=== PATIENT | male | born 1965 | race American Indian/Alaskan Native ===

== ENCOUNTER 2019-06-26 20:24 | Inpatient (IN) | payer MEDICARE, OTHER ==
--- NOTE | 2019-06-26 23:10 | XRay Report ---
CHEST 1 VIEW INDICATION: intubated. COMPARISON: None FINDINGS: SUPPORT DEVICES: Endotracheal tubes in good position.. HEART / MEDIASTINUM: No significant abnormality. LUNGS / PLEURA: Perihilar patchy airspace changes are present with prominent bronchovascular markings . No pneumothorax. ADDITIONAL FINDINGS: IMPRESSION: 1. Bilateral pulmonary process worrisome for pneumonia Signer Name: Gunner Bajwa MD Signed: 06/26/2019 11:06 PM Workstation Name: [id number]
[2019-06-26] MEDS ORDERED: SODIUM CHLORIDE 0.9% 1000 ML IV SOLN IV ONE (23:15)
[2019-06-26 23:47] LABS: ABG Base Excess 2.7 mmol/L (-2.0-3.0); ABG HCO3 26.5 mmol/L (20.0-26.0); ABG Methemoglobin 0.5 % (0.0-1.5); ABG PCO2 37.5 mm Hg; ABG PH 7.467 pH Units (7.350-7.450); ABG PO2 106.2 mm Hg (80.0-90.0)
[2019-06-27] MEDS ORDERED: VANCOMYCIN/NS 1 GM/250 ML 1 GM/250 ML BAG IV ONE (00:01)
[2019-06-27 00:02] LABS: Hematocrit 26.5 % (35.5-45.6); Hemoglobin 8.8 gm/dl (11.8-15.2); Mean Corpuscular HGB Conc 33 % (32-34); Mean Corpuscular Volume 91 fl (84-94); Platelet Count 217 K/mm3 (140-440); Red Cell Distribution Width 13.6 % (13.2-15.2)
[2019-06-27] MEDS ORDERED: NORepinephrine/NS 4 MG-250 ML 4 MG/250 ML BAG IV ONE (00:10)
[2019-06-27 00:16] LABS: Alanine Aminotransferase 56 units/L (7-56); Albumin 2.4 g/dL (3.9-5); BUN/Creatinine Ratio 11; Blood Urea Nitrogen 12 mg/dL (9-20); Calcium 9.1 mg/dL (8.4-10.2); Hemolysis Index 5
--- NOTE | 2019-06-27 00:19 | Emergency Department Report ---
ED General Adult HPI - General Chief complaint: Dyspnea/Respdistress Stated complaint: DIFFICULTY IN BREATHING Time Seen by Provider: 06/26/19 23:09 Source: EMS Mode of arrival: Stretcher Limitations: Altered Mental Status - History of Present Illness Initial comments: 54-year-old male with a history of Lewy body dementia diagnosed in 2016 presents for shortness of breath. Patient was discharged early on the afternoon of June 26, 2019 from the [facility] after being admitted for pneumonia. Patient was intubated secondary to respiratory failure. Patient's work-up also did consist of a Kovic 19 test which was ultimately negative. Patient was noted to be dehydrated and had a sodium of 161 while at the facility as well. states that patient still was having some shortness of breath upon discharge early today when he arrived home he was not on supplemental oxygen and continued to have worsening shortness of breath and that she called EMS and patient was brought here to this facility. Patient is in [facility] hospice but states that patient is still full code and is not a DNR. According to patient has had no recent fever. - Related Data Home Medications Medication Instructions Recorded Confirmed Last Taken Donepezil 5 mg PO DAILY 12/29/17 12/29/17 12/27/17 5 mg Previous Rx's Medication Instructions Recorded Last Taken Type Cyclobenzaprine HCl [Flexeril 5 MG 5 mg PO TID PRN #21 tab 01/02/18 Unknown Rx TAB] Sulfamethoxazole/Trimethoprim 1 each PO BID #20 tablet 01/02/18 Unknown Rx [Bactrim DS TAB] Allergies Allergy/AdvReac Type Severity Reaction Status Date / Time No Known Allergies Allergy Unverified 12/28/17 16:10 ED Review of Systems ROS: Stated complaint: DIFFICULTY IN BREATHING Other details as noted in HPI Comment: Unobtainable due to pts medical conditions ED Past Medical Hx - Past Medical History Hx Hypertension: Yes Hx Congestive Heart Failure: No Hx Diabetes: No Hx Asthma: No Hx COPD: No Hx Dementia: Yes Hx HIV: No - Social History Smoking Status: Never Smoker - Medications Home Medications: Home Medications Medication Instructions Recorded Confirmed Last Taken Type Donepezil 5 mg PO DAILY 12/29/17 12/29/17 12/27/17 History 5 mg Cyclobenzaprine HCl [Flexeril 5 MG 5 mg PO TID PRN #21 tab 01/02/18 Unknown Rx TAB] Sulfamethoxazole/Trimethoprim 1 each PO BID #20 tablet 01/02/18 Unknown Rx [Bactrim DS TAB] ED Physical Exam - General Limitations: Altered Mental Status General appearance: lethargic, other (Dehydrated; frail) - Head Head exam: Present: atraumatic, normocephalic - Eye Eye exam: Present: PERRL - ENT ENT exam: Present: mucous membranes dry, other (dry secretions noted in oropharynx) - Neck Neck exam: Present: normal inspection - Respiratory Respiratory exam: Present: other (Coarse breath sounds throughout the lung) - Cardiovascular Cardiovascular Exam: Present: normal rhythm, tachycardia - GI/Abdominal GI/Abdominal exam: Present: other (PEG tube noted with no surrounding erythema) - Extremities Exam Extremities exam: Present: normal inspection - Neurological Exam Neurological exam: Present: other (Not oriented to person place or time) - Skin Skin exam: Present: dry, intact ED Course Vital Signs 06/26/19 06/26/19 06/26/19 20:30 21:48 22:01 Pulse Rate 123 H 129 H Respiratory 26 H 20 Rate Blood Pressure 138/83 116/90 O2 Sat by Pulse 96 100 99 Oximetry 06/26/19 06/26/19 06/26/19 22:15 22:19 22:31 Pulse Rate 77 95 H 114 H Respiratory 64 H 35 H 39 H Rate Blood Pressure 110/80 110/80 110/80 O2 Sat by Pulse 100 100 100 Oximetry 06/26/19 06/26/19 06/26/19 22:45 22:55 23:01 Pulse Rate 116 H 112 H 111 H Respiratory 19 6 L 23 Rate Blood Pressure 110/80 110/72 110/72 O2 Sat by Pulse 100 100 100 Oximetry 06/26/19 06/26/19 06/26/19 23:15 23:31 23:45 Pulse Rate 117 H 115 H 120 H Respiratory 20 18 18 Rate Blood Pressure 110/72 110/72 110/72 O2 Sat by Pulse 100 100 100 Oximetry 06/27/19 06/27/19 00:00 00:15 Pulse Rate 112 H 108 H Respiratory 18 30 H Rate Blood Pressure 74/50 84/56 O2 Sat by Pulse 100 100 Oximetry - Central Line Placement Right Femoral Consent Obtained: emergent situation Time Out Performed: Yes Patient Placed on Monitor/Pulse Ox: Yes Prep: mask, gown, gloves Central Line Prep: Chlorhexidine scrub Local Anesthesia Used: Lidocaine 1% Ultrasound Used for Placement: Yes Central Line Lumen Inserted: triple Bloods Obtained for Lab: Yes Central Line Position: good blood return, all ports aspirated, flus, sutured in place with 3-0 Dressing Applied: Tegaderm Post Procedure X-Ray: tip of catheter in good p - Intubation Time Out Performed: Yes Sedative: Etomidate Mg Given: 20 Paralytic: Succinylcholine Mg Given: 100 Laryngoscope: other (Glideoscope) ET Tube Size: 8 Tube Placement Confirmation: visualized tube passing t Patient Tolerated Procedure: well ED Medical Decision Making - Lab Data Result diagrams: 06/26/19 23:31 06/26/19 23:31 - EKG Data EKG shows normal: sinus rhythm Rate: tachycardia - EKG Data Interpretation: no acute changes - Medical Decision Making Patient to be admitted to the hospitalist service for continued management and treatment. Patient noted to have pneumonia bilaterally. Patient had recent coronavirus test which was negative. Patient discussed with and patient to be intubated as she states she still wants him to be a full code. Patient intubated while in emergency department. Patient also given Zosyn and Vancomycin therapy for treatment of his pneumonia noted on chest x-ray. - Differential Diagnosis stemi; nstemi; dEHYDRATION; anemia; Hypernatremia; Pneumonia Critical Care Time: Yes Critical care time in (mins) excluding proc time.: 47 Critical care attestation.: If time is entered above; I have spent that time in minutes in the direct care of this critically ill patient, excluding procedure time. ED Disposition Clinical Impression: Pneumonia, Hypernatremia, Hypotension, Altered mental state Clinical Impression: (Ruled Out): Pneumonia allergic Disposition: OP ADMIT IP TO THIS HOSP Is pt being admited?: Yes Condition: Stable Instructions: Bacterial Pneumonia (ED) Referrals: PRIMARY CARE, [Primary Care Provider] - 3-5 Days Time of Disposition: 00:50 Print Language: SAMI
[2019-06-27] MEDS ORDERED: NORepinephrine/NS 4 MG-250 ML 4 MG/250 ML BAG IV SCH (01:00)
[2019-06-27] MEDS ORDERED: MAGNESIUM HYDROXIDE (MOM) ORAL LIQD UDC PO PRN (02:51)
--- NOTE | 2019-06-27 04:25 | History and Physical Report ---
History of Present Illness Date of examination: 06/27/19 Date of admission: 06/27/19 00:51 Chief complaint: Difficulty Breathing History of present illness: 54-year-old -[place] male with known history of Lewy body dementia brought into the emergency room today with complaints of difficulty breathing. Was recently admitted to [place] in the [facility] and discharged earlier today however upon getting home patient was having difficulty breathing. He was on admission for pneumonia and hyponatremia. He had a sodium of 161 while at the [facility]. called EMS and patient later brought to the emergency room. Oxygen saturation on arrival was in the 80s Work-up in the ER reveals bilateral pneumonia. He was started on empiric IV antibiotics.He was also started on Levophed for for his hypotension. Patient was said to be on hospice however requests patient to be full code Past History Past Medical History: other (Dementia) Past Surgical History: Other (Peg tube placement) Social history: no significant social history Medications and Allergies Allergies Allergy/AdvReac Type Severity Reaction Status Date / Time No Known Allergies Allergy Unverified 12/28/17 16:10 Home Medications Medication Instructions Recorded Confirmed Last Taken Type Donepezil 5 mg PO DAILY 12/29/17 12/29/17 12/27/17 History 5 mg Cyclobenzaprine HCl [Flexeril 5 MG 5 mg PO TID PRN #21 tab 01/02/18 Unknown Rx TAB] Sulfamethoxazole/Trimethoprim 1 each PO BID #20 tablet 01/02/18 Unknown Rx [Bactrim DS TAB] Active Meds: Active Medications Norepinephrine (Levophed Drip 4 Mg/Ns 250 Ml) 4 mg in 250 mls @ 7.5 mls/hr IV TITR LADY; Protocol Last Admin: 06/27/19 00:15 Dose: 2 mcg/min, 7.5 mls/hr Documented by: Dextrose/Sodium Chloride (D5/0.45ns) 1,000 mls @ 125 mls/hr IV DIRECT LADY Magnesium Hydroxide (Milk Of Magnesia) 30 ml PO Q4H PRN PRN Reason: Constipation Morphine Sulfate (Morphine) 2 mg IV Q4H PRN PRN Reason: Pain, Moderate (4-6) Sodium Chloride (Sodium Chloride Flush Syringe 10 Ml) 10 ml IV BID LADY Sodium Chloride (Sodium Chloride Flush Syringe 10 Ml) 10 ml IV PRN PRN PRN Reason: LINE FLUSH Review of Systems ROS unobtainable: due to endotracheal tube Exam - Constitutional Vitals: Temp Pulse Resp BP Pulse Ox 105 H 16 89/56 100 06/27/19 03:45 06/27/19 03:45 06/27/19 03:45 06/27/19 03:45 General appearance: Present: no acute distress, disheveled - EENT Eyes: Present: PERRL, EOM intact ENT: clear oral mucosa, dentition normal - Neck Neck: Present: supple, normal ROM - Respiratory Respiratory effort: normal Respiratory: bilateral: diminished - Cardiovascular Rhythm: regular Heart Sounds: Present: S1 & S2 - Extremities Extremities: no ischemia, No edema - Abdominal General gastrointestinal: Present: soft, non-tender, non-distended, other (PEG tube in place) - Integumentary Integumentary: Present: clear, warm, dry - Musculoskeletal Musculoskeletal: strength equal bilaterally - Psychiatric Psychiatric: appropriate mood/affect, intact judgment & insight, cooperative - Neurologic Neurologic: CNII-XII intact Results - Labs CBC & Chem 7: 06/26/19 23:31 06/26/19 23:31 Labs: Abnormal lab results 06/26/19 06/26/19 06/26/19 Range/Units 22:56 23:31 23:31 RBC 2.90 L (3.65-5.03) M/mm3 Hgb 8.8 L (11.8-15.2) gm/dl Hct 26.5 L (35.5-45.6) % ABG pH 7.467 H (7.350-7.450) pH Units ABG pO2 106.2 H (80.0-90.0) mm Hg ABG HCO3 26.5 H (20.0-26.0) mmol/L ABG Hemoglobin 9.6 L (14.0-18.0) gm/dl Sodium 150 H (137-145) mmol/L Chloride 111.7 H (98-107) mmol/L Lactic Acid (0.7-2.0) mmol/L AST 53 H (5-40) units/L Total Creatine Kinase (55-170) units/L Total Protein 6.2 L (6.3-8.2) g/dL Albumin 2.4 L (3.9-5) g/dL 06/26/19 06/26/19 Range/Units 23:31 23:31 RBC (3.65-5.03) M/mm3 Hgb (11.8-15.2) gm/dl Hct (35.5-45.6) % ABG pH (7.350-7.450) pH Units ABG pO2 (80.0-90.0) mm Hg ABG HCO3 (20.0-26.0) mmol/L ABG Hemoglobin (14.0-18.0) gm/dl Sodium (137-145) mmol/L Chloride (98-107) mmol/L Lactic Acid 2.20 H* (0.7-2.0) mmol/L AST (5-40) units/L Total Creatine Kinase 300 H (55-170) units/L Total Protein (6.3-8.2) g/dL Albumin (3.9-5) g/dL Assessment and Plan - Patient Problems (1) Pneumonia Current Visit: Yes Status: Acute Plan to address problem: Patient placed on empiric IV antibiotics. He has also been intubated secondary to his respiratory failure We will request records from [facility]. (2) Altered mental state Current Visit: Yes Status: Acute Plan to address problem: Possibly secondary to the pneumonia. (3) Hypernatremia Current Visit: Yes Status: Acute Plan to address problem: Patient placed on IV fluid D5 half-normal saline. Will monitor chemistry. (4) Dementia Current Visit: No Status: Chronic Qualifiers: Dementia type: Lewy body dementia Plan to address problem: We will resume routine home medications once patient able to tolerate p.o. intake (5) DVT prophylaxis Current Visit: No Status: Acute Plan to address problem: Patient on subcutaneous heparin (6) Full code status Current Visit: Yes Status: Acute
[2019-06-27 04:50] LABS: ABG Base Excess 0.4 mmol/L (-2.0-3.0); ABG HCO3 24.5 mmol/L (20.0-26.0); ABG Methemoglobin 0.4 % (0.0-1.5); ABG Oxygen Saturation 98.4 % (95.0-99.0); ABG PCO2 36.7 mm Hg; ABG PH 7.442 pH Units (7.350-7.450); ABG PO2 120.3 mm Hg (80.0-90.0)
[2019-06-27] MEDS ORDERED: ETOMIDATE 20 MG/10 ML INJ IV ONE (04:55)
[2019-06-27] MEDS ORDERED: SUCCINYLCHOLINE CHLORIDE 200 MG/10 ML INJ MDV ONE (04:55)
--- NOTE | 2019-06-27 06:20 | XRay Report ---
CHEST 1 VIEW INDICATION: ETT placement. COMPARISON: FINDINGS: SUPPORT DEVICES: Endotracheal tubes in good position.. Nasogastric tube has tip in the stomach. HEART / MEDIASTINUM: No significant abnormality. LUNGS / PLEURA: Perihilar patchy airspace changes are present with prominent bronchovascular markings . No pneumothorax. IMPRESSION 1. No significant change as compared to previous exam Signer Name: Gunner Bajwa MD Signed: 06/27/2019 6:16 AM Workstation Name: [id number]
[2019-06-27] MEDS ORDERED: D5W/0.45% NACL 1,000 ML IV ONE (07:45)
[2019-06-27] MEDS ORDERED: HEPARIN 5,000 UNIT/1 ML VIAL ONE (08:02)
[2019-06-27] MEDS: D5W/0.45% NACL 1,000 ML IV SCH ×2 (08:13→18:07)
[2019-06-27] MEDS: HEPARIN 5,000 UNIT/1 ML VIAL SUB-Q SCH ×3 (08:19→21:56)
--- NOTE | 2019-06-27 09:10 | Consultation ---
History of Present Illness Consult date: 06/27/19 Requesting physician: CHANTAL HERNANDEZ History of present illness: HISTORY PER MEDICAL RECORDS- PATIENT IS UNABLE TO GIVE A HISTORY- HE IS ORALLY INTUBATED AND SEDATED 54-year-old -[place] male with known history of Lewy body dementia brought into the emergency room today with complaints of difficulty breathing. Was recently admitted to [place] in the [facility] and discharged earlier today however upon getting home patient was having difficulty breathing. He was on admission for pneumonia and hyponatremia. He had a sodium of 161 while at the [facility]. called EMS and patient later brought to the emergency room. Oxygen saturation on arrival was in the 80s Work-up in the ER reveals bilateral pneumonia. He was started on empiric IV antibiotics.He was also started on Levophed for for his hypotension. Patient was said to be on hospice however requests patient to be full code. I have been consulted for critical care management. Patient seen and examined. Vitals, labs, medications, chart and imaging reviewed. Orally intubated, ETT at 23 cm at the lip, he has a right femoral CVC, with norepinephrine and propofol infusing. He is minimal responsive - Past Medical History Hx Hypertension: Yes Hx Congestive Heart Failure: No Hx Diabetes: No Hx Asthma: No Hx COPD: No Hx Dementia: Yes Hx HIV: No - Social History Smoking Status: Never Smoker Past History Past Medical History: other (Dementia) Past Surgical History: Other (Peg tube placement) Social history: no significant social history Medications and Allergies Allergies Allergy/AdvReac Type Severity Reaction Status Date / Time No Known Allergies Allergy Unverified 12/28/17 16:10 Home Medications Medication Instructions Recorded Confirmed Last Taken Type Donepezil 5 mg PO DAILY 12/29/17 06/27/19 12/27/17 History 5 mg Cyclobenzaprine HCl [Flexeril 5 MG 5 mg PO TID PRN #21 tab 01/02/18 06/27/19 Unknown Rx TAB] Sulfamethoxazole/Trimethoprim 1 each PO BID #20 tablet 01/02/18 06/27/19 Unknown Rx [Bactrim DS TAB] Active Meds: Active Medications Heparin Sodium (Porcine) (Heparin) 5,000 unit SUB-Q Q8HR LADY Last Admin: 06/27/19 08:19 Dose: 5,000 unit Documented by: Norepinephrine (Levophed Drip 4 Mg/Ns 250 Ml) 4 mg in 250 mls @ 7.5 mls/hr IV TITR LADY; Protocol Last Titration: 06/27/19 05:00 Dose: 3 mcg/min, 11.25 mls/hr Documented by: Dextrose/Sodium Chloride (D5/0.45ns) 1,000 mls @ 125 mls/hr IV DIRECT LADY Last Admin: 06/27/19 08:13 Dose: 125 mls/hr Documented by: Propofol (Diprivan 10 Mg/Ml) 1,000 mg in 100 mls @ 1.497 mls/hr IV TITR LADY; Protocol Last Titration: 06/27/19 07:00 Dose: 20 mcg/kg/min, 5.987 mls/hr Documented by: Magnesium Hydroxide (Milk Of Magnesia) 30 ml PO Q4H PRN PRN Reason: Constipation Morphine Sulfate (Morphine) 2 mg IV Q4H PRN PRN Reason: Pain, Moderate (4-6) Sodium Chloride (Sodium Chloride Flush Syringe 10 Ml) 10 ml IV BID LADY Sodium Chloride (Sodium Chloride Flush Syringe 10 Ml) 10 ml IV PRN PRN PRN Reason: LINE FLUSH Review of Systems ROS unobtainable: due to endotracheal tube, due to mental status Physical Examination Vital signs: Vital Signs Pulse Resp BP Pulse Ox 123 H 26 H 138/83 96 06/26/19 20:30 06/26/19 20:30 06/26/19 20:30 06/26/19 20:30 General appearance: no acute distress, other (sedated, orally intubated) ENT: oropharynx dry, other (ETT at 23cm at the lip) Neck: supple, no lymphadenopathy, no JVD Effort: mildly labored Ascultation: Bilateral: diminished breath sounds, rhonchi Cardiovascular: regular rate and rhythm (tachycardia), other (S1,S2, no murmurs, gallops) Gastrointestinal: normoactive bowel sounds, soft, non-tender, non-distended, other (PEG in place) Integumentary: decubitus ulcer (Stage 2) Extremities: no cyanosis, no edema, pulses normal, no ischemia or petechiae unable to assess other (secondary to mental status) Results - Laboratory Findings CBC and BMP: 06/28/19 04:05 06/28/19 04:05 ABG ABG pH 7.442 pH Units (7.350-7.450) 06/27/19 04:35 ABG pCO2 36.7 mm Hg 06/27/19 04:35 ABG pO2 120.3 mm Hg (80.0-90.0) H 06/27/19 04:35 ABG O2 Saturation 98.4 % (95.0-99.0) 06/27/19 04:35 Abnormal lab findings: Abnormal Labs 06/26/19 06/26/19 06/26/19 22:56 23:31 23:31 RBC 2.90 L Hgb 8.8 L Hct 26.5 L ABG pH 7.467 H ABG pO2 106.2 H ABG HCO3 26.5 H ABG Hemoglobin 9.6 L Sodium 150 H Chloride 111.7 H Lactic Acid AST 53 H Total Creatine Kinase Total Protein 6.2 L Albumin 2.4 L 06/26/19 06/26/19 06/27/19 23:31 23:31 04:35 RBC Hgb Hct ABG pH ABG pO2 120.3 H ABG HCO3 ABG Hemoglobin 7.4 L Sodium Chloride Lactic Acid 2.20 H* AST Total Creatine Kinase 300 H Total Protein Albumin - Diagnostic Findings Chest x-ray: image reviewed (Bilateral alveolar infiltrates, more prominent on the right) Assessment and Plan Severe sepsis with septic shock presumed pulmonary source HAP Acute hypoxemic respiratory failure, orally intubated on MVS PUI-COVID 19 Oropharyngeal dysphagia s/p PEG Possible aspiration PNA Lactic acidosis Hypernatremia Severe protein calorie malnutrition Acute metabolic encephalopathy h/o Lewy body dementia -Wean vasopressor support for MAP>65 -Continue with MVS, Lung protective strategies, monitor airway pressures -VAP bundle addressed -Aspiration precautions, HOB>40 -Daily assessment for readiness for SBT, Daily SAT -Titrate sedation for RAAS -1 to -2 -VTE prophylaxis -Stress ulcer prophylaxis - Initiate enteric nutrition in the morning Monitor glycemic control, with target blood glucose 140-180 mg/dL while critically ill. Avoid hypoglycemia -RD consult placed - Wean supplemental oxygen for target O2 sat's > 90% -ABG and CXR in am -Follow cultures and adjust antibiotic therapy for KORIN and culture results -Currently on therapy for HAP -Avoid nephrotoxins, adjust all medications for GFR and CrCL - continue bronchodilators with pulmonary hygiene per RT - continue to avoid benzodiazepines to reduce the possibility of delirium - prn analgesia per CPOT score - Maintenance of sleep-wake cycle, avoid delirium - PT/OT/ROM exercises - continue mobility protocol and skin assessment per protocol for pressure ulcer prevention - Monitor hemodynamics closely -Martinez cather in this critically ill patient on vasopressor support, requiring strict intake and output monitoring. Will re-address need for ongoing Martinez catheter use in the morning. -Place PICC line inthe morning and discontinue femoral line -Free water flushes and hypotonic solutions to treat hypernatremia -Contact and airborne isolation for PUI COVID-19 -Mobility, off loading and skin assessment per protocol to prevent pressure ulcer- Wound consult placed( he has a stage 2 sacral decubitus on exam) -Chronic home medications as clinically indicated - continue other care per attending / other consultants CONDITION: CRITICAL PROGNOSIS: GUARDED CODE STATUS: FULL CODE The high probability of a clinically significant, sudden or life-threatening deterioration of the [respiratory, cardiovascular, renal] system(s) required my full and direct attention, intervention and personal management. The aggregate critical care time was [35] minutes without overlap. Time includes spent on; [x] Data Review and interpretation [x] Patient assessment and monitoring of vital signs [x] Documentation [x] Medication orders and management
[2019-06-27] MEDS ORDERED: VANCOMYCIN PHARMACY TO DOSE IV SCH (11:00)
[2019-06-27] MEDS: FAMOTIDINE 20 MG/2 ML INJ IV SCH ×2 (11:30→21:40)
[2019-06-27] MEDS: CEFEPIME/NS 1 GM/100 ML 1 GM/100 ML BAG IV SCH ×2 (11:30→18:07)
--- NOTE | 2019-06-27 16:41 | Event Note ---
Date: 06/27/19 This is a follow-up from an admission earlier this morning.Patient seen and examined.We will continue to plan as outlined in the H&P. total visit time = 28 minutes with greater than 50% spent all coordination of care and counseling
[2019-06-27] MEDS: VANCOMYCIN/NS 1 GM/250 ML 1 GM/250 ML BAG IV SCH (21:20)
[2019-06-27] MEDS: fentaNYL DRIP Premix 2,000 MCG/100 ML BAG IV SCH (21:20)
[2019-06-28] MEDS: CEFEPIME/NS 1 GM/100 ML 1 GM/100 ML BAG IV SCH ×3 (03:20→18:26)
[2019-06-28 04:02] LABS: ABG Base Excess 1.4 mmol/L (-2.0-3.0); ABG HCO3 25.3 mmol/L (20.0-26.0); ABG Methemoglobin 0.5 % (0.0-1.5); ABG Oxygen Saturation 98.9 % (95.0-99.0); ABG PCO2 36.6 mm Hg; ABG PH 7.457 pH Units (7.350-7.450); ABG PO2 152.6 mm Hg (80.0-90.0)
[2019-06-28] MEDS: D5W/0.45% NACL 1,000 ML IV SCH ×3 (04:04→23:00)
[2019-06-28 04:42] LABS: Basophils % (Auto) 0.6 % (0.0-1.8); Eosinophils # (Auto) 0.3 K/mm3 (0.0-0.4); Eosinophils % (Auto) 3.4 % (0.0-4.3); Hematocrit 23.9 % (35.5-45.6); Hemoglobin 7.8 gm/dl (11.8-15.2); Lymphocytes # (Auto) 1.4 K/mm3 (1.2-5.4); Lymphocytes % (Auto) 17.5 % (13.4-35.0); Mean Corpuscular HGB Conc 33 % (32-34); Mean Corpuscular Volume 91 fl (84-94); Monocytes # (Auto) 0.7 K/mm3 (0.0-0.8); Monocytes % (Auto) 8.6 % (0.0-7.3); Platelet Count 239 K/mm3 (140-440); Red Blood Count 2.65 M/mm3 (3.65-5.03); Red Cell Distribution Width 13.6 % (13.2-15.2)
[2019-06-28 04:50] LABS: INR 1.21 (0.87-1.13)
[2019-06-28 04:51] LABS: Partial Thromboplastin Time 36.7 Sec. (24.2-36.6)
[2019-06-28 05:00] LABS: BUN/Creatinine Ratio 9; Blood Urea Nitrogen 10 mg/dL (9-20); Calcium 8.3 mg/dL (8.4-10.2); Hemolysis Index 0
--- NOTE | 2019-06-28 05:52 | XRay Report ---
CHEST 1 VIEW INDICATION: follow up respiratory failure. COMPARISON: 06/27/2019 FINDINGS: SUPPORT DEVICES: Endotracheal tubes in good position and nasogastric been removed. HEART / MEDIASTINUM: No significant abnormality. LUNGS / PLEURA: Perihilar-infrahilar patchy airspace changes are present with prominent bronchovascul ar markings. No pneumothorax. IMPRESSION 1. No significant change as compared to previous exam Signer Name: Gunner Bajwa MD Signed: 06/28/2019 5:47 AM Workstation Name: [id number]
[2019-06-28] MEDS: HEPARIN 5,000 UNIT/1 ML VIAL SUB-Q SCH ×3 (06:02→22:54)
[2019-06-28] MEDS ORDERED: POTASSIUM CHLORIDE 20 MEQ PACKET FEEDTUBE ONE (06:15)
--- NOTE | 2019-06-28 09:57 | Progress Note ---
Assessment and Plan Severe sepsis with septic shock presumed pulmonary source HAP Acute hypoxemic respiratory failure, orally intubated on MVS PUI-COVID 19 Oropharyngeal dysphagia s/p PEG Possible aspiration PNA Lactic acidosis Hypernatremia Severe protein calorie malnutrition Acute metabolic encephalopathy h/o Lewy body dementia Decrease tidal volume to 400 Initiate enteric nutrition in the morning Monitor glycemic control, with target blood glucose 140-180 mg/dL while critically ill. Avoid hypoglycemia Bowel regimen Remove ramirez catheter Continue Vancomycin and Cefepime for HAP Monitor for toxicities Start free water at 200ml Q6h, hypotonic solutions for treatment of hypernatremia. Monitor levels Discontinue Ramirez catheter Place PICC line and discontinue femoral CVC -Continue with MVS, Lung protective strategies, monitor airway pressures -Aspiration precautions, HOB>40 -Daily assessment for readiness for SBT, Daily SAT -Titrate sedation for RAAS -1 to -2 -VTE prophylaxis -Stress ulcer prophylaxis - Wean supplemental oxygen for target O2 sat's > 90% -ABG and CXR in am -Follow cultures and adjust antibiotic therapy for KORIN and culture results -Currently on therapy for HAP -Avoid nephrotoxins, adjust all medications for GFR and CrCL - continue bronchodilators with pulmonary hygiene per RT - continue to avoid benzodiazepines to reduce the possibility of delirium - prn analgesia per CPOT score - Maintenance of sleep-wake cycle, avoid delirium - PT/OT/ROM exercises - continue mobility protocol and skin assessment per protocol for pressure ulcer prevention - Monitor hemodynamics closely -Contact and airborne isolation for PUI COVID-19 -Mobility, off loading and skin assessment per protocol to prevent pressure ulcer- Wound consult placed( he has a stage 2 sacral decubitus on exam) -Chronic home medications as clinically indicated - continue other care per attending / other consultants Called his [place] [phone], her voice mail is full. I was unable to contact her to give her an update CONDITION: CRITICAL PROGNOSIS: GUARDED CODE STATUS: FULL CODE The high probability of a clinically significant, sudden or life-threatening deterioration of the [respiratory, cardiovascular, renal] system(s) required my full and direct attention, intervention and personal management. The aggregate critical care time was [35] minutes without overlap. Time includes spent on; [x] Data Review and interpretation [x] Patient assessment and monitoring of vital signs [x] Documentation [x] Medication orders and management Subjective Date of service: 06/28/19 Interval history: Follow up for: Severe sepsis with septic shock presumed pulmonary source;HAP;Acute hypoxemic respiratory failure, orally intubated on MVS PUI-COVID 19;Oropharyngeal dysphagia s/p PEG;Possible aspiration PNA;Lactic acidosis;Hypernatremia;Severe protein calorie malnutrition;Acute metabolic encephalopathy Patient seen and examined. Vitals, labs, medications, chart and imaging reviewed. 24 hour events reviewed. No adverse overnight events reported Remains orally intubated Size 8.0 ETT at 22cm Vent settings AC-VC 16/500/6/50% ABG 7.45/36/152/25.3 On IVF at 125cc/hour Objective Vital Signs - 12hr 06/27/19 06/27/19 06/27/19 22:00 22:11 22:21 Temperature Pulse Rate 129 H 127 H 126 H Pulse Rate [ Apical] Pulse Rate [ From Monitor] Respiratory 16 16 19 Rate Blood Pressure 96/57 96/57 101/68 O2 Sat by Pulse 100 100 100 Oximetry 06/27/19 06/27/19 06/27/19 22:30 22:41 22:51 Temperature Pulse Rate 126 H 130 H 125 H Pulse Rate [ Apical] Pulse Rate [ From Monitor] Respiratory 17 16 16 Rate Blood Pressure 100/68 89/59 106/71 O2 Sat by Pulse 100 100 100 Oximetry 06/27/19 06/27/19 06/27/19 23:00 23:11 23:21 Temperature Pulse Rate 128 H 124 H 125 H Pulse Rate [ Apical] Pulse Rate [ From Monitor] Respiratory 16 16 16 Rate Blood Pressure 105/72 105/72 110/68 O2 Sat by Pulse 100 100 100 Oximetry 06/27/19 06/27/19 06/27/19 23:30 23:39 23:40 Temperature 98.1 F Pulse Rate 124 H 94 H Pulse Rate [ Apical] Pulse Rate [ From Monitor] Respiratory 16 Rate Blood Pressure 106/78 137/97 O2 Sat by Pulse 100 100 Oximetry 06/27/19 06/27/19 06/27/19 23:41 23:50 23:51 Temperature Pulse Rate 122 H 120 H 120 H Pulse Rate [ 122 H Apical] Pulse Rate [ 122 H From Monitor] Respiratory 18 17 17 Rate Blood Pressure 106/78 106/74 O2 Sat by Pulse 100 100 100 Oximetry 06/28/19 06/28/19 06/28/19 00:00 00:05 00:11 Temperature Pulse Rate 125 H 124 H 121 H Pulse Rate [ Apical] Pulse Rate [ From Monitor] Respiratory 16 16 16 Rate Blood Pressure 93/60 93/60 93/60 O2 Sat by Pulse 99 99 99 Oximetry 20/20 2020 06/28/19 00:21 00:30 00:41 Temperature Pulse Rate 121 H 118 H 114 H Pulse Rate [ Apical] Pulse Rate [ From Monitor] Respiratory 16 16 16 Rate Blood Pressure 85/57 85/52 85/52 O2 Sat by Pulse 99 99 99 Oximetry 06/28/19 06/28/19 06/28/19 00:51 01:00 01:11 Temperature Pulse Rate 111 H 107 H 109 H Pulse Rate [ Apical] Pulse Rate [ From Monitor] Respiratory 16 16 16 Rate Blood Pressure 89/56 91/58 91/58 O2 Sat by Pulse 100 100 100 Oximetry 06/28/19 06/28/19 06/28/19 01:20 01:21 01:30 Temperature Pulse Rate 109 H 109 H 107 H Pulse Rate [ 109 H Apical] Pulse Rate [ 109 H From Monitor] Respiratory 17 16 16 Rate Blood Pressure 102/62 107/68 O2 Sat by Pulse 100 100 100 Oximetry 06/28/19 06/28/19 06/28/19 01:41 01:51 02:00 Temperature Pulse Rate 104 H 109 H 107 H Pulse Rate [ Apical] Pulse Rate [ From Monitor] Respiratory 16 16 16 Rate Blood Pressure 107/68 105/67 109/64 O2 Sat by Pulse 100 100 100 Oximetry 06/28/19 06/28/19 06/28/19 02:11 02:21 02:30 Temperature Pulse Rate 107 H 107 H 105 H Pulse Rate [ Apical] Pulse Rate [ From Monitor] Respiratory 16 16 16 Rate Blood Pressure 109/64 109/66 99/62 O2 Sat by Pulse 100 100 100 Oximetry 2020/20 2020 02:41 02:51 03:00 Temperature Pulse Rate 108 H 107 H 105 H Pulse Rate [ Apical] Pulse Rate [ From Monitor] Respiratory 16 16 16 Rate Blood Pressure 99/62 106/60 95/58 O2 Sat by Pulse 100 100 100 Oximetry 06/28/192020 2020 03:11 03:21 03:24 Temperature 98.2 F Pulse Rate 102 H 111 H Pulse Rate [ Apical] Pulse Rate [ From Monitor] Respiratory 16 12 Rate Blood Pressure 95/58 104/65 O2 Sat by Pulse 100 100 Oximetry 06/28/1920 06/28/19 03:30 03:41 03:50 Temperature Pulse Rate 103 H 110 H Pulse Rate [ 109 H Apical] Pulse Rate [ 109 H From Monitor] Respiratory 16 14 17 Rate Blood Pressure 97/62 104/65 O2 Sat by Pulse 100 100 100 Oximetry 06/28/19 06/28/19 06/28/19 03:51 03:54 04:00 Temperature Pulse Rate 101 H 96 H 95 H Pulse Rate [ Apical] Pulse Rate [ From Monitor] Respiratory 16 4 L 16 Rate Blood Pressure 103/55 137/94 92/58 O2 Sat by Pulse 100 100 100 Oximetry 06/28/1920 06/28/19 04:11 04:21 04:31 Temperature Pulse Rate 90 83 88 Pulse Rate [ Apical] Pulse Rate [ From Monitor] Respiratory 16 16 12 Rate Blood Pressure 97/62 83/58 90/66 O2 Sat by Pulse 100 100 100 Oximetry 06/28/19 06/28/19 06/28/19 04:41 04:51 05:00 Temperature Pulse Rate 87 84 83 Pulse Rate [ Apical] Pulse Rate [ From Monitor] Respiratory 16 16 16 Rate Blood Pressure 90/66 91/59 86/56 O2 Sat by Pulse 100 100 100 Oximetry 06/28/19 06/28/1920 05:11 05:21 05:30 Temperature Pulse Rate 81 72 88 Pulse Rate [ Apical] Pulse Rate [ From Monitor] Respiratory 16 16 17 Rate Blood Pressure 86/56 94/61 110/65 O2 Sat by Pulse 100 100 100 Oximetry 20 06/27/20 20 05:41 05:51 06:00 Temperature Pulse Rate 71 79 74 Pulse Rate [ Apical] Pulse Rate [ From Monitor] Respiratory 16 16 16 Rate Blood Pressure 110/65 98/66 95/63 O2 Sat by Pulse 100 100 100 Oximetry 20/20 20/20 20 06:11 06:21 06:30 Temperature Pulse Rate 82 77 84 Pulse Rate [ Apical] Pulse Rate [ From Monitor] Respiratory 16 16 17 Rate Blood Pressure 95/63 88/60 94/64 O2 Sat by Pulse 100 100 100 Oximetry 06/28/19 06/28/19 06/28/19 06:41 06:51 07:00 Temperature Pulse Rate 83 79 80 Pulse Rate [ Apical] Pulse Rate [ From Monitor] Respiratory 16 16 16 Rate Blood Pressure 94/64 101/63 103/66 O2 Sat by Pulse 100 100 100 Oximetry 06/28/19 06/28/19 06/28/19 07:11 07:21 07:30 Temperature Pulse Rate 77 79 80 Pulse Rate [ Apical] Pulse Rate [ From Monitor] Respiratory 16 16 16 Rate Blood Pressure 103/66 100/68 100/72 O2 Sat by Pulse 100 100 100 Oximetry 06/28/19 06/28/19 06/28/19 07:41 07:51 08:00 Temperature 96.8 F L Pulse Rate 77 75 75 Pulse Rate [ Apical] Pulse Rate [ 75 From Monitor] Respiratory 16 16 16 Rate Blood Pressure 100/72 105/71 103/71 O2 Sat by Pulse 100 100 100 Oximetry 06/28/19 06/28/19 08:11 08:21 Temperature Pulse Rate 78 86 Pulse Rate [ Apical] Pulse Rate [ From Monitor] Respiratory 16 15 Rate Blood Pressure 103/71 105/72 O2 Sat by Pulse 100 100 Oximetry Constitutional: no acute distress, other (sedated, orally intubated) ENT: oropharynx dry, other (ETT at 23cm at the lip) Neck: supple, no lymphadenopathy, no JVD Effort: mildly labored Ascultation: Bilateral: diminished breath sounds, rhonchi Cardiovascular: regular rate and rhythm (tachycardia), other (S1,S2, no murmurs, gallops) Gastrointestinal: normoactive bowel sounds, soft, non-tender, non-distended, other (PEG in place) Integumentary: decubitus ulcer (Stage 2) Extremities: no cyanosis, no edema, pulses normal, no ischemia or petechiae Neurologic: unable to assess Psychiatric: other (secondary to mental status) CBC and BMP: 06/28/19 04:05 06/28/19 04:05 ABG, PT/INR, D-dimer: ABG ABG pH 7.457 pH Units (7.350-7.450) H 06/28/19 03:45 ABG pCO2 36.6 mm Hg 06/28/19 03:45 ABG pO2 152.6 mm Hg (80.0-90.0) H 06/28/19 03:45 ABG O2 Saturation 98.9 % (95.0-99.0) 06/28/19 03:45 PT/INR, D-dimer PT 15.5 Sec. (12.2-14.9) H 06/28/19 04:05 INR 1.21 (0.87-1.13) H 06/28/19 04:05 Abnormal lab findings: Abnormal Labs 06/26/19 06/26/19 06/26/19 22:56 23:31 23:31 RBC 2.90 L Hgb 8.8 L Hct 26.5 L [place] % (Auto) PT INR APTT ABG pH 7.467 H ABG pO2 106.2 H ABG HCO3 26.5 H ABG Hemoglobin 9.6 L Sodium 150 H Potassium Chloride 111.7 H Glucose POC Glucose Lactic Acid Calcium AST 53 H Total Creatine Kinase Total Protein 6.2 L Albumin 2.4 L 06/26/19 06/26/19 06/27/19 23:31 23:31 04:35 RBC Hgb Hct [place] % (Auto) PT INR APTT ABG pH ABG pO2 120.3 H ABG HCO3 ABG Hemoglobin 7.4 L Sodium Potassium Chloride Glucose POC Glucose Lactic Acid 2.20 H* Calcium AST Total Creatine Kinase 300 H Total Protein Albumin 06/27/19 06/27/19 06/28/19 08:53 12:37 03:45 RBC Hgb Hct [place] % (Auto) PT INR APTT ABG pH 7.457 H ABG pO2 152.6 H ABG HCO3 ABG Hemoglobin 8.4 L Sodium Potassium Chloride Glucose POC Glucose 108 H 125 H Lactic Acid Calcium AST Total Creatine Kinase Total Protein Albumin 06/28/19 06/28/19 06/28/19 04:05 04:05 04:05 RBC 2.65 L Hgb 7.8 L Hct 23.9 L [place] % (Auto) 8.6 H PT 15.5 H INR 1.21 H APTT 36.7 H ABG pH ABG pO2 ABG HCO3 ABG Hemoglobin Sodium 151 H Potassium 3.1 L Chloride 116.1 H Glucose 125 H POC Glucose Lactic Acid Calcium 8.3 L AST Total Creatine Kinase Total Protein Albumin
[2019-06-28] MEDS: FAMOTIDINE 20 MG/2 ML INJ IV SCH ×2 (10:16→22:54)
--- NOTE | 2019-06-28 11:42 | Progress Note ---
Assessment and Plan Assessment and plan: Severe sepsis with septic shock. Continue pressors as needed to maintain MAP greater than 65. Continue IV antibiotics and follow-up cultures. Hospital-acquired pneumonia. Continue IV antibiotics. Suspected COVID19/PUI. Contact and airborne isolation for PUI COVID-19 Oropharyngeal dysphagia. Patient is status post PEG. Severe protein calorie malnutrition. Continue tube feedings with aspiration precautions. Toxic metabolic encephalopathy with underlying Lewy body dementia. Continue to treat underlying causes and supportive care. Hypernatremia. Continue free water and follow-up BMP. The high probability of a clinically significant, sudden or life threatening deterioration of the [hemodynamic, immunologic and respiratory] system(s) required my full and direct attention, intervention and personal management. The aggregate critical care time was [32] minutes. This time is in addition to time spent performing reported procedures but includes the following: [x] Data Review and interpretation [x] Patient assessment and monitoring of vital signs [x] Documentation [x] Medication orders and management History Interval history: Patient remains on mechanical ventilation. Hospitalist Physical - Constitutional Vitals: Temp Pulse Resp BP Pulse Ox 96.8 F L 80 16 109/70 100 06/28/19 08:00 06/28/19 10:21 06/28/19 10:21 06/28/19 10:21 06/28/19 10:21 General appearance: Present: no acute distress, disheveled - EENT Eyes: Present: PERRL, EOM intact ENT: hearing intact, clear oral mucosa, dentition normal - Neck Neck: Present: supple, normal ROM - Respiratory Respiratory effort: normal Respiratory: bilateral: diminished, rhonchi - Cardiovascular Rhythm: regular Heart Sounds: Present: S1 & S2. Absent: gallop, rub - Extremities Extremities: no ischemia, No edema, Full ROM - Abdominal General gastrointestinal: soft, non-tender, non-distended, normal bowel sounds - Integumentary Integumentary: Present: clear, warm, dry - Neurologic Neurologic: CNII-XII intact, moves all extremities Results - Labs CBC & Chem 7: 06/28/19 04:05 06/28/19 04:05 Labs: Laboratory Last Values WBC 8.0 K/mm3 (4.5-11.0) 06/28/19 04:05 RBC 2.65 M/mm3 (3.65-5.03) L 06/28/19 04:05 Hgb 7.8 gm/dl (11.8-15.2) L 06/28/19 04:05 Hct 23.9 % (35.5-45.6) L 06/28/19 04:05 MCV 91 fl (84-94) 06/28/19 04:05 MCH 30 pg (28-32) 06/28/19 04:05 MCHC 33 % (32-34) 06/28/19 04:05 RDW 13.6 % (13.2-15.2) 06/28/19 04:05 Plt Count 239 K/mm3 (140-440) 06/28/19 04:05 Lymph % (Auto) 17.5 % (13.4-35.0) 06/28/19 04:05 [place] % (Auto) 8.6 % (0.0-7.3) H 06/28/19 04:05 Eos % (Auto) 3.4 % (0.0-4.3) 06/28/19 04:05 Baso % (Auto) 0.6 % (0.0-1.8) 06/28/19 04:05 Lymph # 1.4 K/mm3 (1.2-5.4) 06/28/19 04:05 [place] # 0.7 K/mm3 (0.0-0.8) 06/28/19 04:05 Eos # 0.3 K/mm3 (0.0-0.4) 06/28/19 04:05 Baso # 0.0 K/mm3 (0.0-0.1) 06/28/19 04:05 Seg Neutrophils % 69.9 % (40.0-70.0) 06/28/19 04:05 Seg Neutrophils # 5.6 K/mm3 (1.8-7.7) 06/28/19 04:05 PT 15.5 Sec. (12.2-14.9) H 06/28/19 04:05 INR 1.21 (0.87-1.13) H 06/28/19 04:05 APTT 36.7 Sec. (24.2-36.6) H 06/28/19 04:05 ABG pH 7.457 pH Units (7.350-7.450) H 06/28/19 03:45 ABG pCO2 36.6 mm Hg 06/28/19 03:45 ABG pO2 152.6 mm Hg (80.0-90.0) H 06/28/19 03:45 ABG HCO3 25.3 mmol/L (20.0-26.0) 06/28/19 03:45 ABG O2 Saturation 98.9 % (95.0-99.0) 06/28/19 03:45 ABG O2 Content 11.8 (0.0-44) 06/28/19 03:45 ABG Base Excess 1.4 mmol/L (-2.0-3.0) 06/28/19 03:45 ABG Hemoglobin 8.4 gm/dl (14.0-18.0) L 06/28/19 03:45 ABG Carboxyhemoglobin 1.1 % (0.0-5.0) 06/28/19 03:45 ABG Methemoglobin 0.5 % (0.0-1.5) 06/28/19 03:45 Oxyhemoglobin 97.4 % (95.0-99.0) 06/28/19 03:45 FiO2 50 % 06/28/19 03:45 Sodium 151 mmol/L (137-145) H 06/28/19 04:05 Potassium 3.1 mmol/L (3.6-5.0) L 06/28/19 04:05 Chloride 116.1 mmol/L (98-107) H 06/28/19 04:05 Carbon Dioxide 25 mmol/L (22-30) 06/28/19 04:05 Anion Gap 13 mmol/L 06/28/19 04:05 BUN 10 mg/dL (9-20) 06/28/19 04:05 Creatinine 1.1 mg/dL (0.8-1.5) 06/28/19 04:05 Estimated GFR > 60 ml/min 06/28/19 04:05 BUN/Creatinine Ratio 9 % 06/28/19 04:05 Glucose 125 mg/dL (75-100) H 06/28/19 04:05 POC Glucose 125 (70-105) H 06/27/19 12:37 Lactic Acid 1.30 mmol/L (0.7-2.0) 06/27/19 05:02 Calcium 8.3 mg/dL (8.4-10.2) L 06/28/19 04:05 Total Bilirubin 0.50 mg/dL (0.1-1.2) 06/26/19 23:31 AST 53 units/L (5-40) H 06/26/19 23:31 ALT 56 units/L (7-56) 06/26/19 23:31 Alkaline Phosphatase 109 units/L (35-129) 06/26/19 23:31 Total Creatine Kinase 300 units/L (55-170) H 06/26/19 23:31 Troponin T < 0.010 ng/mL (0.00-0.029) 06/26/19 23:31 Total Protein 6.2 g/dL (6.3-8.2) L 06/26/19 23:31 Albumin 2.4 g/dL (3.9-5) L 06/26/19 23:31 Albumin/Globulin Ratio 0.6 % 06/26/19 23:31 Microbiology: Microbiology 06/26/19 Unknown Tracheal Aspirate Sputum Culture - Preliminary 06/27/19 00:19 Peripheral/Venous Blood Culture - Preliminary NO GROWTH AFTER 24 HOURS 06/26/19 23:31 Peripheral/Venous Blood Culture - Preliminary NO GROWTH AFTER 24 HOURS Martinez/IV: Voiding Method Indwelling Catheter IV Catheter Type [Left Wrist] INT / Saline Lock IV Catheter Type [Right Leg] Triple Lumen Cath Active Medications - Current Medications Current Medications: Generic Name Dose Route Start Last Admin Trade Name Freq PRN Reason Stop Dose Admin Famotidine 20 mg 06/27/19 11:00 06/28/19 10:16 Pepcid IV 20 mg BID LADY Administration Heparin Sodium (Porcine) 5,000 unit 06/27/19 06:00 06/28/19 06:02 Heparin SUB-Q 5,000 unit Q8HR LADY Administration Norepinephrine 4 mg in 250 mls @ 7.5 mls/hr 06/27/19 01:00 06/28/19 09:20 Levophed Drip 4 Mg/Ns 250 Ml IV 0 mcg/min TITR LADY 0 mls/hr Titration Protocol 2 MCG/MIN Dextrose/Sodium Chloride 1,000 mls @ 125 mls/hr 06/27/19 03:00 06/28/19 04:04 D5/0.45ns IV 125 mls/hr DIRECT LADY Administration Propofol 1,000 mg in 100 mls @ 1.497 mls/hr 06/27/19 06:00 06/28/19 10:29 Diprivan 10 Mg/Ml IV 5 mcg/kg/min TITR LADY 1.497 mls/hr Titration Protocol 5 MCG/KG/MIN Cefepime HCl 1 gm in 100 mls @ 200 mls/hr 06/27/19 11:00 06/28/19 10:16 Cefepime/Ns 1 Gm/100 Ml IV 200 mls/hr Q8H LADY Administration Protocol Vancomycin HCl 1 gm in 250 mls @ 167.007 mls/hr 06/27/19 22:00 06/27/19 21:20 Vancomycin/Ns 1 Gm/250 Ml IV 167.007 mls/hr Q24H LADY Administration Fentanyl Citrate 2,000 mcg in 100 mls @ 2.495 mls/hr 06/27/19 19:00 06/27/19 21:35 Fentanyl Drip Premix IV 1 mcg/kg/hr TITR LADY 2.495 mls/hr Titration Protocol 1 MCG/KG/HR Magnesium Hydroxide 30 ml 06/27/19 02:51 Milk Of Magnesia PO Q4H PRN Constipation Morphine Sulfate 2 mg 06/27/19 02:51 Morphine IV Q4H PRN Pain, Moderate (4-6) Sodium Chloride 10 ml 06/27/19 10:00 06/28/19 10:16 Sodium Chloride Flush Syringe 10 Ml IV 10 ml BID LADY Administration Sodium Chloride 10 ml 06/27/19 02:51 06/27/19 09:10 Sodium Chloride Flush Syringe 10 Ml IV 10 ml PRN PRN Administration LINE FLUSH Nutrition/Malnutrition Assess - Dietary Evaluation Nutrition/Malnutrition Findings: Nutrition Notes Start: 06/27/19 09:53 Freq: Status: Active Protocol: Document 06/27/19 09:53 LP (Rec: 06/27/19 10:06 LP [id number]) Nutrition Notes Need for Assessment generated from: MD Order Initial or Follow up Brief Note Current Diagnosis Hypertension Other Pertinent Diagnosis Lewy body dementia, pneu Current Diet NPO Labs/Tests Na 150 06/26/19 Pertinent Medications D5 1/2 NS at 125ml/hr Levo Propofol Height 5 ft 10 in Weight 49.895 kg [place] Body Weight (kg) 75.45 BMI 15.7 Weight Status Underweight Subjective/Other Information Consult for diet education and evaluation of nutrition intake. Pt one vent. Burn Absent Trauma Absent #1 Nutrition Diagnosis Inadequate oral intake Etiology vent As Evidenced by Signs and Symptoms Pt unable to consume PO due to vent Is patient on ventilator? Yes Is Patient Ambulatory and/or Out of Bed No REE-([facility]-confined to bed) 1612.920 Kcal/Kg value to use for calculation 40 Approximate Energy Requirements Using 1995 kcal/Kg Calculation Used for Recommendations Kcal/kg Additional Notes Protein needs are 60-100g (1.2 -2g/kg) Fluid needs are 1ml/kcal Nutrition Intervention Change Diet Order: TF or diet advancement Nutrition Support: When consulted Osmolite 1.5 at 55ml/hr Flush with 250ml q4h for hypernatremia and 150ml q4h once resolved Kcal 1,980 Protein (gm) 83 Fluid (mL) 1,006 Goal #1 TF consult or extubation Anticipated Discharge Needs: Unable to determine at this time Follow-Up By: 07/01/19 Additional Comments Follow for TF consult or extubation
--- NOTE | 2019-06-28 14:10 | Progress Note ---
Assessment and Plan Cultures: Blood culture 06/26/2019 no growth to date Sputum culture 06/26/2019 no growth to date A/P: 54-year-old man past medical history of Lewy body dementia admitted with bilateral pneumonia. #COVID-19 rule out: Patient is currently in airborne and contact since he is intubated. Patient recently had a negative COVID-19 test, however it does not rule out possibility he was either newly infected or that it was a false negative test. He has a normal white count with increased liver enzymes, which is consistent with COVID-19 disease. Patient is listed as a PUI, however I am unsure if the [facility] survey was filled out. If not, please complete to have testing available. #Bilateral pneumonia: Order procalcitonin to confirm if viral pneumonia. Can continue vancomycin and cefepime anytime given the patient is alf exposures. Would also order flu PCR and serologies. #Lewy body dementia #Acute hypoxic respiratory failure Recs: -Continue contact and airborne, and droplet precautions -Complete PUI survery from [facility] if not already completed. -Continue vancomycin and cefepime. -Ordered procalcitonin for morning labs -Rapid influenza PCR. For the consult, will continue to follow Jf Batista MD [facility] ([facility] M: [phone] O: [phone] F: [phone] Subjective Date of service: 06/28/19 Interval history: 54-year-old man with a past medical history of Lewy body dementia admitted today with shortness of breath. Patient is a home hospice patient, however he is not DNR. He was recently admitted to a different hospital, and discharged earlier on the day of admission. He had a negative COVID-19 test at that time. He was found to be hyponatremic at his alf. He was desaturating to the 80s on admission, was intubated for hypoxic respiratory failure Afebrile since admission with a normal white count. He is currently receiving vancomycin and cefepime. He has transaminitis. Blood and sputum cultures are currently pending. Imaging personally reviewed Chest x-ray: Bilateral patchy opacities Review of Systems: Bold if positive, otherwise negative General: fevers, chills, rigors HEENT: visual disturbance, diplopia, eye pain Respiratory: cough, sputum, hemoptysis, shortness of breath Cardiovascular: chest pain, syncope Gastrointestinal: nausea, vomiting, diarrhea, abdominal pain Genitourinary: dysuria, hematuria, flank pain Musculoskeletal: neck pain, back pain, joint pain, edema Neurologic: headaches, seizures Hematologic: easy bruising or bleeding Endocrine: night sweats, acute weight loss Skin: rash, jaundice, redness Psychiatric: suicidal, homicidal ideation Objective - Exam Narrative Exam: Physical Exam: Constitutional: Intubated, sedated Head, Ears, Nose: Normocephalic, atraumatic. External ears, nose normal Eyes: Conjunctivae/corneas clear. No icterus. No ptosis. Neck: Supple, no meningeal signs Oral: Endotracheal tube Cardiovascular: S1, S2 normal. Respiratory: Good air entry, clear to auscultation bilaterally GI: Soft, non-tender; bowel sounds normal. No peritoneal signs. Musculoskeletal: No pedal edema, no cyanosis. Skin: No rash or abscess Hem/Lymphatic: No palpable cervical or supraclavicular nodes. No lymphangitis Psych: Sedated Neurological: Sedated - Constitutional Vitals: Vital Signs Temp Pulse Resp BP Pulse Ox 98.3 F 79 16 101/65 100 06/28/19 12:00 06/28/19 11:00 06/28/19 10:21 06/28/19 11:00 06/28/19 11:00 Temperature -Last 24 Hours Temperature 98.3 F Temperature 96.8 F Temperature 98.2 F Temperature 98.1 F Temperature 99.8 F Temperature 97.8 F - Labs CBC & Chem 7: 06/28/19 04:05 06/28/19 04:05 Labs: Abnormal lab results 06/28/19 06/28/19 06/28/19 Range/Units 03:45 04:05 04:05 RBC 2.65 L (3.65-5.03) M/mm3 Hgb 7.8 L (11.8-15.2) gm/dl Hct 23.9 L (35.5-45.6) % [place] % (Auto) 8.6 H (0.0-7.3) % PT 15.5 H (12.2-14.9) Sec. INR 1.21 H (0.87-1.13) APTT 36.7 H (24.2-36.6) Sec. ABG pH 7.457 H (7.350-7.450) pH Units ABG pO2 152.6 H (80.0-90.0) mm Hg ABG Hemoglobin 8.4 L (14.0-18.0) gm/dl Sodium (137-145) mmol/L Potassium (3.6-5.0) mmol/L Chloride (98-107) mmol/L Glucose (75-100) mg/dL Calcium (8.4-10.2) mg/dL 06/28/19 Range/Units 04:05 RBC (3.65-5.03) M/mm3 Hgb (11.8-15.2) gm/dl Hct (35.5-45.6) % [place] % (Auto) (0.0-7.3) % PT (12.2-14.9) Sec. INR (0.87-1.13) APTT (24.2-36.6) Sec. ABG pH (7.350-7.450) pH Units ABG pO2 (80.0-90.0) mm Hg ABG Hemoglobin (14.0-18.0) gm/dl Sodium 151 H (137-145) mmol/L Potassium 3.1 L (3.6-5.0) mmol/L Chloride 116.1 H (98-107) mmol/L Glucose 125 H (75-100) mg/dL Calcium 8.3 L (8.4-10.2) mg/dL
[2019-06-28] MEDS: VANCOMYCIN/NS 1 GM/250 ML 1 GM/250 ML BAG IV SCH (22:54)
[2019-06-28] MEDS: fentaNYL DRIP Premix 2,000 MCG/100 ML BAG IV SCH (22:58)
--- NOTE | 2019-06-29 04:22 | XRay Report ---
CHEST 1 VIEW INDICATION / CLINICAL INFORMATION: follow up respiratory failure. COMPARISON: 06/28/2019 FINDINGS: SUPPORT DEVICES: Endotracheal tube HEART / MEDIASTINUM: No significant abnormality. LUNGS / PLEURA: Right lower lung airspace disease unchanged No pneumothorax. ADDITIONAL FINDINGS: No significant additional findings. IMPRESSION: Airspace disease in the right lower lung is unchanged from yesterday. Overall no interval change. Signer Name: Phuc Nair MD FACR Signed: 06/29/2019 4:18 AM Workstation Name: [id number]
[2019-06-29 05:23] LABS: ABG Base Excess -0.1 mmol/L (-2.0-3.0); ABG HCO3 24.5 mmol/L (20.0-26.0); ABG Methemoglobin 0.5 % (0.0-1.5); ABG Oxygen Saturation 98.4 % (95.0-99.0); ABG PCO2 39.4 mm Hg; ABG PH 7.411 pH Units (7.350-7.450); ABG PO2 121.9 mm Hg (80.0-90.0)
[2019-06-29] MEDS: HEPARIN 5,000 UNIT/1 ML VIAL SUB-Q SCH ×3 (06:46→21:36)
[2019-06-29] MEDS: CEFEPIME/NS 1 GM/100 ML 1 GM/100 ML BAG IV SCH ×3 (06:47→18:21)
[2019-06-29] MEDS: D5W/0.45% NACL 1,000 ML IV SCH ×2 (08:17→17:24)
[2019-06-29] MEDS: FAMOTIDINE 20 MG/2 ML INJ IV SCH ×2 (10:36→21:36)
--- NOTE | 2019-06-29 12:19 | Progress Note ---
Assessment and Plan Assessment and plan: Severe sepsis with septic shock. Continue pressors as needed to maintain MAP greater than 65. Continue IV antibiotics and follow-up cultures. Bilateral pneumonia. Continue IV antibiotics. Suspected COVID19/PUI. Contact and airborne isolation for PUI COVID-19 Oropharyngeal dysphagia. Patient is status post PEG. Severe protein calorie malnutrition. Continue tube feedings with aspiration precautions. Toxic metabolic encephalopathy with underlying Lewy body dementia. Continue to treat underlying causes and supportive care. Hypernatremia. Continue free water and follow-up BMP. 06/29/2019patient remains on mechanical ventilation with AC mode rate of 16, tidal volume 500, FiO2 40% and PEEP of 5. Patient with ARDS from suspected COVID19. Patient recently had a negative COVID-19 test, however it does not rule out possibility he was either newly infected or that it was a false negat franchesca test. He has a normal white count with increased liver enzymes, which is consistent with COVID-19 disease. Continue contact and airborne/droplet precautions. Follow-up pro calcitonin level and rapid influenza PCR. The high probability of a clinically significant, sudden or life threatening deterioration of the [hemodynamic, immunologic and respiratory] system(s) required my full and direct attention, intervention and personal management. The aggregate critical care time was [31] minutes. This time is in addition to time spent performing reported procedures but includes the following: [x] Data Review and interpretation [x] Patient assessment and monitoring of vital signs [x] Documentation [x] Medication orders and management History Interval history: Patient remains on mechanical ventilation. Hospitalist Physical - Constitutional Vitals: Temp Pulse Resp BP Pulse Ox 97.7 F 78 16 94/52 100 06/29/19 08:00 06/29/19 12:00 06/29/19 12:00 06/29/19 12:00 06/29/19 12:00 General appearance: Present: no acute distress, disheveled - EENT Eyes: Present: PERRL, EOM intact ENT: hearing intact, clear oral mucosa, dentition normal - Neck Neck: Present: supple, normal ROM - Respiratory Respiratory effort: normal Respiratory: bilateral: CTA - Cardiovascular Rhythm: regular Heart Sounds: Present: S1 & S2. Absent: gallop, rub - Extremities Extremities: no ischemia, No edema, Full ROM - Abdominal General gastrointestinal: soft, non-tender, non-distended, normal bowel sounds - Integumentary Integumentary: Present: clear, warm, dry - Neurologic Neurologic: CNII-XII intact, moves all extremities Results - Labs CBC & Chem 7: 06/28/19 04:05 06/28/19 04:05 Labs: Laboratory Last Values WBC 8.0 K/mm3 (4.5-11.0) 06/28/19 04:05 RBC 2.65 M/mm3 (3.65-5.03) L 06/28/19 04:05 Hgb 7.8 gm/dl (11.8-15.2) L 06/28/19 04:05 Hct 23.9 % (35.5-45.6) L 06/28/19 04:05 MCV 91 fl (84-94) 06/28/19 04:05 MCH 30 pg (28-32) 06/28/19 04:05 MCHC 33 % (32-34) 06/28/19 04:05 RDW 13.6 % (13.2-15.2) 06/28/19 04:05 Plt Count 239 K/mm3 (140-440) 06/28/19 04:05 Lymph % (Auto) 17.5 % (13.4-35.0) 06/28/19 04:05 [place] % (Auto) 8.6 % (0.0-7.3) H 06/28/19 04:05 Eos % (Auto) 3.4 % (0.0-4.3) 06/28/19 04:05 Baso % (Auto) 0.6 % (0.0-1.8) 06/28/19 04:05 Lymph # 1.4 K/mm3 (1.2-5.4) 06/28/19 04:05 [place] # 0.7 K/mm3 (0.0-0.8) 06/28/19 04:05 Eos # 0.3 K/mm3 (0.0-0.4) 06/28/19 04:05 Baso # 0.0 K/mm3 (0.0-0.1) 06/28/19 04:05 Seg Neutrophils % 69.9 % (40.0-70.0) 06/28/19 04:05 Seg Neutrophils # 5.6 K/mm3 (1.8-7.7) 06/28/19 04:05 PT 15.5 Sec. (12.2-14.9) H 06/28/19 04:05 INR 1.21 (0.87-1.13) H 06/28/19 04:05 APTT 36.7 Sec. (24.2-36.6) H 06/28/19 04:05 ABG pH 7.411 pH Units (7.350-7.450) 06/29/19 04:55 ABG pCO2 39.4 mm Hg 06/29/19 04:55 ABG pO2 121.9 mm Hg (80.0-90.0) H 06/29/19 04:55 ABG HCO3 24.5 mmol/L (20.0-26.0) 06/29/19 04:55 ABG O2 Saturation 98.4 % (95.0-99.0) 06/29/19 04:55 ABG O2 Content 11.3 (0.0-44) 06/29/19 04:55 ABG Base Excess -0.1 mmol/L (-2.0-3.0) 06/29/19 04:55 ABG Hemoglobin 8.1 gm/dl (14.0-18.0) L 06/29/19 04:55 ABG Carboxyhemoglobin 1.2 % (0.0-5.0) 06/29/19 04:55 ABG Methemoglobin 0.5 % (0.0-1.5) 06/29/19 04:55 Oxyhemoglobin 96.8 % (95.0-99.0) 06/29/19 04:55 FiO2 50 % 06/29/19 04:55 Sodium 151 mmol/L (137-145) H 06/28/19 04:05 Potassium 3.1 mmol/L (3.6-5.0) L 06/28/19 04:05 Chloride 116.1 mmol/L (98-107) H 06/28/19 04:05 Carbon Dioxide 25 mmol/L (22-30) 06/28/19 04:05 Anion Gap 13 mmol/L 06/28/19 04:05 BUN 10 mg/dL (9-20) 06/28/19 04:05 Creatinine 1.1 mg/dL (0.8-1.5) 06/28/19 04:05 Estimated GFR > 60 ml/min 06/28/19 04:05 BUN/Creatinine Ratio 9 % 06/28/19 04:05 Glucose 125 mg/dL (75-100) H 06/28/19 04:05 POC Glucose 125 (70-105) H 06/27/19 12:37 Lactic Acid 1.30 mmol/L (0.7-2.0) 06/27/19 05:02 Calcium 8.3 mg/dL (8.4-10.2) L 06/28/19 04:05 Total Bilirubin 0.50 mg/dL (0.1-1.2) 06/26/19 23:31 AST 53 units/L (5-40) H 06/26/19 23:31 ALT 56 units/L (7-56) 06/26/19 23:31 Alkaline Phosphatase 109 units/L (35-129) 06/26/19 23:31 Total Creatine Kinase 300 units/L (55-170) H 06/26/19 23:31 Troponin T < 0.010 ng/mL (0.00-0.029) 06/26/19 23:31 Total Protein 6.2 g/dL (6.3-8.2) L 06/26/19 23:31 Albumin 2.4 g/dL (3.9-5) L 06/26/19 23:31 Albumin/Globulin Ratio 0.6 % 06/26/19 23:31 Procalcitonin 0.44 ng/mL (<0.15) 06/29/19 Unknown Microbiology: Microbiology 06/26/19 Unknown Tracheal Aspirate Sputum Culture - Preliminary 06/27/19 00:19 Peripheral/Venous Blood Culture - Preliminary NO GROWTH AFTER 48 HOURS 06/26/19 23:31 Peripheral/Venous Blood Culture - Preliminary NO GROWTH AFTER 48 HOURS Martinez/IV: Voiding Method Condom Catheter IV Catheter Type [Left Wrist] INT / Saline Lock IV Catheter Type [Right Leg] Triple Lumen Cath Active Medications - Current Medications Current Medications: Generic Name Dose Route Start Last Admin Trade Name Freq PRN Reason Stop Dose Admin Famotidine 20 mg 06/27/19 11:00 06/29/19 10:36 Pepcid IV 20 mg BID LADY Administration Heparin Sodium (Porcine) 5,000 unit 06/27/19 06:00 06/29/19 06:46 Heparin SUB-Q 5,000 unit Q8HR LADY Administration Norepinephrine 4 mg in 250 mls @ 7.5 mls/hr 06/27/19 01:00 06/28/19 09:20 Levophed Drip 4 Mg/Ns 250 Ml IV 0 mcg/min TITR LADY 0 mls/hr Titration Protocol 2 MCG/MIN Dextrose/Sodium Chloride 1,000 mls @ 125 mls/hr 06/27/19 03:00 06/29/19 08:17 D5/0.45ns IV 125 mls/hr DIRECT LADY Administration Propofol 1,000 mg in 100 mls @ 1.497 mls/hr 06/27/19 06:00 06/28/19 10:29 Diprivan 10 Mg/Ml IV 5 mcg/kg/min TITR LADY 1.497 mls/hr Titration Protocol 5 MCG/KG/MIN Cefepime HCl 1 gm in 100 mls @ 200 mls/hr 06/27/19 11:00 06/29/19 10:36 Cefepime/Ns 1 Gm/100 Ml IV 200 mls/hr Q8H LADY Administration Protocol Vancomycin HCl 1 gm in 250 mls @ 167.007 mls/hr 06/27/19 22:00 06/28/19 22:54 Vancomycin/Ns 1 Gm/250 Ml IV 167.007 mls/hr Q24H LADY Administration Fentanyl Citrate 2,000 mcg in 100 mls @ 2.495 mls/hr 06/27/19 19:00 06/28/19 22:58 Fentanyl Drip Premix IV 1 mcg/kg/hr TITR LADY 2.495 mls/hr Administration Protocol 1 MCG/KG/HR Magnesium Hydroxide 30 ml 06/27/19 02:51 Milk Of Magnesia PO Q4H PRN Constipation Morphine Sulfate 2 mg 06/27/19 02:51 Morphine IV Q4H PRN Pain, Moderate (4-6) Sodium Chloride 10 ml 06/27/19 10:00 06/29/19 10:37 Sodium Chloride Flush Syringe 10 Ml IV 10 ml BID LADY Administration Sodium Chloride 10 ml 06/27/19 02:51 06/27/19 09:10 Sodium Chloride Flush Syringe 10 Ml IV 10 ml PRN PRN Administration LINE FLUSH Nutrition/Malnutrition Assess - Dietary Evaluation Nutrition/Malnutrition Findings: Nutrition Notes Start: 06/27/19 09:53 Freq: Status: Active Protocol: Document 06/27/19 09:53 LP (Rec: 06/27/19 10:06 LP [id number]) Nutrition Notes Need for Assessment generated from: MD Order Initial or Follow up Brief Note Current Diagnosis Hypertension Other Pertinent Diagnosis Lewy body dementia, pneu Current Diet NPO Labs/Tests Na 150 06/26/19 Pertinent Medications D5 1/2 NS at 125ml/hr Levo Propofol Height 5 ft 10 in Weight 49.895 kg [place] Body Weight (kg) 75.45 BMI 15.7 Weight Status Underweight Subjective/Other Information Consult for diet education and evaluation of nutrition intake. Pt one vent. Burn Absent Trauma Absent #1 Nutrition Diagnosis Inadequate oral intake Etiology vent As Evidenced by Signs and Symptoms Pt unable to consume PO due to vent Is patient on ventilator? Yes Is Patient Ambulatory and/or Out of Bed No REE-([place]-confined to bed) 1612.920 Kcal/Kg value to use for calculation 40 Approximate Energy Requirements Using 1996 kcal/Kg Calculation Used for Recommendations Kcal/kg Additional Notes Protein needs are 60-100g (1.2 -2g/kg) Fluid needs are 1ml/kcal Nutrition Intervention Change Diet Order: TF or diet advancement Nutrition Support: When consulted Osmolite 1.5 at 55ml/hr Flush with 250ml q4h for hypernatremia and 150ml q4h once resolved Kcal 1,980 Protein (gm) 83 Fluid (mL) 1,006 Goal #1 TF consult or extubation Anticipated Discharge Needs: Unable to determine at this time Follow-Up By: 07/01/19 Additional Comments Follow for TF consult or extubation
--- NOTE | 2019-06-29 13:21 | Progress Note ---
Assessment and Plan Cultures: Blood culture 06/26/2019 no growth to date Sputum culture 06/26/2019 no growth to date A/P: 54-year-old man past medical history of Lewy body dementia admitted with bilateral pneumonia. #COVID-19 rule out: Patient is currently in airborne and contact since he is intubated. Patient recently had a negative COVID-19 test, however it does not rule out possibility he was either newly infected or that it was a false negative test. He has a normal white count with increased liver enzymes, which is consistent with COVID-19 disease. Patient is listed as a PUI, however I am unsure if the [facility] survey was filled out. If not, please complete to have testing available. #Bilateral pneumonia: Can continue vancomycin and cefepime in the meantime given the patient is senior care exposures. Would also order flu PCR and serologies. #Lewy body dementia #Acute hypoxic respiratory failure Recs: -Continue contact and airborne, and droplet precautions -Complete PUI survery from [facility] if not already completed. -Continue vancomycin and cefepime. -Procal elevated: continue empiric antibiotics. -Rapid influenza PCR. For the consult, will continue to follow Jf Batista MD [facility] ([facility] M: [phone] O: [phone] F: [phone] Subjective Date of service: 06/29/19 Interval history: Minimal change today. Afebrile, normal white count. Remains intubated. Imaging personally reviewd: CXR: approximately the same as previous Objective - Exam Narrative Exam: Physical Exam: Constitutional: Intubated, sedated Head, Ears, Nose: Normocephalic, atraumatic. Eyes: Conjunctivae/corneas clear. No icterus. No ptosis. Neck: Supple, no meningeal signs Oral: Endotracheal tube Cardiovascular: S1, S2 normal. Respiratory: Good air entry, clear to auscultation bilaterally GI: Soft, non-tender; bowel sounds normal. No peritoneal signs. Musculoskeletal: No pedal edema, no cyanosis. Skin: No rash or abscess Hem/Lymphatic: No palpable cervical or supraclavicular nodes. No lymphangitis Psych: Sedated Neurological: Sedated - Constitutional Vitals: Vital Signs Temp Pulse Resp BP Pulse Ox 97.7 F 78 16 94/52 100 03/21/20 08:00 06/29/19 12:00 06/29/19 12:00 06/29/19 12:00 06/29/19 12:00 Temperature -Last 24 Hours Temperature 97.7 F Temperature 98.5 F Temperature 98.3 F Temperature 99.0 F Temperature 99.4 F - Labs CBC & Chem 7: 06/28/19 04:05 06/28/19 04:05 Labs: Abnormal lab results 06/29/19 Range/Units 04:55 ABG pO2 121.9 H (80.0-90.0) mm Hg ABG Hemoglobin 8.1 L (14.0-18.0) gm/dl
--- NOTE | 2019-06-29 14:57 | Progress Note ---
Assessment and Plan Severe sepsis with septic shock HAP Acute hypoxemic respiratory failure PUI-COVID 19 Oropharyngeal dysphagia s/p PEG Possible aspiration PNA Lactic acidosis Hypernatremia Severe protein calorie malnutrition Acute metabolic encephalopathy h/o Lewy body dementia - reduced set rate to 12/min - daily SAT's and SBT assessment - continue enteric nutrition in the morning - Monitor glycemic control, with target blood glucose 140-180 mg/dL while critically ill. Avoid hypoglycemia - continue bowel regimen - Continue Vancomycin and Cefepime for HAP; adjust per ID recommendations - continue free water at 200ml Q6h, hypotonic solutions for treatment of hypernatremia. Monitor levels - Place PICC line and discontinue femoral CVC - Continue with MVS, Lung protective strategies, monitor airway pressures - VAP bundle addressed; (Aspiration precautions, HOB > 40 degrees) - Titrate sedation for RAAS 0 to -1 - VTE prophylaxis - Stress ulcer prophylaxis - Wean supplemental oxygen for target O2 sat's > 90% - ABG and CXR prn - Follow cultures and adjust antibiotic therapy for KORIN and culture results - Avoid nephrotoxins, adjust all medications for GFR and CrCL - continue bronchodilators with pulmonary hygiene per RT - continue to avoid benzodiazepines to reduce the possibility of delirium - prn analgesia per CPOT score - Maintenance of sleep-wake cycle, avoid delirium - PT/OT/ROM exercises - continue mobility protocol and skin assessment per protocol for pressure ulcer prevention - Monitor hemodynamics closely - Contact and airborne isolation for PUI COVID-19 - Mobility, off loading and skin assessment per protocol to prevent pressure ulcer - continue wound care per RN & WCT (he has a stage 2 sacral decubitus on exam) - Chronic home medications as clinically indicated - continue other care per attending / other consultants CONDITION: CRITICAL PROGNOSIS: GUARDED CODE STATUS: FULL CODE The high probability of a clinically significant, sudden or life-threatening deterioration of the [respiratory, cardiovascular, renal] system(s) required my full and direct attention, intervention and personal management. The aggregate critical care time was [34] minutes without overlap. Time includes spent on; [x] Data Review and interpretation [x] Patient assessment and monitoring of vital signs [x] Documentation [x] Medication orders and management Subjective Date of service: 06/29/19 Principal diagnosis: Septic shock; HAP; Acute hypoxemic resp failure PUI-COVID 19; Hypernatremia Interval history: Patient is seen today for: Septic shock; HAP; Acute hypoxemic respiratory failure; PUI-COVID 19; Lactic acidosis; Hypernatremia; Acute metabolic encephalopathy; h/o Lewy body dementia Seen and examined at bedside; 24hour events reviewed; nursing and respiratory care staff consulted; no adverse overnight events reported to me; resting peacefully in bed; AMS is persistent; no emesis or overt aspiration; no gross bleeding; awaiting PICC line. Objective Vital Signs - 12hr 06/29/19 06/29/19 06/29/19 03:00 03:11 03:21 Temperature Pulse Rate 79 79 76 Pulse Rate [ From Monitor] Respiratory 16 16 16 Rate Blood Pressure 99/65 88/64 100/65 O2 Sat by Pulse 100 100 100 Oximetry 06/29/19 06/29/19 06/29/19 03:30 03:41 03:51 Temperature Pulse Rate 76 77 79 Pulse Rate [ From Monitor] Respiratory 16 16 16 Rate Blood Pressure 99/63 99/63 105/60 O2 Sat by Pulse 100 100 100 Oximetry 06/29/19 06/29/19 06/29/19 04:00 04:11 04:21 Temperature 98.5 F Pulse Rate 81 85 79 Pulse Rate [ 81 From Monitor] Respiratory 16 16 16 Rate Blood Pressure 114/68 114/68 105/60 O2 Sat by Pulse 100 100 100 Oximetry 06/29/19 06/29/19 06/29/19 04:30 04:40 04:50 Temperature Pulse Rate 80 89 83 Pulse Rate [ From Monitor] Respiratory 16 16 17 Rate Blood Pressure 108/68 108/68 O2 Sat by Pulse 100 100 100 Oximetry 06/29/19 06/29/19 06/29/19 05:00 05:10 05:20 Temperature Pulse Rate 79 114 H 79 Pulse Rate [ From Monitor] Respiratory 16 15 16 Rate Blood Pressure 105/69 105/69 105/71 O2 Sat by Pulse 100 100 100 Oximetry 06/29/19 06/29/19 06/29/19 05:30 05:40 05:50 Temperature Pulse Rate 79 82 78 Pulse Rate [ From Monitor] Respiratory 16 16 16 Rate Blood Pressure 103/70 103/70 104/68 O2 Sat by Pulse 100 100 100 Oximetry 06/29/19 06/29/19 06/29/19 06:00 06:12 06:20 Temperature Pulse Rate 78 Pulse Rate [ From Monitor] Respiratory 16 Rate Blood Pressure 99/65 99/65 114/66 O2 Sat by Pulse 100 82 L 100 Oximetry 06/29/19 06/29/19 06/29/19 06:30 06:40 06:50 Temperature Pulse Rate 115 H 116 H Pulse Rate [ From Monitor] Respiratory 20 19 Rate Blood Pressure 114/66 99/65 91/62 O2 Sat by Pulse 97 97 99 Oximetry 06/29/19 06/29/19 06/29/19 07:00 07:10 07:20 Temperature Pulse Rate 110 H 110 H 104 H Pulse Rate [ From Monitor] Respiratory 18 20 17 Rate Blood Pressure 86/65 86/65 97/67 O2 Sat by Pulse 99 99 99 Oximetry 06/29/19 06/29/19 06/29/19 07:30 07:40 07:50 Temperature Pulse Rate 100 H 102 H 106 H Pulse Rate [ From Monitor] Respiratory 16 18 21 Rate Blood Pressure 101/69 101/69 107/70 O2 Sat by Pulse 100 99 99 Oximetry 06/29/19 06/29/19 06/29/19 08:00 08:10 08:20 Temperature 97.7 F Pulse Rate 102 H 100 H 99 H Pulse Rate [ 93 H From Monitor] Respiratory 16 16 16 Rate Blood Pressure 103/67 103/67 100/66 O2 Sat by Pulse 99 98 98 Oximetry 06/29/19 06/29/19 06/29/19 08:30 08:40 08:50 Temperature Pulse Rate 103 H 94 H 86 Pulse Rate [ From Monitor] Respiratory 13 18 16 Rate Blood Pressure 105/69 105/69 100/61 O2 Sat by Pulse 99 99 100 Oximetry 06/29/19 06/29/19 06/29/19 09:00 09:10 09:20 Temperature Pulse Rate 94 H 85 96 H Pulse Rate [ From Monitor] Respiratory 17 17 18 Rate Blood Pressure 106/62 106/62 102/66 O2 Sat by Pulse 100 100 100 Oximetry 06/29/19 06/29/19 06/29/19 09:30 09:35 09:40 Temperature Pulse Rate 93 H 88 90 Pulse Rate [ From Monitor] Respiratory 16 16 Rate Blood Pressure 108/65 108/65 108/65 O2 Sat by Pulse 100 100 100 Oximetry 06/29/19 06/29/19 06/29/19 09:50 10:00 10:10 Temperature Pulse Rate 84 82 84 Pulse Rate [ From Monitor] Respiratory 15 16 19 Rate Blood Pressure 101/62 102/61 102/61 O2 Sat by Pulse 100 100 100 Oximetry 06/29/19 06/29/19 06/29/19 10:20 10:30 10:40 Temperature Pulse Rate 98 H 83 84 Pulse Rate [ From Monitor] Respiratory 15 16 16 Rate Blood Pressure 98/61 104/64 104/64 O2 Sat by Pulse 100 100 100 Oximetry 06/29/19 06/29/19 06/29/19 10:50 11:00 11:10 Temperature Pulse Rate 81 83 86 Pulse Rate [ From Monitor] Respiratory 16 16 16 Rate Blood Pressure 114/61 108/64 108/64 O2 Sat by Pulse 100 100 100 Oximetry 06/29/19 06/29/19 06/29/19 11:20 11:30 11:40 Temperature Pulse Rate 89 87 82 Pulse Rate [ From Monitor] Respiratory 16 16 16 Rate Blood Pressure 106/65 118/70 118/70 O2 Sat by Pulse 100 100 100 Oximetry 06/29/19 06/29/19 06/29/19 11:50 12:00 13:10 Temperature Pulse Rate 84 79 72 Pulse Rate [ 78 From Monitor] Respiratory 16 16 Rate Blood Pressure 94/52 94/52 108/64 O2 Sat by Pulse 100 100 100 Oximetry Constitutional: no acute distress, other (sedated, orally intubated) Eyes: non-icteric ENT: oropharynx moist, other (ETT at 23cm at the lip) Neck: supple, no lymphadenopathy, no JVD Effort: mildly labored Ascultation: Bilateral: diminished breath sounds, rhonchi Percussion: Bilateral: not dull Cardiovascular: regular rate and rhythm (tachycardia), other (S1,S2, no murmurs, gallops) Gastrointestinal: normoactive bowel sounds, soft, non-tender, non-distended, other (PEG in place) Integumentary: decubitus ulcer (Stage 2) Extremities: no cyanosis, no edema, pulses normal, no ischemia or petechiae Neurologic: unable to assess Psychiatric: other (unable to assess secondary to mental status) CBC and BMP: 06/28/19 04:05 06/28/19 04:05 ABG, PT/INR, D-dimer: ABG ABG pH 7.411 pH Units (7.350-7.450) 06/29/19 04:55 ABG pCO2 39.4 mm Hg 06/29/19 04:55 ABG pO2 121.9 mm Hg (80.0-90.0) H 06/29/19 04:55 ABG O2 Saturation 98.4 % (95.0-99.0) 06/29/19 04:55 PT/INR, D-dimer PT 15.5 Sec. (12.2-14.9) H 06/28/19 04:05 INR 1.21 (0.87-1.13) H 06/28/19 04:05 Abnormal lab findings: Abnormal Labs 06/26/19 06/26/19 06/26/19 22:56 23:31 23:31 RBC 2.90 L Hgb 8.8 L Hct 26.5 L [place] % (Auto) PT INR APTT ABG pH 7.467 H ABG pO2 106.2 H ABG HCO3 26.5 H ABG Hemoglobin 9.6 L Sodium 150 H Potassium Chloride 111.7 H Glucose POC Glucose Lactic Acid Calcium AST 53 H Total Creatine Kinase Total Protein 6.2 L Albumin 2.4 L 06/26/19 06/26/19 06/27/19 23:31 23:31 04:35 RBC Hgb Hct [place] % (Auto) PT INR APTT ABG pH ABG pO2 120.3 H ABG HCO3 ABG Hemoglobin 7.4 L Sodium Potassium Chloride Glucose POC Glucose Lactic Acid 2.20 H* Calcium AST Total Creatine Kinase 300 H Total Protein Albumin 06/27/19 06/27/19 06/28/19 08:53 12:37 03:45 RBC Hgb Hct [place] % (Auto) PT INR APTT ABG pH 7.457 H ABG pO2 152.6 H ABG HCO3 ABG Hemoglobin 8.4 L Sodium Potassium Chloride Glucose POC Glucose 108 H 125 H Lactic Acid Calcium AST Total Creatine Kinase Total Protein Albumin 06/28/19 06/28/19 06/28/19 04:05 04:05 04:05 RBC 2.65 L Hgb 7.8 L Hct 23.9 L [place] % (Auto) 8.6 H PT 15.5 H INR 1.21 H APTT 36.7 H ABG pH ABG pO2 ABG HCO3 ABG Hemoglobin Sodium 151 H Potassium 3.1 L Chloride 116.1 H Glucose 125 H POC Glucose Lactic Acid Calcium 8.3 L AST Total Creatine Kinase Total Protein Albumin 06/29/19 04:55 RBC Hgb Hct [place] % (Auto) PT INR APTT ABG pH ABG pO2 121.9 H ABG HCO3 ABG Hemoglobin 8.1 L Sodium Potassium Chloride Glucose POC Glucose Lactic Acid Calcium AST Total Creatine Kinase Total Protein Albumin Chest x-ray: report reviewed (RLL infiltrate; unable to view image) Allied health notes reviewed: nursing
[2019-06-29] MEDS: VANCOMYCIN/NS 1 GM/250 ML 1 GM/250 ML BAG IV SCH (21:37)
[2019-06-30] MEDS: CEFEPIME/NS 1 GM/100 ML 1 GM/100 ML BAG IV SCH ×4 (02:22→18:05)
[2019-06-30] MEDS: D5W/0.45% NACL 1,000 ML IV SCH ×3 (02:23→20:40)
[2019-06-30] MEDS: HEPARIN 5,000 UNIT/1 ML VIAL SUB-Q SCH ×3 (05:53→21:05)
[2019-06-30 06:21] LABS: ABG Base Excess 0.5 mmol/L (-2.0-3.0); ABG HCO3 25.5 mmol/L (20.0-26.0); ABG Methemoglobin 0.4 % (0.0-1.5); ABG Oxygen Saturation 97.7 % (95.0-99.0); ABG PCO2 42.4 mm Hg; ABG PH 7.396 pH Units (7.350-7.450); ABG PO2 102.6 mm Hg (80.0-90.0)
[2019-06-30] MEDS: FAMOTIDINE 20 MG/2 ML INJ IV SCH ×3 (08:31→21:06)
--- NOTE | 2019-06-30 10:16 | XRay Report ---
CHEST 1 VIEW INDICATION / CLINICAL INFORMATION: follow up respiratory failure. COMPARISON: Chest radiograph from yesterday at 3:31 AM FINDINGS: SUPPORT DEVICES: Stable endotracheal tube position. The tip is about 7.4 cm above the kadeem. HEART / MEDIASTINUM: Stable. LUNGS / PLEURA: Stable right lung airspace disease. Left basilar parenchymal opacity may have increas ed over the interval. No pneumothorax. IMPRESSION: Stable to slightly worsening bilateral patchy consolidation. Signer Name: Johan Vásquez MD Signed: 06/30/2019 10:12 AM Workstation Name: [id number]
--- NOTE | 2019-06-30 10:44 | Progress Note ---
Assessment and Plan Assessment and plan: Severe sepsis with septic shock. Continue pressors as needed to maintain MAP greater than 65. Continue IV antibiotics and follow-up cultures. Bilateral pneumonia. Continue IV antibiotics. Suspected COVID19/PUI. Contact and airborne isolation for PUI COVID-19 Oropharyngeal dysphagia. Patient is status post PEG. Severe protein calorie malnutrition. Continue tube feedings with aspiration precautions. Toxic metabolic encephalopathy with underlying Lewy body dementia. Continue to treat underlying causes and supportive care. Hypernatremia. Continue free water and follow-up BMP. 06/29/2019patient remains on mechanical ventilation with AC mode rate of 16, tidal volume 500, FiO2 40% and PEEP of 5. Patient with ARDS from suspected COVID19. Patient recently had a negative COVID-19 test, however it does not rule out possibility he was either newly infected or that it was a false negat franchesca test. He has a normal white count with increased liver enzymes, which is consistent with COVID-19 disease. Continue contact and airborne/droplet precautions. Follow-up pro calcitonin level and rapid influenza PCR. [id number] remains on mechanical ventilation with AC mode rate of 16 ti [place] volume 500 FiO2 35% and a PEEP of 6. Patient with ARDS from suspected COVID19. Patient recently had a negative COVID-19 test, however it does not rule out possibility he was either newly infected or that it was a false negative test. He has a normal white count with increased liver enzymes, which is consistent with COVID-19 disease. Continue contact and airborne/droplet precautions. Pro calcitonin level slightly elevated at 0.44. Follow-up rapid influenza PCR. The high probability of a clinically significant, sudden or life threatening deterioration of the [hemodynamic, immunologic and respiratory] system(s) required my full and direct attention, intervention and personal management. The aggregate critical care time was [32] minutes. This time is in addition to time spent performing reported procedures but includes the following: [x] Data Review and interpretation [x] Patient assessment and monitoring of vital signs [x] Documentation [x] Medication orders and management History Interval history: Patient remains on mechanical ventilation. Hospitalist Physical - Constitutional Vitals: Temp Pulse Resp BP Pulse Ox 97.0 F L 81 13 98/68 100 06/30/19 08:00 06/30/19 10:00 06/30/19 10:00 06/30/19 10:00 06/30/19 10:00 General appearance: Present: no acute distress, disheveled - EENT Eyes: Present: PERRL, EOM intact ENT: hearing intact, clear oral mucosa, dentition normal - Neck Neck: Present: supple, normal ROM - Respiratory Respiratory effort: normal Respiratory: bilateral: CTA - Cardiovascular Rhythm: regular Heart Sounds: Present: S1 & S2. Absent: gallop, rub - Extremities Extremities: no ischemia, No edema, Full ROM - Abdominal General gastrointestinal: soft, non-tender, non-distended, normal bowel sounds - Integumentary Integumentary: Present: clear, warm, dry - Neurologic Neurologic: CNII-XII intact, moves all extremities Results - Labs CBC & Chem 7: 06/28/19 04:05 06/28/19 04:05 Labs: Laboratory Last Values WBC 8.0 K/mm3 (4.5-11.0) 06/28/19 04:05 RBC 2.65 M/mm3 (3.65-5.03) L 06/28/19 04:05 Hgb 7.8 gm/dl (11.8-15.2) L 06/28/19 04:05 Hct 23.9 % (35.5-45.6) L 06/28/19 04:05 MCV 91 fl (84-94) 06/28/19 04:05 MCH 30 pg (28-32) 06/28/19 04:05 MCHC 33 % (32-34) 06/28/19 04:05 RDW 13.6 % (13.2-15.2) 06/28/19 04:05 Plt Count 239 K/mm3 (140-440) 06/28/19 04:05 Lymph % (Auto) 17.5 % (13.4-35.0) 06/28/19 04:05 Carbon % (Auto) 8.6 % (0.0-7.3) H 06/28/19 04:05 Eos % (Auto) 3.4 % (0.0-4.3) 06/28/19 04:05 Baso % (Auto) 0.6 % (0.0-1.8) 06/28/19 04:05 Lymph # 1.4 K/mm3 (1.2-5.4) 06/28/19 04:05 Carbon # 0.7 K/mm3 (0.0-0.8) 06/28/19 04:05 Eos # 0.3 K/mm3 (0.0-0.4) 06/28/19 04:05 Baso # 0.0 K/mm3 (0.0-0.1) 06/28/19 04:05 Seg Neutrophils % 69.9 % (40.0-70.0) 06/28/19 04:05 Seg Neutrophils # 5.6 K/mm3 (1.8-7.7) 06/28/19 04:05 PT 15.5 Sec. (12.2-14.9) H 06/28/19 04:05 INR 1.21 (0.87-1.13) H 06/28/19 04:05 APTT 36.7 Sec. (24.2-36.6) H 06/28/19 04:05 ABG pH 7.396 pH Units (7.350-7.450) 06/30/19 05:55 ABG pCO2 42.4 mm Hg 06/30/19 05:55 ABG pO2 102.6 mm Hg (80.0-90.0) H 06/30/19 05:55 ABG HCO3 25.5 mmol/L (20.0-26.0) 06/30/19 05:55 ABG O2 Saturation 97.7 % (95.0-99.0) 06/30/19 05:55 ABG O2 Content 14.2 (0.0-44) 06/30/19 05:55 ABG Base Excess 0.5 mmol/L (-2.0-3.0) 06/30/19 05:55 ABG Hemoglobin 10.4 gm/dl (14.0-18.0) L 06/30/19 05:55 ABG Carboxyhemoglobin 1.3 % (0.0-5.0) 06/30/19 05:55 ABG Methemoglobin 0.4 % (0.0-1.5) 06/30/19 05:55 Oxyhemoglobin 96.0 % (95.0-99.0) 06/30/19 05:55 FiO2 35 % 06/30/19 05:55 Sodium 151 mmol/L (137-145) H 06/28/19 04:05 Potassium 3.1 mmol/L (3.6-5.0) L 06/28/19 04:05 Chloride 116.1 mmol/L (98-107) H 06/28/19 04:05 Carbon Dioxide 25 mmol/L (22-30) 06/28/19 04:05 Anion Gap 13 mmol/L 06/28/19 04:05 BUN 10 mg/dL (9-20) 06/28/19 04:05 Creatinine 1.1 mg/dL (0.8-1.5) 06/28/19 04:05 Estimated GFR > 60 ml/min 06/28/19 04:05 BUN/Creatinine Ratio 9 % 06/28/19 04:05 Glucose 125 mg/dL (75-100) H 06/28/19 04:05 POC Glucose 125 (70-105) H 06/27/19 12:37 Lactic Acid 1.30 mmol/L (0.7-2.0) 06/27/19 05:02 Calcium 8.3 mg/dL (8.4-10.2) L 06/28/19 04:05 Total Bilirubin 0.50 mg/dL (0.1-1.2) 06/26/19 23:31 AST 53 units/L (5-40) H 06/26/19 23:31 ALT 56 units/L (7-56) 06/26/19 23:31 Alkaline Phosphatase 109 units/L (35-129) 06/26/19 23:31 Total Creatine Kinase 300 units/L (55-170) H 06/26/19 23:31 Troponin T < 0.010 ng/mL (0.00-0.029) 06/26/19 23:31 Total Protein 6.2 g/dL (6.3-8.2) L 06/26/19 23:31 Albumin 2.4 g/dL (3.9-5) L 06/26/19 23:31 Albumin/Globulin Ratio 0.6 % 06/26/19 23:31 Procalcitonin 0.44 ng/mL (<0.15) 06/29/19 Unknown Vancomycin Trough 18.3 ug/mL (5.0-20.0) 06/30/19 05:30 Microbiology: Microbiology 06/27/19 00:19 Peripheral/Venous Blood Culture - Preliminary NO GROWTH AFTER 72 HOURS 06/26/19 23:31 Peripheral/Venous Blood Culture - Preliminary NO GROWTH AFTER 72 HOURS 06/26/19 Unknown Tracheal Aspirate Sputum Culture - Final Martinez/IV: Voiding Method Condom Catheter IV Catheter Type [Left Wrist] INT / Saline Lock IV Catheter Type [Right Leg] Triple Lumen Cath Active Medications - Current Medications Current Medications: Generic Name Dose Route Start Last Admin Trade Name Freq PRN Reason Stop Dose Admin Famotidine 20 mg 06/27/19 11:00 06/30/19 09:02 Pepcid IV Not Given BID LADY Heparin Sodium (Porcine) 5,000 unit 06/27/19 06:00 06/30/19 05:53 Heparin SUB-Q 5,000 unit Q8HR LADY Administration Norepinephrine 4 mg in 250 mls @ 7.5 mls/hr 06/27/19 01:00 06/28/19 09:20 Levophed Drip 4 Mg/Ns 250 Ml IV 0 mcg/min TITR LADY 0 mls/hr Titration Protocol 2 MCG/MIN Dextrose/Sodium Chloride 1,000 mls @ 125 mls/hr 06/27/19 03:00 06/30/19 02:23 D5/0.45ns IV 125 mls/hr DIRECT LADY Administration Propofol 1,000 mg in 100 mls @ 1.497 mls/hr 06/27/19 06:00 06/28/19 10:29 Diprivan 10 Mg/Ml IV 5 mcg/kg/min TITR LADY 1.497 mls/hr Titration Protocol 5 MCG/KG/MIN Cefepime HCl 1 gm in 100 mls @ 200 mls/hr 06/27/19 11:00 06/30/19 02:22 Cefepime/Ns 1 Gm/100 Ml IV 200 mls/hr Q8H LADY Administration Protocol Vancomycin HCl 1 gm in 250 mls @ 167.007 mls/hr 06/27/19 22:00 06/29/19 21:37 Vancomycin/Ns 1 Gm/250 Ml IV 167.007 mls/hr Q24H LADY Administration Fentanyl Citrate 2,000 mcg in 100 mls @ 2.495 mls/hr 06/27/19 19:00 06/28/19 22:58 Fentanyl Drip Premix IV 1 mcg/kg/hr TITR LADY 2.495 mls/hr Administration Protocol 1 MCG/KG/HR Magnesium Hydroxide 30 ml 06/27/19 02:51 Milk Of Magnesia PO Q4H PRN Constipation Morphine Sulfate 2 mg 06/27/19 02:51 Morphine IV Q4H PRN Pain, Moderate (4-6) Sodium Chloride 10 ml 06/27/19 10:00 06/30/19 09:02 Sodium Chloride Flush Syringe 10 Ml IV Not Given BID LADY Sodium Chloride 10 ml 06/27/19 02:51 06/27/19 09:10 Sodium Chloride Flush Syringe 10 Ml IV 10 ml PRN PRN Administration LINE FLUSH Nutrition/Malnutrition Assess - Dietary Evaluation Nutrition/Malnutrition Findings: Nutrition Notes Start: 06/27/19 09:53 Freq: Status: Active Protocol: Document 06/27/19 09:53 LP (Rec: 06/27/19 10:06 LP [email or web address]) Nutrition Notes Need for Assessment generated from: MD Order Initial or Follow up Brief Note Current Diagnosis Hypertension Other Pertinent Diagnosis Lewy body dementia, pneu Current Diet NPO Labs/Tests Na 150 06/26/19 Pertinent Medications D5 1/2 NS at 125ml/hr Levo Propofol Height 5 ft 10 in Weight 49.895 kg [place] Body Weight (kg) 75.45 BMI 15.7 Weight Status Underweight Subjective/Other Information Consult for diet education and evaluation of nutrition intake. Pt one vent. Burn Absent Trauma Absent #1 Nutrition Diagnosis Inadequate oral intake Etiology vent As Evidenced by Signs and Symptoms Pt unable to consume PO due to vent Is patient on ventilator? Yes Is Patient Ambulatory and/or Out of Bed No REE-([facility]-confined to bed) 1612.920 Kcal/Kg value to use for calculation 40 Approximate Energy Requirements Using 1996 kcal/Kg Calculation Used for Recommendations Kcal/kg Additional Notes Protein needs are 60-100g (1.2 -2g/kg) Fluid needs are 1ml/kcal Nutrition Intervention Change Diet Order: TF or diet advancement Nutrition Support: When consulted Osmolite 1.5 at 55ml/hr Flush with 250ml q4h for hypernatremia and 150ml q4h once resolved Kcal 1,980 Protein (gm) 83 Fluid (mL) 1,006 Goal #1 TF consult or extubation Anticipated Discharge Needs: Unable to determine at this time Follow-Up By: 07/01/19 Additional Comments Follow for TF consult or extubation
[2019-06-30] MEDS: fentaNYL DRIP Premix 2,000 MCG/100 ML BAG IV SCH (14:04)
--- NOTE | 2019-06-30 14:37 | Progress Note ---
Assessment and Plan Severe sepsis with septic shock HAP Acute hypoxemic respiratory failure PUI-COVID 19 Oropharyngeal dysphagia s/p PEG Possible aspiration PNA Lactic acidosis Hypernatremia Severe protein calorie malnutrition Acute metabolic encephalopathy h/o Lewy body dementia - reduced set rate to 12/min - continue daily SAT's and SBT assessment - continue enteric nutrition in the morning - Monitor glycemic control, with target blood glucose 140-180 mg/dL while critically ill. Avoid hypoglycemia - continue bowel regimen - Continue Vancomycin and Cefepime for HAP; adjust per ID recommendations - continue free water at 200ml Q6h, hypotonic solutions for treatment of hypernatremia. Monitor levels - Place PICC line and discontinue femoral CVC - Continue with MVS, Lung protective strategies, monitor airway pressures - VAP bundle addressed; (Aspiration precautions, HOB > 40 degrees) - Titrate sedation for RAAS 0 to -1 - VTE prophylaxis - Stress ulcer prophylaxis - Wean supplemental oxygen for target O2 sat's > 90% - ABG and CXR prn - Follow cultures and adjust antibiotic therapy for KORIN and culture results - Avoid nephrotoxins, adjust all medications for GFR and CrCL - continue bronchodilators with pulmonary hygiene per RT - continue to avoid benzodiazepines to reduce the possibility of delirium - prn analgesia per CPOT score - Maintenance of sleep-wake cycle, avoid delirium - PT/OT/ROM exercises - continue mobility protocol and skin assessment per protocol for pressure ulcer prevention - Monitor hemodynamics closely - Contact and airborne isolation for PUI COVID-19 - Mobility, off loading and skin assessment per protocol to prevent pressure ulcer - continue wound care per RN & WCT (he has a stage 2 sacral decubitus on exam) - Chronic home medications as clinically indicated - continue other care per attending / other consultants CONDITION: CRITICAL PROGNOSIS: GUARDED CODE STATUS: FULL CODE The high probability of a clinically significant, sudden or life-threatening deterioration of the [respiratory, cardiovascular, renal] system(s) required my full and direct attention, intervention and personal management. The aggregate critical care time was [32] minutes without overlap. Time includes spent on; [x] Data Review and interpretation [x] Patient assessment and monitoring of vital signs [x] Documentation [x] Medication orders and management Subjective Date of service: 06/30/19 Principal diagnosis: Septic shock; HAP; Acute hypoxemic resp failure PUI-COVID 19; Hypernatremia Interval history: Patient is seen today for: Septic shock; HAP; Acute hypoxemic respiratory failure; PUI-COVID 19; Lactic acidosis; Hypernatremia; Acute metabolic encephalopathy; h/o Lewy body dementia Seen and examined at bedside; 24hour events reviewed; nursing and respiratory care staff consulted; no adverse overnight events reported to me; resting peacefully in bed; did not tolerate bedside SBT well; no emesis or overt aspiration Objective Vital Signs - 12hr 06/30/19 06/30/19 06/30/19 02:45 03:00 03:15 Temperature Pulse Rate 77 85 74 Respiratory 12 14 12 Rate Blood Pressure 93/58 96/63 91/57 O2 Sat by Pulse 100 100 100 Oximetry 06/30/19 06/30/19 06/30/19 03:30 03:45 04:00 Temperature 97.0 F L Pulse Rate 78 79 75 Respiratory 12 12 12 Rate Blood Pressure 106/68 91/57 96/60 O2 Sat by Pulse 100 100 100 Oximetry 06/30/19 06/30/19 06/30/19 04:15 04:30 04:45 Temperature Pulse Rate 86 75 80 Respiratory 12 12 12 Rate Blood Pressure 91/59 90/59 100/67 O2 Sat by Pulse 100 100 100 Oximetry 06/30/19 06/30/19 06/30/19 05:00 05:15 05:30 Temperature Pulse Rate 72 76 105 H Respiratory 12 12 16 Rate Blood Pressure 92/59 101/67 101/66 O2 Sat by Pulse 100 100 100 Oximetry 06/30/19 06/30/19 06/30/19 05:45 05:46 06:00 Temperature Pulse Rate 94 H 108 H 89 Respiratory 12 13 Rate Blood Pressure 113/71 113/71 113/71 O2 Sat by Pulse 100 100 100 Oximetry 06/30/19 06/30/19 06/30/19 06:15 06:30 06:45 Temperature Pulse Rate 84 82 102 H Respiratory 12 12 12 Rate Blood Pressure 102/65 101/61 101/62 O2 Sat by Pulse 100 100 100 Oximetry 06/30/19 06/30/19 06/30/19 07:00 07:15 07:30 Temperature Pulse Rate 81 81 78 Respiratory 12 12 12 Rate Blood Pressure 103/64 95/61 103/64 O2 Sat by Pulse 100 100 100 Oximetry 06/30/19 06/30/19 06/30/19 07:45 08:00 08:15 Temperature 97.0 F L Pulse Rate 77 73 75 Respiratory 11 L 12 12 Rate Blood Pressure 99/69 94/60 103/70 O2 Sat by Pulse 100 100 100 Oximetry 06/30/19 06/30/19 06/30/19 08:30 08:53 09:00 Temperature Pulse Rate 76 79 75 Respiratory 15 12 12 Rate Blood Pressure 105/62 101/69 O2 Sat by Pulse 100 100 100 Oximetry 06/30/19 06/30/19 06/30/19 09:15 09:30 09:45 Temperature Pulse Rate 77 84 96 H Respiratory 11 L 14 13 Rate Blood Pressure 99/64 99/66 101/69 O2 Sat by Pulse 100 100 100 Oximetry 06/30/19 06/30/19 06/30/19 10:00 10:15 10:30 Temperature Pulse Rate 81 93 H 88 Respiratory 13 12 11 L Rate Blood Pressure 98/68 107/68 110/70 O2 Sat by Pulse 100 100 100 Oximetry 06/30/19 06/30/19 06/30/19 10:45 11:00 11:15 Temperature Pulse Rate 86 83 80 Respiratory 12 12 11 L Rate Blood Pressure 101/66 105/65 109/66 O2 Sat by Pulse 100 100 100 Oximetry 06/30/19 06/30/19 06/30/19 11:30 11:45 12:00 Temperature 37.2 F L Pulse Rate 85 86 75 Respiratory 12 12 12 Rate Blood Pressure 98/65 102/65 94/61 O2 Sat by Pulse 100 100 100 Oximetry 06/30/19 06/30/19 06/30/19 12:15 12:30 12:45 Temperature Pulse Rate 77 77 74 Respiratory 13 14 15 Rate Blood Pressure 98/67 99/64 100/61 O2 Sat by Pulse 100 100 100 Oximetry 06/30/19 06/30/19 06/30/19 13:00 13:15 13:30 Temperature Pulse Rate 81 77 74 Respiratory 12 12 12 Rate Blood Pressure 97/63 93/59 91/59 O2 Sat by Pulse 100 100 100 Oximetry 06/30/19 06/30/19 06/30/19 13:45 14:00 14:15 Temperature Pulse Rate 71 72 75 Respiratory 12 12 12 Rate Blood Pressure 88/58 92/57 97/63 O2 Sat by Pulse 100 100 100 Oximetry Constitutional: no acute distress, other (sedated, orally intubated) Eyes: non-icteric ENT: oropharynx moist, other (ETT at 23cm at the lip) Neck: supple, no lymphadenopathy, no JVD Effort: mildly labored Ascultation: Bilateral: diminished breath sounds, rhonchi Percussion: Bilateral: not dull Cardiovascular: regular rate and rhythm (tachycardia), other (S1,S2, no murmurs, gallops) Gastrointestinal: normoactive bowel sounds, soft, non-tender, non-distended, other (PEG in place) Integumentary: decubitus ulcer (Stage 2) Extremities: no cyanosis, no edema, pulses normal, no ischemia or petechiae Neurologic: unable to assess Psychiatric: other (unable to assess secondary to mental status) CBC and BMP: 07/04/19 07:02 07/04/19 04:00 ABG, PT/INR, D-dimer: ABG ABG pH 7.396 pH Units (7.350-7.450) 06/30/19 05:55 ABG pCO2 42.4 mm Hg 06/30/19 05:55 ABG pO2 102.6 mm Hg (80.0-90.0) H 06/30/19 05:55 ABG O2 Saturation 97.7 % (95.0-99.0) 06/30/19 05:55 PT/INR, D-dimer PT 15.5 Sec. (12.2-14.9) H 06/28/19 04:05 INR 1.21 (0.87-1.13) H 06/28/19 04:05 Abnormal lab findings: Abnormal Labs 06/26/19 06/26/19 06/26/19 22:56 23:31 23:31 RBC 2.90 L Hgb 8.8 L Hct 26.5 L [place] % (Auto) PT INR APTT ABG pH 7.467 H ABG pO2 106.2 H ABG HCO3 26.5 H ABG Hemoglobin 9.6 L Sodium 150 H Potassium Chloride 111.7 H Glucose POC Glucose Lactic Acid Calcium AST 53 H Total Creatine Kinase Total Protein 6.2 L Albumin 2.4 L 06/26/19 06/26/19 06/27/19 23:31 23:31 04:35 RBC Hgb Hct [place] % (Auto) PT INR APTT ABG pH ABG pO2 120.3 H ABG HCO3 ABG Hemoglobin 7.4 L Sodium Potassium Chloride Glucose POC Glucose Lactic Acid 2.20 H* Calcium AST Total Creatine Kinase 300 H Total Protein Albumin 06/27/19 06/27/19 06/28/19 08:53 12:37 03:45 RBC Hgb Hct [place] % (Auto) PT INR APTT ABG pH 7.457 H ABG pO2 152.6 H ABG HCO3 ABG Hemoglobin 8.4 L Sodium Potassium Chloride Glucose POC Glucose 108 H 125 H Lactic Acid Calcium AST Total Creatine Kinase Total Protein Albumin 06/28/19 06/28/19 06/28/19 04:05 04:05 04:05 RBC 2.65 L Hgb 7.8 L Hct 23.9 L [place] % (Auto) 8.6 H PT 15.5 H INR 1.21 H APTT 36.7 H ABG pH ABG pO2 ABG HCO3 ABG Hemoglobin Sodium 151 H Potassium 3.1 L Chloride 116.1 H Glucose 125 H POC Glucose Lactic Acid Calcium 8.3 L AST Total Creatine Kinase Total Protein Albumin 06/29/19 06/30/19 04:55 05:55 RBC Hgb Hct [place] % (Auto) PT INR APTT ABG pH ABG pO2 121.9 H 102.6 H ABG HCO3 ABG Hemoglobin 8.1 L 10.4 L Sodium Potassium Chloride Glucose POC Glucose Lactic Acid Calcium AST Total Creatine Kinase Total Protein Albumin Allied health notes reviewed: nursing
[2019-06-30] MEDS: VANCOMYCIN/NS 1 GM/250 ML 1 GM/250 ML BAG IV SCH (21:05)
[2019-07-01] MEDS: CEFEPIME/NS 1 GM/100 ML 1 GM/100 ML BAG IV SCH ×3 (02:17→18:05)
[2019-07-01] MEDS: HEPARIN 5,000 UNIT/1 ML VIAL SUB-Q SCH ×3 (06:08→21:43)
[2019-07-01 06:25] LABS: ABG Base Excess 2.2 mmol/L (-2.0-3.0); ABG HCO3 26.7 mmol/L (20.0-26.0); ABG Methemoglobin 0.5 % (0.0-1.5); ABG Oxygen Saturation 83.4 % (95.0-99.0); ABG PH 7.432 pH Units (7.350-7.450); ABG PO2 42.8 mm Hg (80.0-90.0)
[2019-07-01 06:30] LABS: Basophils # (Auto) 0.1 K/mm3 (0.0-0.1); Basophils % (Auto) 1.3 % (0.0-1.8); Eosinophils # (Auto) 0.2 K/mm3 (0.0-0.4); Eosinophils % (Auto) 3.1 % (0.0-4.3); Hematocrit 24.1 % (35.5-45.6); Hemoglobin 7.8 gm/dl (11.8-15.2); Lymphocytes # (Auto) 1.3 K/mm3 (1.2-5.4); Mean Corpuscular HGB Conc 33 % (32-34); Mean Corpuscular Volume 91 fl (84-94); Monocytes # (Auto) 0.8 K/mm3 (0.0-0.8); Monocytes % (Auto) 11.8 % (0.0-7.3); Platelet Count 293 K/mm3 (140-440); Red Blood Count 2.64 M/mm3 (3.65-5.03); Red Cell Distribution Width 13.6 % (13.2-15.2)
[2019-07-01 06:50] LABS: BUN/Creatinine Ratio 6; Blood Urea Nitrogen 6 mg/dL (9-20); Calcium 8.2 mg/dL (8.4-10.2); Hemolysis Index 1
[2019-07-01] MEDS: D5W/0.45% NACL 1,000 ML IV SCH ×2 (08:23→20:18)
[2019-07-01] MEDS: FAMOTIDINE 20 MG/2 ML INJ IV SCH ×3 (08:23→21:43)
[2019-07-01] MEDS: POTASSIUM CHLORIDE 20 MEQ 20 MEQ/100 ML BAG IV SCH ×2 (08:24→11:05)
--- NOTE | 2019-07-01 08:55 | Progress Note ---
Assessment and Plan Severe sepsis with septic shock presumed pulmonary source HAP Acute hypoxemic respiratory failure, orally intubated on MVS PUI-COVID 19 Oropharyngeal dysphagia s/p PEG Possible aspiration PNA Lactic acidosis Hypernatremia Severe protein calorie malnutrition Acute metabolic encephalopathy h/o Lewy body dementia Continue enteric nutrition Weaning pepr protocol and as tolerated Monitor glycemic control, with target blood glucose 140-180 mg/dL while critically ill. Avoid hypoglycemia Bowel regimen Complete Vancomycin and Cefepime for HAP Monitor for toxicities -Continue with MVS, Lung protective strategies, monitor airway pressures -Aspiration precautions, HOB>40 -Daily assessment for readiness for SBT, Daily SAT -Titrate sedation for RAAS -1 to -2 -VTE prophylaxis -Stress ulcer prophylaxis - Wean supplemental oxygen for target O2 sat's > 90% -ABG and CXR in am -Follow cultures and adjust antibiotic therapy for KORIN and culture results -Currently on therapy for HAP -Avoid nephrotoxins, adjust all medications for GFR and CrCL - continue bronchodilators with pulmonary hygiene per RT - continue to avoid benzodiazepines to reduce the possibility of delirium - prn analgesia per CPOT score - Maintenance of sleep-wake cycle, avoid delirium - PT/OT/ROM exercises - continue mobility protocol and skin assessment per protocol for pressure ulcer prevention - Monitor hemodynamics closely -Contact and airborne isolation for PUI COVID-19 -Mobility, off loading and skin assessment per protocol to prevent pressure ulcer- Wound consult placed( he has a stage 2 sacral decubitus on exam) -Chronic home medications as clinically indicated - continue other care per attending / other consultants CONDITION: CRITICAL PROGNOSIS: GUARDED CODE STATUS: FULL CODE The high probability of a clinically significant, sudden or life-threatening deterioration of the [respiratory, cardiovascular, renal] system(s) required my full and direct attention, intervention and personal management. The aggregate critical care time was [31] minutes without overlap. Time includes spent on; [x] Data Review and interpretation [x] Patient assessment and monitoring of vital signs [x] Documentation [x] Medication orders and management Subjective Date of service: 07/01/19 Principal diagnosis: Septic shock; HAP; Acute hypoxemic resp failure PUI-COVID 19; Hypernatremia Interval history: Follow up for: Severe sepsis with septic shock presumed pulmonary source;HAP;Acute hypoxemic respiratory failure, orally intubated on MVS PUI-COVID 19;Oropharyngeal dysphagia s/p PEG;Possible aspiration PNA;Lactic acidosis;Hypernatremia;Severe protein calorie malnutrition;Acute metabolic encephalopathy Patient seen and examined. Vitals, labs, medications, chart and imaging reviewed. 24 hour events reviewed. No adverse overnight events reported Remains orally intubated Size 8.0 ETT at 22cm Vent settings AC-VC 16/500/6/50% ABG 7.45/36/152/25.3 On IVF at 125cc/hour Objective Vital Signs - 12hr 06/30/19 06/30/19 06/30/19 21:00 21:15 21:30 Temperature Pulse Rate 103 H 90 84 Respiratory 14 13 12 Rate Blood Pressure 112/80 109/62 111/74 O2 Sat by Pulse 100 99 96 Oximetry 06/30/19 06/30/19 06/30/19 21:45 22:00 22:15 Temperature Pulse Rate 86 101 H 86 Respiratory 13 14 12 Rate Blood Pressure 109/62 107/78 105/65 O2 Sat by Pulse 99 100 99 Oximetry 06/30/19 06/30/19 06/30/19 22:30 22:45 22:52 Temperature Pulse Rate 91 H 96 H 91 H Respiratory 18 12 13 Rate Blood Pressure 115/65 117/71 117/71 O2 Sat by Pulse 97 100 100 Oximetry 06/30/19 06/30/19 06/30/19 23:00 23:01 23:15 Temperature Pulse Rate 93 H 94 H 94 H Respiratory 14 15 15 Rate Blood Pressure 102/56 102/56 115/76 O2 Sat by Pulse 98 96 100 Oximetry 06/30/19 06/30/19 06/30/19 23:16 23:25 23:30 Temperature Pulse Rate 86 92 H 89 Respiratory 14 13 Rate Blood Pressure 102/56 107/63 O2 Sat by Pulse 100 100 Oximetry 06/30/19 07/01/19 07/01/19 23:45 00:00 00:15 Temperature 97.6 F Pulse Rate 92 H 90 111 H Respiratory 12 14 13 Rate Blood Pressure 114/70 110/68 116/78 O2 Sat by Pulse 78 L 100 Oximetry 07/01/19 07/01/19 07/01/19 00:16 00:30 00:45 Temperature Pulse Rate 104 H 92 H 101 H Respiratory 13 11 L Rate Blood Pressure 116/78 122/72 119/68 O2 Sat by Pulse 98 97 97 Oximetry 07/01/19 07/01/1906/30/20 01:00 01:15 01:30 Temperature Pulse Rate 96 H 89 105 H Respiratory 13 13 13 Rate Blood Pressure 118/74 125/70 139/85 O2 Sat by Pulse 99 98 100 Oximetry 07/01/19 07/01/19 07/01/19 01:45 02:00 02:15 Temperature Pulse Rate 108 H 131 H 122 H Respiratory 13 14 15 Rate Blood Pressure 120/75 127/80 133/81 O2 Sat by Pulse 99 100 98 Oximetry 07/01/19 07/01/19 07/01/19 02:30 02:45 03:00 Temperature Pulse Rate 117 H 111 H 130 H Respiratory 13 13 14 Rate Blood Pressure 108/66 113/78 120/70 O2 Sat by Pulse 95 98 95 Oximetry 07/01/19 07/01/19 07/01/19 03:15 03:30 03:45 Temperature Pulse Rate 115 H 115 H 114 H Respiratory 18 15 19 Rate Blood Pressure 105/69 119/74 111/74 O2 Sat by Pulse 90 98 Oximetry 07/01/19 07/01/19 07/01/19 04:00 04:15 04:30 Temperature 97.5 F L Pulse Rate 114 H 117 H 120 H Respiratory 17 14 17 Rate Blood Pressure 117/72 123/81 126/78 O2 Sat by Pulse 86 97 Oximetry 07/01/19 07/01/19 07/01/19 04:45 05:00 05:15 Temperature Pulse Rate 120 H 114 H 120 H Respiratory 17 16 18 Rate Blood Pressure 132/72 117/68 110/66 O2 Sat by Pulse 91 89 89 Oximetry 07/01/19 07/01/19 07/01/19 05:28 05:30 05:45 Temperature Pulse Rate 113 H 113 H 139 H Respiratory 16 18 Rate Blood Pressure 110/66 119/74 127/84 O2 Sat by Pulse 91 87 96 Oximetry 07/01/19 07/01/19 07/01/19 06:00 06:15 06:30 Temperature Pulse Rate 124 H 119 H 120 H Respiratory 15 13 17 Rate Blood Pressure 123/77 115/73 123/69 O2 Sat by Pulse 96 98 Oximetry 07/01/19 07/01/19 07/01/19 06:45 07:00 07:15 Temperature Pulse Rate 115 H 117 H 118 H Respiratory 15 17 15 Rate Blood Pressure 120/79 111/73 112/80 O2 Sat by Pulse 91 Oximetry 07/01/19 07/01/19 07/01/19 07:30 07:45 08:00 Temperature Pulse Rate 120 H 119 H 118 H Respiratory 11 L 14 14 Rate Blood Pressure 117/80 115/75 120/78 O2 Sat by Pulse 98 100 Oximetry 07/01/19 08:03 Temperature Pulse Rate 116 H Respiratory Rate Blood Pressure 120/78 O2 Sat by Pulse 100 Oximetry Constitutional: no acute distress, other (sedated, orally intubated) Eyes: non-icteric ENT: oropharynx moist, other (ETT at 23cm at the lip) Neck: supple, no lymphadenopathy, no JVD Effort: mildly labored Ascultation: Bilateral: diminished breath sounds, rhonchi Percussion: Bilateral: not dull Cardiovascular: regular rate and rhythm (tachycardia), other (S1,S2, no murmurs, gallops) Gastrointestinal: normoactive bowel sounds, soft, non-tender, non-distended, other (PEG in place) Integumentary: decubitus ulcer (Stage 2) Extremities: no cyanosis, no edema, pulses normal, no ischemia or petechiae Neurologic: unable to assess Psychiatric: other (unable to assess secondary to mental status) CBC and BMP: 07/09/19 04:57 07/09/19 04:57 ABG, PT/INR, D-dimer: ABG ABG pH 7.432 pH Units (7.350-7.450) 07/01/19 05:32 ABG pCO2 41.0 mm Hg 07/01/19 05:32 ABG pO2 42.8 mm Hg (80.0-90.0) L 07/01/19 05:32 ABG O2 Saturation 83.4 % (95.0-99.0) L 07/01/19 05:32 PT/INR, D-dimer PT 15.5 Sec. (12.2-14.9) H 06/28/19 04:05 INR 1.21 (0.87-1.13) H 06/28/19 04:05 Abnormal lab findings: Abnormal Labs 06/26/19 06/26/19 06/26/19 22:56 23:31 23:31 RBC 2.90 L Hgb 8.8 L Hct 26.5 L [place] % (Auto) PT INR APTT ABG pH 7.467 H ABG pO2 106.2 H ABG HCO3 26.5 H ABG O2 Saturation ABG Hemoglobin 9.6 L Oxyhemoglobin Sodium 150 H Potassium Chloride 111.7 H BUN Glucose POC Glucose Lactic Acid Calcium Phosphorus Magnesium AST 53 H Total Creatine Kinase Total Protein 6.2 L Albumin 2.4 L 06/26/19 06/26/19 06/27/19 23:31 23:31 04:35 RBC Hgb Hct [place] % (Auto) PT INR APTT ABG pH ABG pO2 120.3 H ABG HCO3 ABG O2 Saturation ABG Hemoglobin 7.4 L Oxyhemoglobin Sodium Potassium Chloride BUN Glucose POC Glucose Lactic Acid 2.20 H* Calcium Phosphorus Magnesium AST Total Creatine Kinase 300 H Total Protein Albumin 06/27/19 06/27/19 06/28/19 08:53 12:37 03:45 RBC Hgb Hct [place] % (Auto) PT INR APTT ABG pH 7.457 H ABG pO2 152.6 H ABG HCO3 ABG O2 Saturation ABG Hemoglobin 8.4 L Oxyhemoglobin Sodium Potassium Chloride BUN Glucose POC Glucose 108 H 125 H Lactic Acid Calcium Phosphorus Magnesium AST Total Creatine Kinase Total Protein Albumin 06/28/19 06/28/19 06/28/19 04:05 04:05 04:05 RBC 2.65 L Hgb 7.8 L Hct 23.9 L [place] % (Auto) 8.6 H PT 15.5 H INR 1.21 H APTT 36.7 H ABG pH ABG pO2 ABG HCO3 ABG O2 Saturation ABG Hemoglobin Oxyhemoglobin Sodium 151 H Potassium 3.1 L Chloride 116.1 H BUN Glucose 125 H POC Glucose Lactic Acid Calcium 8.3 L Phosphorus Magnesium AST Total Creatine Kinase Total Protein Albumin 06/29/19 06/30/19 07/01/19 04:55 05:55 05:15 RBC 2.64 L Hgb 7.8 L Hct 24.1 L [place] % (Auto) 11.8 H PT INR APTT ABG pH ABG pO2 121.9 H 102.6 H ABG HCO3 ABG O2 Saturation ABG Hemoglobin 8.1 L 10.4 L Oxyhemoglobin Sodium Potassium Chloride BUN Glucose POC Glucose Lactic Acid Calcium Phosphorus Magnesium AST Total Creatine Kinase Total Protein Albumin 07/01/19 07/01/19 07/01/19 05:15 05:15 05:32 RBC Hgb Hct [place] % (Auto) PT INR APTT ABG pH ABG pO2 42.8 L ABG HCO3 26.7 H ABG O2 Saturation 83.4 L ABG Hemoglobin 7.6 L Oxyhemoglobin 81.9 L Sodium 147 H Potassium 2.7 L* Chloride 112.7 H BUN 6 L Glucose 453 H POC Glucose Lactic Acid Calcium 8.2 L Phosphorus 2.40 L Magnesium 1.60 L AST Total Creatine Kinase Total Protein Albumin Allied health notes reviewed: nursing
--- NOTE | 2019-07-01 09:20 | XRay Report ---
CHEST 1 VIEW INDICATION: follow up respiratory failure. COMPARISON: 06/30/2019 FINDINGS: SUPPORT DEVICES: Endotracheal tubes in good position. PICC line has tip in superior vena cava. Nasoga stric been removed. HEART / MEDIASTINUM: No significant abnormality. LUNGS / PLEURA: Perihilar-infrahilar patchy airspace changes are present with prominent bronchovascul ar markings. Slight improvement airspace changes right lower lobe Small left pleural effusion is pres ent. No pneumothorax. IMPRESSION 1. Improved aeration right lower lobe as compared to previous exam 2. Persistent airspace changes left infrahilar region with small left pleural effusion Signer Name: Gunner Bajwa MD Signed: 07/01/2019 9:16 AM Workstation Name: [id number]
--- NOTE | 2019-07-01 10:43 | Progress Note ---
Assessment and Plan Assessment and plan: Severe sepsis with septic shock. Continue pressors as needed to maintain MAP greater than 65. Continue IV antibiotics and follow-up cultures. Bilateral pneumonia. Continue IV antibiotics. Suspected COVID19/PUI. Contact and airborne isolation for PUI COVID-19 Oropharyngeal dysphagia. Patient is status post PEG. Severe protein calorie malnutrition. Continue tube feedings with aspiration precautions. Toxic metabolic encephalopathy with underlying Lewy body dementia. Continue to treat underlying causes and supportive care. Hypernatremia. Continue free water and follow-up BMP. 06/29/2019patient remains on mechanical ventilation with AC mode rate of 16, tidal volume 500, FiO2 40% and PEEP of 5. Patient with ARDS from suspected COVID19. Patient recently had a negative COVID-19 test, however it does not rule out possibility he was either newly infected or that it was a false negat franchesca test. He has a normal white count with increased liver enzymes, which is consistent with COVID-19 disease. Continue contact and airborne/droplet precautions. Follow-up pro calcitonin level and rapid influenza PCR. 06/30/2019-patient remains on mechanical ventilation with AC mode rate of 16 ti [place] volume 500 FiO2 35% and a PEEP of 6. Patient with ARDS from suspected COVID19. Patient recently had a negative COVID-19 test, however it does not rule out possibility he was either newly infected or that it was a false negative test. He has a normal white count with increased liver enzymes, which is consistent with COVID-19 disease. Continue contact and airborne/droplet precautions. Pro calcitonin level slightly elevated at 0.44. Follow-up rapid influenza PCR. 07/01/2019-patient remains on mechanical ventilation with AC mode rate of 16 tidal volume 500 FiO2 25% and a PEEP of 6. Continue to wean vent as tolerated. Patient with ARDS from suspected COVID19. Patient recently had a negative COVID-19 test, however it does not rule out possibility he was either newly infected or that it was a false negative test. He has a normal white count with increased liver enzymes, which is consistent with COVID-19 disease. Follow-up rapid influenza PCR. The high probability of a clinically significant, sudden or life threatening deterioration of the [hemodynamic, immunologic and respiratory] system(s) required my full and direct attention, intervention and personal management. The aggregate critical care time was [32] minutes. This time is in addition to time spent performing reported procedures but includes the following: [x] Data Review and interpretation [x] Patient assessment and monitoring of vital signs [x] Documentation [x] Medication orders and management History Interval history: Patient remains on mechanical ventilation. Hospitalist Physical - Constitutional Vitals: Temp Pulse Resp BP Pulse Ox 37.1 F L 105 H 13 116/73 98 07/01/19 08:00 07/01/19 10:00 07/01/19 10:00 07/01/19 10:00 07/01/19 10:00 General appearance: Present: no acute distress, disheveled - EENT Eyes: Present: PERRL, EOM intact ENT: hearing intact, clear oral mucosa, dentition normal - Neck Neck: Present: supple, normal ROM - Respiratory Respiratory effort: normal Respiratory: bilateral: CTA - Cardiovascular Rhythm: regular Heart Sounds: Present: S1 & S2. Absent: gallop, rub - Extremities Extremities: no ischemia, No edema, Full ROM - Abdominal General gastrointestinal: soft, non-tender, non-distended, normal bowel sounds - Integumentary Integumentary: Present: clear, warm, dry - Neurologic Neurologic: CNII-XII intact, moves all extremities Results - Labs CBC & Chem 7: 07/01/19 05:15 07/01/19 05:15 Labs: Laboratory Last Values WBC 6.6 K/mm3 (4.5-11.0) 07/01/19 05:15 RBC 2.64 M/mm3 (3.65-5.03) L 07/01/19 05:15 Hgb 7.8 gm/dl (11.8-15.2) L 07/01/19 05:15 Hct 24.1 % (35.5-45.6) L 07/01/19 05:15 MCV 91 fl (84-94) 07/01/19 05:15 MCH 30 pg (28-32) 07/01/19 05:15 MCHC 33 % (32-34) 07/01/19 05:15 RDW 13.6 % (13.2-15.2) 07/01/19 05:15 Plt Count 293 K/mm3 (140-440) 07/01/19 05:15 Lymph % (Auto) 20.0 % (13.4-35.0) 07/01/19 05:15 [place] % (Auto) 11.8 % (0.0-7.3) H 07/01/19 05:15 Eos % (Auto) 3.1 % (0.0-4.3) 07/01/19 05:15 Baso % (Auto) 1.3 % (0.0-1.8) 07/01/19 05:15 Lymph # 1.3 K/mm3 (1.2-5.4) 07/01/19 05:15 [place] # 0.8 K/mm3 (0.0-0.8) 07/01/19 05:15 Eos # 0.2 K/mm3 (0.0-0.4) 07/01/19 05:15 Baso # 0.1 K/mm3 (0.0-0.1) 07/01/19 05:15 Seg Neutrophils % 63.8 % (40.0-70.0) 07/01/19 05:15 Seg Neutrophils # 4.2 K/mm3 (1.8-7.7) 07/01/19 05:15 PT 15.5 Sec. (12.2-14.9) H 06/28/19 04:05 INR 1.21 (0.87-1.13) H 06/28/19 04:05 APTT 36.7 Sec. (24.2-36.6) H 06/28/19 04:05 ABG pH 7.432 pH Units (7.350-7.450) 07/01/19 05:32 ABG pCO2 41.0 mm Hg 07/01/19 05:32 ABG pO2 42.8 mm Hg (80.0-90.0) L 07/01/19 05:32 ABG HCO3 26.7 mmol/L (20.0-26.0) H 07/01/19 05:32 ABG O2 Saturation 83.4 % (95.0-99.0) L 07/01/19 05:32 ABG O2 Content 8.8 (0.0-44) 07/01/19 05:32 ABG Base Excess 2.2 mmol/L (-2.0-3.0) 07/01/19 05:32 ABG Hemoglobin 7.6 gm/dl (14.0-18.0) L 07/01/19 05:32 ABG Carboxyhemoglobin 1.4 % (0.0-5.0) 07/01/19 05:32 ABG Methemoglobin 0.5 % (0.0-1.5) 07/01/19 05:32 Oxyhemoglobin 81.9 % (95.0-99.0) L 07/01/19 05:32 FiO2 25 % 07/01/19 05:32 Sodium 147 mmol/L (137-145) H 07/01/19 05:15 Potassium 2.7 mmol/L (3.6-5.0) L* 07/01/19 05:15 Chloride 112.7 mmol/L (98-107) H 07/01/19 05:15 Carbon Dioxide 24 mmol/L (22-30) 07/01/19 05:15 Anion Gap 13 mmol/L 07/01/19 05:15 BUN 6 mg/dL (9-20) L 07/01/19 05:15 Creatinine 1.0 mg/dL (0.8-1.5) 07/01/19 05:15 Estimated GFR > 60 ml/min 07/01/19 05:15 BUN/Creatinine Ratio 6 % 07/01/19 05:15 Glucose 453 mg/dL (75-100) H 07/01/19 05:15 POC Glucose 125 (70-105) H 06/27/19 12:37 Lactic Acid 1.30 mmol/L (0.7-2.0) 06/27/19 05:02 Calcium 8.2 mg/dL (8.4-10.2) L 07/01/19 05:15 Phosphorus 2.40 mg/dL (2.5-4.5) L 07/01/19 05:15 Magnesium 1.60 mg/dL (1.7-2.3) L 07/01/19 05:15 Total Bilirubin 0.50 mg/dL (0.1-1.2) 06/26/19 23:31 AST 53 units/L (5-40) H 06/26/19 23:31 ALT 56 units/L (7-56) 06/26/19 23:31 Alkaline Phosphatase 109 units/L (35-129) 06/26/19 23:31 Total Creatine Kinase 300 units/L (55-170) H 06/26/19 23:31 Troponin T < 0.010 ng/mL (0.00-0.029) 06/26/19 23:31 Total Protein 6.2 g/dL (6.3-8.2) L 06/26/19 23:31 Albumin 2.4 g/dL (3.9-5) L 06/26/19 23:31 Albumin/Globulin Ratio 0.6 % 06/26/19 23:31 Triglycerides 143 mg/dL (2-149) 07/01/19 05:15 Procalcitonin 0.44 ng/mL (<0.15) 06/29/19 Unknown Vancomycin Trough 18.3 ug/mL (5.0-20.0) 06/30/19 05:30 Influenza A (Rapid) Negative (Negative) 06/28/19 14:31 Influenza A (RT-PCR) Negative (Negative) 06/28/19 14:31 Influenza B (Rapid) Negative (Negative) 06/28/19 14:31 Influenza B (RT-PCR) Negative (Negative) 06/28/19 14:31 Microbiology: Microbiology 06/27/19 00:19 Peripheral/Venous Blood Culture - Preliminary NO GROWTH AFTER 4 DAYS 06/26/19 23:31 Peripheral/Venous Blood Culture - Preliminary NO GROWTH AFTER 4 DAYS Martinez/IV: Voiding Method Condom Catheter IV Catheter Type [Left PICC Line Antecubital] IV Catheter Type [Left Upper PICC Line arm] IV Catheter Type [Left Wrist] INT / Saline Lock IV Catheter Type [Right Leg] Triple Lumen Cath Active Medications - Current Medications Current Medications: Generic Name Dose Route Start Last Admin Trade Name Freq PRN Reason Stop Dose Admin Famotidine 20 mg 06/27/19 11:00 07/01/19 09:03 Pepcid IV Not Given BID LADY Heparin Sodium (Porcine) 5,000 unit 06/27/19 06:00 07/01/19 06:08 Heparin SUB-Q 5,000 unit Q8HR LADY Administration Norepinephrine 4 mg in 250 mls @ 7.5 mls/hr 06/27/19 01:00 06/28/19 09:20 Levophed Drip 4 Mg/Ns 250 Ml IV 0 mcg/min TITR LADY 0 mls/hr Titration Protocol 2 MCG/MIN Dextrose/Sodium Chloride 1,000 mls @ 125 mls/hr 06/27/19 03:00 07/01/19 08:23 D5/0.45ns IV 125 mls/hr DIRECT LADY Administration Propofol 1,000 mg in 100 mls @ 1.497 mls/hr 06/27/19 06:00 07/01/19 05:54 Diprivan 10 Mg/Ml IV 5 mcg/kg/min TITR LADY 1.497 mls/hr Administration Protocol 5 MCG/KG/MIN Cefepime HCl 1 gm in 100 mls @ 200 mls/hr 06/27/19 11:00 07/01/19 02:17 Cefepime/Ns 1 Gm/100 Ml IV 200 mls/hr Q8H LADY Administration Protocol Vancomycin HCl 1 gm in 250 mls @ 167.007 mls/hr 06/27/19 22:00 06/30/19 21:05 Vancomycin/Ns 1 Gm/250 Ml IV 167.007 mls/hr Q24H LADY Administration Fentanyl Citrate 2,000 mcg in 100 mls @ 2.495 mls/hr 06/27/19 19:00 06/30/19 14:04 Fentanyl Drip Premix IV 1 mcg/kg/hr TITR LADY 2.495 mls/hr Administration Protocol 1 MCG/KG/HR Magnesium Hydroxide 30 ml 06/27/19 02:51 Milk Of Magnesia PO Q4H PRN Constipation Morphine Sulfate 2 mg 06/27/19 02:51 Morphine IV Q4H PRN Pain, Moderate (4-6) Sodium Chloride 10 ml 06/27/19 10:00 07/01/19 09:03 Sodium Chloride Flush Syringe 10 Ml IV Not Given BID LADY Sodium Chloride 10 ml 06/27/19 02:51 06/27/19 09:10 Sodium Chloride Flush Syringe 10 Ml IV 10 ml PRN PRN Administration LINE FLUSH Nutrition/Malnutrition Assess - Dietary Evaluation Nutrition/Malnutrition Findings: Nutrition Notes Start: 06/27/19 09:53 Freq: Status: Active Protocol: Document 06/27/19 09:53 LP (Rec: 06/27/19 10:06 LP [id number]) Nutrition Notes Need for Assessment generated from: MD Order Initial or Follow up Brief Note Current Diagnosis Hypertension Other Pertinent Diagnosis Lewy body dementia, pneu Current Diet NPO Labs/Tests Na 150 06/26/19 Pertinent Medications D5 1/2 NS at 125ml/hr Levo Propofol Height 5 ft 10 in Weight 49.895 kg [place] Body Weight (kg) 75.45 BMI 15.7 Weight Status Underweight Subjective/Other Information Consult for diet education and evaluation of nutrition intake. Pt one vent. Burn Absent Trauma Absent #1 Nutrition Diagnosis Inadequate oral intake Etiology vent As Evidenced by Signs and Symptoms Pt unable to consume PO due to vent Is patient on ventilator? Yes Is Patient Ambulatory and/or Out of Bed No REE-([place]-confined to bed) 1612.920 Kcal/Kg value to use for calculation 40 Approximate Energy Requirements Using 1996 kcal/Kg Calculation Used for Recommendations Kcal/kg Additional Notes Protein needs are 60-100g (1.2 -2g/kg) Fluid needs are 1ml/kcal Nutrition Intervention Change Diet Order: TF or diet advancement Nutrition Support: When consulted Osmolite 1.5 at 55ml/hr Flush with 250ml q4h for hypernatremia and 150ml q4h once resolved Kcal 1,980 Protein (gm) 83 Fluid (mL) 1,006 Goal #1 TF consult or extubation Anticipated Discharge Needs: Unable to determine at this time Follow-Up By: 07/01/19 Additional Comments Follow for TF consult or extubation
[2019-07-01] MEDS ORDERED: SIMPLE SYRUP 15 ML FEEDTUBE PRN ×2 (11:48)
[2019-07-01 15:21] LABS: BUN/Creatinine Ratio 6; Blood Urea Nitrogen 6 mg/dL (9-20); Calcium 8.8 mg/dL (8.4-10.2); Hemolysis Index 0
--- NOTE | 2019-07-01 16:28 | Progress Note ---
Assessment and Plan Cultures: Blood culture 06/26/2019 no growth to date Sputum culture 06/26/2019 no growth to date A/P: 54-year-old man past medical history of Lewy body dementia admitted with bilateral pneumonia. #COVID-19 rule out: Patient is currently in airborne and contact since he is intubated. Patient recently had a negative COVID-19 test, however it does not rule out possibility he was either newly infected or that it was a false negative test. He has a normal white count with increased liver enzymes, which is consistent with COVID-19 disease. Patient is listed as a PUI, however I am unsure if the [facility] survey was filled out. If not, please complete to have testing available. #Bilateral pneumonia: Can continue vancomycin and cefepime in the meantime given the patient is detention exposures. Would also order flu PCR and serologies. #Lewy body dementia #Acute hypoxic respiratory failure Recs: -Continue contact and airborne, and droplet precautions -Follow-up Department of Health testing for COVID-19 -Continue vancomycin and cefepime. -Procal elevated: continue empiric antibiotics. For the consult, will continue to follow Jf Batista MD [facility] ([facility] M: [phone] O: [phone] F: [phone] Subjective Date of service: 07/01/19 Principal diagnosis: Septic shock; HAP; Acute hypoxemic resp failure PUI-COVID 19; Hypernatremia Interval history: Minimal change today. Afebrile, normal white count. Remains intubated. Imaging personally reviewd: CXR: Improved aeration Objective - Exam Narrative Exam: Physical Exam: Constitutional: Intubated, sedated Head, Ears, Nose: Normocephalic, atraumatic. Eyes: Conjunctivae/corneas clear. No icterus. No ptosis. Neck: Supple, no meningeal signs Oral: Endotracheal tube Cardiovascular: S1, S2 normal. Respiratory: Good air entry, clear to auscultation bilaterally GI: Soft, non-tender; bowel sounds normal. No peritoneal signs. Musculoskeletal: No pedal edema, no cyanosis. Skin: No rash or abscess Hem/Lymphatic: No palpable cervical or supraclavicular nodes. No lymphangitis Psych: Sedated Neurological: Sedated - Constitutional Vitals: Vital Signs Temp Pulse Resp BP Pulse Ox 97.2 F L 92 H 12 118/73 100 07/01/19 11:40 07/01/19 16:00 07/01/19 16:00 07/01/19 16:00 07/01/19 16:00 Temperature -Last 24 Hours Temperature 97.2 F Temperature 37.1 F Temperature 97.5 F Temperature 97.6 F Temperature 97.6 F - Labs CBC & Chem 7: 07/01/19 05:15 07/01/19 14:55 Labs: Abnormal lab results 07/01/19 07/01/19 07/01/19 Range/Units 05:15 05:15 05:15 RBC 2.64 L (3.65-5.03) M/mm3 Hgb 7.8 L (11.8-15.2) gm/dl Hct 24.1 L (35.5-45.6) % [place] % (Auto) 11.8 H (0.0-7.3) % ABG pO2 (80.0-90.0) mm Hg ABG HCO3 (20.0-26.0) mmol/L ABG O2 Saturation (95.0-99.0) % ABG Hemoglobin (14.0-18.0) gm/dl Oxyhemoglobin (95.0-99.0) % Sodium 147 H (137-145) mmol/L Potassium 2.7 L* (3.6-5.0) mmol/L Chloride 112.7 H (98-107) mmol/L BUN 6 L (9-20) mg/dL Glucose 453 H (75-100) mg/dL Calcium 8.2 L (8.4-10.2) mg/dL Phosphorus 2.40 L (2.5-4.5) mg/dL Magnesium 1.60 L (1.7-2.3) mg/dL 07/01/19 07/01/19 Range/Units 05:32 14:55 RBC (3.65-5.03) M/mm3 Hgb (11.8-15.2) gm/dl Hct (35.5-45.6) % [place] % (Auto) (0.0-7.3) % ABG pO2 42.8 L (80.0-90.0) mm Hg ABG HCO3 26.7 H (20.0-26.0) mmol/L ABG O2 Saturation 83.4 L (95.0-99.0) % ABG Hemoglobin 7.6 L (14.0-18.0) gm/dl Oxyhemoglobin 81.9 L (95.0-99.0) % Sodium 153 H (137-145) mmol/L Potassium 3.3 L D (3.6-5.0) mmol/L Chloride 117.1 H (98-107) mmol/L BUN 6 L (9-20) mg/dL Glucose (75-100) mg/dL Calcium (8.4-10.2) mg/dL Phosphorus (2.5-4.5) mg/dL Magnesium (1.7-2.3) mg/dL
[2019-07-02] MEDS: VANCOMYCIN/NS 1 GM/250 ML 1 GM/250 ML BAG IV SCH (00:14)
[2019-07-02] MEDS: CEFEPIME/NS 1 GM/100 ML 1 GM/100 ML BAG IV SCH ×3 (03:25→18:34)
--- NOTE | 2019-07-02 03:56 | XRay Report ---
CHEST 1 VIEW INDICATION / CLINICAL INFORMATION: follow up respiratory failure. COMPARISON: 07/01/2019 FINDINGS: SUPPORT DEVICES: Endotracheal tube, left-sided PICC line HEART / MEDIASTINUM: No significant abnormality. LUNGS / PLEURA: Bilateral airspace disease No pneumothorax. ADDITIONAL FINDINGS: No significant additional findings. IMPRESSION: Bilateral airspace disease unchanged from yesterday Signer Name: Phuc Nair MD FACR Signed: 07/02/2019 3:52 AM Workstation Name: [email or web address]
[2019-07-02 05:12] LABS: ABG HCO3 26.8 mmol/L (20.0-26.0); ABG Methemoglobin 0.4 % (0.0-1.5); ABG PCO2 43.4 mm Hg; ABG PH 7.409 pH Units (7.350-7.450); ABG PO2 83.8 mm Hg (80.0-90.0)
[2019-07-02] MEDS: D5W/0.45% NACL 1,000 ML IV SCH ×3 (05:13→21:51)
[2019-07-02] MEDS: HEPARIN 5,000 UNIT/1 ML VIAL SUB-Q SCH ×3 (05:13→21:51)
[2019-07-02 09:04] LABS: Mean Corpuscular HGB Conc 33 % (32-34); Mean Corpuscular Volume 91 fl (84-94); Platelet Count 316 K/mm3 (140-440); Red Blood Count 2.64 M/mm3 (3.65-5.03); Red Cell Distribution Width 14.2 % (13.2-15.2)
[2019-07-02 09:06] LABS: BUN/Creatinine Ratio 6; Blood Urea Nitrogen 6 mg/dL (9-20); Calcium 8.9 mg/dL (8.4-10.2); Hemolysis Index 4
[2019-07-02] MEDS: FAMOTIDINE 20 MG TAB PO SCH ×2 (10:27→21:50)
--- NOTE | 2019-07-02 12:38 | Progress Note ---
Assessment and Plan Severe sepsis with septic shock presumed pulmonary source HAP- leukocytosis, elevated procal Acute hypoxemic respiratory failure, orally intubated on MVS PUI-COVID 19 Oropharyngeal dysphagia s/p PEG Possible aspiration PNA Lactic acidosis Hypernatremia Severe protein calorie malnutrition Acute metabolic encephalopathy h/o Lewy body dementia Wean vasopressor support for MAP >65 Continue enteric nutrition at goal,continue free water flushes to treat hypernatremia- get BMP in am Sedation holiday, resume at half the does if he requires on going sedation SBT today Monitor glycemic control, with target blood glucose 140-180 mg/dL while critically ill. Avoid hypoglycemia Bowel regimen Continue Vancomycin and Cefepime for HAP to complete course Has LUExt PICC line, to be discontinued once he is off Norepinephrine -Continue with MVS, Lung protective strategies, monitor airway pressures -Aspiration precautions, HOB>40 -Daily assessment for readiness for SBT, Daily SAT -Titrate sedation for RAAS -1 to -2 -VTE prophylaxis -Stress ulcer prophylaxis - Wean supplemental oxygen for target O2 sat's > 90% -ABG and CXR in am -Follow cultures and adjust antibiotic therapy for KORIN and culture results -Currently on therapy for HAP -Avoid nephrotoxins, adjust all medications for GFR and CrCL - continue bronchodilators with pulmonary hygiene per RT - continue to avoid benzodiazepines to reduce the possibility of delirium - prn analgesia per CPOT score - Maintenance of sleep-wake cycle, avoid delirium - PT/OT/ROM exercises - continue mobility protocol and skin assessment per protocol for pressure ulcer prevention - Monitor hemodynamics closely -Contact and airborne isolation for PUI COVID-19 -Mobility, off loading and skin assessment per protocol to prevent pressure ulcer- Wound consult placed( he has a stage 2 sacral decubitus on exam) -Chronic home medications as clinically indicated - continue other care per attending / other consultants CONDITION: CRITICAL PROGNOSIS: GUARDED CODE STATUS: FULL CODE The high probability of a clinically significant, sudden or life-threatening det erioration of the [respiratory, cardiovascular, renal] system(s) required my full and direct attention, intervention and personal management. The aggregate critical care time was [35] minutes without overlap. Time includes spent on; [x] Data Review and interpretation [x] Patient assessment and monitoring of vital signs [x] Documentation [x] Medication orders and management Subjective Date of service: 07/02/19 Principal diagnosis: Septic shock; HAP; Acute hypoxemic resp failure PUI-COVID 19; Hypernatremia Interval history: Follow up for: Severe sepsis with septic shock presumed pulmonary source;HAP;Acute hypoxemic respiratory failure, orally intubated on MVS PUI-COVID 19;Oropharyngeal dysphagia s/p PEG;Possible aspiration PNA;Lactic acidosis;Hypernatremia;Severe protein calorie malnutrition;Acute metabolic encephalopathy Patient seen and examined. Vitals, labs, medications, chart and imaging reviewed. 24 hour events reviewed. No adverse overnight events reported Remains orally intubated Size 8.0 ETT at 22cm; tolerating tube feedings at goal. No acute overnight event, remains on Propfol and fentanyl infusions. No fevers, no vomiting, no diarrhea. Hypernatremia of 153 Objective Vital Signs - 12hr 07/02/19 07/02/19 07/02/19 01:00 02:00 02:04 Temperature Pulse Rate 94 H 99 H 96 H Pulse Rate [ From Monitor] Respiratory 15 12 Rate Blood Pressure 105/64 101/66 101/66 O2 Sat by Pulse 100 100 99 Oximetry 07/02/19 07/02/19 07/02/19 03:00 04:00 04:30 Temperature 97.6 F Pulse Rate 94 H 92 H 88 Pulse Rate [ 90 From Monitor] Respiratory 11 L 12 Rate Blood Pressure 94/57 96/66 96/60 O2 Sat by Pulse 98 95 99 Oximetry 07/02/19 07/02/19 07/02/19 05:00 06:00 07:00 Temperature Pulse Rate 92 H 89 88 Pulse Rate [ From Monitor] Respiratory 12 14 16 Rate Blood Pressure 115/71 106/72 112/68 O2 Sat by Pulse 98 100 100 Oximetry 07/02/19 07/02/19 07/02/19 08:00 08:23 08:26 Temperature 97.1 F L Pulse Rate 100 H 94 H 98 H Pulse Rate [ From Monitor] Respiratory 13 11 L Rate Blood Pressure 98/65 98/65 98/65 O2 Sat by Pulse 99 100 100 Oximetry 07/02/19 07/02/19 07/02/19 09:00 10:00 11:00 Temperature Pulse Rate 90 94 H 105 H Pulse Rate [ From Monitor] Respiratory 12 13 14 Rate Blood Pressure 104/68 104/67 105/68 O2 Sat by Pulse 97 97 99 Oximetry 07/02/19 12:00 Temperature 97.5 F L Pulse Rate 86 Pulse Rate [ From Monitor] Respiratory 12 Rate Blood Pressure 109/69 O2 Sat by Pulse 98 Oximetry Constitutional: no acute distress, other (sedated, orally intubated) Eyes: non-icteric ENT: oropharynx moist, other (ETT at 23cm at the lip) Neck: supple, no lymphadenopathy, no JVD Effort: mildly labored Ascultation: Bilateral: diminished breath sounds, rhonchi Percussion: Bilateral: not dull Cardiovascular: regular rate and rhythm (tachycardia), other (S1,S2, no murmurs, gallops) Gastrointestinal: normoactive bowel sounds, soft, non-tender, non-distended, other (PEG in place) Integumentary: decubitus ulcer (Stage 2) Extremities: no cyanosis, no edema, pulses normal, no ischemia or petechiae Neurologic: unable to assess Psychiatric: other (unable to assess secondary to mental status) CBC and BMP: 07/03/19 06:50 07/03/19 06:50 ABG, PT/INR, D-dimer: ABG ABG pH 7.409 pH Units (7.350-7.450) 07/02/19 04:50 ABG pCO2 43.4 mm Hg 07/02/19 04:50 ABG pO2 83.8 mm Hg (80.0-90.0) 07/02/19 04:50 ABG O2 Saturation 97.0 % (95.0-99.0) 07/02/19 04:50 PT/INR, D-dimer PT 15.5 Sec. (12.2-14.9) H 06/28/19 04:05 INR 1.21 (0.87-1.13) H 06/28/19 04:05 Abnormal lab findings: Abnormal Labs 06/26/19 06/26/19 06/26/19 22:56 23:31 23:31 RBC 2.90 L Hgb 8.8 L Hct 26.5 L [place] % (Auto) PT INR APTT ABG pH 7.467 H ABG pO2 106.2 H ABG HCO3 26.5 H ABG O2 Saturation ABG Hemoglobin 9.6 L Oxyhemoglobin Sodium 150 H Potassium Chloride 111.7 H BUN Glucose POC Glucose Lactic Acid Calcium Phosphorus Magnesium AST 53 H Total Creatine Kinase Total Protein 6.2 L Albumin 2.4 L 06/26/19 06/26/19 06/27/19 23:31 23:31 04:35 RBC Hgb Hct [place] % (Auto) PT INR APTT ABG pH ABG pO2 120.3 H ABG HCO3 ABG O2 Saturation ABG Hemoglobin 7.4 L Oxyhemoglobin Sodium Potassium Chloride BUN Glucose POC Glucose Lactic Acid 2.20 H* Calcium Phosphorus Magnesium AST Total Creatine Kinase 300 H Total Protein Albumin 06/27/19 06/27/19 06/28/19 08:53 12:37 03:45 RBC Hgb Hct [place] % (Auto) PT INR APTT ABG pH 7.457 H ABG pO2 152.6 H ABG HCO3 ABG O2 Saturation ABG Hemoglobin 8.4 L Oxyhemoglobin Sodium Potassium Chloride BUN Glucose POC Glucose 108 H 125 H Lactic Acid Calcium Phosphorus Magnesium AST Total Creatine Kinase Total Protein Albumin 06/28/19 06/28/19 06/28/19 04:05 04:05 04:05 RBC 2.65 L Hgb 7.8 L Hct 23.9 L [place] % (Auto) 8.6 H PT 15.5 H INR 1.21 H APTT 36.7 H ABG pH ABG pO2 ABG HCO3 ABG O2 Saturation ABG Hemoglobin Oxyhemoglobin Sodium 151 H Potassium 3.1 L Chloride 116.1 H BUN Glucose 125 H POC Glucose Lactic Acid Calcium 8.3 L Phosphorus Magnesium AST Total Creatine Kinase Total Protein Albumin 06/29/19 06/30/19 07/01/19 04:55 05:55 05:15 RBC 2.64 L Hgb 7.8 L Hct 24.1 L [place] % (Auto) 11.8 H PT INR APTT ABG pH ABG pO2 121.9 H 102.6 H ABG HCO3 ABG O2 Saturation ABG Hemoglobin 8.1 L 10.4 L Oxyhemoglobin Sodium Potassium Chloride BUN Glucose POC Glucose Lactic Acid Calcium Phosphorus Magnesium AST Total Creatine Kinase Total Protein Albumin 07/01/19 07/01/19 07/01/19 05:15 05:15 05:32 RBC Hgb Hct [place] % (Auto) PT INR APTT ABG pH ABG pO2 42.8 L ABG HCO3 26.7 H ABG O2 Saturation 83.4 L ABG Hemoglobin 7.6 L Oxyhemoglobin 81.9 L Sodium 147 H Potassium 2.7 L* Chloride 112.7 H BUN 6 L Glucose 453 H POC Glucose Lactic Acid Calcium 8.2 L Phosphorus 2.40 L Magnesium 1.60 L AST Total Creatine Kinase Total Protein Albumin 07/01/19 07/02/19 07/02/19 14:55 04:50 08:15 RBC Hgb Hct [place] % (Auto) PT INR APTT ABG pH ABG pO2 ABG HCO3 26.8 H ABG O2 Saturation ABG Hemoglobin 5.4 L Oxyhemoglobin Sodium 153 H 150 H Potassium 3.3 L D 3.5 L Chloride 117.1 H 115.2 H BUN 6 L 6 L Glucose 109 H POC Glucose Lactic Acid Calcium Phosphorus Magnesium AST Total Creatine Kinase Total Protein Albumin 07/02/19 08:46 RBC 2.64 L Hgb 8.0 L Hct 24.0 L [place] % (Auto) PT INR APTT ABG pH ABG pO2 ABG HCO3 ABG O2 Saturation ABG Hemoglobin Oxyhemoglobin Sodium Potassium Chloride BUN Glucose POC Glucose Lactic Acid Calcium Phosphorus Magnesium AST Total Creatine Kinase Total Protein Albumin Chest x-ray: image reviewed Allied health notes reviewed: RT
--- NOTE | 2019-07-02 12:58 | Progress Note ---
Assessment and Plan Assessment and plan: Severe sepsis with septic shock. Continue pressors as needed to maintain MAP greater than 65. Continue IV antibiotics and follow-up cultures. Bilateral pneumonia. Continue IV antibiotics. Suspected COVID19/PUI. Contact and airborne isolation for PUI COVID-19 Oropharyngeal dysphagia. Patient is status post PEG. Severe protein calorie malnutrition. Continue tube feedings with aspiration precautions. Toxic metabolic encephalopathy with underlying Lewy body dementia. Continue to treat underlying causes and supportive care. Hypernatremia. Continue free water and follow-up BMP. 06/29/2019patient remains on mechanical ventilation with AC mode rate of 16, tidal volume 500, FiO2 40% and PEEP of 5. Patient with ARDS from suspected COVID19. Patient recently had a negative COVID-19 test, however it does not rule out possibility he was either newly infected or that it was a false negati ve test. He has a normal white count with increased liver enzymes, which is consistent with COVID-19 disease. Continue contact and airborne/droplet precautions. Follow-up pro calcitonin level and rapid influenza PCR. 06/30/2019-patient remains on mechanical ventilation with AC mode rate of 16 tid al volume 500 FiO2 35% and a PEEP of 6. Patient with ARDS from suspected COVID19. Patient recently had a negative COVID-19 test, however it does not rule out possibility he was either newly infected or that it was a false negative test. He has a normal white count with increased liver enzymes, which is consistent with COVID-19 disease. Continue contact and airborne/droplet precautions. Pro calcitonin level slightly elevated at 0.44. Follow-up rapid influenza PCR. 07/01/2019-patient remains on mechanical ventilation with AC mode rate of 16 tidal volume 500 FiO2 25% and a PEEP of 6. Continue to wean vent as tolerated. Patient with ARDS from suspected COVID19. Patient recently had a negative COVID-19 test, however it does not rule out possibility he was either newly infected or that it was a false negative test. He has a normal white count with increased liver enzymes, which is consistent with COVID-19 disease. Follow-up rapid influenza PCR. 07/02/2019 Patient still intubated. Discussed with Amisha. to repeat COVID test, initial test was negative. The high probability of a clinically significant, sudden or life threatening deterioration of the [hemodynamic, immunologic and respiratory] system(s) required my full and direct attention, intervention and personal management. The aggregate critical care time was [34] minutes. This time is in addition to time spent performing reported procedures but includes the following: [x] Data Review and interpretation [x] Patient assessment and monitoring of vital signs [x] Documentation [x] Medication orders and management History Interval history: Patient initially presented with shortness of breath, intubated Hospitalist Physical - Physical exam Narrative exam: GEN: Not in acute distress, malnutrition HEENT: Normocephalic, atraumatic, Neck: supple, No JVD Lungs: Bilateral crackles, heart;S1 and S2 reg, tachy, no murmurs, rubs or gallop Abd:soft, non tender, non distended, normal bowel sounds Ext: No edema, no clubbing, no cyanosis, Neuro:Intubated, sedated - Constitutional Vitals: Temp Pulse Resp BP Pulse Ox 97.5 F L 86 12 109/69 98 07/02/19 12:00 07/02/19 12:00 07/02/19 12:00 07/02/19 12:00 07/02/19 12:00 General appearance: Present: no acute distress, disheveled Results - Labs CBC & Chem 7: 07/02/19 08:46 07/02/19 08:15 Labs: Laboratory Last Values WBC 6.9 K/mm3 (4.5-11.0) 07/02/19 08:46 RBC 2.64 M/mm3 (3.65-5.03) L 07/02/19 08:46 Hgb 8.0 gm/dl (11.8-15.2) L 07/02/19 08:46 Hct 24.0 % (35.5-45.6) L 07/02/19 08:46 MCV 91 fl (84-94) 07/02/19 08:46 MCH 30 pg (28-32) 07/02/19 08:46 MCHC 33 % (32-34) 07/02/19 08:46 RDW 14.2 % (13.2-15.2) 07/02/19 08:46 Plt Count 316 K/mm3 (140-440) 07/02/19 08:46 Lymph % (Auto) 20.0 % (13.4-35.0) 07/01/19 05:15 [place] % (Auto) 11.8 % (0.0-7.3) H 07/01/19 05:15 Eos % (Auto) 3.1 % (0.0-4.3) 07/01/19 05:15 Baso % (Auto) 1.3 % (0.0-1.8) 07/01/19 05:15 Lymph # 1.3 K/mm3 (1.2-5.4) 07/01/19 05:15 [place] # 0.8 K/mm3 (0.0-0.8) 07/01/19 05:15 Eos # 0.2 K/mm3 (0.0-0.4) 07/01/19 05:15 Baso # 0.1 K/mm3 (0.0-0.1) 07/01/19 05:15 Seg Neutrophils % 63.8 % (40.0-70.0) 07/01/19 05:15 Seg Neutrophils # 4.2 K/mm3 (1.8-7.7) 07/01/19 05:15 PT 15.5 Sec. (12.2-14.9) H 06/28/19 04:05 INR 1.21 (0.87-1.13) H 06/28/19 04:05 APTT 36.7 Sec. (24.2-36.6) H 06/28/19 04:05 ABG pH 7.409 pH Units (7.350-7.450) 07/02/19 04:50 ABG pCO2 43.4 mm Hg 07/02/19 04:50 ABG pO2 83.8 mm Hg (80.0-90.0) 07/02/19 04:50 ABG HCO3 26.8 mmol/L (20.0-26.0) H 07/02/19 04:50 ABG O2 Saturation 97.0 % (95.0-99.0) 07/02/19 04:50 ABG O2 Content 7.4 (0.0-44) 07/02/19 04:50 ABG Base Excess 2.0 mmol/L (-2.0-3.0) 07/02/19 04:50 ABG Hemoglobin 5.4 gm/dl (14.0-18.0) L 07/02/19 04:50 ABG Carboxyhemoglobin 1.5 % (0.0-5.0) 07/02/19 04:50 ABG Methemoglobin 0.4 % (0.0-1.5) 07/02/19 04:50 Oxyhemoglobin 95.2 % (95.0-99.0) 07/02/19 04:50 FiO2 25 % 07/02/19 04:50 Sodium 150 mmol/L (137-145) H 07/02/19 08:15 Potassium 3.5 mmol/L (3.6-5.0) L 07/02/19 08:15 Chloride 115.2 mmol/L (98-107) H 07/02/19 08:15 Carbon Dioxide 23 mmol/L (22-30) 07/02/19 08:15 Anion Gap 15 mmol/L 07/02/19 08:15 BUN 6 mg/dL (9-20) L 07/02/19 08:15 Creatinine 1.0 mg/dL (0.8-1.5) 07/02/19 08:15 Estimated GFR > 60 ml/min 07/02/19 08:15 BUN/Creatinine Ratio 6 % 07/02/19 08:15 Glucose 109 mg/dL (75-100) H 07/02/19 08:15 POC Glucose 125 (70-105) H 06/27/19 12:37 Lactic Acid 1.30 mmol/L (0.7-2.0) 06/27/19 05:02 Calcium 8.9 mg/dL (8.4-10.2) 07/02/19 08:15 Phosphorus 2.70 mg/dL (2.5-4.5) 07/01/19 14:55 Magnesium 1.80 mg/dL (1.7-2.3) 07/01/19 14:55 Total Bilirubin 0.50 mg/dL (0.1-1.2) 06/26/19 23:31 AST 53 units/L (5-40) H 06/26/19 23:31 ALT 56 units/L (7-56) 06/26/19 23:31 Alkaline Phosphatase 109 units/L (35-129) 06/26/19 23:31 Total Creatine Kinase 300 units/L (55-170) H 06/26/19 23:31 Troponin T < 0.010 ng/mL (0.00-0.029) 06/26/19 23:31 Total Protein 6.2 g/dL (6.3-8.2) L 06/26/19 23:31 Albumin 2.4 g/dL (3.9-5) L 06/26/19 23:31 Albumin/Globulin Ratio 0.6 % 06/26/19 23:31 Triglycerides 143 mg/dL (2-149) 07/01/19 05:15 Procalcitonin 0.44 ng/mL (<0.15) 06/29/19 Unknown Vancomycin Trough 18.3 ug/mL (5.0-20.0) 06/30/19 05:30 Influenza A (Rapid) Negative (Negative) 06/28/19 14:31 Influenza A (RT-PCR) Negative (Negative) 06/28/19 14:31 Influenza B (Rapid) Negative (Negative) 06/28/19 14:31 Influenza B (RT-PCR) Negative (Negative) 06/28/19 14:31 Microbiology: Microbiology 06/27/19 00:19 Peripheral/Venous Blood Culture - Final NO GROWTH AFTER 5 DAYS 06/26/19 23:31 Peripheral/Venous Blood Culture - Final NO GROWTH AFTER 5 DAYS Martinez/IV: Voiding Method Condom Catheter IV Catheter Type [Left PICC Line Antecubital] IV Catheter Type [Left Upper PICC Line arm] IV Catheter Type [Left Wrist] INT / Saline Lock IV Catheter Type [Right Leg] Triple Lumen Cath Active Medications - Current Medications Current Medications: Generic Name Dose Route Start Last Admin Trade Name Freq PRN Reason Stop Dose Admin Lipase/Protease/Amylase 1 each 07/01/19 11:[address] 10,500 Unit FEEDTUBE PRN PRN For Clogged Feeding Tube Famotidine 20 mg 07/02/19 10:00 07/02/19 10:27 Pepcid PO 20 mg BID LADY Administration Heparin Sodium (Porcine) 5,000 unit 06/27/19 06:00 07/02/19 05:13 Heparin SUB-Q 5,000 unit Q8HR LADY Administration Norepinephrine 4 mg in 250 mls @ 7.5 mls/hr 06/27/19 01:00 06/28/19 09:20 Levophed Drip 4 Mg/Ns 250 Ml IV 0 mcg/min TITR LADY 0 mls/hr Titration Protocol 2 MCG/MIN Dextrose/Sodium Chloride 1,000 mls @ 125 mls/hr 06/27/19 03:00 07/02/19 05:13 D5/0.45ns IV 125 mls/hr DIRECT LADY Administration Propofol 1,000 mg in 100 mls @ 1.497 mls/hr 06/27/19 06:00 07/01/19 05:54 Diprivan 10 Mg/Ml IV 5 mcg/kg/min TITR LADY 1.497 mls/hr Administration Protocol 5 MCG/KG/MIN Cefepime HCl 1 gm in 100 mls @ 200 mls/hr 06/27/19 11:00 07/02/19 10:27 Cefepime/Ns 1 Gm/100 Ml IV 200 mls/hr Q8H LADY Administration Protocol Vancomycin HCl 1 gm in 250 mls @ 167.007 mls/hr 06/27/19 22:00 07/02/19 00:14 Vancomycin/Ns 1 Gm/250 Ml IV 167.007 mls/hr Q24H LADY Administration Fentanyl Citrate 2,000 mcg in 100 mls @ 2.495 mls/hr 06/27/19 19:00 06/30/19 14:04 Fentanyl Drip Premix IV 1 mcg/kg/hr TITR LADY 2.495 mls/hr Administration Protocol 1 MCG/KG/HR Magnesium Hydroxide 30 ml 06/27/19 02:51 Milk Of Magnesia PO Q4H PRN Constipation Morphine Sulfate 2 mg 06/27/19 02:51 Morphine IV Q4H PRN Pain, Moderate (4-6) Simple Syrup 15 ml 07/01/19 11:48 Simple Syrup FEEDTUBE PRN PRN Hypoglycemia Simple Syrup 30 ml 07/01/19 11:48 Simple Syrup FEEDTUBE PRN PRN Hypoglycemia Sodium Bicarbonate 325 mg 07/01/19 11:48 Sodium Bicarbonate FEEDTUBE PRN PRN For Clogged Feeding Tube Sodium Chloride 10 ml 06/27/19 10:00 07/02/19 10:27 Sodium Chloride Flush Syringe 10 Ml IV 10 ml BID LADY Administration Sodium Chloride 10 ml 06/27/19 02:51 06/27/19 09:10 Sodium Chloride Flush Syringe 10 Ml IV 10 ml PRN PRN Administration LINE FLUSH Nutrition/Malnutrition Assess - Dietary Evaluation Nutrition/Malnutrition Findings: Nutrition Notes Start: 06/27/19 09:53 Freq: Status: Active Protocol: Document 07/01/19 11:33 LM (Rec: 07/01/19 11:52 LM [email or web address]) Nutrition Notes Need for Assessment generated from: Low BMI Initial or Follow up Reassessment Current Diagnosis Hypertension Other Pertinent Diagnosis Suspected Covid-19, Lewy body dementia, pneu Current Diet NPO Labs/Tests Na 147 K 2.7 BG 453 Phos 2.4 Mg 1.6 Pertinent Medications Reviewed Height 5 ft 10 in Weight 49.895 kg [place] Body Weight (kg) 75.45 BMI 15.7 Weight change and time frame 25% wt loss in 16 months (per chart from 01/2018) Weight Status Underweight Subjective/Other Information Consult for TF and low BMI screen. Already following pt. Pt with PEG. Reviewed chart from 2017. Pt weighed 67.1 kg, indicating wt loss. Burn Absent Trauma Absent Current % PO Negligible Minimum of two criteria Yes Energy Intake (non-severe) <75% Estimated Energy Requirement >7 days Interpretation of Weight Loss (severe) > 20% in 1 year #2 Nutrition Diagnosis Malnutrition Etiology dysphagia, pneu As Evidenced by Signs and Symptoms pt with 25% wt loss in 16 months, <75% EER> 7 days, BMI 15.8 #1 Nutrition Diagnosis Inadequate oral intake Diagnosis Progress(for reassessment Continues documentation) Is patient on ventilator? Yes Is Patient Ambulatory and/or Out of Bed No REE-([facility]-confined to bed) 1612.920 Kcal/Kg value to use for calculation 40 Approximate Energy Requirements Using 1996 kcal/Kg Calculation Used for Recommendations Kcal/kg Additional Notes Protein needs are 60-100g (1.2 -2g/kg) Fluid needs are 1ml/kcal Nutrition Intervention Change Diet Order: TF Nutrition Support: Osmolite 1.5 at 55ml/hr Flush with 250ml q4h for hypernatremia and 150ml q4h once resolved Kcal 1,980 Protein (gm) 83 Fluid (mL) 1,006 Goal #1 TF tolerance Goal #2 Meet at least 80% of energy and protein needs via TF Goal #3 Wt gain/maintenance Anticipated Discharge Needs: TF Follow-Up By: 07/03/19 Additional Comments F/U for TF start/tolerance
[2019-07-02] MEDS: fentaNYL DRIP Premix 2,000 MCG/100 ML BAG IV SCH (16:31)
--- NOTE | 2019-07-02 18:03 | Progress Note ---
Assessment and Plan Cultures: Blood culture 06/26/2019 no growth to date Sputum culture 06/26/2019 no growth to date A/P: 54-year-old man past medical history of Lewy body dementia admitted with bilateral pneumonia. #COVID-19 rule out: Patient is currently in airborne and contact since he is intubated. Patient recently had a negative COVID-19 test, however it does not rule out possibility he was either newly infected or that it was a false negative test. He has a normal white count with increased liver enzymes, which is consistent with COVID-19 disease. Patient is listed as a PUI, however I am unsure if the [facility] survey was filled out. If not, please complete to have testing available. #Bilateral pneumonia: Can continue vancomycin and cefepime in the meantime given the patient is skilled nursing exposures. Would also order flu PCR and serologies. #Lewy body dementia #Acute hypoxic respiratory failure Recs: -Continue contact and airborne, and droplet precautions while intubated. -Follow-up Department of Health testing for COVID-19 -Continue vancomycin and cefepime empirically for HCAP, plan on 8 day course if COVID is negative. -Procal elevated: continue empiric antibiotics. For the consult, will continue to follow Jf Batista MD [facility] ([facility] M: [phone] O: [phone] F: [phone] Subjective Date of service: 07/02/19 Principal diagnosis: Septic shock; HAP; Acute hypoxemic resp failure PUI-COVID 19; Hypernatremia Interval history: Afebrile and white count remains stable normal. No acute change. Imaging personally reviewd: CXR: No change Objective - Exam Narrative Exam: Physical Exam: Constitutional: Intubated, sedated Eyes: Conjunctivae/corneas clear. No icterus. No ptosis. Neck: Supple, no meningeal signs Oral: Endotracheal tube Cardiovascular: S1, S2 normal. Respiratory: Good air entry, clear to auscultation bilaterally GI: Soft, non-tender; bowel sounds normal. No peritoneal signs. Musculoskeletal: No pedal edema, no cyanosis. Skin: No rash or abscess Hem/Lymphatic: No palpable cervical or supraclavicular nodes. No lymphangitis Psych: Sedated Neurological: Sedated - Constitutional Vitals: Vital Signs Temp Pulse Resp BP Pulse Ox 97.7 F 96 H 14 105/69 99 07/02/19 16:00 07/02/19 17:00 07/02/19 17:00 07/02/19 17:00 07/02/19 17:00 Temperature -Last 24 Hours Temperature 97.7 F Temperature 97.5 F Temperature 97.1 F Temperature 97.6 F Temperature 97.2 F Temperature 96.6 F - Labs CBC & Chem 7: 07/02/19 08:46 07/02/19 08:15 Labs: Abnormal lab results 07/02/19 07/02/19 07/02/19 Range/Units 04:50 08:15 08:46 RBC 2.64 L (3.65-5.03) M/mm3 Hgb 8.0 L (11.8-15.2) gm/dl Hct 24.0 L (35.5-45.6) % ABG HCO3 26.8 H (20.0-26.0) mmol/L ABG Hemoglobin 5.4 L (14.0-18.0) gm/dl Sodium 150 H (137-145) mmol/L Potassium 3.5 L (3.6-5.0) mmol/L Chloride 115.2 H (98-107) mmol/L BUN 6 L (9-20) mg/dL Glucose 109 H (75-100) mg/dL
[2019-07-03] MEDS: VANCOMYCIN/NS 1 GM/250 ML 1 GM/250 ML BAG IV SCH (01:02)
[2019-07-03] MEDS: CEFEPIME/NS 1 GM/100 ML 1 GM/100 ML BAG IV SCH ×2 (02:27→21:08)
--- NOTE | 2019-07-03 04:03 | XRay Report ---
CHEST 1 VIEW 07/03/2019 2:44 AM INDICATION / CLINICAL INFORMATION: follow up respiratory failure. COMPARISON: 07/02/19 FINDINGS: SUPPORT DEVICES: Unchanged. HEART / MEDIASTINUM: Stable. LUNGS / PLEURA: Bilateral pulmonary opacities are unchanged. No pneumothorax. ADDITIONAL FINDINGS: No significant additional findings. IMPRESSION: 1. No significant change. Signer Name: Autumn Shannon MD Signed: 07/03/2019 3:59 AM Workstation Name: [id number]
[2019-07-03 05:16] LABS: ABG Base Excess 1.8 mmol/L (-2.0-3.0); ABG HCO3 26.5 mmol/L (20.0-26.0); ABG Methemoglobin 0.5 % (0.0-1.5); ABG Oxygen Saturation 97.2 % (95.0-99.0); ABG PCO2 42.6 mm Hg; ABG PH 7.413 pH Units (7.350-7.450); ABG PO2 72.9 mm Hg (80.0-90.0)
[2019-07-03] MEDS: HEPARIN 5,000 UNIT/1 ML VIAL SUB-Q SCH ×2 (06:42→22:00)
[2019-07-03 07:03] LABS: Hematocrit 22.6 % (35.5-45.6); Hemoglobin 7.5 gm/dl (11.8-15.2); Mean Corpuscular HGB Conc 33 % (32-34); Mean Corpuscular Volume 91 fl (84-94); Platelet Count 320 K/mm3 (140-440)
[2019-07-03 07:21] LABS: BUN/Creatinine Ratio 7; Blood Urea Nitrogen 7 mg/dL (9-20); Calcium 8.2 mg/dL (8.4-10.2); Hemolysis Index 6
[2019-07-03] MEDS: POTASSIUM CHLORIDE 20 MEQ PACKET FEEDTUBE SCH ×2 (10:44→12:00)
[2019-07-03] MEDS: FAMOTIDINE 20 MG TAB PO SCH ×2 (10:44→21:38)
--- NOTE | 2019-07-03 14:05 | Progress Note ---
Assessment and Plan Severe sepsis with septic shock presumed pulmonary source HAP- leukocytosis, elevated procalcitonin Acute hypoxemic respiratory failure, orally intubated on MVS PUI-COVID 19 Oropharyngeal dysphagia s/p PEG Possible aspiration PNA Lactic acidosis Hypernatremia Severe protein calorie malnutrition Acute metabolic encephalopathy h/o Lewy body dementia -Continue with MVS, Lung protective strategies, monitor airway pressures -Stop Fentanyl infusion -SAT and SBT today -Stop IVFs -Replace potassium -D/C LUExt PICC -Monitor glycemic control, with target blood glucose 140-180 mg/dL while cr itically ill. Avoid hypoglycemia -Bowel regimen -Continue Vancomycin and Cefepime for HAP (complete course Day 7/8) -Has LUExt PICC line,discontinue now he that he is off Norepinephrine -Aspiration precautions, HOB>40 -Daily assessment for readiness for SBT, Daily SAT -Titrate sedation for RAAS -1 to -2 -VTE prophylaxis -Stress ulcer prophylaxis -Wean supplemental oxygen for target O2 sat's > 90% -ABG and CXR in am -Avoid nephrotoxins, adjust all medications for GFR and CrCL - continue bronchodilators with pulmonary hygiene per RT - continue to avoid benzodiazepines to reduce the possibility of delirium - prn analgesia per CPOT score - Maintenance of sleep-wake cycle, avoid delirium - PT/OT/ROM exercises - Continue mobility protocol and skin assessment per protocol for pressure ulcer prevention - Monitor hemodynamics closely -Contact and airborne isolation for PUI COVID-19 per ID recommendations -Mobility, off loading and skin assessment per protocol to prevent pressure ulcer - Continue Chronic home medications as clinically indicated -Continue other care per attending / other consultants CONDITION: CRITICAL PROGNOSIS: GUARDED CODE STATUS: FULL CODE The high probability of a clinically significant, sudden or life-threatening deterioration of the [respiratory, cardiovascular, renal] system(s) required my full and direct attention, intervention and personal management. The aggregate critical care time was [35] minutes without overlap. Time includes spent on; [x] Data Review and interpretation [x] Patient assessment and monitoring of vital signs [x] Documentation [x] Medication orders and management Subjective Date of service: 07/03/19 Principal diagnosis: Septic shock; HAP; Acute hypoxemic resp failure PUI-COVID 19; Hypernatremia Interval history: Follow up for: Severe sepsis with septic shock presumed pulmonary source;HAP;Acute hypoxemic respiratory failure, orally intubated on MVS PUI-COVID 19; Oropharyngeal dysphagia s/p PEG; Possible aspiration PNA; Lactic acidosis; Hypernatremia; Severe protein calorie malnutrition; Acute metabolic encephalopathy Patient seen and examined. Vitals, labs, medications, chart and imaging reviewed. 24 hour events reviewed. No adverse overnight events reported Remains orally intubated Size 8.0 ETT at 22cm; tolerating tube feedings at goal. No acute overnight event, remains on Propfol and fentanyl infusions. No fevers, no vomiting, no diarrhea. Mental status changes persist, no fevers Hypokalemia ABG 7.41/42.6/73/26.5 on current settings Objective Vital Signs - 12hr 07/03/19 07/03/19 07/03/19 02:00 03:00 04:00 Temperature 98 F Pulse Rate 97 H 98 H 94 H Pulse Rate [ 105 H From Monitor] Respiratory 14 12 12 Rate Blood Pressure 106/68 109/72 119/73 O2 Sat by Pulse 99 99 100 Oximetry 07/03/19 07/03/19 07/03/19 05:00 05:14 06:00 Temperature Pulse Rate 104 H 103 H 93 H Pulse Rate [ From Monitor] Respiratory 13 13 Rate Blood Pressure 119/73 119/73 O2 Sat by Pulse 96 99 100 Oximetry 07/03/19 07/03/19 07/03/19 06:10 06:20 06:30 Temperature Pulse Rate 94 H 98 H 86 Pulse Rate [ From Monitor] Respiratory 13 14 12 Rate Blood Pressure 119/73 119/73 119/73 O2 Sat by Pulse 99 100 100 Oximetry 07/03/19 07/03/19 07/03/19 06:40 06:50 07:00 Temperature 98 F Pulse Rate 99 H 94 H 83 Pulse Rate [ From Monitor] Respiratory 13 14 14 Rate Blood Pressure 100/60 100/60 102/68 O2 Sat by Pulse 98 99 Oximetry 07/03/19 07/03/19 07/03/19 07:10 07:20 07:30 Temperature Pulse Rate 92 H 91 H 93 H Pulse Rate [ From Monitor] Respiratory 14 12 13 Rate Blood Pressure 100/60 100/60 100/60 O2 Sat by Pulse 99 100 98 Oximetry 07/03/19 07/03/19 07/03/19 07:40 07:50 08:00 Temperature Pulse Rate 94 H 97 H 86 Pulse Rate [ 86 From Monitor] Respiratory 13 13 16 Rate Blood Pressure 102/68 102/68 110/70 O2 Sat by Pulse 100 100 100 Oximetry 07/03/19 07/03/19 07/03/19 08:10 08:18 08:20 Temperature Pulse Rate 87 105 H 90 Pulse Rate [ From Monitor] Respiratory 15 14 Rate Blood Pressure 110/70 110/75 110/70 O2 Sat by Pulse 99 99 Oximetry 07/03/19 07/03/19 07/03/19 08:30 08:40 08:50 Temperature Pulse Rate 89 96 H 87 Pulse Rate [ From Monitor] Respiratory 13 14 13 Rate Blood Pressure 110/70 110/70 110/70 O2 Sat by Pulse 99 100 99 Oximetry 07/03/19 07/03/19 07/03/19 09:00 09:10 09:20 Temperature Pulse Rate 86 96 H 96 H Pulse Rate [ From Monitor] Respiratory 13 14 10 L Rate Blood Pressure 97/64 97/64 113/78 O2 Sat by Pulse 100 99 98 Oximetry 07/03/19 07/03/19 07/03/19 09:21 09:30 09:40 Temperature Pulse Rate 94 H 99 H 88 Pulse Rate [ From Monitor] Respiratory 10 L 9 L Rate Blood Pressure 113/78 113/78 113/78 O2 Sat by Pulse 95 98 Oximetry 07/03/19 07/03/19 07/03/19 09:50 10:00 10:10 Temperature Pulse Rate 105 H 92 H 98 H Pulse Rate [ 70 From Monitor] Respiratory 11 L 11 L 12 Rate Blood Pressure 97/64 111/70 111/70 O2 Sat by Pulse 95 96 98 Oximetry 07/03/19 07/03/19 07/03/19 10:20 10:30 10:40 Temperature Pulse Rate 103 H 104 H 110 H Pulse Rate [ From Monitor] Respiratory 10 L 10 L 14 Rate Blood Pressure 111/70 111/70 111/70 O2 Sat by Pulse 98 94 98 Oximetry 07/03/19 07/03/19 07/03/19 10:50 11:00 11:10 Temperature Pulse Rate 96 H 103 H 108 H Pulse Rate [ From Monitor] Respiratory 11 L 15 13 Rate Blood Pressure 112/68 112/68 134/92 O2 Sat by Pulse 84 93 Oximetry 07/03/19 07/03/19 07/03/19 11:20 11:30 11:38 Temperature Pulse Rate 110 H 102 H 98 H Pulse Rate [ From Monitor] Respiratory 11 L 15 Rate Blood Pressure 112/68 112/68 134/92 O2 Sat by Pulse 100 98 96 Oximetry 07/03/19 07/03/19 07/03/19 11:40 11:50 12:00 Temperature Pulse Rate 98 H 103 H 108 H Pulse Rate [ 108 H From Monitor] Respiratory 15 17 17 Rate Blood Pressure 112/68 112/68 112/68 O2 Sat by Pulse 93 92 100 Oximetry 07/03/19 07/03/19 07/03/19 12:10 12:20 12:30 Temperature Pulse Rate 108 H 110 H 96 H Pulse Rate [ From Monitor] Respiratory 14 14 13 Rate Blood Pressure 114/62 114/62 114/62 O2 Sat by Pulse 100 100 92 Oximetry 07/03/19 12:40 Temperature Pulse Rate 99 H Pulse Rate [ From Monitor] Respiratory 15 Rate Blood Pressure 114/62 O2 Sat by Pulse 99 Oximetry Constitutional: no acute distress, other (sedated, orally intubated) Eyes: non-icteric ENT: oropharynx moist, other (ETT at 23cm at the lip) Neck: supple, no lymphadenopathy, no JVD Effort: mildly labored Ascultation: Bilateral: diminished breath sounds, rhonchi Percussion: Bilateral: not dull Cardiovascular: regular rate and rhythm (tachycardia), other (S1,S2, no murmurs, gallops) Gastrointestinal: normoactive bowel sounds, soft, non-tender, non-distended, other (PEG in place) Integumentary: decubitus ulcer (Stage 2) Extremities: no cyanosis, no edema, pulses normal, no ischemia or petechiae Neurologic: unable to assess Psychiatric: other (unable to assess secondary to mental status) CBC and BMP: 07/03/19 06:50 07/03/19 06:50 ABG, PT/INR, D-dimer: ABG ABG pH 7.413 pH Units (7.350-7.450) 07/03/19 04:37 ABG pCO2 42.6 mm Hg 07/03/19 04:37 ABG pO2 72.9 mm Hg (80.0-90.0) L 07/03/19 04:37 ABG O2 Saturation 97.2 % (95.0-99.0) 07/03/19 04:37 PT/INR, D-dimer PT 15.5 Sec. (12.2-14.9) H 06/28/19 04:05 INR 1.21 (0.87-1.13) H 06/28/19 04:05 Abnormal lab findings: Abnormal Labs 06/26/19 06/26/19 06/26/19 22:56 23:31 23:31 RBC 2.90 L Hgb 8.8 L Hct 26.5 L Gilliam % (Auto) PT INR APTT ABG pH 7.467 H ABG pO2 106.2 H ABG HCO3 26.5 H ABG O2 Saturation ABG Hemoglobin 9.6 L Oxyhemoglobin Sodium 150 H Potassium Chloride 111.7 H BUN Glucose POC Glucose Lactic Acid Calcium Phosphorus Magnesium AST 53 H Total Creatine Kinase Total Protein 6.2 L Albumin 2.4 L 06/26/19 06/26/19 06/27/19 23:31 23:31 04:35 RBC Hgb Hct Gilliam % (Auto) PT INR APTT ABG pH ABG pO2 120.3 H ABG HCO3 ABG O2 Saturation ABG Hemoglobin 7.4 L Oxyhemoglobin Sodium Potassium Chloride BUN Glucose POC Glucose Lactic Acid 2.20 H* Calcium Phosphorus Magnesium AST Total Creatine Kinase 300 H Total Protein Albumin 06/27/19 06/27/19 06/28/19 08:53 12:37 03:45 RBC Hgb Hct Gilliam % (Auto) PT INR APTT ABG pH 7.457 H ABG pO2 152.6 H ABG HCO3 ABG O2 Saturation ABG Hemoglobin 8.4 L Oxyhemoglobin Sodium Potassium Chloride BUN Glucose POC Glucose 108 H 125 H Lactic Acid Calcium Phosphorus Magnesium AST Total Creatine Kinase Total Protein Albumin 06/28/19 06/28/19 06/28/19 04:05 04:05 04:05 RBC 2.65 L Hgb 7.8 L Hct 23.9 L Gilliam % (Auto) 8.6 H PT 15.5 H INR 1.21 H APTT 36.7 H ABG pH ABG pO2 ABG HCO3 ABG O2 Saturation ABG Hemoglobin Oxyhemoglobin Sodium 151 H Potassium 3.1 L Chloride 116.1 H BUN Glucose 125 H POC Glucose Lactic Acid Calcium 8.3 L Phosphorus Magnesium AST Total Creatine Kinase Total Protein Albumin 06/29/19 06/30/19 07/01/19 04:55 05:55 05:15 RBC 2.64 L Hgb 7.8 L Hct 24.1 L Gilliam % (Auto) 11.8 H PT INR APTT ABG pH ABG pO2 121.9 H 102.6 H ABG HCO3 ABG O2 Saturation ABG Hemoglobin 8.1 L 10.4 L Oxyhemoglobin Sodium Potassium Chloride BUN Glucose POC Glucose Lactic Acid Calcium Phosphorus Magnesium AST Total Creatine Kinase Total Protein Albumin 07/01/19 07/01/19 07/01/19 05:15 05:15 05:32 RBC Hgb Hct Gilliam % (Auto) PT INR APTT ABG pH ABG pO2 42.8 L ABG HCO3 26.7 H ABG O2 Saturation 83.4 L ABG Hemoglobin 7.6 L Oxyhemoglobin 81.9 L Sodium 147 H Potassium 2.7 L* Chloride 112.7 H BUN 6 L Glucose 453 H POC Glucose Lactic Acid Calcium 8.2 L Phosphorus 2.40 L Magnesium 1.60 L AST Total Creatine Kinase Total Protein Albumin 07/01/19 07/02/19 07/02/19 14:55 04:50 08:15 RBC Hgb Hct Gilliam % (Auto) PT INR APTT ABG pH ABG pO2 ABG HCO3 26.8 H ABG O2 Saturation ABG Hemoglobin 5.4 L Oxyhemoglobin Sodium 153 H 150 H Potassium 3.3 L D 3.5 L Chloride 117.1 H 115.2 H BUN 6 L 6 L Glucose 109 H POC Glucose Lactic Acid Calcium Phosphorus Magnesium AST Total Creatine Kinase Total Protein Albumin 07/02/19 07/03/19 07/03/19 08:46 04:37 06:50 RBC 2.64 L 2.50 L Hgb 8.0 L 7.5 L Hct 24.0 L 22.6 L Gilliam % (Auto) PT INR APTT ABG pH ABG pO2 72.9 L ABG HCO3 26.5 H ABG O2 Saturation ABG Hemoglobin 7.7 L Oxyhemoglobin Sodium Potassium Chloride BUN Glucose POC Glucose Lactic Acid Calcium Phosphorus Magnesium AST Total Creatine Kinase Total Protein Albumin 07/03/19 06:50 RBC Hgb Hct Gilliam % (Auto) PT INR APTT ABG pH ABG pO2 ABG HCO3 ABG O2 Saturation ABG Hemoglobin Oxyhemoglobin Sodium Potassium 3.0 L Chloride 110.0 H BUN 7 L Glucose 127 H POC Glucose Lactic Acid Calcium 8.2 L Phosphorus Magnesium AST Total Creatine Kinase Total Protein Albumin Allied health notes reviewed: RT
--- NOTE | 2019-07-03 15:34 | Progress Note ---
Assessment and Plan Cultures: Blood culture 06/26/2019 no growth to date Sputum culture 06/26/2019 no growth to date A/P: 54-year-old man past medical history of Lewy body dementia admitted with bilateral pneumonia. #COVID-19 rule out: Patient is currently in airborne and contact since he is intubated. Patient recently had a negative COVID-19 test, however it does not rule out possibility he was either newly infected or that it was a false negative test. He has a normal white count with increased liver enzymes, which is consistent with COVID-19 disease. Samples sent, awaiting results from [facility]. #Bilateral pneumonia: Can continue vancomycin and cefepime in the meantime given the patient is halfway exposures. #Lewy body dementia #Acute hypoxic respiratory failure Recs: -Continue contact and airborne, and droplet precautions while intubated. -Follow-up Department of Health testing for COVID-19. Samples have been sent; awaiting results. -Continue vancomycin and cefepime empirically for HCAP, plan on 8 day course if COVID is negative. -Procal elevated: continue empiric antibiotics. Improving with antibiotic therapy. Discussed with Dr. Connell For the consult, will continue to follow Jf Batista MD [facility] M: [phone] O: [phone] F: [phone] Subjective Date of service: 07/03/19 Principal diagnosis: Septic shock; HAP; Acute hypoxemic resp failure PUI-COVID 19; Hypernatremia Interval history: Afebrile with a normal white count. Imaging personally reviewed: CXR: stable XR Objective - Exam Narrative Exam: Physical Exam: Constitutional: Intubated, sedated Neck: Supple, no meningeal signs Oral: Endotracheal tube Cardiovascular: S1, S2 normal. Respiratory: Good air entry, clear to auscultation bilaterally GI: Soft, non-tender; bowel sounds normal. No peritoneal signs. Musculoskeletal: No pedal edema, no cyanosis. Skin: No rash or abscess Hem/Lymphatic: No palpable cervical or supraclavicular nodes. No lymphangitis Psych: Sedated Neurological: Sedated - Constitutional Vitals: Vital Signs Temp Pulse Resp BP Pulse Ox 98 F 106 H 16 121/64 99 07/03/19 06:40 07/03/19 14:20 07/03/19 14:20 07/03/19 14:20 07/03/19 14:20 Temperature -Last 24 Hours Temperature 98 F Temperature 98 F Temperature 97.9 F Temperature 98.4 F Temperature 97.7 F - Labs CBC & Chem 7: 07/03/19 06:50 07/03/19 06:50 Labs: Abnormal lab results 07/03/19 07/03/19 07/03/19 Range/Units 04:37 06:50 06:50 RBC 2.50 L (3.65-5.03) M/mm3 Hgb 7.5 L (11.8-15.2) gm/dl Hct 22.6 L (35.5-45.6) % ABG pO2 72.9 L (80.0-90.0) mm Hg ABG HCO3 26.5 H (20.0-26.0) mmol/L ABG Hemoglobin 7.7 L (14.0-18.0) gm/dl Potassium 3.0 L (3.6-5.0) mmol/L Chloride 110.0 H (98-107) mmol/L BUN 7 L (9-20) mg/dL Glucose 127 H (75-100) mg/dL Calcium 8.2 L (8.4-10.2) mg/dL
--- NOTE | 2019-07-03 22:32 | Progress Note ---
Assessment and Plan Assessment and plan: Severe sepsis with septic shock. Continue pressors as needed to maintain MAP greater than 65. Continue IV antibiotics and follow-up cultures. Bilateral pneumonia. Continue IV antibiotics. Suspected COVID19/PUI. Contact and airborne isolation for PUI COVID-19 Oropharyngeal dysphagia. Patient is status post PEG. Severe protein calorie malnutrition. Continue tube feedings with aspiration precautions. Toxic metabolic encephalopathy with underlying Lewy body dementia. Continue to treat underlying causes and supportive care. Hypernatremia. Now resolved 06/29/2019patient remains on mechanical ventilation with AC mode rate of 16, tidal volume 500, FiO2 40% and PEEP of 5. Patient with ARDS from suspected COVID19. Patient recently had a negative COVID-19 test, however it does not rule out possibility he was either newly infected or that it was a false negative test. He has a normal white count with increased liver enzymes, which is consistent with COVID-19 disease. Continue contact and airborne/droplet precautions. Follow-up pro calcitonin level and rapid influenza PCR. 06/30/2019-patient remains on mechanical ventilation with AC mode rate of 16 tidal volume 500 FiO2 35% and a PEEP of 6. Patient with ARDS from suspected COVID19. Patient recently had a negative COVID-19 test, however it does not rule out possibility he was either newly infected or that it was a false ne gative test. He has a normal white count with increased liver enzymes, which is consistent with COVID-19 disease. Continue contact and airborne/droplet precautions. Pro calcitonin level slightly elevated at 0.44. Follow-up rapid influenza PCR. 07/01/2019-patient remains on mechanical ventilation with AC mode rate of 16 tidal volume 500 FiO2 25% and a PEEP of 6. Continue to wean vent as tolerated. Patient with ARDS from suspected COVID19. Patient recently had a negative COVID-19 test, however it does not rule out possibility he was either newly infected or that it was a false negative test. He has a normal white count with increased liver enzymes, which is consistent with COVID-19 disease. Follow-up rapid influenza PCR. 07/02/2019 Patient still intubated. Discussed with Amisha. to repeat COVID test, initial test was negative. 07/03/2019 Still intubated. hypernatremia resolved. Repeat Covid-19 test The high probability of a clinically significant, sudden or life threatening de terioration of the [hemodynamic, immunologic and respiratory] system(s) required my full and direct attention, intervention and personal management. The aggregate critical care time was [34] minutes. This time is in addition to time spent performing reported procedures but includes the following: [x] Data Review and interpretation [x] Patient assessment and monitoring of vital signs [x] Documentation [x] Medication orders and management History Interval history: Patient initially presented with shortness of breath, intubated Hospitalist Physical - Physical exam Narrative exam: GEN: Not in acute distress, malnutrition HEENT: Normocephalic, atraumatic, Neck: supple, No JVD Lungs: Bilateral crackles, heart;S1 and S2 reg, tachy, no murmurs, rubs or gallop Abd:soft, non tender, non distended, normal bowel sounds Ext: No edema, no clubbing, no cyanosis, Neuro:Intubated, sedated - Constitutional Vitals: Temp Pulse Resp BP Pulse Ox 97.8 F 113 H 17 110/72 95 07/03/19 16:00 07/03/19 18:40 07/03/19 18:40 07/03/19 18:40 07/03/19 18:30 General appearance: Present: no acute distress Results - Labs CBC & Chem 7: 07/03/19 06:50 07/03/19 06:50 Labs: Laboratory Last Values WBC 6.3 K/mm3 (4.5-11.0) 07/03/19 06:50 RBC 2.50 M/mm3 (3.65-5.03) L 07/03/19 06:50 Hgb 7.5 gm/dl (11.8-15.2) L 07/03/19 06:50 Hct 22.6 % (35.5-45.6) L 07/03/19 06:50 MCV 91 fl (84-94) 07/03/19 06:50 MCH 30 pg (28-32) 07/03/19 06:50 MCHC 33 % (32-34) 07/03/19 06:50 RDW 14.0 % (13.2-15.2) 07/03/19 06:50 Plt Count 320 K/mm3 (140-440) 07/03/19 06:50 Lymph % (Auto) 20.0 % (13.4-35.0) 07/01/19 05:15 [place] % (Auto) 11.8 % (0.0-7.3) H 07/01/19 05:15 Eos % (Auto) 3.1 % (0.0-4.3) 07/01/19 05:15 Baso % (Auto) 1.3 % (0.0-1.8) 07/01/19 05:15 Lymph # 1.3 K/mm3 (1.2-5.4) 07/01/19 05:15 [place] # 0.8 K/mm3 (0.0-0.8) 07/01/19 05:15 Eos # 0.2 K/mm3 (0.0-0.4) 07/01/19 05:15 Baso # 0.1 K/mm3 (0.0-0.1) 07/01/19 05:15 Seg Neutrophils % 63.8 % (40.0-70.0) 07/01/19 05:15 Seg Neutrophils # 4.2 K/mm3 (1.8-7.7) 07/01/19 05:15 PT 15.5 Sec. (12.2-14.9) H 06/28/19 04:05 INR 1.21 (0.87-1.13) H 06/28/19 04:05 APTT 36.7 Sec. (24.2-36.6) H 06/28/19 04:05 ABG pH 7.413 pH Units (7.350-7.450) 07/03/19 04:37 ABG pCO2 42.6 mm Hg 07/03/19 04:37 ABG pO2 72.9 mm Hg (80.0-90.0) L 07/03/19 04:37 ABG HCO3 26.5 mmol/L (20.0-26.0) H 07/03/19 04:37 ABG O2 Saturation 97.2 % (95.0-99.0) 07/03/19 04:37 ABG O2 Content 10.4 (0.0-44) 07/03/19 04:37 ABG Base Excess 1.8 mmol/L (-2.0-3.0) 07/03/19 04:37 ABG Hemoglobin 7.7 gm/dl (14.0-18.0) L 07/03/19 04:37 ABG Carboxyhemoglobin 1.4 % (0.0-5.0) 07/03/19 04:37 ABG Methemoglobin 0.5 % (0.0-1.5) 07/03/19 04:37 Oxyhemoglobin 95.4 % (95.0-99.0) 07/03/19 04:37 FiO2 25 % 07/03/19 04:37 Sodium 144 mmol/L (137-145) 07/03/19 06:50 Potassium 3.0 mmol/L (3.6-5.0) L 07/03/19 06:50 Chloride 110.0 mmol/L (98-107) H 07/03/19 06:50 Carbon Dioxide 22 mmol/L (22-30) 07/03/19 06:50 Anion Gap 15 mmol/L 07/03/19 06:50 BUN 7 mg/dL (9-20) L 07/03/19 06:50 Creatinine 1.0 mg/dL (0.8-1.5) 07/03/19 06:50 Estimated GFR > 60 ml/min 07/03/19 06:50 BUN/Creatinine Ratio 7 % 07/03/19 06:50 Glucose 127 mg/dL (75-100) H 07/03/19 06:50 POC Glucose 125 (70-105) H 06/27/19 12:37 Lactic Acid 1.30 mmol/L (0.7-2.0) 06/27/19 05:02 Calcium 8.2 mg/dL (8.4-10.2) L 07/03/19 06:50 Phosphorus 2.70 mg/dL (2.5-4.5) 07/01/19 14:55 Magnesium 1.80 mg/dL (1.7-2.3) 07/01/19 14:55 Total Bilirubin 0.50 mg/dL (0.1-1.2) 06/26/19 23:31 AST 53 units/L (5-40) H 06/26/19 23:31 ALT 56 units/L (7-56) 06/26/19 23:31 Alkaline Phosphatase 109 units/L (35-129) 06/26/19 23:31 Total Creatine Kinase 300 units/L (55-170) H 06/26/19 23:31 Troponin T < 0.010 ng/mL (0.00-0.029) 06/26/19 23:31 Total Protein 6.2 g/dL (6.3-8.2) L 06/26/19 23:31 Albumin 2.4 g/dL (3.9-5) L 06/26/19 23:31 Albumin/Globulin Ratio 0.6 % 06/26/19 23:31 Triglycerides 143 mg/dL (2-149) 07/01/19 05:15 Procalcitonin 0.11 ng/mL (<0.15) 07/03/19 07:13 Vancomycin Trough 12.6 ug/mL (5.0-20.0) 07/02/19 21:33 Influenza A (Rapid) Negative (Negative) 06/28/19 14:31 Influenza A (RT-PCR) Negative (Negative) 06/28/19 14:31 Influenza B (Rapid) Negative (Negative) 06/28/19 14:31 Influenza B (RT-PCR) Negative (Negative) 06/28/19 14:31 Martinez/IV: Voiding Method Condom Catheter IV Catheter Type [Left PICC Line Antecubital] IV Catheter Type [Left Upper PICC Line arm] IV Catheter Type [Left Wrist] INT / Saline Lock IV Catheter Type [Right Leg] Triple Lumen Cath Active Medications - Current Medications Current Medications: Generic Name Dose Route Start Last Admin Trade Name Freq PRN Reason Stop Dose Admin Lipase/Protease/Amylase 1 each 07/01/19 11:[address] 10,500 Unit FEEDTUBE PRN PRN For Clogged Feeding Tube Famotidine 20 mg 07/02/19 10:00 07/03/19 21:38 Pepcid PO 20 mg BID LADY Administration Heparin Sodium (Porcine) 5,000 unit 06/27/19 06:00 07/03/19 06:42 Heparin SUB-Q 5,000 unit Q8HR LADY Administration Norepinephrine 4 mg in 250 mls @ 7.5 mls/hr 06/27/19 01:00 06/28/19 09:20 Levophed Drip 4 Mg/Ns 250 Ml IV 0 mcg/min TITR LADY 0 mls/hr Titration Protocol 2 MCG/MIN Propofol 1,000 mg in 100 mls @ 1.497 mls/hr 06/27/19 06:00 07/03/19 10:41 Diprivan 10 Mg/Ml IV 5 mcg/kg/min TITR LADY 1.497 mls/hr Administration Protocol 5 MCG/KG/MIN Cefepime HCl 1 gm in 100 mls @ 200 mls/hr 06/27/19 11:00 07/03/19 21:08 Cefepime/Ns 1 Gm/100 Ml IV 200 mls/hr Q8H LADY Administration Protocol Vancomycin HCl 1 gm in 250 mls @ 167.007 mls/hr 06/27/19 22:00 07/03/19 01:02 Vancomycin/Ns 1 Gm/250 Ml IV 167.007 mls/hr Q24H LADY Administration Magnesium Hydroxide 30 ml 06/27/19 02:51 Milk Of Magnesia PO Q4H PRN Constipation Morphine Sulfate 2 mg 06/27/19 02:51 Morphine IV Q4H PRN Pain, Moderate (4-6) Simple Syrup 15 ml 07/01/19 11:48 Simple Syrup FEEDTUBE PRN PRN Hypoglycemia Simple Syrup 30 ml 07/01/19 11:48 Simple Syrup FEEDTUBE PRN PRN Hypoglycemia Sodium Bicarbonate 325 mg 07/01/19 11:48 Sodium Bicarbonate FEEDTUBE PRN PRN For Clogged Feeding Tube Sodium Chloride 10 ml 06/27/19 10:00 07/03/19 10:45 Sodium Chloride Flush Syringe 10 Ml IV 10 ml BID LADY Administration Sodium Chloride 10 ml 06/27/19 02:51 06/27/19 09:10 Sodium Chloride Flush Syringe 10 Ml IV 10 ml PRN PRN Administration LINE FLUSH Nutrition/Malnutrition Assess - Dietary Evaluation Nutrition/Malnutrition Findings: Nutrition Notes Start: 06/27/19 09:53 Freq: Status: Active Protocol: Document 07/03/19 13:19 LM (Rec: 07/03/19 13:21 LM [email or web address]) Nutrition Notes Initial or Follow up Reassessment Current Diagnosis Hypertension Other Pertinent Diagnosis Suspected Covid-19, Lewy body dementia, pneu Current Diet Osmolite 1.5 at 55 ml/hr Labs/Tests K 3.0 Pertinent Medications Reviewed Height 5 ft 10 in Weight 49.895 kg [place] Body Weight (kg) 75.45 BMI 15.7 Weight Status Underweight Subjective/Other Information Per RN, pt tolerating TF at goal. Percent of energy/protein needs met: 99%/100% Burn Absent Trauma Absent Current % PO Negligible Minimum of two criteria Yes Energy Intake (non-severe) <75% Estimated Energy Requirement >7 days Interpretation of Weight Loss (severe) > 20% in 1 year #2 Nutrition Diagnosis Malnutrition Diagnosis Progress(for reassessment Continues documentation) #1 Nutrition Diagnosis Inadequate oral intake Diagnosis Progress(for reassessment Continues documentation) Is patient on ventilator? Yes Is Patient Ambulatory and/or Out of Bed No REE-([place]-confined to bed) 1612.920 Kcal/Kg value to use for calculation 40 Approximate Energy Requirements Using 1995 kcal/Kg Calculation Used for Recommendations Kcal/kg Additional Notes Protein needs are 60-100g (1.2 -2g/kg) Fluid needs are 1ml/kcal Nutrition Intervention Change Diet Order: TF Nutrition Support: Osmolite 1.5 at 55ml/hr Flush with 250ml q4h for hypernatremia and 150ml q4h once resolved Kcal 1,980 Protein (gm) 83 Fluid (mL) 1,006 Goal #1 TF tolerance Goal #2 Meet at least 80% of energy and protein needs via TF Goal #3 Wt gain/maintenance Anticipated Discharge Needs: TF Follow-Up By: 07/10/19 Additional Comments F/U for TF tolerance
[2019-07-04] MEDS: VANCOMYCIN/NS 1 GM/250 ML 1 GM/250 ML BAG IV SCH ×2 (00:58→22:50)
[2019-07-04] MEDS: CEFEPIME/NS 1 GM/100 ML 1 GM/100 ML BAG IV SCH ×4 (02:10→19:00)
[2019-07-04 04:56] LABS: ABG Base Excess 2.7 mmol/L (-2.0-3.0); ABG HCO3 27.8 mmol/L (20.0-26.0); ABG Methemoglobin 0.4 % (0.0-1.5); ABG Oxygen Saturation 96.7 % (95.0-99.0); ABG PCO2 45.4 mm Hg; ABG PH 7.405 pH Units (7.350-7.450); ABG PO2 73.9 mm Hg (80.0-90.0)
--- NOTE | 2019-07-04 05:06 | XRay Report ---
CHEST 1 VIEW 07/04/2019 3:41 AM INDICATION / CLINICAL INFORMATION: follow up respiratory failure. COMPARISON: 07/03/19 FINDINGS: SUPPORT DEVICES: Unchanged. HEART / MEDIASTINUM: Stable. LUNGS / PLEURA: Bibasilar pulmonary opacities are unchanged. No pneumothorax. ADDITIONAL FINDINGS: No significant additional findings. IMPRESSION: 1. No significant change. Signer Name: Autumn Shannon MD Signed: 07/04/2019 5:01 AM Workstation Name: [email or web address]
[2019-07-04] MEDS: HEPARIN 5,000 UNIT/1 ML VIAL SUB-Q SCH ×3 (06:25→22:50)
[2019-07-04 07:43] LABS: Hematocrit 23.3 % (35.5-45.6); Hemoglobin 7.7 gm/dl (11.8-15.2); Mean Corpuscular HGB Conc 33 % (32-34); Mean Corpuscular Volume 90 fl (84-94); Platelet Count 314 K/mm3 (140-440)
[2019-07-04 08:02] LABS: BUN/Creatinine Ratio 10; Blood Urea Nitrogen 9 mg/dL (9-20); Calcium 8.6 mg/dL (8.4-10.2); Hemolysis Index 5
[2019-07-04] MEDS: FAMOTIDINE 20 MG TAB PO SCH ×2 (09:01→22:50)
--- NOTE | 2019-07-04 12:23 | Progress Note ---
Assessment and Plan Assessment and plan: Severe sepsis with septic shock. Continue pressors as needed to maintain MAP greater than 65. Continue IV antibiotics and follow-up cultures. Bilateral pneumonia. Continue IV antibiotics. Suspected COVID19/PUI. Contact and airborne isolation for PUI COVID-19 Oropharyngeal dysphagia. Patient is status post PEG. Severe protein calorie malnutrition. Continue tube feedings with aspiration precautions. Toxic metabolic encephalopathy with underlying Lewy body dementia. Continue to treat underlying causes and supportive care. Hypernatremia. Now resolved 06/29/2019patient remains on mechanical ventilation with AC mode rate of 16, tidal volume 500, FiO2 40% and PEEP of 5. Patient with ARDS from suspected COVID19. Patient recently had a negative COVID-19 test, however it does not rule out possibility he was either newly infected or that it was a false negative test. He has a normal white count with increased liver enzymes, which is consistent with COVID-19 disease. Continue contact and airborne/droplet precautions. Follow-up pro calcitonin level and rapid influenza PCR. 06/30/2019-patient remains on mechanical ventilation with AC mode rate of 16 tidal volume 500 FiO2 35% and a PEEP of 6. Patient with ARDS from suspected COVID19. Patient recently had a negative COVID-19 test, however it does not rule out possibility he was either newly infected or that it was a false ne gative test. He has a normal white count with increased liver enzymes, which is consistent with COVID-19 disease. Continue contact and airborne/droplet precautions. Pro calcitonin level slightly elevated at 0.44. Follow-up rapid influenza PCR. 07/01/2019-patient remains on mechanical ventilation with AC mode rate of 16 tidal volume 500 FiO2 25% and a PEEP of 6. Continue to wean vent as tolerated. Patient with ARDS from suspected COVID19. Patient recently had a negative COVID-19 test, however it does not rule out possibility he was either newly infected or that it was a false negative test. He has a normal white count with increased liver enzymes, which is consistent with COVID-19 disease. Follow-up rapid influenza PCR. 07/02/2019 Patient still intubated. Discussed with Amisha. to repeat COVID test, initial test was negative. 07/03/2019 Still intubated. hypernatremia resolved. Repeat Covid-19 test 07/04/19 patient with acute resp failure, still intubated The high probability of a clinically significant, sudden or life threatening deterioration of the [hemodynamic, immunologic and respiratory] system(s) required my full and direct attention, intervention and personal management. The aggregate critical care time was [32] minutes. This time is in addition to time spent performing reported procedures but includes the following: [x] Data Review and interpretation [x] Patient assessment and monitoring of vital signs [x] Documentation [x] Medication orders and management History Interval history: Patient initially presented with shortness of breath, intubated Hospitalist Physical - Physical exam Narrative exam: GEN: Not in acute distress, malnutrition HEENT: Normocephalic, atraumatic, Neck: supple, No JVD Lungs: Bilateral crackles, heart;S1 and S2 reg, tachy, no murmurs, rubs or gallop Abd:soft, non tender, non distended, normal bowel sounds Ext: No edema, no clubbing, no cyanosis, Neuro:Intubated, sedated - Constitutional Vitals: Temp Pulse Resp BP Pulse Ox 97.2 F L 97 H 16 123/79 100 07/04/19 08:00 07/04/19 11:00 07/04/19 11:00 07/04/19 11:00 07/04/19 11:00 General appearance: Present: no acute distress Results - Labs CBC & Chem 7: 07/06/19 05:13 07/06/19 05:13 Labs: Laboratory Last Values WBC 8.3 K/mm3 (4.5-11.0) 07/04/19 07:02 RBC 2.60 M/mm3 (3.65-5.03) L 07/04/19 07:02 Hgb 7.7 gm/dl (11.8-15.2) L 07/04/19 07:02 Hct 23.3 % (35.5-45.6) L 07/04/19 07:02 MCV 90 fl (84-94) 07/04/19 07:02 MCH 30 pg (28-32) 07/04/19 07:02 MCHC 33 % (32-34) 07/04/19 07:02 RDW 14.0 % (13.2-15.2) 07/04/19 07:02 Plt Count 314 K/mm3 (140-440) 07/04/19 07:02 Lymph % (Auto) 20.0 % (13.4-35.0) 07/01/19 05:15 [place] % (Auto) 11.8 % (0.0-7.3) H 07/01/19 05:15 Eos % (Auto) 3.1 % (0.0-4.3) 07/01/19 05:15 Baso % (Auto) 1.3 % (0.0-1.8) 07/01/19 05:15 Lymph # 1.3 K/mm3 (1.2-5.4) 07/01/19 05:15 [place] # 0.8 K/mm3 (0.0-0.8) 07/01/19 05:15 Eos # 0.2 K/mm3 (0.0-0.4) 07/01/19 05:15 Baso # 0.1 K/mm3 (0.0-0.1) 07/01/19 05:15 Seg Neutrophils % 63.8 % (40.0-70.0) 07/01/19 05:15 Seg Neutrophils # 4.2 K/mm3 (1.8-7.7) 07/01/19 05:15 PT 15.5 Sec. (12.2-14.9) H 06/28/19 04:05 INR 1.21 (0.87-1.13) H 06/28/19 04:05 APTT 36.7 Sec. (24.2-36.6) H 06/28/19 04:05 ABG pH 7.405 pH Units (7.350-7.450) 07/04/19 04:15 ABG pCO2 45.4 mm Hg 07/04/19 04:15 ABG pO2 73.9 mm Hg (80.0-90.0) L 07/04/19 04:15 ABG HCO3 27.8 mmol/L (20.0-26.0) H 07/04/19 04:15 ABG O2 Saturation 96.7 % (95.0-99.0) 07/04/19 04:15 ABG O2 Content 13.0 (0.0-44) 07/04/19 04:15 ABG Base Excess 2.7 mmol/L (-2.0-3.0) 07/04/19 04:15 ABG Hemoglobin 9.7 gm/dl (14.0-18.0) L 07/04/19 04:15 ABG Carboxyhemoglobin 1.4 % (0.0-5.0) 07/04/19 04:15 ABG Methemoglobin 0.4 % (0.0-1.5) 07/04/19 04:15 Oxyhemoglobin 94.9 % (95.0-99.0) L 07/04/19 04:15 FiO2 25 % 07/04/19 04:15 Sodium 148 mmol/L (137-145) H 07/04/19 04:00 Potassium 3.6 mmol/L (3.6-5.0) 07/04/19 04:00 Chloride 110.4 mmol/L (98-107) H 07/04/19 04:00 Carbon Dioxide 24 mmol/L (22-30) 07/04/19 04:00 Anion Gap 17 mmol/L 07/04/19 04:00 BUN 9 mg/dL (9-20) 07/04/19 04:00 Creatinine 0.9 mg/dL (0.8-1.5) 07/04/19 04:00 Estimated GFR > 60 ml/min 07/04/19 04:00 BUN/Creatinine Ratio 10 % 07/04/19 04:00 Glucose 110 mg/dL (75-100) H 07/04/19 04:00 POC Glucose 125 (70-105) H 06/27/19 12:37 Lactic Acid 1.30 mmol/L (0.7-2.0) 06/27/19 05:02 Calcium 8.6 mg/dL (8.4-10.2) 07/04/19 04:00 Phosphorus 2.70 mg/dL (2.5-4.5) 07/01/19 14:55 Magnesium 1.80 mg/dL (1.7-2.3) 07/01/19 14:55 Total Bilirubin 0.50 mg/dL (0.1-1.2) 06/26/19 23:31 AST 53 units/L (5-40) H 06/26/19 23:31 ALT 56 units/L (7-56) 06/26/19 23:31 Alkaline Phosphatase 109 units/L (35-129) 06/26/19 23:31 Total Creatine Kinase 300 units/L (55-170) H 06/26/19 23:31 Troponin T < 0.010 ng/mL (0.00-0.029) 06/26/19 23:31 Total Protein 6.2 g/dL (6.3-8.2) L 06/26/19 23:31 Albumin 2.4 g/dL (3.9-5) L 06/26/19 23:31 Albumin/Globulin Ratio 0.6 % 06/26/19 23: Triglycerides 143 mg/dL (2-149) 07/01/19 05:15 Procalcitonin 0.11 ng/mL (<0.15) 07/03/19 07:13 Vancomycin Trough 12.6 ug/mL (5.0-20.0) 07/02/19 21:33 Influenza A (Rapid) Negative (Negative) 06/28/19 14:31 Influenza A (RT-PCR) Negative (Negative) 06/28/19 14:31 Influenza B (Rapid) Negative (Negative) 06/28/19 14:31 Influenza B (RT-PCR) Negative (Negative) 06/28/19 14:31 Martinez/IV: Voiding Method Condom Catheter IV Catheter Type [Right Peripheral IV Antecubital] IV Catheter Type [Left PICC Line Antecubital] IV Catheter Type [Left Upper PICC Line arm] IV Catheter Type [Left Wrist] INT / Saline Lock IV Catheter Type [Right Leg] Triple Lumen Cath Active Medications - Current Medications Current Medications: Generic Name Dose Route Start Last Admin Trade Name Freq PRN Reason Stop Dose Admin Lipase/Protease/Amylase 1 each 07/01/19 11:[address] 10,500 Unit FEEDTUBE PRN PRN For Clogged Feeding Tube Famotidine 20 mg 07/02/19 10:00 07/04/19 09:01 Pepcid PO 20 mg BID LADY Administration Heparin Sodium (Porcine) 5,000 unit 06/27/19 06:00 07/04/19 06:25 Heparin SUB-Q 5,000 unit Q8HR LADY Administration Norepinephrine 4 mg in 250 mls @ 7.5 mls/hr 06/27/19 01:00 06/28/19 09:20 Levophed Drip 4 Mg/Ns 250 Ml IV 0 mcg/min TITR LADY 0 mls/hr Titration Protocol 2 MCG/MIN Propofol 1,000 mg in 100 mls @ 1.497 mls/hr 06/27/19 06:00 07/04/19 10:16 Diprivan 10 Mg/Ml IV 5 mcg/kg/min TITR LADY 1.497 mls/hr Titration Protocol 5 MCG/KG/MIN Cefepime HCl 1 gm in 100 mls @ 200 mls/hr 06/27/19 11:00 07/04/19 02:21 Cefepime/Ns 1 Gm/100 Ml IV 07/04/19 23:59 200 mls/hr Q8H LADY Administration Protocol Vancomycin HCl 1 gm in 250 mls @ 167.007 mls/hr 06/27/19 22:00 07/04/19 00:58 Vancomycin/Ns 1 Gm/250 Ml IV 07/04/19 23:59 167.007 mls/hr Q24H LADY Administration Magnesium Hydroxide 30 ml 06/27/19 02:51 Milk Of Magnesia PO Q4H PRN Constipation Morphine Sulfate 2 mg 06/27/19 02:51 Morphine IV Q4H PRN Pain, Moderate (4-6) Simple Syrup 15 ml 07/01/19 11:48 Simple Syrup FEEDTUBE PRN PRN Hypoglycemia Simple Syrup 30 ml 07/01/19 11:48 Simple Syrup FEEDTUBE PRN PRN Hypoglycemia Sodium Bicarbonate 325 mg 07/01/19 11:48 Sodium Bicarbonate FEEDTUBE PRN PRN For Clogged Feeding Tube Sodium Chloride 10 ml 06/27/19 10:00 07/04/19 09:01 Sodium Chloride Flush Syringe 10 Ml IV 10 ml BID LADY Administration Sodium Chloride 10 ml 06/27/19 02:51 06/27/19 09:10 Sodium Chloride Flush Syringe 10 Ml IV 10 ml PRN PRN Administration LINE FLUSH Nutrition/Malnutrition Assess - Dietary Evaluation Nutrition/Malnutrition Findings: Nutrition Notes Start: 06/27/19 09:53 Freq: Status: Active Protocol: Document 07/03/19 13:19 LM (Rec: 07/03/19 13:21 LM [email or web address]) Nutrition Notes Initial or Follow up Reassessment Current Diagnosis Hypertension Other Pertinent Diagnosis Suspected Covid-19, Lewy body dementia, pneu Current Diet Osmolite 1.5 at 55 ml/hr Labs/Tests K 3.0 Pertinent Medications Reviewed Height 5 ft 10 in Weight 49.895 kg [place] Body Weight (kg) 75.45 BMI 15.7 Weight Status Underweight Subjective/Other Information Per RN, pt tolerating TF at goal. Percent of energy/protein needs met: 99%/100% Burn Absent Trauma Absent Current % PO Negligible Minimum of two criteria Yes Energy Intake (non-severe) <75% Estimated Energy Requirement >7 days Interpretation of Weight Loss (severe) > 20% in 1 year #2 Nutrition Diagnosis Malnutrition Diagnosis Progress(for reassessment Continues documentation) #1 Nutrition Diagnosis Inadequate oral intake Diagnosis Progress(for reassessment Continues documentation) Is patient on ventilator? Yes Is Patient Ambulatory and/or Out of Bed No REE-([place]-confined to bed) 1612.920 Kcal/Kg value to use for calculation 40 Approximate Energy Requirements Using 1996 kcal/Kg Calculation Used for Recommendations Kcal/kg Additional Notes Protein needs are 60-100g (1.2 -2g/kg) Fluid needs are 1ml/kcal Nutrition Intervention Change Diet Order: TF Nutrition Support: Osmolite 1.5 at 55ml/hr Flush with 250ml q4h for hypernatremia and 150ml q4h once resolved Kcal 1,980 Protein (gm) 83 Fluid (mL) 1,006 Goal #1 TF tolerance Goal #2 Meet at least 80% of energy and protein needs via TF Goal #3 Wt gain/maintenance Anticipated Discharge Needs: TF Follow-Up By: 07/10/19 Additional Comments F/U for TF tolerance
--- NOTE | 2019-07-04 13:38 | Progress Note ---
Assessment and Plan Severe sepsis with septic shock HAP Acute hypoxemic respiratory failure PUI-COVID 19 Oropharyngeal dysphagia s/p PEG Possible aspiration PNA Lactic acidosis Hypernatremia Severe protein calorie malnutrition Acute metabolic encephalopathy h/o Lewy body dementia - continue set rate of 12/min - continue daily SAT's and SBT assessment as tolerated - continue enteric nutrition as tolerated - Monitor glycemic control, with target blood glucose 140-180 mg/dL while critically ill. Avoid hypoglycemia - continue bowel regimen - Continue Vancomycin and Cefepime for HAP; adjust per ID recommendations - continue free water at 200ml Q6h, hypotonic solutions for treatment of hypernatremia. Monitor levels - Place PICC line and discontinue femoral CVC - Continue with MVS, Lung protective strategies, monitor airway pressures - VAP bundle addressed; (Aspiration precautions, HOB > 40 degrees) - Titrate sedation for RAAS 0 to -1 - VTE prophylaxis - Stress ulcer prophylaxis - Wean supplemental oxygen for target O2 sat's > 90% - ABG and CXR prn - Follow cultures and adjust antibiotic therapy for KORIN and culture results - Avoid nephrotoxins, adjust all medications for GFR and CrCL - continue bronchodilators with pulmonary hygiene per RT - continue to avoid benzodiazepines to reduce the possibility of delirium - prn analgesia per CPOT score - Maintenance of sleep-wake cycle, avoid delirium - PT/OT/ROM exercises - continue mobility protocol and skin assessment per protocol for pressure ulcer prevention - Monitor hemodynamics closely - Contact and airborne isolation for PUI COVID-19 - Mobility, off loading and skin assessment per protocol to prevent pressure ulcer - continue wound care per RN & WCT (he has a stage 2 sacral decubitus on exam) - Chronic home medications as clinically indicated - continue other care per attending / other consultants CONDITION: CRITICAL PROGNOSIS: GUARDED CODE STATUS: FULL CODE The high probability of a clinically significant, sudden or life-threatening deterioration of the [respiratory, cardiovascular, renal] system(s) required my full and direct attention, intervention and personal management. The aggregate critical care time was [35] minutes without overlap. Time includes spent on; [x] Data Review and interpretation [x] Patient assessment and monitoring of vital signs [x] Documentation [x] Medication orders and management Subjective Date of service: 07/04/19 Principal diagnosis: Septic shock; HAP; Acute hypoxemic resp failure PUI-COVID 19; Hypernatremia Interval history: Patient is seen today for: Septic shock; HAP; Acute hypoxemic respiratory failure; PUI-COVID 19; Lactic acidosis; Hypernatremia; Acute metabolic encephalopathy; h/o Lewy body dementia Seen and examined at bedside; 24hour events reviewed; nursing and respiratory care staff consulted; no adverse overnight events reported to me; resting peacefully in bed; AMS is persistent; just placed on bedside SBT and will get ABG before resting on MVS Objective Vital Signs - 12hr 07/04/19 07/04/19 07/04/19 02:00 03:00 04:00 Temperature 98.4 F Pulse Rate 113 H 80 105 H Pulse Rate [ 101 H From Monitor] Respiratory 14 12 13 Rate Blood Pressure 119/83 117/79 133/81 O2 Sat by Pulse 98 100 100 Oximetry 07/04/19 07/04/19 07/04/19 04:01 05:00 06:00 Temperature Pulse Rate 103 H 108 H 79 Pulse Rate [ From Monitor] Respiratory 12 12 Rate Blood Pressure 133/81 131/81 117/73 O2 Sat by Pulse 100 100 100 Oximetry 07/04/19 07/04/19 07/04/19 07:00 08:00 08:38 Temperature 97.2 F L Pulse Rate 100 H 81 91 H Pulse Rate [ 87 From Monitor] Respiratory 12 12 Rate Blood Pressure 123/75 111/69 111/69 O2 Sat by Pulse 100 99 100 Oximetry 07/04/19 07/04/19 07/04/19 09:00 10:00 11:00 Temperature Pulse Rate 84 93 H 97 H Pulse Rate [ 93 H From Monitor] Respiratory 14 16 16 Rate Blood Pressure 115/69 122/79 123/79 O2 Sat by Pulse 100 99 100 Oximetry 07/04/19 07/04/19 12:00 12:49 Temperature 101.5 F H Pulse Rate 112 H 102 H Pulse Rate [ 112 H From Monitor] Respiratory 14 Rate Blood Pressure 119/75 119/75 O2 Sat by Pulse 98 99 Oximetry Constitutional: no acute distress, other (sedated, orally intubated) Eyes: non-icteric ENT: oropharynx moist, other (ETT at 23cm at the lip) Neck: supple, no lymphadenopathy, no JVD Effort: mildly labored Ascultation: Bilateral: diminished breath sounds, rhonchi Percussion: Bilateral: not dull Cardiovascular: regular rate and rhythm (tachycardia), other (S1,S2, no murmurs, gallops) Gastrointestinal: normoactive bowel sounds, soft, non-tender, non-distended, other (PEG in place) Integumentary: decubitus ulcer (Stage 2) Extremities: no cyanosis, no edema, pulses normal, no ischemia or petechiae Neurologic: unable to assess Psychiatric: other (unable to assess secondary to mental status) CBC and BMP: 07/04/19 07:02 07/04/19 04:00 ABG, PT/INR, D-dimer: ABG ABG pH 7.405 pH Units (7.350-7.450) 07/04/19 04:15 ABG pCO2 45.4 mm Hg 07/04/19 04:15 ABG pO2 73.9 mm Hg (80.0-90.0) L 07/04/19 04:15 ABG O2 Saturation 96.7 % (95.0-99.0) 07/04/19 04:15 PT/INR, D-dimer PT 15.5 Sec. (12.2-14.9) H 06/28/19 04:05 INR 1.21 (0.87-1.13) H 06/28/19 04:05 Abnormal lab findings: Abnormal Labs 06/26/19 06/26/19 06/26/19 22:56 23:31 23:31 RBC 2.90 L Hgb 8.8 L Hct 26.5 L [place] % (Auto) PT INR APTT ABG pH 7.467 H ABG pO2 106.2 H ABG HCO3 26.5 H ABG O2 Saturation ABG Hemoglobin 9.6 L Oxyhemoglobin Sodium 150 H Potassium Chloride 111.7 H BUN Glucose POC Glucose Lactic Acid Calcium Phosphorus Magnesium AST 53 H Total Creatine Kinase Total Protein 6.2 L Albumin 2.4 L 06/26/19 06/26/19 06/27/19 23:31 23:31 04:35 RBC Hgb Hct [place] % (Auto) PT INR APTT ABG pH ABG pO2 120.3 H ABG HCO3 ABG O2 Saturation ABG Hemoglobin 7.4 L Oxyhemoglobin Sodium Potassium Chloride BUN Glucose POC Glucose Lactic Acid 2.20 H* Calcium Phosphorus Magnesium AST Total Creatine Kinase 300 H Total Protein Albumin 06/27/19 06/27/19 06/28/19 08:53 12:37 03:45 RBC Hgb Hct [place] % (Auto) PT INR APTT ABG pH 7.457 H ABG pO2 152.6 H ABG HCO3 ABG O2 Saturation ABG Hemoglobin 8.4 L Oxyhemoglobin Sodium Potassium Chloride BUN Glucose POC Glucose 108 H 125 H Lactic Acid Calcium Phosphorus Magnesium AST Total Creatine Kinase Total Protein Albumin 06/28/19 06/28/19 06/28/19 04:05 04:05 04:05 RBC 2.65 L Hgb 7.8 L Hct 23.9 L [place] % (Auto) 8.6 H PT 15.5 H INR 1.21 H APTT 36.7 H ABG pH ABG pO2 ABG HCO3 ABG O2 Saturation ABG Hemoglobin Oxyhemoglobin Sodium 151 H Potassium 3.1 L Chloride 116.1 H BUN Glucose 125 H POC Glucose Lactic Acid Calcium 8.3 L Phosphorus Magnesium AST Total Creatine Kinase Total Protein Albumin 06/29/19 06/30/19 07/01/19 04:55 05:55 05:15 RBC 2.64 L Hgb 7.8 L Hct 24.1 L [place] % (Auto) 11.8 H PT INR APTT ABG pH ABG pO2 121.9 H 102.6 H ABG HCO3 ABG O2 Saturation ABG Hemoglobin 8.1 L 10.4 L Oxyhemoglobin Sodium Potassium Chloride BUN Glucose POC Glucose Lactic Acid Calcium Phosphorus Magnesium AST Total Creatine Kinase Total Protein Albumin 07/01/19 07/01/19 07/01/19 05:15 05:15 05:32 RBC Hgb Hct [place] % (Auto) PT INR APTT ABG pH ABG pO2 42.8 L ABG HCO3 26.7 H ABG O2 Saturation 83.4 L ABG Hemoglobin 7.6 L Oxyhemoglobin 81.9 L Sodium 147 H Potassium 2.7 L* Chloride 112.7 H BUN 6 L Glucose 453 H POC Glucose Lactic Acid Calcium 8.2 L Phosphorus 2.40 L Magnesium 1.60 L AST Total Creatine Kinase Total Protein Albumin 07/01/19 07/02/19 07/02/19 14:55 04:50 08:15 RBC Hgb Hct [place] % (Auto) PT INR APTT ABG pH ABG pO2 ABG HCO3 26.8 H ABG O2 Saturation ABG Hemoglobin 5.4 L Oxyhemoglobin Sodium 153 H 150 H Potassium 3.3 L D 3.5 L Chloride 117.1 H 115.2 H BUN 6 L 6 L Glucose 109 H POC Glucose Lactic Acid Calcium Phosphorus Magnesium AST Total Creatine Kinase Total Protein Albumin 07/02/19 07/03/19 07/03/19 08:46 04:37 06:50 RBC 2.64 L 2.50 L Hgb 8.0 L 7.5 L Hct 24.0 L 22.6 L [place] % (Auto) PT INR APTT ABG pH ABG pO2 72.9 L ABG HCO3 26.5 H ABG O2 Saturation ABG Hemoglobin 7.7 L Oxyhemoglobin Sodium Potassium Chloride BUN Glucose POC Glucose Lactic Acid Calcium Phosphorus Magnesium AST Total Creatine Kinase Total Protein Albumin 07/03/19 07/04/19 07/04/19 06:50 04:00 04:15 RBC Hgb Hct [place] % (Auto) PT INR APTT ABG pH ABG pO2 73.9 L ABG HCO3 27.8 H ABG O2 Saturation ABG Hemoglobin 9.7 L Oxyhemoglobin 94.9 L Sodium 148 H Potassium 3.0 L Chloride 110.0 H 110.4 H BUN 7 L Glucose 127 H 110 H POC Glucose Lactic Acid Calcium 8.2 L Phosphorus Magnesium AST Total Creatine Kinase Total Protein Albumin 07/04/19 07:02 RBC 2.60 L Hgb 7.7 L Hct 23.3 L [place] % (Auto) PT INR APTT ABG pH ABG pO2 ABG HCO3 ABG O2 Saturation ABG Hemoglobin Oxyhemoglobin Sodium Potassium Chloride BUN Glucose POC Glucose Lactic Acid Calcium Phosphorus Magnesium AST Total Creatine Kinase Total Protein Albumin Allied health notes reviewed: nursing
--- NOTE | 2019-07-04 16:08 | Progress Note ---
Assessment and Plan Cultures: Blood culture 06/26/2019 no growth to date Sputum culture 06/26/2019 no growth to date A/P: 54-year-old man past medical history of Lewy body dementia admitted with bilateral pneumonia. #COVID-19 rule out: Patient is currently in airborne and contact since he is intubated. Patient recently had a negative COVID-19 test, however it does not rule out possibility he was either newly infected or that it was a false negative test. He has a normal white count with increased liver enzymes, which is consistent with COVID-19 disease. Samples sent, awaiting results from [facility]. #Bilateral pneumonia: Can continue vancomycin and cefepime in the meantime given the patient is detention exposures. #Lewy body dementia #Acute hypoxic respiratory failure Recs: -Continue contact and airborne, and droplet precautions while intubated. -Follow-up Department of Health testing for COVID-19. Samples have been sent; awaiting results. -Continue vancomycin and cefepime empirically for HCAP, plan on 8 day course if COVID is negative. -Procal elevated: continue empiric antibiotics. Improving with antibiotic therapy. For the consult, will continue to follow Jf Batista MD [facility] ([facility]) M: [phone] O: [phone] F: [phone] Subjective Date of service: 07/04/19 Principal diagnosis: Septic shock; HAP; Acute hypoxemic resp failure PUI-COVID 19; Hypernatremia Interval history: Febrile to 101.5. Remains intubated. Objective - Exam Narrative Exam: Physical Exam: Constitutional: Intubated, sedated Neck: Supple, no meningeal signs Oral: Endotracheal tube Cardiovascular: S1, S2 normal. Respiratory: Good air entry, clear to auscultation bilaterally GI: Soft, non-tender; bowel sounds normal. No peritoneal signs. Musculoskeletal: No pedal edema, no cyanosis. Skin: No rash or abscess Hem/Lymphatic: No palpable cervical or supraclavicular nodes. No lymphangitis Psych: Sedated Neurological: Sedated - Constitutional Vitals: Vital Signs Temp Pulse Resp BP Pulse Ox 101.5 F H 102 H 14 119/75 99 07/04/19 12:00 07/04/19 12:49 07/04/19 12:00 07/04/19 12:49 07/04/19 12:49 Temperature -Last 24 Hours Temperature 101.5 F Temperature 97.2 F Temperature 98.4 F Temperature 98.8 F Temperature 97.1 F - Labs CBC & Chem 7: 07/04/19 07:02 07/04/19 04:00 Labs: Abnormal lab results 07/04/19 07/04/19 07/04/19 Range/Units 04:00 04:15 07:02 RBC 2.60 L (3.65-5.03) M/mm3 Hgb 7.7 L (11.8-15.2) gm/dl Hct 23.3 L (35.5-45.6) % ABG pO2 73.9 L (80.0-90.0) mm Hg ABG HCO3 27.8 H (20.0-26.0) mmol/L ABG Hemoglobin 9.7 L (14.0-18.0) gm/dl Oxyhemoglobin 94.9 L (95.0-99.0) % Sodium 148 H (137-145) mmol/L Chloride 110.4 H (98-107) mmol/L Glucose 110 H (75-100) mg/dL
[2019-07-04] MEDS: MORPHINE 2 MG/1 ML INJ IV PRN (22:54)
[2019-07-04] MEDS: SODIUM BICARBONATE 325 MG TAB FEEDTUBE PRN (23:06)
[2019-07-04] MEDS: LIPASE 10,500/PROTEASE 25,000/AMYLASE 43,750 (UNITS) DR CAP FEEDTUBE PRN (23:09)
[2019-07-05] MEDS: HEPARIN 5,000 UNIT/1 ML VIAL SUB-Q SCH ×4 (06:00→23:17)
[2019-07-05 06:32] LABS: ABG Base Excess 6.7 mmol/L (-2.0-3.0); ABG Methemoglobin 0.5 % (0.0-1.5); ABG Oxygen Saturation 97.2 % (95.0-99.0); ABG PCO2 43.7 mm Hg; ABG PH 7.469 pH Units (7.350-7.450); ABG PO2 73.4 mm Hg (80.0-90.0)
[2019-07-05] MEDS: FAMOTIDINE 20 MG TAB PO SCH ×2 (09:57→22:00)
[2019-07-05] MEDS ORDERED: ALBUTEROL 2.5 MG/3 ML NEBU IH PRN (12:31)
--- NOTE | 2019-07-05 15:47 | Progress Note ---
Assessment and Plan Severe sepsis with septic shock HAP Acute hypoxemic respiratory failure PUI-COVID 19 Oropharyngeal dysphagia s/p PEG Possible aspiration PNA Lactic acidosis Hypernatremia Severe protein calorie malnutrition Acute metabolic encephalopathy h/o Lewy body dementia - increase Apnea limit to 40 seconds for first 1 hour of weaning re: alkalosis which may be indusing apnea's - get ABG after 2 hours - increase free water to 300 ml's q4h - begin 1/4 NS @ 100 ml's/hr X 4 liters and reassess - continue set rate of 12/min - continue daily SAT's and SBT assessment as tolerated - continue enteric nutrition as tolerated - Monitor glycemic control, with target blood glucose 140-180 mg/dL while critically ill. Avoid hypoglycemia - continue bowel regimen - Continue Vancomycin and Cefepime for HAP; adjust per ID recommendations - continue free water at 200ml Q6h, hypotonic solutions for treatment of hypernatremia. Monitor levels - Place PICC line and discontinue femoral CVC - Continue with MVS, Lung protective strategies, monitor airway pressures - VAP bundle addressed; (Aspiration precautions, HOB > 40 degrees) - Titrate sedation for RAAS 0 to -1 - VTE prophylaxis - Stress ulcer prophylaxis - Wean supplemental oxygen for target O2 sat's > 90% - ABG and CXR prn - Follow cultures and adjust antibiotic therapy for KORIN and culture results - Avoid nephrotoxins, adjust all medications for GFR and CrCL - continue bronchodilators with pulmonary hygiene per RT - continue to avoid benzodiazepines to reduce the possibility of delirium - prn analgesia per CPOT score - Maintenance of sleep-wake cycle, avoid delirium - PT/OT/ROM exercises - continue mobility protocol and skin assessment per protocol for pressure ulcer prevention - Monitor hemodynamics closely - Contact and airborne isolation for PUI COVID-19 - Mobility, off loading and skin assessment per protocol to prevent pressure u lcer - continue wound care per RN & WCT (he has a stage 2 sacral decubitus on exam) - Chronic home medications as clinically indicated - continue other care per attending / other consultants CONDITION: CRITICAL PROGNOSIS: GUARDED CODE STATUS: FULL CODE The high probability of a clinically significant, sudden or life-threatening deterioration of the [respiratory, cardiovascular, renal] system(s) required my full and direct attention, intervention and personal management. The aggregate critical care time was [33] minutes without overlap. Time includes spent on; [x] Data Review and interpretation [x] Patient assessment and monitoring of vital signs [x] Documentation [x] Medication orders and management Subjective Date of service: 07/05/19 Principal diagnosis: Septic shock; HAP; Acute hypoxemic resp failure PUI-COVID 19; Hypernatremia Interval history: Patient is seen today for: Septic shock; HAP; Acute hypoxemic respiratory failure; PUI-COVID 19; Lactic acidosis; Hypernatremia; Acute metabolic encephalopathy; h/o Lewy body dementia Seen and examined at bedside; 24hour events reviewed; nursing and respiratory care staff consulted; no adverse overnight events reported to me; resting peacefully in bed; failed SBT due to apneas today; AMS is persistent; hypernatremia worse; no emesis or overt aspiration Objective Vital Signs - 12hr 07/05/19 07/05/19 07/05/19 04:00 05:00 05:57 Temperature Pulse Rate 116 H 117 H 114 H Pulse Rate [ 120 H From Monitor] Respiratory 17 15 Rate Blood Pressure 103/36 116/59 116/59 O2 Sat by Pulse 98 98 98 Oximetry 07/05/19 07/05/19 07/05/19 06:00 07:00 08:00 Temperature 98.2 F Pulse Rate 117 H 108 H 97 H Pulse Rate [ 96 H From Monitor] Respiratory 15 14 12 Rate Blood Pressure 112/49 85/46 99/56 O2 Sat by Pulse 98 96 97 Oximetry 07/05/19 07/05/19 07/05/19 08:15 08:18 09:00 Temperature Pulse Rate 89 97 H 97 H Pulse Rate [ From Monitor] Respiratory 15 18 Rate Blood Pressure 99/56 99/56 114/67 O2 Sat by Pulse 100 99 100 Oximetry 07/05/19 07/05/19 07/05/19 10:00 11:00 12:00 Temperature 98.7 F Pulse Rate 104 H 112 H 104 H Pulse Rate [ 100 H 97 H From Monitor] Respiratory 17 16 16 Rate Blood Pressure 122/86 117/70 132/113 O2 Sat by Pulse 97 99 100 Oximetry 07/05/19 07/05/19 07/05/19 12:28 13:00 14:00 Temperature Pulse Rate 110 H 112 H 115 H Pulse Rate [ From Monitor] Respiratory 24 22 25 H Rate Blood Pressure 119/49 107/72 132/68 O2 Sat by Pulse 98 99 97 Oximetry 07/05/19 15:00 Temperature Pulse Rate 117 H Pulse Rate [ From Monitor] Respiratory 29 H Rate Blood Pressure 120/72 O2 Sat by Pulse 98 Oximetry Constitutional: no acute distress, other (sedated, orally intubated) Eyes: non-icteric ENT: oropharynx moist, other (ETT at 23cm at the lip) Neck: supple, no lymphadenopathy, no JVD Effort: mildly labored Ascultation: Bilateral: diminished breath sounds, rhonchi Percussion: Bilateral: not dull Cardiovascular: regular rate and rhythm (tachycardia), other (S1,S2, no murmurs, gallops) Gastrointestinal: normoactive bowel sounds, soft, non-tender, non-distended, other (PEG in place) Integumentary: decubitus ulcer (Stage 2) Extremities: no cyanosis, no edema, pulses normal, no ischemia or petechiae Neurologic: unable to assess Psychiatric: other (unable to assess secondary to mental status) CBC and BMP: 07/04/19 07:02 07/04/19 04:00 ABG, PT/INR, D-dimer: ABG ABG pH 7.469 pH Units (7.350-7.450) H 07/05/19 05:58 ABG pCO2 43.7 mm Hg 07/05/19 05:58 ABG pO2 73.4 mm Hg (80.0-90.0) L 07/05/19 05:58 ABG O2 Saturation 97.2 % (95.0-99.0) 07/05/19 05:58 PT/INR, D-dimer PT 15.5 Sec. (12.2-14.9) H 06/28/19 04:05 INR 1.21 (0.87-1.13) H 06/28/19 04:05 Abnormal lab findings: Abnormal Labs 06/26/19 06/26/19 06/26/19 22:56 23:31 23:31 RBC 2.90 L Hgb 8.8 L Hct 26.5 L [place] % (Auto) PT INR APTT ABG pH 7.467 H ABG pO2 106.2 H ABG HCO3 26.5 H ABG O2 Saturation ABG Base Excess ABG Hemoglobin 9.6 L Oxyhemoglobin Sodium 150 H Potassium Chloride 111.7 H BUN Glucose POC Glucose Lactic Acid Calcium Phosphorus Magnesium AST 53 H Total Creatine Kinase Total Protein 6.2 L Albumin 2.4 L 06/26/19 06/26/19 06/27/19 23:31 23:31 04:35 RBC Hgb Hct [place] % (Auto) PT INR APTT ABG pH ABG pO2 120.3 H ABG HCO3 ABG O2 Saturation ABG Base Excess ABG Hemoglobin 7.4 L Oxyhemoglobin Sodium Potassium Chloride BUN Glucose POC Glucose Lactic Acid 2.20 H* Calcium Phosphorus Magnesium AST Total Creatine Kinase 300 H Total Protein Albumin 06/27/19 06/27/19 06/28/19 08:53 12:37 03:45 RBC Hgb Hct [place] % (Auto) PT INR APTT ABG pH 7.457 H ABG pO2 152.6 H ABG HCO3 ABG O2 Saturation ABG Base Excess ABG Hemoglobin 8.4 L Oxyhemoglobin Sodium Potassium Chloride BUN Glucose POC Glucose 108 H 125 H Lactic Acid Calcium Phosphorus Magnesium AST Total Creatine Kinase Total Protein Albumin 06/28/19 06/28/19 06/28/19 04:05 04:05 04:05 RBC 2.65 L Hgb 7.8 L Hct 23.9 L [place] % (Auto) 8.6 H PT 15.5 H INR 1.21 H APTT 36.7 H ABG pH ABG pO2 ABG HCO3 ABG O2 Saturation ABG Base Excess ABG Hemoglobin Oxyhemoglobin Sodium 151 H Potassium 3.1 L Chloride 116.1 H BUN Glucose 125 H POC Glucose Lactic Acid Calcium 8.3 L Phosphorus Magnesium AST Total Creatine Kinase Total Protein Albumin 06/29/19 06/30/19 07/01/19 04:55 05:55 05:15 RBC 2.64 L Hgb 7.8 L Hct 24.1 L [place] % (Auto) 11.8 H PT INR APTT ABG pH ABG pO2 121.9 H 102.6 H ABG HCO3 ABG O2 Saturation ABG Base Excess ABG Hemoglobin 8.1 L 10.4 L Oxyhemoglobin Sodium Potassium Chloride BUN Glucose POC Glucose Lactic Acid Calcium Phosphorus Magnesium AST Total Creatine Kinase Total Protein Albumin 07/01/19 07/01/19 07/01/19 05:15 05:15 05:32 RBC Hgb Hct [place] % (Auto) PT INR APTT ABG pH ABG pO2 42.8 L ABG HCO3 26.7 H ABG O2 Saturation 83.4 L ABG Base Excess ABG Hemoglobin 7.6 L Oxyhemoglobin 81.9 L Sodium 147 H Potassium 2.7 L* Chloride 112.7 H BUN 6 L Glucose 453 H POC Glucose Lactic Acid Calcium 8.2 L Phosphorus 2.40 L Magnesium 1.60 L AST Total Creatine Kinase Total Protein Albumin 07/01/19 07/02/19 07/02/19 14:55 04:50 08:15 RBC Hgb Hct [place] % (Auto) PT INR APTT ABG pH ABG pO2 ABG HCO3 26.8 H ABG O2 Saturation ABG Base Excess ABG Hemoglobin 5.4 L Oxyhemoglobin Sodium 153 H 150 H Potassium 3.3 L D 3.5 L Chloride 117.1 H 115.2 H BUN 6 L 6 L Glucose 109 H POC Glucose Lactic Acid Calcium Phosphorus Magnesium AST Total Creatine Kinase Total Protein Albumin 07/02/19 07/03/19 07/03/19 08:46 04:37 06:50 RBC 2.64 L 2.50 L Hgb 8.0 L 7.5 L Hct 24.0 L 22.6 L [place] % (Auto) PT INR APTT ABG pH ABG pO2 72.9 L ABG HCO3 26.5 H ABG O2 Saturation ABG Base Excess ABG Hemoglobin 7.7 L Oxyhemoglobin Sodium Potassium Chloride BUN Glucose POC Glucose Lactic Acid Calcium Phosphorus Magnesium AST Total Creatine Kinase Total Protein Albumin 07/03/19 07/04/19 07/04/19 06:50 04:00 04:15 RBC Hgb Hct [place] % (Auto) PT INR APTT ABG pH ABG pO2 73.9 L ABG HCO3 27.8 H ABG O2 Saturation ABG Base Excess ABG Hemoglobin 9.7 L Oxyhemoglobin 94.9 L Sodium 148 H Potassium 3.0 L Chloride 110.0 H 110.4 H BUN 7 L Glucose 127 H 110 H POC Glucose Lactic Acid Calcium 8.2 L Phosphorus Magnesium AST Total Creatine Kinase Total Protein Albumin 07/04/19 07/05/19 07:02 05:58 RBC 2.60 L Hgb 7.7 L Hct 23.3 L [place] % (Auto) PT INR APTT ABG pH 7.469 H ABG pO2 73.4 L ABG HCO3 31.0 H ABG O2 Saturation ABG Base Excess 6.7 H ABG Hemoglobin 8.0 L Oxyhemoglobin Sodium Potassium Chloride BUN Glucose POC Glucose Lactic Acid Calcium Phosphorus Magnesium AST Total Creatine Kinase Total Protein Albumin Chest x-ray: pending Allied health notes reviewed: nursing
[2019-07-05 16:47] LABS: ABG Base Excess 7.9 mmol/L (-2.0-3.0); ABG HCO3 32.9 mmol/L (20.0-26.0); ABG Methemoglobin 0.5 % (0.0-1.5); ABG Oxygen Saturation 97.1 % (95.0-99.0); ABG PH 7.445 pH Units (7.350-7.450); ABG PO2 69.7 mm Hg (80.0-90.0)
--- NOTE | 2019-07-05 17:47 | Progress Note ---
Assessment and Plan Cultures: Blood culture 06/26/2019 no growth to date Sputum culture 06/26/2019 no growth to date A/P: 54-year-old man past medical history of Lewy body dementia admitted with bilateral pneumonia. #COVID-19 rule out: Patient is currently in airborne and contact since he is intubated. Patient recently had a negative COVID-19 test, however it does not rule out possibility he was either newly infected or that it was a false negative test. He has a normal white count with increased liver enzymes, which is consistent with COVID-19 disease. Samples sent, awaiting results from [facility]. #Bilateral pneumonia: Can continue vancomycin and cefepime in the meantime given the patient is detention exposures. #Lewy body dementia #Acute hypoxic respiratory failure Recs: -Continue contact and airborne, and droplet precautions while intubated. -Follow-up Department of Health testing for COVID-19. Samples have been sent; awaiting results. -Continue vancomycin and cefepime empirically for HCAP, plan on 8 day course if COVID is negative. -Procal elevated: continue empiric antibiotics. Improving with antibiotic therapy. For the consult, will continue to follow Jf Batista MD [facility] ([facility] M: [phone] O: [phone] F: [phone] Subjective Date of service: 07/05/19 Principal diagnosis: Septic shock; HAP; Acute hypoxemic resp failure PUI-COVID 19; Hypernatremia Interval history: Afebrile remains intubated Objective - Exam Narrative Exam: Physical Exam: Constitutional: Intubated, sedated Oral: Endotracheal tube Cardiovascular: Limited evaluation due to PPE shortage Respiratory: Limited evaluation due to PPE shortage GI: Limited evaluation due to PPE shortage Musculoskeletal: Limited evaluation due to PPE shortage Skin: No rash or abscess Neurological: Sedated - Constitutional Vitals: Vital Signs Temp Pulse Resp BP Pulse Ox 98.7 F 120 H 27 H 115/69 97 07/05/19 12:00 07/05/19 16:17 07/05/19 16:17 07/05/19 16:17 07/05/19 16:17 Temperature -Last 24 Hours Temperature 98.7 F Temperature 98.2 F Temperature 97.9 F Temperature 98.8 F Temperature 98.6 F - Labs CBC & Chem 7: 07/04/19 07:02 07/04/19 04:00 Labs: Abnormal lab results 07/05/19 07/05/19 Range/Units 05:58 16:29 ABG pH 7.469 H (7.350-7.450) pH Units ABG pO2 73.4 L 69.7 L (80.0-90.0) mm Hg ABG HCO3 31.0 H 32.9 H (20.0-26.0) mmol/L ABG Base Excess 6.7 H 7.9 H (-2.0-3.0) mmol/L ABG Hemoglobin 8.0 L 8.4 L (14.0-18.0) gm/dl
[2019-07-05] MEDS: MORPHINE 2 MG/1 ML INJ IV PRN (23:18)
[2019-07-06 05:39] LABS: Hematocrit 24.6 % (35.5-45.6); Hemoglobin 8.1 gm/dl (11.8-15.2); Mean Corpuscular HGB Conc 33 % (32-34); Mean Corpuscular Volume 90 fl (84-94); Platelet Count 294 K/mm3 (140-440); Red Blood Count 2.72 M/mm3 (3.65-5.03); Red Cell Distribution Width 13.8 % (13.2-15.2)
[2019-07-06 05:54] LABS: BUN/Creatinine Ratio 12; Blood Urea Nitrogen 11 mg/dL (9-20); Calcium 8.7 mg/dL (8.4-10.2); Hemolysis Index 0
[2019-07-06] MEDS: HEPARIN 5,000 UNIT/1 ML VIAL SUB-Q SCH ×3 (06:00→21:24)
--- NOTE | 2019-07-06 08:38 | Progress Note ---
Assessment and Plan Assessment and plan: Severe sepsis with septic shock. Continue pressors as needed to maintain MAP greater than 65. Continue IV antibiotics and follow-up cultures. Bilateral pneumonia. Continue IV antibiotics. Suspected COVID19/PUI. Contact and airborne isolation for PUI COVID-19 Oropharyngeal dysphagia. Patient is status post PEG. Severe protein calorie malnutrition. Continue tube feedings with aspiration precautions. Toxic metabolic encephalopathy with underlying Lewy body dementia. Continue to treat underlying causes and supportive care. Hypernatremia. Now resolved 06/29/2019patient remains on mechanical ventilation with AC mode rate of 16, tidal volume 500, FiO2 40% and PEEP of 5. Patient with ARDS from suspected COVID19. Patient recently had a negative COVID-19 test, however it does not rule out possibility he was either newly infected or that it was a false negative test. He has a normal white count with increased liver enzymes, which is consistent with COVID-19 disease. Continue contact and airborne/droplet precautions. Follow-up pro calcitonin level and rapid influenza PCR. 06/30/2019-patient remains on mechanical ventilation with AC mode rate of 16 tidal volume 500 FiO2 35% and a PEEP of 6. Patient with ARDS from suspected COVID19. Patient recently had a negative COVID-19 test, however it does not rule out possibility he was either newly infected or that it was a false ne gative test. He has a normal white count with increased liver enzymes, which is consistent with COVID-19 disease. Continue contact and airborne/droplet precautions. Pro calcitonin level slightly elevated at 0.44. Follow-up rapid influenza PCR. 07/01/2019-patient remains on mechanical ventilation with AC mode rate of 16 tidal volume 500 FiO2 25% and a PEEP of 6. Continue to wean vent as tolerated. Patient with ARDS from suspected COVID19. Patient recently had a negative COVID-19 test, however it does not rule out possibility he was either newly infected or that it was a false negative test. He has a normal white count with increased liver enzymes, which is consistent with COVID-19 disease. Follow-up rapid influenza PCR. 07/02/2019 Patient still intubated. Discussed with Amisha. to repeat COVID test, initial test was negative. 07/03/2019 Still intubated. hypernatremia resolved. Repeat Covid-19 test 07/04/19 patient with acute resp failure, still intubated 07/05/19 Still intubated. ID and Pulm following The high probability of a clinically significant, sudden or life threatening deterioration of the [hemodynamic, immunologic and respiratory] system(s) required my full and direct attention, intervention and personal management. The aggregate critical care time was [32] minutes. This time is in addition to time spent performing reported procedures but includes the following: [x] Data Review and interpretation [x] Patient assessment and monitoring of vital signs [x] Documentation [x] Medication orders and management History Interval history: Patient initially presented with shortness of breath, intubated Hospitalist Physical - Physical exam Narrative exam: GEN: Not in acute distress, malnutrition HEENT: Normocephalic, atraumatic, Neck: supple, No JVD Lungs: Bilateral crackles, heart;S1 and S2 reg, tachy, no murmurs, rubs or gallop Abd:soft, non tender, non distended, normal bowel sounds Ext: No edema, no clubbing, no cyanosis, Neuro:Intubated, sedated - Constitutional Vitals: Temp Pulse Resp BP Pulse Ox 98.2 F 109 H 15 99/63 99 07/06/19 08:00 07/06/19 08:11 07/06/19 08:00 07/06/19 08:11 07/06/19 08:11 General appearance: Present: no acute distress Results - Labs CBC & Chem 7: 07/06/19 05:13 07/06/19 05:13 Labs: Laboratory Last Values WBC 7.3 K/mm3 (4.5-11.0) 07/06/19 05:13 RBC 2.72 M/mm3 (3.65-5.03) L 07/06/19 05:13 Hgb 8.1 gm/dl (11.8-15.2) L 07/06/19 05:13 Hct 24.6 % (35.5-45.6) L 07/06/19 05:13 MCV 90 fl (84-94) 07/06/19 05:13 MCH 30 pg (28-32) 07/06/19 05:13 MCHC 33 % (32-34) 07/06/19 05:13 RDW 13.8 % (13.2-15.2) 07/06/19 05:13 Plt Count 294 K/mm3 (140-440) 07/06/19 05:13 Lymph % (Auto) 20.0 % (13.4-35.0) 07/01/19 05:15 [place] % (Auto) 11.8 % (0.0-7.3) H 07/01/19 05:15 Eos % (Auto) 3.1 % (0.0-4.3) 07/01/19 05:15 Baso % (Auto) 1.3 % (0.0-1.8) 07/01/19 05:15 Lymph # 1.3 K/mm3 (1.2-5.4) 07/01/19 05:15 [place] # 0.8 K/mm3 (0.0-0.8) 07/01/19 05:15 Eos # 0.2 K/mm3 (0.0-0.4) 07/01/19 05:15 Baso # 0.1 K/mm3 (0.0-0.1) 07/01/19 05:15 Seg Neutrophils % 63.8 % (40.0-70.0) 07/01/19 05:15 Seg Neutrophils # 4.2 K/mm3 (1.8-7.7) 07/01/19 05:15 PT 15.5 Sec. (12.2-14.9) H 06/28/19 04:05 INR 1.21 (0.87-1.13) H 06/28/19 04:05 APTT 36.7 Sec. (24.2-36.6) H 06/28/19 04:05 ABG pH 7.445 pH Units (7.350-7.450) 07/05/19 16:29 ABG pCO2 49.0 mm Hg 07/05/19 16:29 ABG pO2 69.7 mm Hg (80.0-90.0) L 07/05/19 16:29 ABG HCO3 32.9 mmol/L (20.0-26.0) H 07/05/19 16:29 ABG O2 Saturation 97.1 % (95.0-99.0) 07/05/19 16:29 ABG O2 Content 11.3 (0.0-44) 07/05/19 16:29 ABG Base Excess 7.9 mmol/L (-2.0-3.0) H 07/05/19 16:29 ABG Hemoglobin 8.4 gm/dl (14.0-18.0) L 07/05/19 16:29 ABG Carboxyhemoglobin 1.4 % (0.0-5.0) 07/05/19 16:29 ABG Methemoglobin 0.5 % (0.0-1.5) 07/05/19 16:29 Oxyhemoglobin 95.3 % (95.0-99.0) 07/05/19 16:29 FiO2 25 % 07/05/19 16:29 Sodium 146 mmol/L (137-145) H 07/06/19 05:13 Potassium 3.7 mmol/L (3.6-5.0) 07/06/19 05:13 Chloride 105.7 mmol/L (98-107) 07/06/19 05:13 Carbon Dioxide 31 mmol/L (22-30) H D 07/06/19 05:13 Anion Gap 13 mmol/L 07/06/19 05:13 BUN 11 mg/dL (9-20) 07/06/19 05:13 Creatinine 0.9 mg/dL (0.8-1.5) 07/06/19 05:13 Estimated GFR > 60 ml/min 07/06/19 05:13 BUN/Creatinine Ratio 12 % 07/06/19 05:13 Glucose 125 mg/dL (75-100) H 07/06/19 05:13 POC Glucose 125 (70-105) H 06/27/19 12:37 Lactic Acid 1.30 mmol/L (0.7-2.0) 06/27/19 05:02 Calcium 8.7 mg/dL (8.4-10.2) 07/06/19 05:13 Phosphorus 2.70 mg/dL (2.5-4.5) 07/01/19 14:55 Magnesium 1.80 mg/dL (1.7-2.3) 07/01/19 14:55 Total Bilirubin 0.50 mg/dL (0.1-1.2) 06/26/19 23:31 AST 53 units/L (5-40) H 06/26/19 23:31 ALT 56 units/L (7-56) 06/26/19 23:31 Alkaline Phosphatase 109 units/L (35-129) 06/26/19 23:31 Total Creatine Kinase 300 units/L (55-170) H 06/26/19 23:31 Troponin T < 0.010 ng/mL (0.00-0.029) 06/26/19 23:31 Total Protein 6.2 g/dL (6.3-8.2) L 06/26/19 23:31 Albumin 2.4 g/dL (3.9-5) L 06/26/19 23:31 Albumin/Globulin Ratio 0.6 % 06/26/19 23:31 Triglycerides 143 mg/dL (2-149) 07/01/19 05:15 Procalcitonin 0.11 ng/mL (<0.15) 07/03/19 07:13 Vancomycin Trough 12.6 ug/mL (5.0-20.0) 07/02/19 21:33 Influenza A (Rapid) Negative (Negative) 06/28/19 14:31 Influenza A (RT-PCR) Negative (Negative) 06/28/19 14:31 Influenza B (Rapid) Negative (Negative) 06/28/19 14:31 Influenza B (RT-PCR) Negative (Negative) 06/28/19 14:31 [place]/IV: Voiding Method Condom Catheter IV Catheter Type [Right Peripheral IV Antecubital] IV Catheter Type [Left PICC Line Antecubital] IV Catheter Type [Left Upper PICC Line arm] IV Catheter Type [Left Wrist] INT / [place]ine Lock IV Catheter Type [Right Leg] Triple Lumen Cath Active Medications - Current Medications Current Medications: Generic Name Dose Route Start Last Admin Trade Name Freq PRN Reason Stop Dose Admin Albuterol 2.5 mg 07/05/19 12:31 Proventil IH Q4HRT PRN Shortness Of Breath Lipase/Protease/Amylase 1 each 07/01/19 11:48 07/04/19 23:09 Pancreaze 10,500 Unit FEEDTUBE 1 each PRN PRN Administration For Clogged Feeding Tube Famotidine 20 mg 07/02/19 10:00 07/05/19 22:00 Pepcid PO 20 mg BID LADY Administration Heparin Sodium (Porcine) 5,000 unit 06/27/19 06:00 07/05/19 23:17 Heparin SUB-Q Not Given Q8HR LADY Norepinephrine 4 mg in 250 mls @ 7.5 mls/hr 06/27/19 01:00 06/28/19 09:20 Levophed Drip 4 Mg/Ns 250 Ml IV 0 mcg/min TITR LADY 0 mls/hr Titration Protocol 2 MCG/MIN Propofol 1,000 mg in 100 mls @ 1.497 mls/hr 06/27/19 06:00 07/04/19 15:15 Diprivan 10 Mg/Ml IV 0 mcg/kg/min TITR LADY 0 mls/hr Titration Protocol 5 MCG/KG/MIN Magnesium Hydroxide 30 ml 06/27/19 02:51 Milk Of Magnesia PO Q4H PRN Constipation Morphine Sulfate 2 mg 06/27/19 02:51 07/05/19 23:18 Morphine IV 2 mg Q4H PRN Administration Pain, Moderate (4-6) Simple Syrup 15 ml 07/01/19 11:48 Simple Syrup FEEDTUBE PRN PRN Hypoglycemia Simple Syrup 30 ml 07/01/19 11:48 Simple Syrup FEEDTUBE PRN PRN Hypoglycemia Sodium Bicarbonate 325 mg 07/01/19 11:48 07/04/19 23:06 Sodium Bicarbonate FEEDTUBE 325 mg PRN PRN Administration For Clogged Feeding Tube Sodium Chloride 10 ml 06/27/19 10:00 07/05/19 22:00 Sodium Chloride Flush Syringe 10 Ml IV 10 ml BID LADY Administration Sodium Chloride 10 ml 06/27/19 02:51 06/27/19 09:10 Sodium Chloride Flush Syringe 10 Ml IV 10 ml PRN PRN Administration LINE FLUSH Nutrition/Malnutrition Assess - Dietary Evaluation Nutrition/Malnutrition Findings: Nutrition Notes Start: 06/27/19 09:53 Freq: Status: Active Protocol: Document 07/03/19 13:19 LM (Rec: 07/03/19 13:21 LM [email or web address]) Nutrition Notes Initial or Follow up Reassessment Current Diagnosis Hypertension Other Pertinent Diagnosis Suspected Covid-19, Lewy body dementia, pneu Current Diet Osmolite 1.5 at 55 ml/hr Labs/Tests K 3.0 Pertinent Medications Reviewed Height 5 ft 10 in Weight 49.895 kg [place] Body Weight (kg) 75.45 BMI 15.7 Weight Status Underweight Subjective/Other Information Per RN, pt tolerating TF at goal. Percent of energy/protein needs met: 99%/100% Burn Absent Trauma Absent Current % PO Negligible Minimum of two criteria Yes Energy Intake (non-severe) <75% Estimated Energy Requirement >7 days Interpretation of Weight Loss (severe) > 20% in 1 year #2 Nutrition Diagnosis Malnutrition Diagnosis Progress(for reassessment Continues documentation) #1 Nutrition Diagnosis Inadequate oral intake Diagnosis Progress(for reassessment Continues documentation) Is patient on ventilator? Yes Is Patient Ambulatory and/or Out of Bed No REE-([place]-confined to bed) 1612.920 Kcal/Kg value to use for calculation 40 Approximate Energy Requirements Using 1996 kcal/Kg Calculation Used for Recommendations Kcal/kg Additional Notes Protein needs are 60-100g (1.2 -2g/kg) Fluid needs are 1ml/kcal Nutrition Intervention Change Diet Order: TF Nutrition Support: Osmolite 1.5 at 55ml/hr Flush with 250ml q4h for hypernatremia and 150ml q4h once resolved Kcal 1,980 Protein (gm) 83 Fluid (mL) 1,006 Goal #1 TF tolerance Goal #2 Meet at least 80% of energy and protein needs via TF Goal #3 Wt gain/maintenance Anticipated Discharge Needs: TF Follow-Up By: 07/10/19 Additional Comments F/U for TF tolerance
[2019-07-06] MEDS: FAMOTIDINE 20 MG TAB PO SCH ×2 (11:16→21:26)
--- NOTE | 2019-07-06 14:15 | Progress Note ---
Assessment and Plan Severe sepsis with septic shock presumed pulmonary source HAP- leukocytosis, elevated procalcitonin Acute hypoxemic respiratory failure, orally intubated on MVS PUI-COVID 19 Oropharyngeal dysphagia s/p PEG Possible aspiration PNA Lactic acidosis Hypernatremia Severe protein calorie malnutrition Acute metabolic encephalopathy h/o Lewy body dementia -VAP bundle addresed.-Daily SAT,SBT -Aspiration precautions, HOB>40 -Daily assessment for readiness for SBT, Daily SAT -Titrate sedation for RAAS -1 to -2 -VTE prophylaxis -Stress ulcer prophylaxis -Wean supplemental oxygen for target O2 sat's > 90% -ABG and CXR in am -Avoid nephrotoxins, adjust all medications for GFR and CrCL - continue bronchodilators with pulmonary hygiene per RT - continue to avoid benzodiazepines to reduce the possibility of delirium - prn analgesia per CPOT score - Maintenance of sleep-wake cycle, avoid delirium - PT/OT/ROM exercises - Continue mobility protocol and skin assessment per protocol for pressure ulcer prevention - Monitor hemodynamics closely -Contact and airborne isolation for PUI COVID-19 per ID recommendations -Mobility, off loading and skin assessment per protocol to prevent pressure ulcer - Continue Chronic home medications as clinically indicated -Continue other care per attending / other consultants Attempted to call his , went into voicemail. Need to start addressing goals of care, possible trach vs hospice. He had been in hospice prior to this hospitalization CONDITION: CRITICAL PROGNOSIS: GUARDED CODE STATUS: FULL CODE The high probability of a clinically significant, sudden or life-threatening deterioration of the [respiratory, cardiovascular, renal] system(s) required my full and direct attention, intervention and personal management. The aggregate critical care time was [31] minutes without overlap. Time includes spent on; [x] Data Review and interpretation [x] Patient assessment and monitoring of vital signs [x] Documentation [x] Medication orders and management Subjective Date of service: 07/06/19 Principal diagnosis: Septic shock; HAP; Acute hypoxemic resp failure PUI-COVID 19; Hypernatremia Interval history: Follow up for: Severe sepsis with septic shock presumed pulmonary source;HAP;Acute hypoxemic respiratory failure, orally intubated on MVS PUI-COVID 19; Oropharyngeal dysphagia s/p PEG; Possible aspiration PNA; Lactic acidosis; Hypernatremia; Severe protein calorie malnutrition; Acute metabolic encephalopathy Patient seen and examined. Vitals, labs, medications, chart and imaging reviewed. 24 hour events reviewed. No adverse overnight events reported Remains orally intubated Size 8.0 ETT at 22cm; tolerating tube feedings at goal. No acute overnight event, remains on sedation No fevers, no vomiting, no diarrhea. Mental status changes persist, no fevers Objective Vital Signs - 12hr 07/06/19 07/06/19 07/06/19 03:00 03:34 04:00 Temperature 98.9 F Pulse Rate 108 H 105 H Pulse Rate [ 105 H From Monitor] Respiratory 15 14 Rate Blood Pressure 112/64 122/57 O2 Sat by Pulse 98 97 Oximetry 07/06/19 07/06/19 07/06/19 04:05 05:00 06:00 Temperature Pulse Rate 112 H 121 H 105 H Pulse Rate [ From Monitor] Respiratory 14 14 Rate Blood Pressure 122/57 120/63 115/64 O2 Sat by Pulse 97 98 99 Oximetry 07/06/19 07/06/19 07/06/19 07:00 08:00 08:11 Temperature 98.2 F Pulse Rate 102 H 103 H 109 H Pulse Rate [ From Monitor] Respiratory 13 15 Rate Blood Pressure 108/59 99/63 99/63 O2 Sat by Pulse 98 98 99 Oximetry 07/06/19 07/06/19 07/06/19 09:00 10:00 11:00 Temperature Pulse Rate 103 H 104 H 105 H Pulse Rate [ From Monitor] Respiratory 13 13 14 Rate Blood Pressure 99/63 116/61 113/72 O2 Sat by Pulse 98 99 93 Oximetry 07/06/19 07/06/19 07/06/19 12:00 12:31 13:00 Temperature 98.8 F Pulse Rate 107 H 105 H 106 H Pulse Rate [ From Monitor] Respiratory 23 12 Rate Blood Pressure 106/56 98/64 98/50 O2 Sat by Pulse 95 96 95 Oximetry 07/06/19 14:00 Temperature Pulse Rate 99 H Pulse Rate [ From Monitor] Respiratory 12 Rate Blood Pressure 103/59 O2 Sat by Pulse 98 Oximetry Constitutional: no acute distress, other (sedated, orally intubated) Eyes: non-icteric ENT: oropharynx moist, other (ETT at 23cm at the lip) Neck: supple, no lymphadenopathy, no JVD Effort: mildly labored Ascultation: Bilateral: diminished breath sounds, rhonchi Percussion: Bilateral: not dull Cardiovascular: regular rate and rhythm (tachycardia), other (S1,S2, no murmurs, gallops) Gastrointestinal: normoactive bowel sounds, soft, non-tender, non-distended, other (PEG in place) Integumentary: decubitus ulcer (Stage 2) Extremities: no cyanosis, no edema, pulses normal, no ischemia or petechiae Neurologic: unable to assess Psychiatric: other (unable to assess secondary to mental status) CBC and BMP: 07/07/19 05:27 07/07/19 05:27 ABG, PT/INR, D-dimer: ABG ABG pH 7.445 pH Units (7.350-7.450) 07/05/19 16:29 ABG pCO2 49.0 mm Hg 07/05/19 16:29 ABG pO2 69.7 mm Hg (80.0-90.0) L 07/05/19 16:29 ABG O2 Saturation 97.1 % (95.0-99.0) 07/05/19 16:29 PT/INR, D-dimer PT 15.5 Sec. (12.2-14.9) H 06/28/19 04:05 INR 1.21 (0.87-1.13) H 06/28/19 04:05 Abnormal lab findings: Abnormal Labs 06/26/19 06/26/19 06/26/19 22:56 23:31 23:31 RBC 2.90 L Hgb 8.8 L Hct 26.5 L [place] % (Auto) PT INR APTT ABG pH 7.467 H ABG pO2 106.2 H ABG HCO3 26.5 H ABG O2 Saturation ABG Base Excess ABG Hemoglobin 9.6 L Oxyhemoglobin Sodium 150 H Potassium Chloride 111.7 H Carbon Dioxide BUN Glucose POC Glucose Lactic Acid Calcium Phosphorus Magnesium AST 53 H Total Creatine Kinase Total Protein 6.2 L Albumin 2.4 L 06/26/19 06/26/19 06/27/19 23:31 23:31 04:35 RBC Hgb Hct [place] % (Auto) PT INR APTT ABG pH ABG pO2 120.3 H ABG HCO3 ABG O2 Saturation ABG Base Excess ABG Hemoglobin 7.4 L Oxyhemoglobin Sodium Potassium Chloride Carbon Dioxide BUN Glucose POC Glucose Lactic Acid 2.20 H* Calcium Phosphorus Magnesium AST Total Creatine Kinase 300 H Total Protein Albumin 03/19/20 03/19/20 03/20/20 08:53 12:37 03:45 RBC Hgb Hct [place] % (Auto) PT INR APTT ABG pH 7.457 H ABG pO2 152.6 H ABG HCO3 ABG O2 Saturation ABG Base Excess ABG Hemoglobin 8.4 L Oxyhemoglobin Sodium Potassium Chloride Carbon Dioxide BUN Glucose POC Glucose 108 H 125 H Lactic Acid Calcium Phosphorus Magnesium AST Total Creatine Kinase Total Protein Albumin 06/28/19 06/28/19 06/28/19 04:05 04:05 04:05 RBC 2.65 L Hgb 7.8 L Hct 23.9 L [place] % (Auto) 8.6 H PT 15.5 H INR 1.21 H APTT 36.7 H ABG pH ABG pO2 ABG HCO3 ABG O2 Saturation ABG Base Excess ABG Hemoglobin Oxyhemoglobin Sodium 151 H Potassium 3.1 L Chloride 116.1 H Carbon Dioxide BUN Glucose 125 H POC Glucose Lactic Acid Calcium 8.3 L Phosphorus Magnesium AST Total Creatine Kinase Total Protein Albumin 06/29/19 06/30/19 07/01/19 04:55 05:55 05:15 RBC 2.64 L Hgb 7.8 L Hct 24.1 L [place] % (Auto) 11.8 H PT INR APTT ABG pH ABG pO2 121.9 H 102.6 H ABG HCO3 ABG O2 Saturation ABG Base Excess ABG Hemoglobin 8.1 L 10.4 L Oxyhemoglobin Sodium Potassium Chloride Carbon Dioxide BUN Glucose POC Glucose Lactic Acid Calcium Phosphorus Magnesium AST Total Creatine Kinase Total Protein Albumin 07/01/19 07/01/19 07/01/19 05:15 05:15 05:32 RBC Hgb Hct [place] % (Auto) PT INR APTT ABG pH ABG pO2 42.8 L ABG HCO3 26.7 H ABG O2 Saturation 83.4 L ABG Base Excess ABG Hemoglobin 7.6 L Oxyhemoglobin 81.9 L Sodium 147 H Potassium 2.7 L* Chloride 112.7 H Carbon Dioxide BUN 6 L Glucose 453 H POC Glucose Lactic Acid Calcium 8.2 L Phosphorus 2.40 L Magnesium 1.60 L AST Total Creatine Kinase Total Protein Albumin 07/01/19 07/02/19 07/02/19 14:55 04:50 08:15 RBC Hgb Hct [place] % (Auto) PT INR APTT ABG pH ABG pO2 ABG HCO3 26.8 H ABG O2 Saturation ABG Base Excess ABG Hemoglobin 5.4 L Oxyhemoglobin Sodium 153 H 150 H Potassium 3.3 L D 3.5 L Chloride 117.1 H 115.2 H Carbon Dioxide BUN 6 L 6 L Glucose 109 H POC Glucose Lactic Acid Calcium Phosphorus Magnesium AST Total Creatine Kinase Total Protein Albumin 07/02/19 07/03/19 07/03/19 08:46 04:37 06:50 RBC 2.64 L 2.50 L Hgb 8.0 L 7.5 L Hct 24.0 L 22.6 L [place] % (Auto) PT INR APTT ABG pH ABG pO2 72.9 L ABG HCO3 26.5 H ABG O2 Saturation ABG Base Excess ABG Hemoglobin 7.7 L Oxyhemoglobin Sodium Potassium Chloride Carbon Dioxide BUN Glucose POC Glucose Lactic Acid Calcium Phosphorus Magnesium AST Total Creatine Kinase Total Protein Albumin 07/03/19 07/04/19 07/04/19 06:50 04:00 04:15 RBC Hgb Hct [place] % (Auto) PT INR APTT ABG pH ABG pO2 73.9 L ABG HCO3 27.8 H ABG O2 Saturation ABG Base Excess ABG Hemoglobin 9.7 L Oxyhemoglobin 94.9 L Sodium 148 H Potassium 3.0 L Chloride 110.0 H 110.4 H Carbon Dioxide BUN 7 L Glucose 127 H 110 H POC Glucose Lactic Acid Calcium 8.2 L Phosphorus Magnesium AST Total Creatine Kinase Total Protein Albumin 07/04/19 07/05/19 07/05/19 07:02 05:58 16:29 RBC 2.60 L Hgb 7.7 L Hct 23.3 L [place] % (Auto) PT INR APTT ABG pH 7.469 H ABG pO2 73.4 L 69.7 L ABG HCO3 31.0 H 32.9 H ABG O2 Saturation ABG Base Excess 6.7 H 7.9 H ABG Hemoglobin 8.0 L 8.4 L Oxyhemoglobin Sodium Potassium Chloride Carbon Dioxide BUN Glucose POC Glucose Lactic Acid Calcium Phosphorus Magnesium AST Total Creatine Kinase Total Protein Albumin 07/06/19 07/06/19 05:13 05:13 RBC 2.72 L Hgb 8.1 L Hct 24.6 L [place] % (Auto) PT INR APTT ABG pH ABG pO2 ABG HCO3 ABG O2 Saturation ABG Base Excess ABG Hemoglobin Oxyhemoglobin Sodium 146 H Potassium Chloride Carbon Dioxide 31 H D BUN Glucose 125 H POC Glucose Lactic Acid Calcium Phosphorus Magnesium AST Total Creatine Kinase Total Protein Albumin Allied health notes reviewed: nursing
--- NOTE | 2019-07-06 23:04 | Progress Note ---
Assessment and Plan Assessment and plan: Severe sepsis with septic shock. Continue pressors as needed to maintain MAP greater than 65. Continue IV antibiotics and follow-up cultures. Bilateral pneumonia. Continue IV antibiotics. Suspected COVID19/PUI. Contact and airborne isolation for PUI COVID-19 Oropharyngeal dysphagia. Patient is status post PEG. Severe protein calorie malnutrition. Continue tube feedings with aspiration precautions. Toxic metabolic encephalopathy with underlying Lewy body dementia. Continue to treat underlying causes and supportive care. Hypernatremia. Now resolved 06/29/2019patient remains on mechanical ventilation with AC mode rate of 16, tidal volume 500, FiO2 40% and PEEP of 5. Patient with ARDS from suspected COVID19. Patient recently had a negative COVID-19 test, however it does not rule out possibility he was either newly infected or that it was a false negative test. He has a normal white count with increased liver enzymes, which is consistent with COVID-19 disease. Continue contact and airborne/droplet precautions. Follow-up pro calcitonin level and rapid influenza PCR. 06/30/2019-patient remains on mechanical ventilation with AC mode rate of 16 tidal volume 500 FiO2 35% and a PEEP of 6. Patient with ARDS from suspected COVID19. Patient recently had a negative COVID-19 test, however it does not rule out possibility he was either newly infected or that it was a false ne gative test. He has a normal white count with increased liver enzymes, which is consistent with COVID-19 disease. Continue contact and airborne/droplet precautions. Pro calcitonin level slightly elevated at 0.44. Follow-up rapid influenza PCR. 07/01/2019-patient remains on mechanical ventilation with AC mode rate of 16 tidal volume 500 FiO2 25% and a PEEP of 6. Continue to wean vent as tolerated. Patient with ARDS from suspected COVID19. Patient recently had a negative COVID-19 test, however it does not rule out possibility he was either newly infected or that it was a false negative test. He has a normal white count with increased liver enzymes, which is consistent with COVID-19 disease. Follow-up rapid influenza PCR. 07/02/2019 Patient still intubated. Discussed with Amisha. to repeat COVID test, initial test was negative. 07/03/2019 Still intubated. hypernatremia resolved. Repeat Covid-19 test 07/04/19 patient with acute resp failure, still intubated 07/05/19 Still intubated. ID and Pulm following 07/06/19 patient remains critically ill. Still intubated on vent. The high probability of a clinically significant, sudden or life threatening deterioration of the [hemodynamic, immunologic and respiratory] system(s) required my full and direct attention, intervention and personal management. The aggregate critical care time was [36] minutes. This time is in addition to time spent performing reported procedures but includes the following: [x] Data Review and interpretation [x] Patient assessment and monitoring of vital signs [x] Documentation [x] Medication orders and management History Interval history: Patient initially presented with shortness of breath, intubated Hospitalist Physical - Physical exam Narrative exam: GEN: Not in acute distress, malnutrition HEENT: Normocephalic, atraumatic, Neck: supple, No JVD Lungs: Bilateral crackles, heart;S1 and S2 reg, tachy, no murmurs, rubs or gallop Abd:soft, non tender, non distended, normal bowel sounds Ext: No edema, no clubbing, no cyanosis, Neuro:Intubated, sedated - Constitutional Vitals: Temp Pulse Resp BP Pulse Ox 98.5 F 84 13 115/64 92 07/06/19 20:00 07/06/19 21:00 07/06/19 21:00 07/06/19 21:00 07/06/19 21:00 General appearance: Present: no acute distress Results - Labs CBC & Chem 7: 07/07/19 05:27 07/07/19 05:27 Labs: Laboratory Last Values WBC 7.3 K/mm3 (4.5-11.0) 07/06/19 05:13 RBC 2.72 M/mm3 (3.65-5.03) L 07/06/19 05:13 Hgb 8.1 gm/dl (11.8-15.2) L 07/06/19 05:13 Hct 24.6 % (35.5-45.6) L 07/06/19 05:13 MCV 90 fl (84-94) 07/06/19 05:13 MCH 30 pg (28-32) 07/06/19 05:13 MCHC 33 % (32-34) 07/06/19 05:13 RDW 13.8 % (13.2-15.2) 07/06/19 05:13 Plt Count 294 K/mm3 (140-440) 07/06/19 05:13 Lymph % (Auto) 20.0 % (13.4-35.0) 07/01/19 05:15 Owen % (Auto) 11.8 % (0.0-7.3) H 07/01/19 05:15 Eos % (Auto) 3.1 % (0.0-4.3) 07/01/19 05:15 Baso % (Auto) 1.3 % (0.0-1.8) 07/01/19 05:15 Lymph # 1.3 K/mm3 (1.2-5.4) 07/01/19 05:15 Owen # 0.8 K/mm3 (0.0-0.8) 07/01/19 05:15 Eos # 0.2 K/mm3 (0.0-0.4) 07/01/19 05:15 Baso # 0.1 K/mm3 (0.0-0.1) 07/01/19 05:15 Seg Neutrophils % 63.8 % (40.0-70.0) 07/01/19 05:15 Seg Neutrophils # 4.2 K/mm3 (1.8-7.7) 07/01/19 05:15 PT 15.5 Sec. (12.2-14.9) H 06/28/19 04:05 INR 1.21 (0.87-1.13) H 06/28/19 04:05 APTT 36.7 Sec. (24.2-36.6) H 06/28/19 04:05 ABG pH 7.445 pH Units (7.350-7.450) 07/05/19 16:29 ABG pCO2 49.0 mm Hg 07/05/19 16:29 ABG pO2 69.7 mm Hg (80.0-90.0) L 07/05/19 16:29 ABG HCO3 32.9 mmol/L (20.0-26.0) H 07/05/19 16:29 ABG O2 Saturation 97.1 % (95.0-99.0) 07/05/19 16:29 ABG O2 Content 11.3 (0.0-44) 07/05/19 16:29 ABG Base Excess 7.9 mmol/L (-2.0-3.0) H 07/05/19 16:29 ABG Hemoglobin 8.4 gm/dl (14.0-18.0) L 07/05/19 16:29 ABG Carboxyhemoglobin 1.4 % (0.0-5.0) 07/05/19 16:29 ABG Methemoglobin 0.5 % (0.0-1.5) 07/05/19 16:29 Oxyhemoglobin 95.3 % (95.0-99.0) 07/05/19 16:29 FiO2 25 % 07/05/19 16:29 Sodium 146 mmol/L (137-145) H 07/06/19 05:13 Potassium 3.7 mmol/L (3.6-5.0) 07/06/19 05:13 Chloride 105.7 mmol/L (98-107) 07/06/19 05:13 Carbon Dioxide 31 mmol/L (22-30) H D 07/06/19 05:13 Anion Gap 13 mmol/L 07/06/19 05:13 BUN 11 mg/dL (9-20) 07/06/19 05:13 Creatinine 0.9 mg/dL (0.8-1.5) 07/06/19 05:13 Estimated GFR > 60 ml/min 07/06/19 05:13 BUN/Creatinine Ratio 12 % 07/06/19 05:13 Glucose 125 mg/dL (75-100) H 07/06/19 05:13 POC Glucose 108 (70-105) H 07/06/19 17:36 Lactic Acid 1.30 mmol/L (0.7-2.0) 06/27/19 05:02 Calcium 8.7 mg/dL (8.4-10.2) 07/06/19 05:13 Phosphorus 2.70 mg/dL (2.5-4.5) 07/01/19 14:55 Magnesium 1.80 mg/dL (1.7-2.3) 07/01/19 14:55 Total Bilirubin 0.50 mg/dL (0.1-1.2) 06/26/19 23:31 AST 53 units/L (5-40) H 06/26/19 23:31 ALT 56 units/L (7-56) 06/26/19 23:31 Alkaline Phosphatase 109 units/L (35-129) 06/26/19 23:31 Total Creatine Kinase 300 units/L (55-170) H 06/26/19 23:31 Troponin T < 0.010 ng/mL (0.00-0.029) 06/26/19 23:31 Total Protein 6.2 g/dL (6.3-8.2) L 06/26/19 23:31 Albumin 2.4 g/dL (3.9-5) L 06/26/19 23: Albumin/Globulin Ratio 0.6 % 06/26/19 23: Triglycerides 143 mg/dL (2-149) 07/01/19 05:15 Procalcitonin 0.11 ng/mL (<0.15) 07/03/19 07:13 Vancomycin Trough 12.6 ug/mL (5.0-20.0) 07/02/19 21:33 Influenza A (Rapid) Negative (Negative) 06/28/19 14:31 Influenza A (RT-PCR) Negative (Negative) 06/28/19 14:31 Influenza B (Rapid) Negative (Negative) 06/28/19 14:31 Influenza B (RT-PCR) Negative (Negative) 06/28/19 14:31 Martinez/IV: Voiding Method Condom Catheter IV Catheter Type [Right Peripheral IV Antecubital] IV Catheter Type [Left PICC Line Antecubital] IV Catheter Type [Left Upper PICC Line arm] IV Catheter Type [Left Wrist] INT / Saline Lock IV Catheter Type [Right Leg] Triple Lumen Cath Active Medications - Current Medications Current Medications: Generic Name Dose Route Start Last Admin Trade Name Freq PRN Reason Stop Dose Admin Albuterol 2.5 mg 07/05/19 12:31 Proventil IH Q4HRT PRN Shortness Of Breath Lipase/Protease/Amylase 1 each 07/01/19 11:48 07/04/19 23:09 Pancrebenjamín Wang 10,500 Unit FEEDTUBE 1 each PRN PRN Administration For Clogged Feeding Tube Famotidine 20 mg 07/02/19 10:00 07/06/19 21:26 Pepcid PO 20 mg BID LADY Administration Heparin Sodium (Porcine) 5,000 unit 06/27/19 06:00 07/06/19 21:24 Heparin SUB-Q 5,000 unit Q8HR LADY Administration Norepinephrine 4 mg in 250 mls @ 7.5 mls/hr 06/27/19 01:00 06/28/19 09:20 Levophed Drip 4 Mg/Ns 250 Ml IV 0 mcg/min TITR LADY 0 mls/hr Titration Protocol 2 MCG/MIN Propofol 1,000 mg in 100 mls @ 1.497 mls/hr 06/27/19 06:00 07/04/19 15:15 Diprivan 10 Mg/Ml IV 0 mcg/kg/min TITR LADY 0 mls/hr Titration Protocol 5 MCG/KG/MIN Magnesium Hydroxide 30 ml 06/27/19 02:51 Milk Of Magnesia PO Q4H PRN Constipation Morphine Sulfate 2 mg 06/27/19 02:51 07/05/19 23:18 Morphine IV 2 mg Q4H PRN Administration Pain, Moderate (4-6) Simple Syrup 15 ml 07/01/19 11:48 Simple Syrup FEEDTUBE PRN PRN Hypoglycemia Simple Syrup 30 ml 07/01/19 11:48 Simple Syrup FEEDTUBE PRN PRN Hypoglycemia Sodium Bicarbonate 325 mg 07/01/19 11:48 07/04/19 23:06 Sodium Bicarbonate FEEDTUBE 325 mg PRN PRN Administration For Clogged Feeding Tube Sodium Chloride 10 ml 06/27/19 10:00 07/06/19 21:26 Sodium Chloride Flush Syringe 10 Ml IV 10 ml BID LADY Administration Sodium Chloride 10 ml 06/27/19 02:51 06/27/19 09:10 Sodium Chloride Flush Syringe 10 Ml IV 10 ml PRN PRN Administration LINE FLUSH Nutrition/Malnutrition Assess - Dietary Evaluation Nutrition/Malnutrition Findings: Nutrition Notes Start: 06/27/19 09:53 Freq: Status: Active Protocol: Document 07/03/19 13:19 LM (Rec: 07/03/19 13:21 LM [email or web address]) Nutrition Notes Initial or Follow up Reassessment Current Diagnosis Hypertension Other Pertinent Diagnosis Suspected Covid-19, Lewy body dementia, pneu Current Diet Osmolite 1.5 at 55 ml/hr Labs/Tests K 3.0 Pertinent Medications Reviewed Height 5 ft 10 in Weight 49.895 kg [place] Body Weight (kg) 75.45 BMI 15.7 Weight Status Underweight Subjective/Other Information Per RN, pt tolerating TF at goal. Percent of energy/protein needs met: 99%/100% Burn Absent Trauma Absent Current % PO Negligible Minimum of two criteria Yes Energy Intake (non-severe) <75% Estimated Energy Requirement >7 days Interpretation of Weight Loss (severe) > 20% in 1 year #2 Nutrition Diagnosis Malnutrition Diagnosis Progress(for reassessment Continues documentation) #1 Nutrition Diagnosis Inadequate oral intake Diagnosis Progress(for reassessment Continues documentation) Is patient on ventilator? Yes Is Patient Ambulatory and/or Out of Bed No REE-([facility]-confined to bed) 1612.920 Kcal/Kg value to use for calculation 40 Approximate Energy Requirements Using 1996 kcal/Kg Calculation Used for Recommendations Kcal/kg Additional Notes Protein needs are 60-100g (1.2 -2g/kg) Fluid needs are 1ml/kcal Nutrition Intervention Change Diet Order: TF Nutrition Support: Osmolite 1.5 at 55ml/hr Flush with 250ml q4h for hypernatremia and 150ml q4h once resolved Kcal 1,980 Protein (gm) 83 Fluid (mL) 1,006 Goal #1 TF tolerance Goal #2 Meet at least 80% of energy and protein needs via TF Goal #3 Wt gain/maintenance Anticipated Discharge Needs: TF Follow-Up By: 07/10/19 Additional Comments F/U for TF tolerance
--- NOTE | 2019-07-07 03:43 | Event Note ---
CODE BLUE Initial rhythm PEA, 1 round of epi was given There was ROSC, check labs
[2019-07-07] MEDS: HEPARIN 5,000 UNIT/1 ML VIAL SUB-Q SCH ×3 (06:06→22:24)
[2019-07-07 06:48] LABS: Basophils # (Auto) 0.1 K/mm3 (0.0-0.1); Basophils % (Auto) 0.9 % (0.0-1.8); Eosinophils # (Auto) 0.2 K/mm3 (0.0-0.4); Eosinophils % (Auto) 1.8 % (0.0-4.3); Hematocrit 26.9 % (35.5-45.6); Hemoglobin 8.9 gm/dl (11.8-15.2); Lymphocytes # (Auto) 1.2 K/mm3 (1.2-5.4); Lymphocytes % (Auto) 10.8 % (13.4-35.0); Mean Corpuscular HGB Conc 33 % (32-34); Mean Corpuscular Volume 90 fl (84-94); Monocytes # (Auto) 0.9 K/mm3 (0.0-0.8); Monocytes % (Auto) 8.3 % (0.0-7.3); Platelet Count 300 K/mm3 (140-440); Red Blood Count 2.99 M/mm3 (3.65-5.03); Red Cell Distribution Width 14.2 % (13.2-15.2)
[2019-07-07 06:57] LABS: BUN/Creatinine Ratio 13; Blood Urea Nitrogen 12 mg/dL (9-20); Calcium 8.8 mg/dL (8.4-10.2); Hemolysis Index 9
[2019-07-07 07:15] LABS: LDL Cholesterol,Direct 72 mg/dL (50-130)
[2019-07-07 07:27] LABS: Chol/HDL Ratio 3.75 %; HDL Cholesterol 32 mg/dL (40-59)
[2019-07-07] MEDS: FAMOTIDINE 20 MG TAB PO SCH ×2 (10:58→22:24)
--- NOTE | 2019-07-07 11:21 | Progress Note ---
Assessment and Plan Severe sepsis with septic shock presumed pulmonary source HAP- leukocytosis, elevated procalcitonin Acute hypoxemic respiratory failure, orally intubated on MVS PUI-COVID 19 Oropharyngeal dysphagia s/p PEG Possible aspiration PNA Lactic acidosis Hypernatremia Severe protein calorie malnutrition Acute metabolic encephalopathy h/o Lewy body dementia -VAP bundle addresed.-Daily SAT,SBT -Aspiration precautions, HOB>40 -Daily assessment for readiness for SBT, Daily SAT -Titrate sedation for RAAS -1 to -2 -VTE prophylaxis -Stress ulcer prophylaxis -Wean supplemental oxygen for target O2 sat's > 90% -ABG and CXR in am -Avoid nephrotoxins, adjust all medications for GFR and CrCL - continue bronchodilators with pulmonary hygiene per RT - continue to avoid benzodiazepines to reduce the possibility of delirium - prn analgesia per CPOT score - Maintenance of sleep-wake cycle, avoid delirium - PT/OT/ROM exercises - Continue mobility protocol and skin assessment per protocol for pressure ulcer prevention - Monitor hemodynamics closely -Contact and airborne isolation for PUI COVID-19 per ID recommendations -Mobility, off loading and skin assessment per protocol to prevent pressure ulcer - Continue Chronic home medications as clinically indicated -Continue other care per attending / other consultants Need to start addressing goals of care, possible trach vs hospice. He had been in hospice prior to this hospitalization Extensive discussion swith his over the phone-updated her and she decided that in the event of another cardiac arrest, the patient is DNAR. She will have discussions with the family re hospice CONDITION: CRITICAL PROGNOSIS: GUARDED CODE STATUS: DNAR The high probability of a clinically significant, sudden or life-threatening deterioration of the [respiratory, cardiovascular, renal] system(s) required my full and direct attention, intervention and personal management. The aggregate critical care time was [31] minutes without overlap. Time includes spent on; [x] Data Review and interpretation [x] Patient assessment and monitoring of vital signs [x] Documentation [x] Medication orders and management Subjective Date of service: 07/07/19 Principal diagnosis: Septic shock; HAP; Acute hypoxemic resp failure PUI-COVID 19; Hypernatremia Interval history: Follow up for: Severe sepsis with septic shock presumed pulmonary source;HAP;Acute hypoxemic respiratory failure, orally intubated on MVS PUI-COVID 19; Oropharyngeal dysphagia s/p PEG; Possible aspiration PNA; Lactic acidosis; Hypernatremia; Severe protein calorie malnutrition; Acute metabolic encephalopathy Patient seen and examined. Vitals, labs, medications, chart and imaging reviewed. 24 hour events reviewed. No adverse overnight events reported Remains orally intubated Size 8.0 ETT at 22cm; tolerating tube feedings at goal. No acute overnight event, remains on sedation No fevers, no vomiting, no diarrhea. Mental status changes persist, no fevers PEA arrest this morning Objective Vital Signs - 12hr 07/06/19 07/07/19 07/07/19 23:52 00:00 00:22 Temperature 98.6 F Pulse Rate 97 H 93 H Respiratory 13 Rate Blood Pressure 85/58 85/58 O2 Sat by Pulse 94 93 Oximetry 07/07/19 07/07/19 07/07/19 01:00 02:00 03:00 Temperature Pulse Rate 96 H 97 H 132 H Respiratory 12 16 48 H Rate Blood Pressure 83/50 102/67 144/108 O2 Sat by Pulse 94 97 97 Oximetry 07/07/19 07/07/19 07/07/19 03:38 04:00 04:20 Temperature 98.4 F Pulse Rate 125 H 117 H Respiratory 19 Rate Blood Pressure 90/63 119/84 O2 Sat by Pulse 97 100 Oximetry 07/07/19 07/07/19 07/07/19 05:00 06:00 07:00 Temperature Pulse Rate 127 H 111 H 110 H Respiratory 40 H 13 20 Rate Blood Pressure 108/81 113/56 104/72 O2 Sat by Pulse 97 100 100 Oximetry 07/07/19 08:00 Temperature Pulse Rate 102 H Respiratory 15 Rate Blood Pressure 93/66 O2 Sat by Pulse 100 Oximetry Constitutional: no acute distress, other (sedated, orally intubated) Eyes: non-icteric ENT: oropharynx moist, other (ETT at 23cm at the lip) Neck: supple, no lymphadenopathy, no JVD Effort: mildly labored Ascultation: Bilateral: diminished breath sounds, rhonchi Percussion: Bilateral: not dull Cardiovascular: regular rate and rhythm (tachycardia), other (S1,S2, no murmurs, gallops) Gastrointestinal: normoactive bowel sounds, soft, non-tender, non-distended, other (PEG in place) Integumentary: decubitus ulcer (Stage 2) Extremities: no cyanosis, no edema, pulses normal, no ischemia or petechiae Neurologic: unable to assess Psychiatric: other (unable to assess secondary to mental status) CBC and BMP: 07/07/19 05:27 07/07/19 05:27 ABG, PT/INR, D-dimer: ABG ABG pH 7.445 pH Units (7.350-7.450) 07/05/19 16:29 ABG pCO2 49.0 mm Hg 07/05/19 16:29 ABG pO2 69.7 mm Hg (80.0-90.0) L 07/05/19 16:29 ABG O2 Saturation 97.1 % (95.0-99.0) 07/05/19 16:29 PT/INR, D-dimer PT 15.5 Sec. (12.2-14.9) H 06/28/19 04:05 INR 1.21 (0.87-1.13) H 06/28/19 04:05 Abnormal lab findings: Abnormal Labs 06/26/19 06/26/19 06/26/19 22:56 23:31 23:31 RBC 2.90 L Hgb 8.8 L Hct 26.5 L Lymph % (Auto) [place] % (Auto) [place] # Seg Neutrophils % Seg Neutrophils # PT INR APTT ABG pH 7.467 H ABG pO2 106.2 H ABG HCO3 26.5 H ABG O2 Saturation ABG Base Excess ABG Hemoglobin 9.6 L Oxyhemoglobin Sodium 150 H Potassium Chloride 111.7 H Carbon Dioxide BUN Glucose POC Glucose Lactic Acid Calcium Phosphorus Magnesium AST 53 H Total Creatine Kinase CK-MB (CK-2) Rel Index Troponin T Total Protein 6.2 L Albumin 2.4 L HDL Cholesterol 06/26/19 06/26/19 06/27/19 23:31 23:31 04:35 RBC Hgb Hct Lymph % (Auto) [place] % (Auto) [place] # Seg Neutrophils % Seg Neutrophils # PT INR APTT ABG pH ABG pO2 120.3 H ABG HCO3 ABG O2 Saturation ABG Base Excess ABG Hemoglobin 7.4 L Oxyhemoglobin Sodium Potassium Chloride Carbon Dioxide BUN Glucose POC Glucose Lactic Acid 2.20 H* Calcium Phosphorus Magnesium AST Total Creatine Kinase 300 H CK-MB (CK-2) Rel Index Troponin T Total Protein Albumin HDL Cholesterol 06/27/19 06/27/19 06/28/19 08:53 12:37 03:45 RBC Hgb Hct Lymph % (Auto) [place] % (Auto) [place] # Seg Neutrophils % Seg Neutrophils # PT INR APTT ABG pH 7.457 H ABG pO2 152.6 H ABG HCO3 ABG O2 Saturation ABG Base Excess ABG Hemoglobin 8.4 L Oxyhemoglobin Sodium Potassium Chloride Carbon Dioxide BUN Glucose POC Glucose 108 H 125 H Lactic Acid Calcium Phosphorus Magnesium AST Total Creatine Kinase CK-MB (CK-2) Rel Index Troponin T Total Protein Albumin HDL Cholesterol 06/28/19 06/28/19 06/28/19 04:05 04:05 04:05 RBC 2.65 L Hgb 7.8 L Hct 23.9 L Lymph % (Auto) [place] % (Auto) 8.6 H [place] # Seg Neutrophils % Seg Neutrophils # PT 15.5 H INR 1.21 H APTT 36.7 H ABG pH ABG pO2 ABG HCO3 ABG O2 Saturation ABG Base Excess ABG Hemoglobin Oxyhemoglobin Sodium 151 H Potassium 3.1 L Chloride 116.1 H Carbon Dioxide BUN Glucose 125 H POC Glucose Lactic Acid Calcium 8.3 L Phosphorus Magnesium AST Total Creatine Kinase CK-MB (CK-2) Rel Index Troponin T Total Protein Albumin HDL Cholesterol 06/29/19 06/30/19 07/01/19 04:55 05:55 05:15 RBC 2.64 L Hgb 7.8 L Hct 24.1 L Lymph % (Auto) [place] % (Auto) 11.8 H [place] # Seg Neutrophils % Seg Neutrophils # PT INR APTT ABG pH ABG pO2 121.9 H 102.6 H ABG HCO3 ABG O2 Saturation ABG Base Excess ABG Hemoglobin 8.1 L 10.4 L Oxyhemoglobin Sodium Potassium Chloride Carbon Dioxide BUN Glucose POC Glucose Lactic Acid Calcium Phosphorus Magnesium AST Total Creatine Kinase CK-MB (CK-2) Rel Index Troponin T Total Protein Albumin HDL Cholesterol 07/01/19 07/01/19 07/01/19 05:15 05:15 05:32 RBC Hgb Hct Lymph % (Auto) [place] % (Auto) [place] # Seg Neutrophils % Seg Neutrophils # PT INR APTT ABG pH ABG pO2 42.8 L ABG HCO3 26.7 H ABG O2 Saturation 83.4 L ABG Base Excess ABG Hemoglobin 7.6 L Oxyhemoglobin 81.9 L Sodium 147 H Potassium 2.7 L* Chloride 112.7 H Carbon Dioxide BUN 6 L Glucose 453 H POC Glucose Lactic Acid Calcium 8.2 L Phosphorus 2.40 L Magnesium 1.60 L AST Total Creatine Kinase CK-MB (CK-2) Rel Index Troponin T Total Protein Albumin HDL Cholesterol 07/01/19 07/02/19 07/02/19 14:55 04:50 08:15 RBC Hgb Hct Lymph % (Auto) [place] % (Auto) [place] # Seg Neutrophils % Seg Neutrophils # PT INR APTT ABG pH ABG pO2 ABG HCO3 26.8 H ABG O2 Saturation ABG Base Excess ABG Hemoglobin 5.4 L Oxyhemoglobin Sodium 153 H 150 H Potassium 3.3 L D 3.5 L Chloride 117.1 H 115.2 H Carbon Dioxide BUN 6 L 6 L Glucose 109 H POC Glucose Lactic Acid Calcium Phosphorus Magnesium AST Total Creatine Kinase CK-MB (CK-2) Rel Index Troponin T Total Protein Albumin HDL Cholesterol 07/02/19 07/03/19 07/03/19 08:46 04:37 06:50 RBC 2.64 L 2.50 L Hgb 8.0 L 7.5 L Hct 24.0 L 22.6 L Lymph % (Auto) [place] % (Auto) [place] # Seg Neutrophils % Seg Neutrophils # PT INR APTT ABG pH ABG pO2 72.9 L ABG HCO3 26.5 H ABG O2 Saturation ABG Base Excess ABG Hemoglobin 7.7 L Oxyhemoglobin Sodium Potassium Chloride Carbon Dioxide BUN Glucose POC Glucose Lactic Acid Calcium Phosphorus Magnesium AST Total Creatine Kinase CK-MB (CK-2) Rel Index Troponin T Total Protein Albumin HDL Cholesterol 07/03/19 07/04/19 07/04/19 06:50 04:00 04:15 RBC Hgb Hct Lymph % (Auto) [place] % (Auto) [place] # Seg Neutrophils % Seg Neutrophils # PT INR APTT ABG pH ABG pO2 73.9 L ABG HCO3 27.8 H ABG O2 Saturation ABG Base Excess ABG Hemoglobin 9.7 L Oxyhemoglobin 94.9 L Sodium 148 H Potassium 3.0 L Chloride 110.0 H 110.4 H Carbon Dioxide BUN 7 L Glucose 127 H 110 H POC Glucose Lactic Acid Calcium 8.2 L Phosphorus Magnesium AST Total Creatine Kinase CK-MB (CK-2) Rel Index Troponin T Total Protein Albumin HDL Cholesterol 07/04/19 07/05/1920 07:02 05:58 16:29 RBC 2.60 L Hgb 7.7 L Hct 23.3 L Lymph % (Auto) [place] % (Auto) [place] # Seg Neutrophils % Seg Neutrophils # PT INR APTT ABG pH 7.469 H ABG pO2 73.4 L 69.7 L ABG HCO3 31.0 H 32.9 H ABG O2 Saturation ABG Base Excess 6.7 H 7.9 H ABG Hemoglobin 8.0 L 8.4 L Oxyhemoglobin Sodium Potassium Chloride Carbon Dioxide BUN Glucose POC Glucose Lactic Acid Calcium Phosphorus Magnesium AST Total Creatine Kinase CK-MB (CK-2) Rel Index Troponin T Total Protein Albumin HDL Cholesterol 07/06/19 07/06/19 07/06/19 05:13 05:13 17:36 RBC 2.72 L Hgb 8.1 L Hct 24.6 L Lymph % (Auto) [place] % (Auto) [place] # Seg Neutrophils % Seg Neutrophils # PT INR APTT ABG pH ABG pO2 ABG HCO3 ABG O2 Saturation ABG Base Excess ABG Hemoglobin Oxyhemoglobin Sodium 146 H Potassium Chloride Carbon Dioxide 31 H D BUN Glucose 125 H POC Glucose 108 H Lactic Acid Calcium Phosphorus Magnesium AST Total Creatine Kinase CK-MB (CK-2) Rel Index Troponin T Total Protein Albumin HDL Cholesterol 07/07/19 07/07/19 07/07/19 02:50 05:27 05:27 RBC 2.99 L Hgb 8.9 L Hct 26.9 L Lymph % (Auto) 10.8 L [place] % (Auto) 8.3 H [place] # 0.9 H Seg Neutrophils % 78.2 H Seg Neutrophils # 8.6 H PT INR APTT ABG pH ABG pO2 ABG HCO3 ABG O2 Saturation ABG Base Excess ABG Hemoglobin Oxyhemoglobin Sodium Potassium Chloride Carbon Dioxide BUN Glucose POC Glucose 127 H Lactic Acid Calcium Phosphorus Magnesium AST Total Creatine Kinase 45 L CK-MB (CK-2) Rel Index 4.4 H Troponin T 0.064 H Total Protein Albumin HDL Cholesterol 32 L Allied health notes reviewed: nursing
--- NOTE | 2019-07-07 12:48 | Progress Note ---
Assessment and Plan Assessment and plan: Severe sepsis with septic shock. Continue pressors as needed to maintain MAP greater than 65. Continue IV antibiotics and follow-up cultures. Carrdiopulm arrest this morning, resuscitated Bilateral pneumonia. Continue IV antibiotics. Suspected COVID19/PUI. Contact and airborne isolation for PUI COVID-19 Oropharyngeal dysphagia. Patient is status post PEG. Severe protein calorie malnutrition. Continue tube feedings with aspiration precautions. Toxic metabolic encephalopathy with underlying Lewy body dementia. Continue to treat underlying causes and supportive care. Hypernatremia. Now resolved DNR I discussed with [place] 06/29/2019patient remains on mechanical ventilation with AC mode rate of 16, tidal volume 500, FiO2 40% and PEEP of 5. Patient with ARDS from suspected COVID19. Patient recently had a negative COVID-19 test, however it does not rule out possibility he was either newly infected or that it was a false negative test. He has a normal white count with increased liver enzymes, which is consistent with COVID-19 disease. Continue contact and airborne/droplet precautions. Follow-up pro calcitonin level and rapid influenza PCR. 06/30/2019-patient remains on mechanical ventilation with AC mode rate of 16 tidal volume 500 FiO2 35% and a PEEP of 6. Patient with ARDS from suspected COVID19. Patient recently had a negative COVID-19 test, however it does not rule out possibility he was either newly infected or that it was a false negative test. He has a normal white count with increased liver enzymes, which is consistent with COVID-19 disease. Continue contact and airborne/droplet precautions. Pro calcitonin level slightly elevated at 0.44. Follow-up rapid influenza PCR. 07/01/2019-patient remains on mechanical ventilation with AC mode rate of 16 tidal volume 500 FiO2 25% and a PEEP of 6. Continue to wean vent as tolerated. Patient with ARDS from suspected COVID19. Patient recently had a negative COVID-19 test, however it does not rule out possibility he was either newly infected or that it was a false negative test. He has a normal white count with increased liver enzymes, which is consistent with COVID-19 disease. Follow-up rapid influenza PCR. 07/02/2019 Patient still intubated. Discussed with Amisha. to repeat COVID test, initial test was negative. 07/03/2019 Still intubated. hypernatremia resolved. Repeat Covid-19 test 07/04/19 patient with acute resp failure, still intubated 07/05/19 Still intubated. ID and Pulm following 07/06/19 patient remains critically ill. Still intubated on vent. 07/07/19 Patient had cardiopulm arrest this morning, resuscitated. now wants a DNR ststus. I discussed with her on phone The high probability of a clinically significant, sudden or life threatening deterioration of the [hemodynamic, immunologic and respiratory] system(s) required my full and direct attention, intervention and personal management. The aggregate critical care time was [36] minutes. This time is in addition to time spent performing reported procedures but includes the following: [x] Data Review and interpretation [x] Patient assessment and monitoring of vital signs [x] Documentation [x] Medication orders and management History Interval history: Patient initially presented with shortness of breath, intubated Cardiopulm arrest this morning, resuscitated Hospitalist Physical - Physical exam Narrative exam: GEN: Not in acute distress, malnutrition HEENT: Normocephalic, atraumatic, Neck: supple, No JVD Lungs: Bilateral crackles, heart;S1 and S2 reg, tachy, no murmurs, rubs or gallop Abd:soft, non tender, non distended, normal bowel sounds Ext: No edema, no clubbing, no cyanosis, Neuro:Intubated, sedated - Constitutional Vitals: Temp Pulse Resp BP Pulse Ox 98.8 F 101 H 13 109/78 100 07/07/19 12:00 07/07/19 12:00 07/07/19 11:00 07/07/19 12:00 07/07/19 12:00 General appearance: Present: no acute distress Results - Labs CBC & Chem 7: 07/07/19 05:27 07/07/19 05:27 Labs: Laboratory Last Values WBC 11.0 K/mm3 (4.5-11.0) 07/07/19 05:27 RBC 2.99 M/mm3 (3.65-5.03) L 07/07/19 05:27 Hgb 8.9 gm/dl (11.8-15.2) L 07/07/19 05:27 Hct 26.9 % (35.5-45.6) L 07/07/19 05:27 MCV 90 fl (84-94) 07/07/19 05:27 MCH 30 pg (28-32) 07/07/19 05:27 MCHC 33 % (32-34) 07/07/19 05:27 RDW 14.2 % (13.2-15.2) 07/07/19 05:27 Plt Count 300 K/mm3 (140-440) 07/07/19 05:27 Lymph % (Auto) 10.8 % (13.4-35.0) L 07/07/19 05:27 [place] % (Auto) 8.3 % (0.0-7.3) H 07/07/19 05:27 Eos % (Auto) 1.8 % (0.0-4.3) 07/07/19 05:27 Baso % (Auto) 0.9 % (0.0-1.8) 07/07/19 05:27 Lymph # 1.2 K/mm3 (1.2-5.4) 07/07/19 05:27 [place] # 0.9 K/mm3 (0.0-0.8) H 07/07/19 05:27 Eos # 0.2 K/mm3 (0.0-0.4) 07/07/19 05:27 Baso # 0.1 K/mm3 (0.0-0.1) 07/07/19 05:27 Seg Neutrophils % 78.2 % (40.0-70.0) H 07/07/19 05:27 Seg Neutrophils # 8.6 K/mm3 (1.8-7.7) H 07/07/19 05:27 PT 15.5 Sec. (12.2-14.9) H 06/28/19 04:05 INR 1.21 (0.87-1.13) H 06/28/19 04:05 APTT 36.7 Sec. (24.2-36.6) H 06/28/19 04:05 ABG pH 7.445 pH Units (7.350-7.450) 07/05/19 16:29 ABG pCO2 49.0 mm Hg 07/05/19 16: ABG pO2 69.7 mm Hg (80.0-90.0) L 07/05/19 16: ABG HCO3 32.9 mmol/L (20.0-26.0) H 07/05/19 16:29 ABG O2 Saturation 97.1 % (95.0-99.0) 07/05/19 16:29 ABG O2 Content 11.3 (0.0-44) 07/05/19 16:29 ABG Base Excess 7.9 mmol/L (-2.0-3.0) H 07/05/19 16:29 ABG Hemoglobin 8.4 gm/dl (14.0-18.0) L 07/05/19 16:29 ABG Carboxyhemoglobin 1.4 % (0.0-5.0) 07/05/19 16: ABG Methemoglobin 0.5 % (0.0-1.5) 07/05/19 16: Oxyhemoglobin 95.3 % (95.0-99.0) 07/05/19 16:29 FiO2 25 % 07/05/19 16:29 Sodium 143 mmol/L (137-145) 07/07/19 05:27 Potassium 3.8 mmol/L (3.6-5.0) 07/07/19 05:27 Chloride 102.5 mmol/L (98-107) 07/07/19 05:27 Carbon Dioxide 25 mmol/L (22-30) 07/07/19 05:27 Anion Gap 19 mmol/L 07/07/19 05:27 BUN 12 mg/dL (9-20) 07/07/19 05:27 Creatinine 0.9 mg/dL (0.8-1.5) 07/07/19 05:27 Estimated GFR > 60 ml/min 07/07/19 05:27 BUN/Creatinine Ratio 13 % 07/07/19 05:27 Glucose 83 mg/dL (75-100) 07/07/19 05:27 POC Glucose 127 (70-105) H 07/07/19 02:50 Lactic Acid 1.30 mmol/L (0.7-2.0) 06/27/19 05:02 Calcium 8.8 mg/dL (8.4-10.2) 07/07/19 05:27 Phosphorus 2.70 mg/dL (2.5-4.5) 07/01/19 14:55 Magnesium 1.80 mg/dL (1.7-2.3) 07/01/19 14:55 Total Bilirubin 0.50 mg/dL (0.1-1.2) 06/26/19 23:31 AST 53 units/L (5-40) H 06/26/19 23:31 ALT 56 units/L (7-56) 06/26/19 23:31 Alkaline Phosphatase 109 units/L (35-129) 06/26/19 23:31 Total Creatine Kinase 45 units/L (55-170) L 07/07/19 05:27 CK-MB (CK-2) 2.0 ng/mL (0.0-4.0) 07/07/19 05:27 CK-MB (CK-2) Rel Index 4.4 (0-4) H 07/07/19 05:27 Troponin T 0.064 ng/mL (0.00-0.029) H 07/07/19 05:27 Total Protein 6.2 g/dL (6.3-8.2) L 06/26/19 23:31 Albumin 2.4 g/dL (3.9-5) L 06/26/19 23:31 Albumin/Globulin Ratio 0.6 % 06/26/19 23:31 Triglycerides 119 mg/dL (2-149) 07/07/19 05:27 Cholesterol 120 mg/dL (50-199) 07/07/19 05:27 LDL Cholesterol Direct 72 mg/dL (50-130) 07/07/19 05:27 HDL Cholesterol 32 mg/dL (40-59) L 07/07/19 05:27 Cholesterol/HDL Ratio 3.75 % 07/07/19 05:27 Procalcitonin 0.11 ng/mL (<0.15) 07/03/19 07:13 Vancomycin Trough 12.6 ug/mL (5.0-20.0) 07/02/19 21:33 Influenza A (Rapid) Negative (Negative) 06/28/19 14:31 Influenza A (RT-PCR) Negative (Negative) 06/28/19 14:31 Influenza B (Rapid) Negative (Negative) 06/28/19 14:31 Influenza B (RT-PCR) Negative (Negative) 06/28/19 14:31 Martinez/IV: Voiding Method Condom Catheter IV Catheter Type [Right Peripheral IV Antecubital] IV Catheter Type [Left PICC Line Antecubital] IV Catheter Type [Left Upper PICC Line arm] IV Catheter Type [Left Wrist] INT / Saline Lock IV Catheter Type [Right Leg] Triple Lumen Cath Active Medications - Current Medications Current Medications: Generic Name Dose Route Start Last Admin Trade Name Freq PRN Reason Stop Dose Admin Albuterol 2.5 mg 07/05/19 12:31 Proventil IH Q4HRT PRN Shortness Of Breath Lipase/Protease/Amylase 1 each 07/01/19 11:48 07/04/19 23:09 Pancreaze 10,500 Unit FEEDTUBE 1 each PRN PRN Administration For Clogged Feeding Tube Famotidine 20 mg 07/02/19 10:00 07/07/19 10:58 Pepcid PO 20 mg BID LADY Administration Heparin Sodium (Porcine) 5,000 unit 06/27/19 06:00 07/07/19 06:06 Heparin SUB-Q 5,000 unit Q8HR LADY Administration Norepinephrine 4 mg in 250 mls @ 7.5 mls/hr 06/27/19 01:00 06/28/19 09:20 Levophed Drip 4 Mg/Ns 250 Ml IV 0 mcg/min TITR LADY 0 mls/hr Titration Protocol 2 MCG/MIN Propofol 1,000 mg in 100 mls @ 1.497 mls/hr 06/27/19 06:00 07/07/19 02:46 Diprivan 10 Mg/Ml IV 5 mcg/kg/min TITR LADY 1.497 mls/hr Administration Protocol 5 MCG/KG/MIN Magnesium Hydroxide 30 ml 06/27/19 02:51 Milk Of Magnesia PO Q4H PRN Constipation Morphine Sulfate 2 mg 06/27/19 02:51 07/05/19 23:18 Morphine IV 2 mg Q4H PRN Administration Pain, Moderate (4-6) Simple Syrup 15 ml 07/01/19 11:48 Simple Syrup FEEDTUBE PRN PRN Hypoglycemia Simple Syrup 30 ml 07/01/19 11:48 Simple Syrup FEEDTUBE PRN PRN Hypoglycemia Sodium Bicarbonate 325 mg 07/01/19 11:48 07/04/19 23:06 Sodium Bicarbonate FEEDTUBE 325 mg PRN PRN Administration For Clogged Feeding Tube Sodium Chloride 10 ml 06/27/19 10:00 07/07/19 10:58 Sodium Chloride Flush Syringe 10 Ml IV 10 ml BID LADY Administration Sodium Chloride 10 ml 06/27/19 02:51 06/27/19 09:10 Sodium Chloride Flush Syringe 10 Ml IV 10 ml PRN PRN Administration LINE FLUSH Nutrition/Malnutrition Assess - Dietary Evaluation Nutrition/Malnutrition Findings: Nutrition Notes Start: 06/27/19 09:53 Freq: Status: Active Protocol: Document 07/03/19 13:19 LM (Rec: 07/03/19 13:21 LM [email or web address]) Nutrition Notes Initial or Follow up Reassessment Current Diagnosis Hypertension Other Pertinent Diagnosis Suspected Covid-19, Lewy body dementia, pneu Current Diet Osmolite 1.5 at 55 ml/hr Labs/Tests K 3.0 Pertinent Medications Reviewed Height 5 ft 10 in Weight 49.895 kg [place] Body Weight (kg) 75.45 BMI 15.7 Weight Status Underweight Subjective/Other Information Per RN, pt tolerating TF at goal. Percent of energy/protein needs met: 99%/100% Burn Absent Trauma Absent Current % PO Negligible Minimum of two criteria Yes Energy Intake (non-severe) <75% Estimated Energy Requirement >7 days Interpretation of Weight Loss (severe) > 20% in 1 year #2 Nutrition Diagnosis Malnutrition Diagnosis Progress(for reassessment Continues documentation) #1 Nutrition Diagnosis Inadequate oral intake Diagnosis Progress(for reassessment Continues documentation) Is patient on ventilator? Yes Is Patient Ambulatory and/or Out of Bed No REE-([place]-confined to bed) 1612.920 Kcal/Kg value to use for calculation 40 Approximate Energy Requirements Using 1996 kcal/Kg Calculation Used for Recommendations Kcal/kg Additional Notes Protein needs are 60-100g (1.2 -2g/kg) Fluid needs are 1ml/kcal Nutrition Intervention Change Diet Order: TF Nutrition Support: Osmolite 1.5 at 55ml/hr Flush with 250ml q4h for hypernatremia and 150ml q4h once resolved Kcal 1,980 Protein (gm) 83 Fluid (mL) 1,006 Goal #1 TF tolerance Goal #2 Meet at least 80% of energy and protein needs via TF Goal #3 Wt gain/maintenance Anticipated Discharge Needs: TF Follow-Up By: 07/10/19 Additional Comments F/U for TF tolerance
--- NOTE | 2019-07-07 13:52 | Progress Note ---
Assessment and Plan Cultures: Blood culture 06/26/2019 no growth to date Sputum culture 06/26/2019 no growth to date A/P: 54-year-old man past medical history of Lewy body dementia admitted with bilateral pneumonia. #Cardiac arrest 07/06/ severe sepsis and shock #Suspect COVID-19 pneumonia: Patient is currently in airborne and contact since he is intubated. Patient recently had a negative COVID-19 test, however it does not rule out possibility he was either newly infected or that it was a false negative test. #Bilateral pneumonia: Can continue vancomycin and cefepime in the meantime given the patient is group home exposures. #Lewy body dementia #Acute hypoxic respiratory failure Recs: -repeat CXR/UA/Urine cx and blood cx -Continue contact and airborne, and droplet precautions while intubated. -Follow-up [facility] testing for COVID-19. Samples have been sent; awaiting results. -Continue vancomycin and cefepime empirically for HCAP, plan on 8 day course if COVID is negative. -check MRSA PCR -serial Ferritin, LDH, D-Dimer, CRP poor prognosis Angelique Gordon MD Infectious Diseases Adjunct Mathematics Instructor [facility] M [phone] O [phone] Subjective Date of service: 07/07/19 Principal diagnosis: Septic shock; HAP; Acute hypoxemic resp failure PUI-COVID 19; Hypernatremia Interval history: Patient desaturated went into PEA as evidenced to no palpable pulses. code blue and ACLS initiated this am, intubated, no fever Objective - Exam Narrative Exam: Constitutional: Intubated, sedated Oral: Endotracheal tube Cardiovascular: Limited evaluation due to PPE shortage Respiratory: Limited evaluation due to PPE shortage GI: Limited evaluation due to PPE shortage Musculoskeletal: Limited evaluation due to PPE shortage Skin: No rash or abscess Neurological: Sedated - Constitutional Vitals: Vital Signs Temp Pulse Resp BP Pulse Ox 98.8 F 101 H 13 109/78 100 07/07/19 12:00 07/07/19 12:00 07/07/19 11:00 07/07/19 12:00 07/07/19 12:00 Temperature -Last 24 Hours Temperature 98.8 F Temperature 98 F Temperature 98.4 F Temperature 98.6 F Temperature 98.5 F Temperature 98.4 F - Labs CBC & Chem 7: 07/07/19 05:27 07/07/19 05:27 Labs: Abnormal lab results 07/06/19 07/07/19 07/07/19 Range/Units 17:36 02:50 05:27 RBC 2.99 L (3.65-5.03) M/mm3 Hgb 8.9 L (11.8-15.2) gm/dl Hct 26.9 L (35.5-45.6) % Lymph % (Auto) 10.8 L (13.4-35.0) % [place] % (Auto) 8.3 H (0.0-7.3) % [place] # 0.9 H (0.0-0.8) K/mm3 Seg Neutrophils % 78.2 H (40.0-70.0) % Seg Neutrophils # 8.6 H (1.8-7.7) K/mm3 POC Glucose 108 H 127 H (70-105) Total Creatine Kinase (55-170) units/L CK-MB (CK-2) Rel Index (0-4) Troponin T (0.00-0.029) ng/mL HDL Cholesterol (40-59) mg/dL 07/07/19 Range/Units 05:27 RBC (3.65-5.03) M/mm3 Hgb (11.8-15.2) gm/dl Hct (35.5-45.6) % Lymph % (Auto) (13.4-35.0) % [place] % (Auto) (0.0-7.3) % [place] # (0.0-0.8) K/mm3 Seg Neutrophils % (40.0-70.0) % Seg Neutrophils # (1.8-7.7) K/mm3 POC Glucose (70-105) Total Creatine Kinase 45 L (55-170) units/L CK-MB (CK-2) Rel Index 4.4 H (0-4) Troponin T 0.064 H (0.00-0.029) ng/mL HDL Cholesterol 32 L (40-59) mg/dL
[2019-07-07 16:30] LABS: Bilirubin,Urine NEG (Negative); Blood,Urine NEG (Negative); Color,Urine Straw (Yellow); Hyaline Casts,Urine 1 /LPF; Protein,Urine <15 mg/dL mg/dL (Negative); Urobilinogen,Urine < 2.0 mg/dL (<2.0)
--- NOTE | 2019-07-07 17:02 | Event Note ---
Date: 07/07/[address] Connell that patient's requesting DNR status. I discussed with , [place]. She wants DNR status. Forms signed.
[2019-07-08] MEDS: HEPARIN 5,000 UNIT/1 ML VIAL SUB-Q SCH ×3 (06:14→21:48)
[2019-07-08 09:41] LABS: Basophils # (Auto) 0.1 K/mm3 (0.0-0.1); Basophils % (Auto) 1.2 % (0.0-1.8); Eosinophils # (Auto) 0.3 K/mm3 (0.0-0.4); Eosinophils % (Auto) 3.5 % (0.0-4.3); Hematocrit 28.7 % (35.5-45.6); Hemoglobin 9.7 gm/dl (11.8-15.2); Lymphocytes # (Auto) 1.3 K/mm3 (1.2-5.4); Lymphocytes % (Auto) 17.6 % (13.4-35.0); Mean Corpuscular HGB Conc 34 % (32-34); Mean Corpuscular Volume 90 fl (84-94); Monocytes # (Auto) 0.8 K/mm3 (0.0-0.8); Monocytes % (Auto) 10.4 % (0.0-7.3); Platelet Count 285 K/mm3 (140-440); Red Blood Count 3.19 M/mm3 (3.65-5.03)
[2019-07-08] MEDS: FAMOTIDINE 20 MG TAB PO SCH ×2 (09:45→21:45)
[2019-07-08 10:02] LABS: BUN/Creatinine Ratio 13; Blood Urea Nitrogen 9 mg/dL (9-20); Hemolysis Index 8
--- NOTE | 2019-07-08 11:18 | Progress Note ---
Assessment and Plan Assessment and plan: Severe sepsis with septic shock. Was on Levophed, now off. Continue IV antibiotics and follow-up cultures. Carrdiopulm arrest 07/06, resuscitated Bilateral pneumonia. Continue IV antibiotics. Suspected COVID19/PUI. Contact and airborne isolation for PUI COVID-19 Oropharyngeal dysphagia. Patient is status post PEG. Severe protein calorie malnutrition. Continue tube feedings with aspiration pre cautions. Toxic metabolic encephalopathy with underlying Lewy body dementia. Continue to treat underlying causes and supportive care. Hypernatremia. Now resolved DNR I discussed with [place] 06/29/2019patient remains on mechanical ventilation with AC mode rate of 16, tidal volume 500, FiO2 40% and PEEP of 5. Patient with ARDS from suspected COVID19. Patient recently had a negative COVID-19 test, however it does not rule out possibility he was either newly infected or that it was a false negative test. He has a normal white count with increased liver enzymes, which is consistent with COVID-19 disease. Continue contact and airborne/droplet precautions. Follow-up pro calcitonin level and rapid influenza PCR. 06/30/2019-patient remains on mechanical ventilation with AC mode rate of 16 tidal volume 500 FiO2 35% and a PEEP of 6. Patient with ARDS from suspected COVID19. Patient recently had a negative COVID-19 test, however it does not rule out possibility he was either newly infected or that it was a false negative test. He has a normal white count with increased liver enzymes, which is consistent with COVID-19 disease. Continue contact and airborne/droplet pre cautions. Pro calcitonin level slightly elevated at 0.44. Follow-up rapid influenza PCR. 07/01/2019-patient remains on mechanical ventilation with AC mode rate of 16 tidal volume 500 FiO2 25% and a PEEP of 6. Continue to wean vent as tolerated. Patient with ARDS from suspected COVID19. Patient recently had a negative COVID-19 test, however it does not rule out possibility he was either newly infected or that it was a false negative test. He has a normal white count with increased liver enzymes, which is consistent with COVID-19 disease. Follow-up rapid influenza PCR. 07/02/2019 Patient still intubated. Discussed with Amisha. to repeat COVID test, initial test was negative. 07/03/2019 Still intubated. hypernatremia resolved. Repeat Covid-19 test 07/04/19 patient with acute resp failure, still intubated 07/05/19 Still intubated. ID and Pulm following 07/06/19 patient remains critically ill. Still intubated on vent. 07/07/19 Patient had cardiopulm arrest this morning, resuscitated. now wants a DNR status. I discussed with her on phone 07/08/19 Patient remains critically ill. Negative Covid 19 test(second test) The high probability of a clinically significant, sudden or life threatening deterioration of the [hemodynamic, immunologic and respiratory] system(s) required my full and direct attention, intervention and personal management. The aggregate critical care time was [33] minutes. This time is in addition to time spent performing reported procedures but includes the following: [x] Data Review and interpretation [x] Patient assessment and monitoring of vital signs [x] Documentation [x] Medication orders and management History Interval history: Patient initially presented with shortness of breath, intubated s/p Cardiopulm arrest 07/06, resuscitated Negative Covid-19 test Hospitalist Physical - Physical exam Narrative exam: GEN: Not in acute distress, malnutrition HEENT: Normocephalic, atraumatic, Neck: supple, No JVD Lungs: Bilateral crackles, heart;S1 and S2 reg, tachy, no murmurs, rubs or gallop Abd:soft, non tender, non distended, normal bowel sounds Ext: No edema, no clubbing, no cyanosis, Neuro:Intubated, sedated - Constitutional Vitals: Temp Pulse Resp BP Pulse Ox 97.8 F 138 H 18 148/103 98 07/08/19 08:00 07/08/19 08:00 07/08/19 08:00 07/08/19 08:00 07/08/19 08:00 General appearance: Present: no acute distress Results - Labs CBC & Chem 7: 07/08/19 09:16 07/08/19 09:16 Labs: Laboratory Last Values WBC 7.4 K/mm3 (4.5-11.0) 07/08/19 09:16 RBC 3.19 M/mm3 (3.65-5.03) L 07/08/19 09:16 Hgb 9.7 gm/dl (11.8-15.2) L 07/08/19 09:16 Hct 28.7 % (35.5-45.6) L 07/08/19 09:16 MCV 90 fl (84-94) 07/08/19 09:16 MCH 30 pg (28-32) 07/08/19 09:16 MCHC 34 % (32-34) 07/08/19 09:16 RDW 14.0 % (13.2-15.2) 07/08/19 09:16 Plt Count 285 K/mm3 (140-440) 07/08/19 09:16 Lymph % (Auto) 17.6 % (13.4-35.0) 07/08/19 09:16 [place] % (Auto) 10.4 % (0.0-7.3) H 07/08/19 09:16 Eos % (Auto) 3.5 % (0.0-4.3) 07/08/19 09:16 Baso % (Auto) 1.2 % (0.0-1.8) 07/08/19 09:16 Lymph # 1.3 K/mm3 (1.2-5.4) 07/08/19 09:16 [place] # 0.8 K/mm3 (0.0-0.8) 07/08/19 09:16 Eos # 0.3 K/mm3 (0.0-0.4) 07/08/19 09:16 Baso # 0.1 K/mm3 (0.0-0.1) 07/08/19 09:16 Seg Neutrophils % 67.3 % (40.0-70.0) 07/08/19 09:16 Seg Neutrophils # 5.0 K/mm3 (1.8-7.7) 07/08/19 09:16 PT 15.5 Sec. (12.2-14.9) H 06/28/19 04:05 INR 1.21 (0.87-1.13) H 06/28/19 04:05 APTT 36.7 Sec. (24.2-36.6) H 06/28/19 04:05 ABG pH 7.445 pH Units (7.350-7.450) 07/05/19 16:29 ABG pCO2 49.0 mm Hg 07/05/19 16:29 ABG pO2 69.7 mm Hg (80.0-90.0) L 07/05/19 16:29 ABG HCO3 32.9 mmol/L (20.0-26.0) H 07/05/19 16:29 ABG O2 Saturation 97.1 % (95.0-99.0) 07/05/19 16:29 ABG O2 Content 11.3 (0.0-44) 07/05/19 16:29 ABG Base Excess 7.9 mmol/L (-2.0-3.0) H 07/05/19 16:29 ABG Hemoglobin 8.4 gm/dl (14.0-18.0) L 07/05/19 16:29 ABG Carboxyhemoglobin 1.4 % (0.0-5.0) 07/05/19 16:29 ABG Methemoglobin 0.5 % (0.0-1.5) 07/05/19 16:29 Oxyhemoglobin 95.3 % (95.0-99.0) 07/05/19 16:29 FiO2 25 % 07/05/19 16:29 Sodium 142 mmol/L (137-145) 07/08/19 09:16 Potassium 3.8 mmol/L (3.6-5.0) 07/08/19 09:16 Chloride 102.3 mmol/L (98-107) 07/08/19 09:16 Carbon Dioxide 27 mmol/L (22-30) 07/08/19 09:16 Anion Gap 17 mmol/L 07/08/19 09:16 BUN 9 mg/dL (9-20) 07/08/19 09:16 Creatinine 0.7 mg/dL (0.8-1.5) L 07/08/19 09:16 Estimated GFR > 60 ml/min 07/08/19 09:16 BUN/Creatinine Ratio 13 % 07/08/19 09:16 Glucose 103 mg/dL (75-100) H 07/08/19 09:16 POC Glucose 109 (70-105) H 07/07/19 17:41 Lactic Acid 1.30 mmol/L (0.7-2.0) 06/27/19 05:02 Calcium 9.0 mg/dL (8.4-10.2) 07/08/19 09:16 Phosphorus 2.70 mg/dL (2.5-4.5) 07/01/19 14:55 Magnesium 1.80 mg/dL (1.7-2.3) 07/01/19 14:55 Total Bilirubin 0.50 mg/dL (0.1-1.2) 06/26/19 23:31 AST 53 units/L (5-40) H 06/26/19 23:31 ALT 56 units/L (7-56) 06/26/19 23:31 Alkaline Phosphatase 109 units/L (35-129) 06/26/19 23:31 Total Creatine Kinase 45 units/L (55-170) L 07/07/19 05:27 CK-MB (CK-2) 2.0 ng/mL (0.0-4.0) 07/07/19 05:27 CK-MB (CK-2) Rel Index 4.4 (0-4) H 07/07/19 05:27 Troponin T 0.064 ng/mL (0.00-0.029) H 07/07/19 05:27 Total Protein 6.2 g/dL (6.3-8.2) L 06/26/19 23:31 Albumin 2.4 g/dL (3.9-5) L 06/26/19 23:31 Albumin/Globulin Ratio 0.6 % 06/26/19 23:31 Triglycerides 119 mg/dL (2-149) 07/07/19 05:27 Cholesterol 120 mg/dL (50-199) 07/07/19 05:27 LDL Cholesterol Direct 72 mg/dL (50-130) 07/07/19 05:27 HDL Cholesterol 32 mg/dL (40-59) L 07/07/19 05:27 Cholesterol/HDL Ratio 3.75 % 07/07/19 05:27 Procalcitonin 0.72 ng/mL (<0.15) 07/07/19 15:33 Urine Color Straw (Yellow) 07/07/19 15:00 Urine Turbidity Clear (Clear) 07/07/19 15:00 Urine pH 8.0 (5.0-7.0) H 07/07/19 15:00 Ur Specific [place] 1.005 (1.003-1.030) 07/07/19 15:00 Urine Protein <15 mg/dl mg/dL (Negative) 07/07/19 15:00 Urine Glucose (UA) Neg mg/dL (Negative) 07/07/19 15:00 Urine Ketones Neg mg/dL (Negative) 07/07/19 15:00 Urine Blood Neg (Negative) 07/07/19 15:00 Urine Nitrite Neg (Negative) 07/07/19 15:00 Urine Bilirubin Neg (Negative) 07/07/19 15:00 Urine Urobilinogen < 2.0 mg/dL (<2.0) 07/07/19 15:00 Ur Leukocyte Esterase Neg (Negative) 07/07/19 15:00 Urine WBC (Auto) 1.0 /HPF (0.0-6.0) 07/07/19 15:00 Urine RBC (Auto) 5.0 /HPF (0.0-6.0) 07/07/19 15:00 U Epithel Cells (Auto) 1.0 /HPF (0-13.0) 07/07/19 15:00 Hyaline Casts 1 /LPF 07/07/19 15:00 Ur Yeast w Hyphae Few /HPF 07/07/19 15:00 Urine Yeast (Budding) 1+ /HPF 07/07/19 15:00 Vancomycin Trough 12.6 ug/mL (5.0-20.0) 07/02/19 21:33 Influenza A (Rapid) Negative (Negative) 06/28/19 14:31 Influenza A (RT-PCR) Negative (Negative) 06/28/19 14:31 Influenza B (Rapid) Negative (Negative) 06/28/19 14:31 Influenza B (RT-PCR) Negative (Negative) 06/28/19 14:31 Miscellaneous Test See scanned result 07/02/19 Unknown Microbiology: Microbiology 07/07/19 15:33 Peripheral/Venous Blood Culture - Preliminary Culture in Progress 07/07/19 15:33 Peripheral/Venous Blood Culture - Preliminary Culture in Progress [place]/IV: Voiding Method Condom Catheter IV Catheter Type [Right Peripheral IV Antecubital] IV Catheter Type [Left PICC Line Antecubital] IV Catheter Type [Left Upper PICC Line arm] IV Catheter Type [Left Wrist] INT / Saline Lock IV Catheter Type [Right Leg] Triple Lumen Cath Active Medications - Current Medications Current Medications: Generic Name Dose Route Start Last Admin Trade Name Freq PRN Reason Stop Dose Admin Albuterol 2.5 mg 07/05/19 12:31 Proventil IH Q4HRT PRN Shortness Of Breath Lipase/Protease/Amylase 1 each 07/01/19 11:48 07/04/19 23:09 Marilyn Wang 10,500 Unit FEEDTUBE 1 each PRN PRN Administration For Clogged Feeding Tube Famotidine 20 mg 07/02/19 10:00 07/08/19 09:45 Pepcid PO 20 mg BID LADY Administration Heparin Sodium (Porcine) 5,000 unit 06/27/19 06:00 07/08/19 06:14 Heparin SUB-Q 5,000 unit Q8HR LADY Administration Norepinephrine 4 mg in 250 mls @ 7.5 mls/hr 06/27/19 01:00 06/28/19 09:20 Levophed Drip 4 Mg/Ns 250 Ml IV 0 mcg/min TITR LADY 0 mls/hr Titration Protocol 2 MCG/MIN Propofol 1,000 mg in 100 mls @ 1.497 mls/hr 06/27/19 06:00 07/07/19 02:46 Diprivan 10 Mg/Ml IV 5 mcg/kg/min TITR LADY 1.497 mls/hr Administration Protocol 5 MCG/KG/MIN Magnesium Hydroxide 30 ml 06/27/19 02:51 Milk Of Magnesia PO Q4H PRN Constipation Metoprolol Tartrate 5 mg 07/08/19 09:28 Metoprolol IV Q6HR PRN HR>120 Morphine Sulfate 2 mg 06/27/19 02:51 07/05/19 23:18 Morphine IV 2 mg Q4H PRN Administration Pain, Moderate (4-6) Simple Syrup 15 ml 07/01/19 11:48 Simple Syrup FEEDTUBE PRN PRN Hypoglycemia Simple Syrup 30 ml 07/01/19 11:48 Simple Syrup FEEDTUBE PRN PRN Hypoglycemia Sodium Bicarbonate 325 mg 07/01/19 11:48 07/04/19 23:06 Sodium Bicarbonate FEEDTUBE 325 mg PRN PRN Administration For Clogged Feeding Tube Sodium Chloride 10 ml 06/27/19 10:00 07/08/19 09:45 Sodium Chloride Flush Syringe 10 Ml IV 10 ml BID LADY Administration Sodium Chloride 10 ml 06/27/19 02:51 06/27/19 09:10 Sodium Chloride Flush Syringe 10 Ml IV 10 ml PRN PRN Administration LINE FLUSH Nutrition/Malnutrition Assess - Dietary Evaluation Nutrition/Malnutrition Findings: Nutrition Notes Start: 06/27/19 09:53 Freq: Status: Active Protocol: Document 07/03/19 13:19 LM (Rec: 07/03/19 13:21 LM [email or web address]) Nutrition Notes Initial or Follow up Reassessment Current Diagnosis Hypertension Other Pertinent Diagnosis Suspected Covid-19, Lewy body dementia, pneu Current Diet Osmolite 1.5 at 55 ml/hr Labs/Tests K 3.0 Pertinent Medications Reviewed Height 5 ft 10 in Weight 49.895 kg [place] Body Weight (kg) 75.45 BMI 15.7 Weight Status Underweight Subjective/Other Information Per RN, pt tolerating TF at goal. Percent of energy/protein needs met: 99%/100% Burn Absent Trauma Absent Current % PO Negligible Minimum of two criteria Yes Energy Intake (non-severe) <75% Estimated Energy Requirement >7 days Interpretation of Weight Loss (severe) > 20% in 1 year #2 Nutrition Diagnosis Malnutrition Diagnosis Progress(for reassessment Continues documentation) #1 Nutrition Diagnosis Inadequate oral intake Diagnosis Progress(for reassessment Continues documentation) Is patient on ventilator? Yes Is Patient Ambulatory and/or Out of Bed No REE-([place]-confined to bed) 1612.920 Kcal/Kg value to use for calculation 40 Approximate Energy Requirements Using 1996 kcal/Kg Calculation Used for Recommendations Kcal/kg Additional Notes Protein needs are 60-100g (1.2 -2g/kg) Fluid needs are 1ml/kcal Nutrition Intervention Change Diet Order: TF Nutrition Support: Osmolite 1.5 at 55ml/hr Flush with 250ml q4h for hypernatremia and 150ml q4h once resolved Kcal 1,980 Protein (gm) 83 Fluid (mL) 1,006 Goal #1 TF tolerance Goal #2 Meet at least 80% of energy and protein needs via TF Goal #3 Wt gain/maintenance Anticipated Discharge Needs: TF Follow-Up By: 07/10/19 Additional Comments F/U for TF tolerance
--- NOTE | 2019-07-08 14:37 | Progress Note ---
Assessment and Plan Severe sepsis with septic shock HAP Acute hypoxemic respiratory failure PUI-COVID 19 Oropharyngeal dysphagia s/p PEG Possible aspiration PNA Lactic acidosis Hypernatremia Severe protein calorie malnutrition Acute metabolic encephalopathy h/o Lewy body dementia (AMS is the rate limiting step for safe extubation and i will discuss a tracheostomy with his as i suspect he is having recurrent aspiration events) - i will discuss tracheostomy with his - continue daily SAT's and SBT assessment as tolerated - continue free water supplementation for hypernatremia but reduce dose - continue set rate of 12/min - continue enteric nutrition as tolerated - Monitor glycemic control, with target blood glucose 140-180 mg/dL while critically ill. Avoid hypoglycemia - continue bowel regimen - Continue Vancomycin and Cefepime for HAP; adjust per ID recommendations - continue free water at 200ml Q6h, hypotonic solutions for treatment of hypernatremia. Monitor levels - Place PICC line and discontinue femoral CVC - Continue with MVS, Lung protective strategies, monitor airway pressures - VAP bundle addressed; (Aspiration precautions, HOB > 40 degrees) - Titrate sedation for RAAS 0 to -1 - VTE prophylaxis - Stress ulcer prophylaxis - Wean supplemental oxygen for target O2 sat's > 90% - ABG and CXR prn - Follow cultures and adjust antibiotic therapy for KORIN and culture results - Avoid nephrotoxins, adjust all medications for GFR and CrCL - continue bronchodilators with pulmonary hygiene per RT - continue to avoid benzodiazepines to reduce the possibility of delirium - prn analgesia per CPOT score - Maintenance of sleep-wake cycle, avoid delirium - PT/OT/ROM exercises - continue mobility protocol and skin assessment per protocol for pressure ulcer prevention - Monitor hemodynamics closely - Contact and airborne isolation for PUI COVID-19 - Mobility, off loading and skin assessment per protocol to prevent pressure ulcer - continue wound care per RN & WCT (he has a stage 2 sacral decubitus on exam) - Chronic home medications as clinically indicated - continue other care per attending / other consultants CONDITION: CRITICAL PROGNOSIS: GUARDED CODE STATUS: FULL CODE The high probability of a clinically significant, sudden or life-threatening deterioration of the [respiratory, cardiovascular, renal] system(s) required my full and direct attention, intervention and personal management. The aggregate critical care time was [35] minutes without overlap. Time includes spent on; [x] Data Review and interpretation [x] Patient assessment and monitoring of vital signs [x] Documentation [x] Medication orders and management Subjective Date of service: 07/08/19 Principal diagnosis: Septic shock; HAP; Acute hypoxemic resp failure PUI-COVID 19; Hypernatremia Interval history: Patient is seen today for: Septic shock; HAP; Acute hypoxemic respiratory failure; PUI-COVID 19; Lactic acidosis; Hypernatremia; Acute metabolic enceph alopathy; h/o Lewy body dementia Seen and examined at bedside; 24hour events reviewed; nursing and respiratory care staff consulted; no adverse overnight events reported to me; resting peacefully in bed; remains on MVS; weaning tenuously but now tolerating PSV at Psupp of 10; No N/V/F/C; AMS is persistent Objective Vital Signs - 12hr 07/08/19 07/08/19 07/08/19 03:00 04:00 05:00 Temperature 97.5 F L Pulse Rate 113 H 117 H 110 H Pulse Rate [ 128 H From Monitor] Respiratory 18 13 17 Rate Blood Pressure 132/71 142/92 138/110 O2 Sat by Pulse 100 100 100 Oximetry 07/08/19 07/08/19 07/08/19 05:33 06:00 07:00 Temperature Pulse Rate 124 H 129 H 134 H Pulse Rate [ From Monitor] Respiratory 16 16 Rate Blood Pressure 136/106 140/104 150/95 O2 Sat by Pulse 99 97 95 Oximetry 07/08/19 07/08/19 07/08/19 08:00 09:00 09:30 Temperature 97.8 F Pulse Rate 138 H 131 H 127 H Pulse Rate [ From Monitor] Respiratory 18 Rate Blood Pressure 148/103 156/115 160/108 O2 Sat by Pulse 98 100 100 Oximetry Constitutional: no acute distress, other (sedated, orally intubated) Eyes: non-icteric ENT: oropharynx moist, other (ETT at 23cm at the lip) Neck: supple, no lymphadenopathy, no JVD Effort: mildly labored Ascultation: Bilateral: diminished breath sounds, rhonchi Percussion: Bilateral: not dull Cardiovascular: regular rate and rhythm (tachycardia), other (S1,S2, no murmurs, gallops) Gastrointestinal: normoactive bowel sounds, soft, non-tender, non-distended, other (PEG in place) Integumentary: decubitus ulcer (Stage 2) Extremities: no cyanosis, no edema, pulses normal, no ischemia or petechiae Neurologic: unable to assess Psychiatric: other (unable to assess secondary to mental status) CBC and BMP: 07/09/19 04:57 07/09/19 04:57 ABG, PT/INR, D-dimer: ABG ABG pH 7.445 pH Units (7.350-7.450) 07/05/19 16:29 ABG pCO2 49.0 mm Hg 07/05/19 16:29 ABG pO2 69.7 mm Hg (80.0-90.0) L 07/05/19 16:29 ABG O2 Saturation 97.1 % (95.0-99.0) 07/05/19 16:29 PT/INR, D-dimer PT 15.5 Sec. (12.2-14.9) H 06/28/19 04:05 INR 1.21 (0.87-1.13) H 06/28/19 04:05 Abnormal lab findings: Abnormal Labs 06/26/19 06/26/19 06/26/19 22:56 23:31 23:31 RBC 2.90 L Hgb 8.8 L Hct 26.5 L Lymph % (Auto) Baldwin % (Auto) Baldwin # Seg Neutrophils % Seg Neutrophils # PT INR APTT ABG pH 7.467 H ABG pO2 106.2 H ABG HCO3 26.5 H ABG O2 Saturation ABG Base Excess ABG Hemoglobin 9.6 L Oxyhemoglobin Sodium 150 H Potassium Chloride 111.7 H Carbon Dioxide BUN Creatinine Glucose POC Glucose Lactic Acid Calcium Phosphorus Magnesium AST 53 H Total Creatine Kinase CK-MB (CK-2) Rel Index Troponin T Total Protein 6.2 L Albumin 2.4 L HDL Cholesterol Urine pH 06/26/19 06/26/19 06/27/19 23:31 23:31 04:35 RBC Hgb Hct Lymph % (Auto) Baldwin % (Auto) Baldwin # Seg Neutrophils % Seg Neutrophils # PT INR APTT ABG pH ABG pO2 120.3 H ABG HCO3 ABG O2 Saturation ABG Base Excess ABG Hemoglobin 7.4 L Oxyhemoglobin Sodium Potassium Chloride Carbon Dioxide BUN Creatinine Glucose POC Glucose Lactic Acid 2.20 H* Calcium Phosphorus Magnesium AST Total Creatine Kinase 300 H CK-MB (CK-2) Rel Index Troponin T Total Protein Albumin HDL Cholesterol Urine pH 06/27/19 06/27/19 06/28/19 08:53 12:37 03:45 RBC Hgb Hct Lymph % (Auto) Baldwin % (Auto) Baldwin # Seg Neutrophils % Seg Neutrophils # PT INR APTT ABG pH 7.457 H ABG pO2 152.6 H ABG HCO3 ABG O2 Saturation ABG Base Excess ABG Hemoglobin 8.4 L Oxyhemoglobin Sodium Potassium Chloride Carbon Dioxide BUN Creatinine Glucose POC Glucose 108 H 125 H Lactic Acid Calcium Phosphorus Magnesium AST Total Creatine Kinase CK-MB (CK-2) Rel Index Troponin T Total Protein Albumin HDL Cholesterol Urine pH 06/28/19 06/28/19 06/28/19 04:05 04:05 04:05 RBC 2.65 L Hgb 7.8 L Hct 23.9 L Lymph % (Auto) Baldwin % (Auto) 8.6 H Baldwin # Seg Neutrophils % Seg Neutrophils # PT 15.5 H INR 1.21 H APTT 36.7 H ABG pH ABG pO2 ABG HCO3 ABG O2 Saturation ABG Base Excess ABG Hemoglobin Oxyhemoglobin Sodium 151 H Potassium 3.1 L Chloride 116.1 H Carbon Dioxide BUN Creatinine Glucose 125 H POC Glucose Lactic Acid Calcium 8.3 L Phosphorus Magnesium AST Total Creatine Kinase CK-MB (CK-2) Rel Index Troponin T Total Protein Albumin HDL Cholesterol Urine pH 06/29/19 06/30/19 07/01/19 04:55 05:55 05:15 RBC 2.64 L Hgb 7.8 L Hct 24.1 L Lymph % (Auto) Baldwin % (Auto) 11.8 H Baldwin # Seg Neutrophils % Seg Neutrophils # PT INR APTT ABG pH ABG pO2 121.9 H 102.6 H ABG HCO3 ABG O2 Saturation ABG Base Excess ABG Hemoglobin 8.1 L 10.4 L Oxyhemoglobin Sodium Potassium Chloride Carbon Dioxide BUN Creatinine Glucose POC Glucose Lactic Acid Calcium Phosphorus Magnesium AST Total Creatine Kinase CK-MB (CK-2) Rel Index Troponin T Total Protein Albumin HDL Cholesterol Urine pH 07/01/19 07/01/19 07/01/19 05:15 05:15 05:32 RBC Hgb Hct Lymph % (Auto) Baldwin % (Auto) Baldwin # Seg Neutrophils % Seg Neutrophils # PT INR APTT ABG pH ABG pO2 42.8 L ABG HCO3 26.7 H ABG O2 Saturation 83.4 L ABG Base Excess ABG Hemoglobin 7.6 L Oxyhemoglobin 81.9 L Sodium 147 H Potassium 2.7 L* Chloride 112.7 H Carbon Dioxide BUN 6 L Creatinine Glucose 453 H POC Glucose Lactic Acid Calcium 8.2 L Phosphorus 2.40 L Magnesium 1.60 L AST Total Creatine Kinase CK-MB (CK-2) Rel Index Troponin T Total Protein Albumin HDL Cholesterol Urine pH 07/01/19 07/02/19 07/02/19 14:55 04:50 08:15 RBC Hgb Hct Lymph % (Auto) Baldwin % (Auto) Baldwin # Seg Neutrophils % Seg Neutrophils # PT INR APTT ABG pH ABG pO2 ABG HCO3 26.8 H ABG O2 Saturation ABG Base Excess ABG Hemoglobin 5.4 L Oxyhemoglobin Sodium 153 H 150 H Potassium 3.3 L D 3.5 L Chloride 117.1 H 115.2 H Carbon Dioxide BUN 6 L 6 L Creatinine Glucose 109 H POC Glucose Lactic Acid Calcium Phosphorus Magnesium AST Total Creatine Kinase CK-MB (CK-2) Rel Index Troponin T Total Protein Albumin HDL Cholesterol Urine pH 07/02/19 07/03/19 07/03/19 08:46 04:37 06:50 RBC 2.64 L 2.50 L Hgb 8.0 L 7.5 L Hct 24.0 L 22.6 L Lymph % (Auto) Baldwin % (Auto) Baldwin # Seg Neutrophils % Seg Neutrophils # PT INR APTT ABG pH ABG pO2 72.9 L ABG HCO3 26.5 H ABG O2 Saturation ABG Base Excess ABG Hemoglobin 7.7 L Oxyhemoglobin Sodium Potassium Chloride Carbon Dioxide BUN Creatinine Glucose POC Glucose Lactic Acid Calcium Phosphorus Magnesium AST Total Creatine Kinase CK-MB (CK-2) Rel Index Troponin T Total Protein Albumin HDL Cholesterol Urine pH 07/03/19 07/04/19 07/04/19 06:50 04:00 04:15 RBC Hgb Hct Lymph % (Auto) Baldwin % (Auto) Baldwin # Seg Neutrophils % Seg Neutrophils # PT INR APTT ABG pH ABG pO2 73.9 L ABG HCO3 27.8 H ABG O2 Saturation ABG Base Excess ABG Hemoglobin 9.7 L Oxyhemoglobin 94.9 L Sodium 148 H Potassium 3.0 L Chloride 110.0 H 110.4 H Carbon Dioxide BUN 7 L Creatinine Glucose 127 H 110 H POC Glucose Lactic Acid Calcium 8.2 L Phosphorus Magnesium AST Total Creatine Kinase CK-MB (CK-2) Rel Index Troponin T Total Protein Albumin HDL Cholesterol Urine pH 07/04/19 07/05/19 07/05/19 07:02 05:58 16:29 RBC 2.60 L Hgb 7.7 L Hct 23.3 L Lymph % (Auto) Baldwin % (Auto) Baldwin # Seg Neutrophils % Seg Neutrophils # PT INR APTT ABG pH 7.469 H ABG pO2 73.4 L 69.7 L ABG HCO3 31.0 H 32.9 H ABG O2 Saturation ABG Base Excess 6.7 H 7.9 H ABG Hemoglobin 8.0 L 8.4 L Oxyhemoglobin Sodium Potassium Chloride Carbon Dioxide BUN Creatinine Glucose POC Glucose Lactic Acid Calcium Phosphorus Magnesium AST Total Creatine Kinase CK-MB (CK-2) Rel Index Troponin T Total Protein Albumin HDL Cholesterol Urine pH 07/06/19 07/06/19 07/06/19 05:13 05:13 17:36 RBC 2.72 L Hgb 8.1 L Hct 24.6 L Lymph % (Auto) Baldwin % (Auto) Baldwin # Seg Neutrophils % Seg Neutrophils # PT INR APTT ABG pH ABG pO2 ABG HCO3 ABG O2 Saturation ABG Base Excess ABG Hemoglobin Oxyhemoglobin Sodium 146 H Potassium Chloride Carbon Dioxide 31 H D BUN Creatinine Glucose 125 H POC Glucose 108 H Lactic Acid Calcium Phosphorus Magnesium AST Total Creatine Kinase CK-MB (CK-2) Rel Index Troponin T Total Protein Albumin HDL Cholesterol Urine pH 07/07/19 07/07/19 07/07/19 02:50 05:27 05:27 RBC 2.99 L Hgb 8.9 L Hct 26.9 L Lymph % (Auto) 10.8 L Baldwin % (Auto) 8.3 H Baldwin # 0.9 H Seg Neutrophils % 78.2 H Seg Neutrophils # 8.6 H PT INR APTT ABG pH ABG pO2 ABG HCO3 ABG O2 Saturation ABG Base Excess ABG Hemoglobin Oxyhemoglobin Sodium Potassium Chloride Carbon Dioxide BUN Creatinine Glucose POC Glucose 127 H Lactic Acid Calcium Phosphorus Magnesium AST Total Creatine Kinase 45 L CK-MB (CK-2) Rel Index 4.4 H Troponin T 0.064 H Total Protein Albumin HDL Cholesterol 32 L Urine pH 07/07/19 07/07/19 07/08/19 15:00 17:41 09:16 RBC 3.19 L Hgb 9.7 L Hct 28.7 L Lymph % (Auto) Baldwin % (Auto) 10.4 H Baldwin # Seg Neutrophils % Seg Neutrophils # PT INR APTT ABG pH ABG pO2 ABG HCO3 ABG O2 Saturation ABG Base Excess ABG Hemoglobin Oxyhemoglobin Sodium Potassium Chloride Carbon Dioxide BUN Creatinine Glucose POC Glucose 109 H Lactic Acid Calcium Phosphorus Magnesium AST Total Creatine Kinase CK-MB (CK-2) Rel Index Troponin T Total Protein Albumin HDL Cholesterol Urine pH 8.0 H 07/08/19 07/08/19 09:16 13:36 RBC Hgb Hct Lymph % (Auto) Baldwin % (Auto) Baldwin # Seg Neutrophils % Seg Neutrophils # PT INR APTT ABG pH ABG pO2 ABG HCO3 ABG O2 Saturation ABG Base Excess ABG Hemoglobin Oxyhemoglobin Sodium Potassium Chloride Carbon Dioxide BUN Creatinine 0.7 L Glucose 103 H POC Glucose 127 H Lactic Acid Calcium Phosphorus Magnesium AST Total Creatine Kinase CK-MB (CK-2) Rel Index Troponin T Total Protein Albumin HDL Cholesterol Urine pH Chest x-ray: pending (None today) Allied health notes reviewed: nursing
--- NOTE | 2019-07-08 15:13 | Progress Note ---
Assessment and Plan Cultures: Blood culture 06/26/2019 no growth to date Sputum culture 06/26/2019 no growth to date Blood culture 07/07/2019 pending Sputum culture 07/07/2019 pending A/P: 54-year-old man past medical history of Lewy body dementia admitted with bilateral pneumonia. #Cardiac arrest 07/07/2019 severe sepsis and shock: off pressors, no fever. Repeat UA neg. #Suspect COVID-19 pneumonia: COVID test negative. #Bilateral pneumonia: unclear etiology #Lewy body dementia #Acute hypoxic respiratory failure: better Recs: -repeat CXR and f/u repeat blood cx -COVID isolation stopped -Continue vancomycin and cefepime empirically for HCAP, plan on 8 day course if COVID is negative. -check MRSA PCR - pending if neg will stop vancomycin guarded prognosis. Discussed with Dr Les Gordon MD Infectious Diseases [employer] [facility] ([facility]) M [phone] O [phone] Subjective Date of service: 07/08/19 Principal diagnosis: Septic shock; HAP; Acute hypoxemic resp failure PUI-COVID 19; Hypernatremia Interval history: Patient tachycardic on monitor, intubated, no fever Objective - Exam Narrative Exam: Constitutional: Intubated, sedated Oral: Endotracheal tube Cardiovascular: Limited evaluation due to PPE shortage Respiratory: Limited evaluation due to PPE shortage GI: Limited evaluation due to PPE shortage Musculoskeletal: Limited evaluation due to PPE shortage Skin: No rash or abscess Neurological: Sedated - Constitutional Vitals: Vital Signs Temp Pulse Resp BP Pulse Ox 97.8 F 127 H 18 160/108 100 07/08/19 08:00 07/08/19 09:30 07/08/19 08:00 07/08/19 09:30 07/08/19 09:30 Temperature -Last 24 Hours Temperature 97.8 F Temperature 97.5 F Temperature 97.1 F Temperature 97.8 F Temperature 98 F - Labs CBC & Chem 7: 07/08/19 09:16 07/08/19 09:16 Labs: Abnormal lab results 07/07/19 07/07/19 07/08/19 Range/Units 15:00 17:41 09:16 RBC 3.19 L (3.65-5.03) M/mm3 Hgb 9.7 L (11.8-15.2) gm/dl Hct 28.7 L (35.5-45.6) % [place] % (Auto) 10.4 H (0.0-7.3) % Creatinine (0.8-1.5) mg/dL Glucose (75-100) mg/dL POC Glucose 109 H (70-105) Urine pH 8.0 H (5.0-7.0) 07/08/19 07/08/19 Range/Units 09:16 13:36 RBC (3.65-5.03) M/mm3 Hgb (11.8-15.2) gm/dl Hct (35.5-45.6) % [place] % (Auto) (0.0-7.3) % Creatinine 0.7 L (0.8-1.5) mg/dL Glucose 103 H (75-100) mg/dL POC Glucose 127 H (70-105) Urine pH (5.0-7.0)
[2019-07-08 21:40] LABS: ABG HCO3 32.4 mmol/L (20.0-26.0); ABG Methemoglobin 0.5 % (0.0-1.5); ABG Oxygen Saturation 97.7 % (95.0-99.0); ABG PH 7.475 pH Units (7.350-7.450); ABG PO2 99.4 mm Hg (80.0-90.0)
[2019-07-08] MEDS: MORPHINE 2 MG/1 ML INJ IV PRN (21:44)
[2019-07-08] MEDS: METOPROLOL TARTRATE 5 MG/5 ML INJ IV PRN (21:45)
[2019-07-08] MEDS: LIPASE 10,500/PROTEASE 25,000/AMYLASE 43,750 (UNITS) DR CAP FEEDTUBE PRN (21:58)
[2019-07-08] MEDS: SODIUM BICARBONATE 325 MG TAB FEEDTUBE PRN (21:58)
[2019-07-09] MEDS: METOPROLOL TARTRATE 5 MG/5 ML INJ IV PRN (05:04)
[2019-07-09] MEDS: HEPARIN 5,000 UNIT/1 ML VIAL SUB-Q SCH ×3 (05:04→22:16)
[2019-07-09 06:07] LABS: Hematocrit 27.9 % (35.5-45.6); Hemoglobin 9.3 gm/dl (11.8-15.2); Mean Corpuscular HGB Conc 33 % (32-34); Mean Corpuscular Volume 90 fl (84-94); Platelet Count 257 K/mm3 (140-440); Red Blood Count 3.11 M/mm3 (3.65-5.03); Red Cell Distribution Width 14.2 % (13.2-15.2)
[2019-07-09 06:25] LABS: BUN/Creatinine Ratio 13; Blood Urea Nitrogen 9 mg/dL (9-20); Calcium 9.1 mg/dL (8.4-10.2); Hemolysis Index 8
[2019-07-09] MEDS: FAMOTIDINE 20 MG TAB PO SCH ×2 (09:30→22:17)
--- NOTE | 2019-07-09 12:27 | Progress Note ---
Assessment and Plan Cultures: Blood culture 06/26/2019 no growth Sputum culture 06/26/2019 no growth Blood culture 07/07/2019 no growth to date Urine culture 07/07/2019 +Lynette A/P: 54-year-old man past medical history of Lewy body dementia admitted with bilateral pneumonia. #Cardiac arrest 07/07/2019 severe sepsis and shock: off pressors, no fever. Repeat UA neg. Urine with Lynette likely contaminant #Suspect COVID-19 pneumonia: COVID test negative. #Bilateral pneumonia: unclear etiology #Lewy body dementia #Acute hypoxic respiratory failure: better Recs: -repeat CXR - pending -COVID isolation stopped -completed vancomycin and cefepime - 8 day course -monitor off abx Will sign off Angelique Gordon MD Infectious Diseases [employer] [facility] ([facility] M [phone] O [phone] Subjective Date of service: 07/09/19 Principal diagnosis: Septic shock; HAP; Acute hypoxemic resp failure PUI-COVID 19; Hypernatremia Interval history: Patient tachycardic on monitor, intubated on BIPAP, no fever Objective - Exam Narrative Exam: Constitutional: Intubated, sedated on BIPAP Oral: Endotracheal tube Cardiovascular: Limited evaluation due to PPE shortage Respiratory: Limited evaluation due to PPE shortage GI: Limited evaluation due to PPE shortage Musculoskeletal: Limited evaluation due to PPE shortage Skin: No rash or abscess Neurological: Sedated - Constitutional Vitals: Vital Signs Temp Pulse Resp BP Pulse Ox 98.5 F 105 H 15 107/80 99 07/09/19 04:47 07/09/19 08:13 07/09/19 07:00 07/09/19 08:13 07/09/19 08:13 Temperature -Last 24 Hours Temperature 98.5 F Temperature 98.1 F Temperature 98.0 F Temperature 98.3 F - Labs CBC & Chem 7: 07/09/19 04:57 07/09/19 04:57 Labs: Abnormal lab results 07/08/19 07/08/19 07/08/19 Range/Units 13:36 18:00 18:45 RBC (3.65-5.03) M/mm3 Hgb (11.8-15.2) gm/dl Hct (35.5-45.6) % ABG pH (7.350-7.450) pH Units ABG pO2 (80.0-90.0) mm Hg ABG HCO3 (20.0-26.0) mmol/L ABG Base Excess (-2.0-3.0) mmol/L ABG Hemoglobin (14.0-18.0) gm/dl Creatinine (0.8-1.5) mg/dL POC Glucose 127 H 113 H 120 H (70-105) 07/08/19 07/09/19 07/09/19 Range/Units 21:30 04:57 04:57 RBC 3.11 L (3.65-5.03) M/mm3 Hgb 9.3 L (11.8-15.2) gm/dl Hct 27.9 L (35.5-45.6) % ABG pH 7.475 H (7.350-7.450) pH Units ABG pO2 99.4 H (80.0-90.0) mm Hg ABG HCO3 32.4 H (20.0-26.0) mmol/L ABG Base Excess 8.0 H (-2.0-3.0) mmol/L ABG Hemoglobin 9.3 L (14.0-18.0) gm/dl Creatinine 0.7 L (0.8-1.5) mg/dL POC Glucose (70-105) 07/09/19 Range/Units 06:43 RBC (3.65-5.03) M/mm3 Hgb (11.8-15.2) gm/dl Hct (35.5-45.6) % ABG pH (7.350-7.450) pH Units ABG pO2 (80.0-90.0) mm Hg ABG HCO3 (20.0-26.0) mmol/L ABG Base Excess (-2.0-3.0) mmol/L ABG Hemoglobin (14.0-18.0) gm/dl Creatinine (0.8-1.5) mg/dL POC Glucose 116 H (70-105)
[2019-07-09] MEDS ORDERED: GLYCOPYRROLATE 0.4 MG/2 ML INJ ONE (13:56)
--- NOTE | 2019-07-09 14:23 | Progress Note ---
Assessment and Plan Severe sepsis with septic shock HAP Acute hypoxemic respiratory failure PUI-COVID 19 Oropharyngeal dysphagia s/p PEG Possible aspiration PNA Lactic acidosis Hypernatremia Severe protein calorie malnutrition Acute metabolic encephalopathy h/o Lewy body dementia (AMS is the rate limiting step for safe extubation and i will discuss a tracheostomy with his as i suspect he is having recurrent aspiration events) - i spoke with his and they will go with a tracheostomy - surgery consult placed - continue daily SAT's and SBT assessment as tolerated - continue free water supplementation for hypernatremia but reduce dose - continue set rate of 12/min - continue enteric nutrition as tolerated - Monitor glycemic control, with target blood glucose 140-180 mg/dL while critically ill. Avoid hypoglycemia - continue bowel regimen - Continue Vancomycin and Cefepime for HAP; adjust per ID recommendations - continue free water at 200ml Q6h, hypotonic solutions for treatment of hype rnatremia. Monitor levels - Place PICC line and discontinue femoral CVC - Continue with MVS, Lung protective strategies, monitor airway pressures - VAP bundle addressed; (Aspiration precautions, HOB > 40 degrees) - Titrate sedation for RAAS 0 to -1 - VTE prophylaxis - Stress ulcer prophylaxis - Wean supplemental oxygen for target O2 sat's > 90% - ABG and CXR prn - Follow cultures and adjust antibiotic therapy for KORIN and culture results - Avoid nephrotoxins, adjust all medications for GFR and CrCL - continue bronchodilators with pulmonary hygiene per RT - continue to avoid benzodiazepines to reduce the possibility of delirium - prn analgesia per CPOT score - Maintenance of sleep-wake cycle, avoid delirium - PT/OT/ROM exercises - continue mobility protocol and skin assessment per protocol for pressure ulcer prevention - Monitor hemodynamics closely - Contact and airborne isolation for PUI COVID-19 - Mobility, off loading and skin assessment per protocol to prevent pressure ulcer - continue wound care per RN & WCT (he has a stage 2 sacral decubitus on exam) - Chronic home medications as clinically indicated - continue other care per attending / other consultants CONDITION: CRITICAL PROGNOSIS: GUARDED CODE STATUS: FULL CODE The high probability of a clinically significant, sudden or life-threatening deterioration of the [respiratory, cardiovascular, renal] system(s) required my full and direct attention, intervention and personal management. The aggregate critical care time was [32] minutes without overlap. Time includes spent on; [x] Data Review and interpretation [x] Patient assessment and monitoring of vital signs [x] Documentation [x] Medication orders and management Subjective Date of service: 07/09/19 Principal diagnosis: Septic shock; HAP; Acute hypoxemic resp failure PUI-COVID 19; Hypernatremia Interval history: Patient is seen today for: Septic shock; HAP; Acute hypoxemic respiratory failure; PUI-COVID 19; Lactic acidosis; Hypernatremia; Acute metabolic encephalopathy; h/o Lewy body dementia Seen and examined at bedside; 24hour events reviewed; nursing and respiratory care staff consulted; no adverse overnight events reported to me; resting peacefully in bed; tolerating SBT well but AMS is persistent Objective Vital Signs - 12hr 07/09/19 07/09/19 07/09/19 03:00 04:00 04:25 Temperature Pulse Rate 113 H 110 H 112 H Pulse Rate [ From Monitor] Respiratory 14 13 Rate Blood Pressure 140/94 121/94 128/91 O2 Sat by Pulse 98 100 100 Oximetry 07/09/19 07/09/19 07/09/19 04:47 05:00 05:04 Temperature 98.5 F Pulse Rate 112 H 121 H Pulse Rate [ From Monitor] Respiratory 13 Rate Blood Pressure 131/99 131/99 O2 Sat by Pulse 99 Oximetry 07/09/19 07/09/19 07/09/19 06:00 07:00 08:00 Temperature Pulse Rate 99 H 105 H 101 H Pulse Rate [ 100 H From Monitor] Respiratory 12 15 13 Rate Blood Pressure 127/99 124/85 107/80 O2 Sat by Pulse 100 100 96 Oximetry 07/09/19 07/09/19 07/09/19 08:13 09:00 10:00 Temperature Pulse Rate 105 H 109 H 102 H Pulse Rate [ From Monitor] Respiratory 19 12 Rate Blood Pressure 107/80 123/90 127/83 O2 Sat by Pulse 99 99 98 Oximetry 07/09/19 07/09/19 07/09/19 11:00 12:00 13:00 Temperature Pulse Rate 105 H 108 H 113 H Pulse Rate [ 112 H From Monitor] Respiratory 18 17 16 Rate Blood Pressure 134/91 122/82 115/85 O2 Sat by Pulse 98 99 99 Oximetry 07/09/19 13:41 Temperature Pulse Rate 113 H Pulse Rate [ From Monitor] Respiratory 16 Rate Blood Pressure 117/81 O2 Sat by Pulse 100 Oximetry Constitutional: no acute distress, other (sedated, orally intubated) Eyes: non-icteric ENT: oropharynx moist, other (ETT at 23cm at the lip) Neck: supple, no lymphadenopathy, no JVD Effort: mildly labored Ascultation: Bilateral: diminished breath sounds, rhonchi Percussion: Bilateral: not dull Cardiovascular: regular rate and rhythm (tachycardia), other (S1,S2, no murmurs, gallops) Gastrointestinal: normoactive bowel sounds, soft, non-tender, non-distended, other (PEG in place) Integumentary: decubitus ulcer (Stage 2) Extremities: no cyanosis, no edema, pulses normal, no ischemia or petechiae Neurologic: unable to assess Psychiatric: other (unable to assess secondary to mental status) CBC and BMP: 07/09/19 04:57 07/09/19 04:57 ABG, PT/INR, D-dimer: ABG ABG pH 7.475 pH Units (7.350-7.450) H 07/08/19 21:30 ABG pCO2 45.0 mm Hg 07/08/19 21:30 ABG pO2 99.4 mm Hg (80.0-90.0) H 07/08/19 21:30 ABG O2 Saturation 97.7 % (95.0-99.0) 07/08/19 21:30 PT/INR, D-dimer PT 15.5 Sec. (12.2-14.9) H 06/28/19 04:05 INR 1.21 (0.87-1.13) H 06/28/19 04:05 Abnormal lab findings: Abnormal Labs 06/26/19 06/26/19 06/26/19 22:56 23:31 23:31 RBC 2.90 L Hgb 8.8 L Hct 26.5 L Lymph % (Auto) [place] % (Auto) [place] # Seg Neutrophils % Seg Neutrophils # PT INR APTT ABG pH 7.467 H ABG pO2 106.2 H ABG HCO3 26.5 H ABG O2 Saturation ABG Base Excess ABG Hemoglobin 9.6 L Oxyhemoglobin Sodium 150 H Potassium Chloride 111.7 H Carbon Dioxide BUN Creatinine Glucose POC Glucose Lactic Acid Calcium Phosphorus Magnesium AST 53 H Total Creatine Kinase CK-MB (CK-2) Rel Index Troponin T Total Protein 6.2 L Albumin 2.4 L HDL Cholesterol Urine pH 06/26/19 06/26/19 06/27/19 23:31 23:31 04:35 RBC Hgb Hct Lymph % (Auto) [place] % (Auto) [place] # Seg Neutrophils % Seg Neutrophils # PT INR APTT ABG pH ABG pO2 120.3 H ABG HCO3 ABG O2 Saturation ABG Base Excess ABG Hemoglobin 7.4 L Oxyhemoglobin Sodium Potassium Chloride Carbon Dioxide BUN Creatinine Glucose POC Glucose Lactic Acid 2.20 H* Calcium Phosphorus Magnesium AST Total Creatine Kinase 300 H CK-MB (CK-2) Rel Index Troponin T Total Protein Albumin HDL Cholesterol Urine pH 06/27/19 06/27/19 06/28/19 08:53 12:37 03:45 RBC Hgb Hct Lymph % (Auto) [place] % (Auto) [place] # Seg Neutrophils % Seg Neutrophils # PT INR APTT ABG pH 7.457 H ABG pO2 152.6 H ABG HCO3 ABG O2 Saturation ABG Base Excess ABG Hemoglobin 8.4 L Oxyhemoglobin Sodium Potassium Chloride Carbon Dioxide BUN Creatinine Glucose POC Glucose 108 H 125 H Lactic Acid Calcium Phosphorus Magnesium AST Total Creatine Kinase CK-MB (CK-2) Rel Index Troponin T Total Protein Albumin HDL Cholesterol Urine pH 06/28/19 06/28/19 06/28/19 04:05 04:05 04:05 RBC 2.65 L Hgb 7.8 L Hct 23.9 L Lymph % (Auto) [place] % (Auto) 8.6 H [place] # Seg Neutrophils % Seg Neutrophils # PT 15.5 H INR 1.21 H APTT 36.7 H ABG pH ABG pO2 ABG HCO3 ABG O2 Saturation ABG Base Excess ABG Hemoglobin Oxyhemoglobin Sodium 151 H Potassium 3.1 L Chloride 116.1 H Carbon Dioxide BUN Creatinine Glucose 125 H POC Glucose Lactic Acid Calcium 8.3 L Phosphorus Magnesium AST Total Creatine Kinase CK-MB (CK-2) Rel Index Troponin T Total Protein Albumin HDL Cholesterol Urine pH 06/29/19 06/30/19 07/01/19 04:55 05:55 05:15 RBC 2.64 L Hgb 7.8 L Hct 24.1 L Lymph % (Auto) [place] % (Auto) 11.8 H [place] # Seg Neutrophils % Seg Neutrophils # PT INR APTT ABG pH ABG pO2 121.9 H 102.6 H ABG HCO3 ABG O2 Saturation ABG Base Excess ABG Hemoglobin 8.1 L 10.4 L Oxyhemoglobin Sodium Potassium Chloride Carbon Dioxide BUN Creatinine Glucose POC Glucose Lactic Acid Calcium Phosphorus Magnesium AST Total Creatine Kinase CK-MB (CK-2) Rel Index Troponin T Total Protein Albumin HDL Cholesterol Urine pH 07/01/19 07/01/19 07/01/19 05:15 05:15 05:32 RBC Hgb Hct Lymph % (Auto) [place] % (Auto) [place] # Seg Neutrophils % Seg Neutrophils # PT INR APTT ABG pH ABG pO2 42.8 L ABG HCO3 26.7 H ABG O2 Saturation 83.4 L ABG Base Excess ABG Hemoglobin 7.6 L Oxyhemoglobin 81.9 L Sodium 147 H Potassium 2.7 L* Chloride 112.7 H Carbon Dioxide BUN 6 L Creatinine Glucose 453 H POC Glucose Lactic Acid Calcium 8.2 L Phosphorus 2.40 L Magnesium 1.60 L AST Total Creatine Kinase CK-MB (CK-2) Rel Index Troponin T Total Protein Albumin HDL Cholesterol Urine pH 07/01/19 07/02/19 07/02/19 14:55 04:50 08:15 RBC Hgb Hct Lymph % (Auto) [place] % (Auto) [place] # Seg Neutrophils % Seg Neutrophils # PT INR APTT ABG pH ABG pO2 ABG HCO3 26.8 H ABG O2 Saturation ABG Base Excess ABG Hemoglobin 5.4 L Oxyhemoglobin Sodium 153 H 150 H Potassium 3.3 L D 3.5 L Chloride 117.1 H 115.2 H Carbon Dioxide BUN 6 L 6 L Creatinine Glucose 109 H POC Glucose Lactic Acid Calcium Phosphorus Magnesium AST Total Creatine Kinase CK-MB (CK-2) Rel Index Troponin T Total Protein Albumin HDL Cholesterol Urine pH 07/02/19 07/03/19 07/03/19 08:46 04:37 06:50 RBC 2.64 L 2.50 L Hgb 8.0 L 7.5 L Hct 24.0 L 22.6 L Lymph % (Auto) [place] % (Auto) [place] # Seg Neutrophils % Seg Neutrophils # PT INR APTT ABG pH ABG pO2 72.9 L ABG HCO3 26.5 H ABG O2 Saturation ABG Base Excess ABG Hemoglobin 7.7 L Oxyhemoglobin Sodium Potassium Chloride Carbon Dioxide BUN Creatinine Glucose POC Glucose Lactic Acid Calcium Phosphorus Magnesium AST Total Creatine Kinase CK-MB (CK-2) Rel Index Troponin T Total Protein Albumin HDL Cholesterol Urine pH 07/03/19 07/04/19 07/04/19 06:50 04:00 04:15 RBC Hgb Hct Lymph % (Auto) [place] % (Auto) [place] # Seg Neutrophils % Seg Neutrophils # PT INR APTT ABG pH ABG pO2 73.9 L ABG HCO3 27.8 H ABG O2 Saturation ABG Base Excess ABG Hemoglobin 9.7 L Oxyhemoglobin 94.9 L Sodium 148 H Potassium 3.0 L Chloride 110.0 H 110.4 H Carbon Dioxide BUN 7 L Creatinine Glucose 127 H 110 H POC Glucose Lactic Acid Calcium 8.2 L Phosphorus Magnesium AST Total Creatine Kinase CK-MB (CK-2) Rel Index Troponin T Total Protein Albumin HDL Cholesterol Urine pH 07/04/19 07/05/19 07/05/19 07:02 05:58 16:29 RBC 2.60 L Hgb 7.7 L Hct 23.3 L Lymph % (Auto) [place] % (Auto) [place] # Seg Neutrophils % Seg Neutrophils # PT INR APTT ABG pH 7.469 H ABG pO2 73.4 L 69.7 L ABG HCO3 31.0 H 32.9 H ABG O2 Saturation ABG Base Excess 6.7 H 7.9 H ABG Hemoglobin 8.0 L 8.4 L Oxyhemoglobin Sodium Potassium Chloride Carbon Dioxide BUN Creatinine Glucose POC Glucose Lactic Acid Calcium Phosphorus Magnesium AST Total Creatine Kinase CK-MB (CK-2) Rel Index Troponin T Total Protein Albumin HDL Cholesterol Urine pH 07/06/19 07/06/19 07/06/19 05:13 05:13 17:36 RBC 2.72 L Hgb 8.1 L Hct 24.6 L Lymph % (Auto) [place] % (Auto) [place] # Seg Neutrophils % Seg Neutrophils # PT INR APTT ABG pH ABG pO2 ABG HCO3 ABG O2 Saturation ABG Base Excess ABG Hemoglobin Oxyhemoglobin Sodium 146 H Potassium Chloride Carbon Dioxide 31 H D BUN Creatinine Glucose 125 H POC Glucose 108 H Lactic Acid Calcium Phosphorus Magnesium AST Total Creatine Kinase CK-MB (CK-2) Rel Index Troponin T Total Protein Albumin HDL Cholesterol Urine pH 07/07/19 07/07/19 07/07/19 02:50 05:27 05:27 RBC 2.99 L Hgb 8.9 L Hct 26.9 L Lymph % (Auto) 10.8 L [place] % (Auto) 8.3 H [place] # 0.9 H Seg Neutrophils % 78.2 H Seg Neutrophils # 8.6 H PT INR APTT ABG pH ABG pO2 ABG HCO3 ABG O2 Saturation ABG Base Excess ABG Hemoglobin Oxyhemoglobin Sodium Potassium Chloride Carbon Dioxide BUN Creatinine Glucose POC Glucose 127 H Lactic Acid Calcium Phosphorus Magnesium AST Total Creatine Kinase 45 L CK-MB (CK-2) Rel Index 4.4 H Troponin T 0.064 H Total Protein Albumin HDL Cholesterol 32 L Urine pH 07/07/19 07/07/19 07/08/19 15:00 17:41 09:16 RBC 3.19 L Hgb 9.7 L Hct 28.7 L Lymph % (Auto) [place] % (Auto) 10.4 H [place] # Seg Neutrophils % Seg Neutrophils # PT INR APTT ABG pH ABG pO2 ABG HCO3 ABG O2 Saturation ABG Base Excess ABG Hemoglobin Oxyhemoglobin Sodium Potassium Chloride Carbon Dioxide BUN Creatinine Glucose POC Glucose 109 H Lactic Acid Calcium Phosphorus Magnesium AST Total Creatine Kinase CK-MB (CK-2) Rel Index Troponin T Total Protein Albumin HDL Cholesterol Urine pH 8.0 H 07/08/19 07/08/19 07/08/19 09:16 13:36 18:00 RBC Hgb Hct Lymph % (Auto) [place] % (Auto) [place] # Seg Neutrophils % Seg Neutrophils # PT INR APTT ABG pH ABG pO2 ABG HCO3 ABG O2 Saturation ABG Base Excess ABG Hemoglobin Oxyhemoglobin Sodium Potassium Chloride Carbon Dioxide BUN Creatinine 0.7 L Glucose 103 H POC Glucose 127 H 113 H Lactic Acid Calcium Phosphorus Magnesium AST Total Creatine Kinase CK-MB (CK-2) Rel Index Troponin T Total Protein Albumin HDL Cholesterol Urine pH 07/08/19 07/08/19 07/09/19 18:45 21:30 04:57 RBC 3.11 L Hgb 9.3 L Hct 27.9 L Lymph % (Auto) [place] % (Auto) [place] # Seg Neutrophils % Seg Neutrophils # PT INR APTT ABG pH 7.475 H ABG pO2 99.4 H ABG HCO3 32.4 H ABG O2 Saturation ABG Base Excess 8.0 H ABG Hemoglobin 9.3 L Oxyhemoglobin Sodium Potassium Chloride Carbon Dioxide BUN Creatinine Glucose POC Glucose 120 H Lactic Acid Calcium Phosphorus Magnesium AST Total Creatine Kinase CK-MB (CK-2) Rel Index Troponin T Total Protein Albumin HDL Cholesterol Urine pH 07/09/19 07/09/19 04:57 06:43 RBC Hgb Hct Lymph % (Auto) [place] % (Auto) [place] # Seg Neutrophils % Seg Neutrophils # PT INR APTT ABG pH ABG pO2 ABG HCO3 ABG O2 Saturation ABG Base Excess ABG Hemoglobin Oxyhemoglobin Sodium Potassium Chloride Carbon Dioxide BUN Creatinine 0.7 L Glucose POC Glucose 116 H Lactic Acid Calcium Phosphorus Magnesium AST Total Creatine Kinase CK-MB (CK-2) Rel Index Troponin T Total Protein Albumin HDL Cholesterol Urine pH Allied health notes reviewed: nursing
--- NOTE | 2019-07-09 14:42 | Consultation ---
History of Present Illness Consult date: 07/09/19 Chief complaint: vent dependence - History of present illness History of present illness: 54-year-old male with a history of Lewy body dementia who presented to the emergency room on 06/27/2019 with increasing shortness of breath. He was found to have bilateral pneumonia and was intubated due to respiratory distress. The patient has not been able to be weaned from the vent since his admission. He has been thoroughly worked up for his pneumonia and treated accordingly. The patient was also tested for Covid 19 which was negative. On 07/07/2019, the patient had a CODE BLUE due to hypoxia. The patient was noted to be biting on his tube prior to the event. [place]osc was achieved achieved after 1 round of CPR and epinephrine. He has been stable since but unable to be extubated due to altered mental status. Past History Past Medical History: other (Dementia) Past Surgical History: Other (Peg tube placement) Social history: no significant social history Family history: no significant family history Medications and Allergies Allergies Allergy/AdvReac Type Severity Reaction Status Date / Time No Known Allergies Allergy Unverified 12/28/17 16:10 Home Medications Medication Instructions Recorded Confirmed Last Taken Type Donepezil 5 mg PO DAILY 12/29/17 06/27/19 12/27/17 History 5 mg Cyclobenzaprine HCl [Flexeril 5 MG 5 mg PO TID PRN #21 tab 01/02/18 06/27/19 Unknown Rx TAB] Sulfamethoxazole/Trimethoprim 1 each PO BID #20 tablet 01/02/18 06/27/19 Unknown Rx [Bactrim DS TAB] Active Meds: Active Medications Albuterol (Proventil) 2.5 mg IH Q4HRT PRN PRN Reason: Shortness Of Breath Lipase/Protease/Amylase (Pancreaze Dr 10,500 Unit) 1 each FEEDTUBE PRN PRN PRN Reason: For Clogged Feeding Tube Last Admin: 07/08/19 21:58 Dose: 1 each Documented by: Famotidine (Pepcid) 20 mg PO BID [facility] Last Admin: 07/09/19 09:30 Dose: 20 mg Documented by: Heparin Sodium (Porcine) (Heparin) 5,000 unit SUB-Q Q8HR [facility] Last Admin: 07/09/19 05:04 Dose: 5,000 unit Documented by: Norepinephrine (Levophed Drip 4 Mg/Ns 250 Ml) 4 mg in 250 mls @ 7.5 mls/hr IV TITR [facility]ADY; Protocol Last Titration: 06/28/19 09:20 Dose: 0 mcg/min, 0 mls/hr Documented by: Propofol (Diprivan 10 Mg/Ml) 1,000 mg in 100 mls @ 1.497 mls/hr IV TITR [facility]ADY; Protocol Last Titration: 07/08/19 22:14 Dose: 5 mcg/kg/min, 1.497 mls/hr Documented by: Magnesium Hydroxide (Milk Of Magnesia) 30 ml PO Q4H PRN PRN Reason: Constipation Metoprolol Tartrate (Metoprolol) 5 mg IV Q6HR PRN PRN Reason: HR>120 Last Admin: 07/09/19 05:04 Dose: 5 mg Documented by: Morphine Sulfate (Morphine) 2 mg IV Q4H PRN PRN Reason: Pain, Moderate (4-6) Last Admin: 07/08/19 21:44 Dose: 2 mg Documented by: Simple Syrup (Simple Syrup) 15 ml FEEDTUBE PRN PRN PRN Reason: Hypoglycemia Simple Syrup (Simple Syrup) 30 ml FEEDTUBE PRN PRN PRN Reason: Hypoglycemia Sodium Bicarbonate (Sodium Bicarbonate) 325 mg FEEDTUBE PRN PRN PRN Reason: For Clogged Feeding Tube Last Admin: 07/08/19 21:58 Dose: 325 mg Documented by: Sodium Chloride (Sodium Chloride Flush Syringe 10 Ml) 10 ml IV BID [facility] Last Admin: 07/09/19 09:31 Dose: 10 ml Documented by: Sodium Chloride (Sodium Chloride Flush Syringe 10 Ml) 10 ml IV PRN PRN PRN Reason: LINE FLUSH Last Admin: 06/27/19 09:10 Dose: 10 ml Documented by: Review of Systems ROS unobtainable: due to endotracheal tube, due to mental status Exam Vital Signs Pulse Resp BP Pulse Ox 123 H 26 H 138/83 96 06/26/19 20:30 06/26/19 20:30 06/26/19 20:30 06/26/19 20:30 Narrative exam: Gen: Intubated, not responsive. ENT: ETT in place CV: S1, S2+. tachy resp: on vent Abd: soft, NT, ND. PEG in place Ext; no c/c/e : Martinez in place with clear yellow urine Results - Labs 07/09/19 04:57 07/09/19 04:57 Abnormal lab results 07/08/19 07/08/19 07/08/19 Range/Units 18:00 18:45 21:30 RBC (3.65-5.03) M/mm3 Hgb (11.8-15.2) gm/dl Hct (35.5-45.6) % ABG pH 7.475 H (7.350-7.450) pH Units ABG pO2 99.4 H (80.0-90.0) mm Hg ABG HCO3 32.4 H (20.0-26.0) mmol/L ABG Base Excess 8.0 H (-2.0-3.0) mmol/L ABG Hemoglobin 9.3 L (14.0-18.0) gm/dl Creatinine (0.8-1.5) mg/dL POC Glucose 113 H 120 H (70-105) 07/09/19 07/09/19 07/09/19 Range/Units 04:57 04:57 06:43 RBC 3.11 L (3.65-5.03) M/mm3 Hgb 9.3 L (11.8-15.2) gm/dl Hct 27.9 L (35.5-45.6) % ABG pH (7.350-7.450) pH Units ABG pO2 (80.0-90.0) mm Hg ABG HCO3 (20.0-26.0) mmol/L ABG Base Excess (-2.0-3.0) mmol/L ABG Hemoglobin (14.0-18.0) gm/dl Creatinine 0.7 L (0.8-1.5) mg/dL POC Glucose 116 H (70-105) Diabetes panel 07/09/19 Range/Units 04:57 Sodium 143 (137-145) mmol/L Potassium 3.9 (3.6-5.0) mmol/L Chloride 102.2 (98-107) mmol/L Carbon Dioxide 30 (22-30) mmol/L BUN 9 (9-20) mg/dL Creatinine 0.7 L (0.8-1.5) mg/dL Glucose 92 (75-100) mg/dL Calcium 9.1 (8.4-10.2) mg/dL Calcium panel 07/09/19 Range/Units 04:57 Calcium 9.1 (8.4-10.2) mg/dL Pituitary panel 07/09/19 Range/Units 04:57 Sodium 143 (137-145) mmol/L Potassium 3.9 (3.6-5.0) mmol/L Chloride 102.2 (98-107) mmol/L Carbon Dioxide 30 (22-30) mmol/L BUN 9 (9-20) mg/dL Creatinine 0.7 L (0.8-1.5) mg/dL Glucose 92 (75-100) mg/dL Calcium 9.1 (8.4-10.2) mg/dL Adrenal panel 07/09/19 Range/Units 04:57 Sodium 143 (137-145) mmol/L Potassium 3.9 (3.6-5.0) mmol/L Chloride 102.2 (98-107) mmol/L Carbon Dioxide 30 (22-30) mmol/L BUN 9 (9-20) mg/dL Creatinine 0.7 L (0.8-1.5) mg/dL Glucose 92 (75-100) mg/dL Calcium 9.1 (8.4-10.2) mg/dL - Imaging Chest x-ray: report reviewed, image reviewed Assessment and Plan 54-year-old male with VDRF Plan: 1. Vent management per ICU team 2. Pt scheduled for tracheostomy on 07/10/19 as an add on 3. NPO p MN, hold TF after MN tonight 4. All risks, benefits, alternatives to tracheostomy discussed with patient's wi fe, [place] over telephone. All questions answered and consent obtained and witnessed. Discussed with Dr. Hoyt Thank you, please call with questions.
--- NOTE | 2019-07-09 15:30 | Progress Note ---
Assessment and Plan Assessment and plan: Severe sepsis with septic shock. Was on Levophed, now off. Continue IV antibiotics and follow-up cultures. Carrdiopulm arrest 07/06, resuscitated Bilateral pneumonia. Continue IV antibiotics. Suspected COVID19/PUI. Contact and airborne isolation for PUI COVID-19 Oropharyngeal dysphagia. Patient is status post PEG. Severe protein calorie malnutrition. Continue tube feedings with aspiration pr ecautions. Toxic metabolic encephalopathy with underlying Lewy body dementia. Continue to treat underlying causes and supportive care. Hypernatremia. Now resolved DNR I discussed with [place] 06/29/2019patient remains on mechanical ventilation with AC mode rate of 16, tidal volume 500, FiO2 40% and PEEP of 5. Patient with ARDS from suspected COVID19. Patient recently had a negative COVID-19 test, however it does not rule out possibility he was either newly infected or that it was a false negative test. He has a normal white count with increased liver enzymes, which is consistent with COVID-19 disease. Continue contact and airborne/droplet precautions. Follow-up pro calcitonin level and rapid influenza PCR. 06/30/2019-patient remains on mechanical ventilation with AC mode rate of 16 tidal volume 500 FiO2 35% and a PEEP of 6. Patient with ARDS from suspected COVID19. Patient recently had a negative COVID-19 test, however it does not rule out possibility he was either newly infected or that it was a false negative test. He has a normal white count with increased liver enzymes, which is consistent with COVID-19 disease. Continue contact and airborne/droplet pr ecautions. Pro calcitonin level slightly elevated at 0.44. Follow-up rapid influenza PCR. 07/01/2019-patient remains on mechanical ventilation with AC mode rate of 16 tidal volume 500 FiO2 25% and a PEEP of 6. Continue to wean vent as tolerated. Patient with ARDS from suspected COVID19. Patient recently had a negative COVID-19 test, however it does not rule out possibility he was either newly infected or that it was a false negative test. He has a normal white count with increased liver enzymes, which is consistent with COVID-19 disease. Follow-up rapid influenza PCR. 07/02/2019 Patient still intubated. Discussed with Amisha. to repeat COVID test, initial test was negative. 07/03/2019 Still intubated. hypernatremia resolved. Repeat Covid-19 test 07/04/19 patient with acute resp failure, still intubated 07/05/19 Still intubated. ID and Pulm following 07/06/19 patient remains critically ill. Still intubated on vent. 07/07/19 Patient had cardiopulm arrest that morning, resuscitated. now wants a DNR status. Dr. Saravia discussed with her on phone 07/08/19 Patient remains critically ill. Negative Covid 19 test(second test) 07/09/19 [facility]. [facility]--AC mode rate- 16, FiO2 25%. Remains critically ill The high probability of a clinically significant, sudden or life threatening deterioration of the [hemodynamic, immunologic and respiratory] system(s) required my full and direct attention, intervention and personal management. The aggregate critical care time was [33] minutes. This time is in addition to time spent performing reported procedures but includes the following: [x] Data Review and interpretation [x] Patient assessment and monitoring of vital signs [x] Documentation [x] Medication orders and management History Interval history: No new issues Hospitalist Physical - Constitutional Vitals: Temp Pulse Resp BP Pulse Ox 98.5 F 113 H 16 117/81 100 07/09/19 04:47 07/09/19 13:41 07/09/19 13:41 07/09/19 13:41 07/09/19 13:41 General appearance: Present: no acute distress - EENT Eyes: Present: PERRL, EOM intact ENT: hearing intact, clear oral mucosa, dentition normal - Neck Neck: Present: supple, normal ROM - Respiratory Respiratory effort: normal Respiratory: bilateral: CTA - Cardiovascular Rhythm: regular Heart Sounds: Present: S1 & S2. Absent: gallop, rub - Extremities Extremities: no ischemia, No edema, Full ROM - Abdominal General gastrointestinal: soft, non-tender, non-distended, normal bowel sounds - Integumentary Integumentary: Present: clear, warm, dry - Neurologic Neurologic: CNII-XII intact, moves all extremities Results - Labs CBC & Chem 7: 07/09/19 04:57 07/09/19 04:57 Labs: Laboratory Last Values WBC 7.6 K/mm3 (4.5-11.0) 07/09/19 04:57 RBC 3.11 M/mm3 (3.65-5.03) L 07/09/19 04:57 Hgb 9.3 gm/dl (11.8-15.2) L 07/09/19 04:57 Hct 27.9 % (35.5-45.6) L 07/09/19 04:57 MCV 90 fl (84-94) 07/09/19 04:57 MCH 30 pg (28-32) 07/09/19 04:57 MCHC 33 % (32-34) 07/09/19 04:57 RDW 14.2 % (13.2-15.2) 07/09/19 04:57 Plt Count 257 K/mm3 (140-440) 07/09/19 04:57 Lymph % (Auto) 17.6 % (13.4-35.0) 07/08/19 09:16 [place] % (Auto) 10.4 % (0.0-7.3) H 07/08/19 09:16 Eos % (Auto) 3.5 % (0.0-4.3) 07/08/19 09:16 Baso % (Auto) 1.2 % (0.0-1.8) 07/08/19 09:16 Lymph # 1.3 K/mm3 (1.2-5.4) 07/08/19 09:16 [place] # 0.8 K/mm3 (0.0-0.8) 07/08/19 09:16 Eos # 0.3 K/mm3 (0.0-0.4) 07/08/19 09:16 Baso # 0.1 K/mm3 (0.0-0.1) 07/08/19 09:16 Seg Neutrophils % 67.3 % (40.0-70.0) 07/08/19 09:16 Seg Neutrophils # 5.0 K/mm3 (1.8-7.7) 07/08/19 09:16 PT 15.5 Sec. (12.2-14.9) H 06/28/19 04:05 INR 1.21 (0.87-1.13) H 06/28/19 04:05 APTT 36.7 Sec. (24.2-36.6) H 06/28/19 04:05 ABG pH 7.475 pH Units (7.350-7.450) H 07/08/19 21:30 ABG pCO2 45.0 mm Hg 07/08/19 21:30 ABG pO2 99.4 mm Hg (80.0-90.0) H 07/08/19 21:30 ABG HCO3 32.4 mmol/L (20.0-26.0) H 07/08/19 21:30 ABG O2 Saturation 97.7 % (95.0-99.0) 07/08/19 21:30 ABG O2 Content 12.7 (0.0-44) 07/08/19 21:30 ABG Base Excess 8.0 mmol/L (-2.0-3.0) H 07/08/19 21:30 ABG Hemoglobin 9.3 gm/dl (14.0-18.0) L 07/08/19 21:30 ABG Carboxyhemoglobin 1.4 % (0.0-5.0) 07/08/19 21:30 ABG Methemoglobin 0.5 % (0.0-1.5) 07/08/19 21:30 Oxyhemoglobin 95.9 % (95.0-99.0) 07/08/19 21:30 FiO2 25 % 07/08/19 21:30 Sodium 143 mmol/L (137-145) 07/09/19 04:57 Potassium 3.9 mmol/L (3.6-5.0) 07/09/19 04:57 Chloride 102.2 mmol/L (98-107) 07/09/19 04:57 Carbon Dioxide 30 mmol/L (22-30) 07/09/19 04:57 Anion Gap 15 mmol/L 07/09/19 04:57 BUN 9 mg/dL (9-20) 07/09/19 04:57 Creatinine 0.7 mg/dL (0.8-1.5) L 07/09/19 04:57 Estimated GFR > 60 ml/min 07/09/19 04:57 BUN/Creatinine Ratio 13 % 07/09/19 04:57 Glucose 92 mg/dL (75-100) 07/09/19 04:57 POC Glucose 116 (70-105) H 07/09/19 06:43 Lactic Acid 1.30 mmol/L (0.7-2.0) 06/27/19 05:02 Calcium 9.1 mg/dL (8.4-10.2) 07/09/19 04:57 Phosphorus 2.70 mg/dL (2.5-4.5) 07/01/19 14:55 Magnesium 1.80 mg/dL (1.7-2.3) 07/01/19 14:55 Total Bilirubin 0.50 mg/dL (0.1-1.2) 06/26/19 23:31 AST 53 units/L (5-40) H 06/26/19 23:31 ALT 56 units/L (7-56) 06/26/19 23:31 Alkaline Phosphatase 109 units/L (35-129) 06/26/19 23:31 Total Creatine Kinase 45 units/L (55-170) L 07/07/19 05:27 CK-MB (CK-2) 2.0 ng/mL (0.0-4.0) 07/07/19 05:27 CK-MB (CK-2) Rel Index 4.4 (0-4) H 07/07/19 05:27 Troponin T 0.064 ng/mL (0.00-0.029) H 07/07/19 05:27 Total Protein 6.2 g/dL (6.3-8.2) L 06/26/19 23:31 Albumin 2.4 g/dL (3.9-5) L 06/26/19 23:31 Albumin/Globulin Ratio 0.6 % 06/26/19 23:31 Triglycerides 119 mg/dL (2-149) 07/07/19 05:27 Cholesterol 120 mg/dL (50-199) 07/07/19 05:27 LDL Cholesterol Direct 72 mg/dL (50-130) 07/07/19 05:27 HDL Cholesterol 32 mg/dL (40-59) L 07/07/19 05:27 Cholesterol/HDL Ratio 3.75 % 07/07/19 05:27 Procalcitonin 0.72 ng/mL (<0.15) 07/07/19 15:33 Urine Color Straw (Yellow) 07/07/19 15:00 Urine Turbidity Clear (Clear) 07/07/19 15:00 Urine pH 8.0 (5.0-7.0) H 07/07/19 15:00 Ur Specific [place] 1.005 (1.003-1.030) 07/07/19 15:00 Urine Protein <15 mg/dl mg/dL (Negative) 07/07/19 15:00 Urine Glucose (UA) Neg mg/dL (Negative) 07/07/19 15:00 Urine Ketones Neg mg/dL (Negative) 07/07/19 15:00 Urine Blood Neg (Negative) 07/07/19 15:00 Urine Nitrite Neg (Negative) 07/07/19 15:00 Urine Bilirubin Neg (Negative) 07/07/19 15:00 Urine Urobilinogen < 2.0 mg/dL (<2.0) 07/07/19 15:00 Ur Leukocyte Esterase Neg (Negative) 07/07/19 15:00 Urine WBC (Auto) 1.0 /HPF (0.0-6.0) 07/07/19 15:00 Urine RBC (Auto) 5.0 /HPF (0.0-6.0) 07/07/19 15:00 U Epithel Cells (Auto) 1.0 /HPF (0-13.0) 07/07/19 15:00 Hyaline Casts 1 /LPF 07/07/19 15:00 Ur Yeast w Hyphae Few /HPF 07/07/19 15:00 Urine Yeast (Budding) 1+ /HPF 07/07/19 15:00 Vancomycin Trough 12.6 ug/mL (5.0-20.0) 07/02/19 21:33 Influenza A (Rapid) Negative (Negative) 06/28/19 14:31 Influenza A (RT-PCR) Negative (Negative) 06/28/19 14:31 Influenza B (Rapid) Negative (Negative) 06/28/19 14:31 Influenza B (RT-PCR) Negative (Negative) 06/28/19 14:31 Miscellaneous Test See scanned result 07/02/19 Unknown Microbiology: Microbiology 07/07/19 15:33 Peripheral/Venous Blood Culture - Preliminary NO GROWTH AFTER 24 HOURS 07/07/19 15:33 Peripheral/Venous Blood Culture - Preliminary NO GROWTH AFTER 24 HOURS 07/07/19 16:30 Urine,Catheterized - Straight Catheter Urine Culture - Final Lynette Albicans Martinez/IV: Voiding Method Condom Catheter IV Catheter Type [Right Peripheral IV Antecubital] IV Catheter Type [Left PICC Line Antecubital] IV Catheter Type [Left Upper PICC Line arm] IV Catheter Type [Left Wrist] INT / Saline Lock IV Catheter Type [Right Leg] Triple Lumen Cath Active Medications - Current Medications Current Medications: Generic Name Dose Route Start Last Admin Trade Name Freq PRN Reason Stop Dose Admin Albuterol 2.5 mg 07/05/19 12:31 Proventil IH Q4HRT PRN Shortness Of Breath Lipase/Protease/Amylase 1 each 07/01/19 11:48 07/08/19 21:58 Pancreazraudel Wang 10,500 Unit FEEDTUBE 1 each PRN PRN Administration For Clogged Feeding Tube Famotidine 20 mg 07/02/19 10:00 07/09/19 09:30 Pepcid PO 20 mg BID LADY Administration Heparin Sodium (Porcine) 5,000 unit 06/27/19 06:00 07/09/19 05:04 Heparin SUB-Q 5,000 unit Q8HR LADY Administration Norepinephrine 4 mg in 250 mls @ 7.5 mls/hr 06/27/19 01:00 06/28/19 09:20 Levophed Drip 4 Mg/Ns 250 Ml IV 0 mcg/min TITR LADY 0 mls/hr Titration Protocol 2 MCG/MIN Propofol 1,000 mg in 100 mls @ 1.497 mls/hr 06/27/19 06:00 07/08/19 22:14 Diprivan 10 Mg/Ml IV 5 mcg/kg/min TITR LADY 1.497 mls/hr Titration Protocol 5 MCG/KG/MIN Magnesium Hydroxide 30 ml 06/27/19 02:51 Milk Of Magnesia PO Q4H PRN Constipation Metoprolol Tartrate 5 mg 07/08/19 09:28 07/09/19 05:04 Metoprolol IV 5 mg Q6HR PRN Administration HR>120 Morphine Sulfate 2 mg 06/27/19 02:51 07/08/19 21:44 Morphine IV 2 mg Q4H PRN Administration Pain, Moderate (4-6) Simple Syrup 15 ml 07/01/19 11:48 Simple Syrup FEEDTUBE PRN PRN Hypoglycemia Simple Syrup 30 ml 07/01/19 11:48 Simple Syrup FEEDTUBE PRN PRN Hypoglycemia Sodium Bicarbonate 325 mg 07/01/19 11:48 07/08/19 21:58 Sodium Bicarbonate FEEDTUBE 325 mg PRN PRN Administration For Clogged Feeding Tube Sodium Chloride 10 ml 06/27/19 10:00 07/09/19 09:31 Sodium Chloride Flush Syringe 10 Ml IV 10 ml BID LADY Administration Sodium Chloride 10 ml 06/27/19 02:51 06/27/19 09:10 Sodium Chloride Flush Syringe 10 Ml IV 10 ml PRN PRN Administration LINE FLUSH Nutrition/Malnutrition Assess - Dietary Evaluation Nutrition/Malnutrition Findings: Nutrition Notes Start: 06/27/19 09:53 Freq: Status: Active Protocol: Document 07/03/19 13:19 LM (Rec: 07/03/19 13:21 LM [email or web address]) Nutrition Notes Initial or Follow up Reassessment Current Diagnosis Hypertension Other Pertinent Diagnosis Suspected Covid-19, Lewy body dementia, pneu Current Diet Osmolite 1.5 at 55 ml/hr Labs/Tests K 3.0 Pertinent Medications Reviewed Height 5 ft 10 in Weight 49.895 kg [place] Body Weight (kg) 75.45 BMI 15.7 Weight Status Underweight Subjective/Other Information Per RN, pt tolerating TF at goal. Percent of energy/protein needs met: 99%/100% Burn Absent Trauma Absent Current % PO Negligible Minimum of two criteria Yes Energy Intake (non-severe) <75% Estimated Energy Requirement >7 days Interpretation of Weight Loss (severe) > 20% in 1 year #2 Nutrition Diagnosis Malnutrition Diagnosis Progress(for reassessment Continues documentation) #1 Nutrition Diagnosis Inadequate oral intake Diagnosis Progress(for reassessment Continues documentation) Is patient on ventilator? Yes Is Patient Ambulatory and/or Out of Bed No REE-([facility]-confined to bed) 1612.920 Kcal/Kg value to use for calculation 40 Approximate Energy Requirements Using 1996 kcal/Kg Calculation Used for Recommendations Kcal/kg Additional Notes Protein needs are 60-100g (1.2 -2g/kg) Fluid needs are 1ml/kcal Nutrition Intervention Change Diet Order: TF Nutrition Support: Osmolite 1.5 at 55ml/hr Flush with 250ml q4h for hypernatremia and 150ml q4h once resolved Kcal 1,980 Protein (gm) 83 Fluid (mL) 1,006 Goal #1 TF tolerance Goal #2 Meet at least 80% of energy and protein needs via TF Goal #3 Wt gain/maintenance Anticipated Discharge Needs: TF Follow-Up By: 07/10/19 Additional Comments F/U for TF tolerance
[2019-07-09] MEDS ORDERED: propofoL 200 MG/20 ML VIAL IV ONE (17:37)
--- NOTE | 2019-07-09 18:37 | XRay Report ---
CHEST 1 VIEW INDICATION: ETT placement. COMPARISON: 07/04/2019 FINDINGS: Support devices: Endotracheal tube in satisfactory position. Heart: Within normal limits. Lungs/Pleura: Persistent bibasilar infiltrates with mild improvement. Basilar aeration has improved. Additional findings: None. IMPRESSION: 1. Endotracheal tube in satisfactory position. 2. Improving aeration at the bases. Signer Name: Fernie Kelley MD Signed: 07/09/2019 6:32 PM Workstation Name: [id number]
[2019-07-10] MEDS: HEPARIN 5,000 UNIT/1 ML VIAL SUB-Q SCH ×2 (05:53→14:59)
[2019-07-10] MEDS: FAMOTIDINE 20 MG TAB PO SCH (09:40)
--- NOTE | 2019-07-10 10:52 | Event Note ---
Date: 07/10/19 Patient's called this am and spoke with patient's RN. She has changed her mind regarding tracheostomy and DOES NOT want to proceed with procedure. Tracheostomy is cancelled. May restart TF. Dr. Silverio aware.
--- NOTE | 2019-07-10 11:01 | Progress Note ---
Assessment and Plan Assessment and plan: Severe sepsis with septic shock. Was on Levophed, now off. Continue IV antibiotics and follow-up cultures. Carrdiopulm arrest 07/06, resuscitated Bilateral pneumonia. Continue IV antibiotics. Suspected COVID19/PUI. Contact and airborne isolation for PUI COVID-19 Oropharyngeal dysphagia. Patient is status post PEG. Severe protein calorie malnutrition. Continue tube feedings with aspiration pr ecautions. Toxic metabolic encephalopathy with underlying Lewy body dementia. Continue to treat underlying causes and supportive care. Hypernatremia. Now resolved DNR I discussed with [place] 06/29/2019patient remains on mechanical ventilation with AC mode rate of 16, tidal volume 500, FiO2 40% and PEEP of 5. Patient with ARDS from suspected COVID19. Patient recently had a negative COVID-19 test, however it does not rule out possibility he was either newly infected or that it was a false negative test. He has a normal white count with increased liver enzymes, which is consistent with COVID-19 disease. Continue contact and airborne/droplet precautions. Follow-up pro calcitonin level and rapid influenza PCR. 06/30/2019-patient remains on mechanical ventilation with AC mode rate of 16 tidal volume 500 FiO2 35% and a PEEP of 6. Patient with ARDS from suspected COVID19. Patient recently had a negative COVID-19 test, however it does not rule out possibility he was either newly infected or that it was a false negative test. He has a normal white count with increased liver enzymes, which is consistent with COVID-19 disease. Continue contact and airborne/droplet pr ecautions. Pro calcitonin level slightly elevated at 0.44. Follow-up rapid influenza PCR. 07/01/2019-patient remains on mechanical ventilation with AC mode rate of 16 tidal volume 500 FiO2 25% and a PEEP of 6. Continue to wean vent as tolerated. Patient with ARDS from suspected COVID19. Patient recently had a negative COVID-19 test, however it does not rule out possibility he was either newly infected or that it was a false negative test. He has a normal white count with increased liver enzymes, which is consistent with COVID-19 disease. Follow-up rapid influenza PCR. 07/02/2019 Patient still intubated. Discussed with Amisha. to repeat COVID test, initial test was negative. 07/03/2019 Still intubated. hypernatremia resolved. Repeat Covid-19 test 07/04/19 patient with acute resp failure, still intubated 07/05/19 Still intubated. ID and Pulm following 07/06/19 patient remains critically ill. Still intubated on vent. 07/07/19 Patient had cardiopulm arrest that morning, resuscitated. now wants a DNR status. Dr. Saravia discussed with her on phone 07/08/19 Patient remains critically ill. Negative Covid 19 test(second test) 07/09/19 Pt. remains on [facility] vent--AC mode rate- 16, FiO2 25%. Remains critically ill 07/10/2019. The patient's is refusing tracheostomy at this time. Patient remains on mechanical ventilation AC mode. Continue SBT assessments as tolerated. Continue free water supplementation for hypernatremia. The high probability of a clinically significant, sudden or life threatening deterioration of the [hemodynamic, immunologic and respiratory] system(s) required my full and direct attention, intervention and personal management. The aggregate critical care time was [31] minutes. This time is in addition to time spent performing reported procedures but includes the following: [x] Data Review and interpretation [x] Patient assessment and monitoring of vital signs [x] Documentation [x] Medication orders and management History Interval history: Patient initially presented with shortness of breath, intubated s/p Cardiopulm arrest 07/06, resuscitated Negative Covid-19 test Hospitalist Physical - Constitutional Vitals: Temp Pulse Resp BP Pulse Ox 98.2 F 104 H 13 98/62 96 07/10/19 08:00 07/10/19 08:00 07/10/19 08:00 07/10/19 08:00 07/10/19 08:00 General appearance: Present: no acute distress - EENT Eyes: Present: PERRL, EOM intact ENT: hearing intact, clear oral mucosa, dentition normal - Neck Neck: Present: supple, normal ROM - Respiratory Respiratory effort: normal Respiratory: bilateral: CTA - Cardiovascular Rhythm: regular Heart Sounds: Present: S1 & S2. Absent: gallop, rub - Extremities Extremities: no ischemia, No edema, Full ROM - Abdominal General gastrointestinal: soft, non-tender, non-distended, normal bowel sounds - Integumentary Integumentary: Present: clear, warm, dry - Neurologic Neurologic: CNII-XII intact, moves all extremities Results - Labs CBC & Chem 7: 07/09/19 04:57 07/09/19 04:57 Labs: Laboratory Last Values WBC 7.6 K/mm3 (4.5-11.0) 07/09/19 04:57 RBC 3.11 M/mm3 (3.65-5.03) L 07/09/19 04:57 Hgb 9.3 gm/dl (11.8-15.2) L 07/09/19 04:57 Hct 27.9 % (35.5-45.6) L 07/09/19 04:57 MCV 90 fl (84-94) 07/09/19 04:57 MCH 30 pg (28-32) 07/09/19 04:57 MCHC 33 % (32-34) 07/09/19 04:57 RDW 14.2 % (13.2-15.2) 07/09/19 04:57 Plt Count 257 K/mm3 (140-440) 07/09/19 04:57 Lymph % (Auto) 17.6 % (13.4-35.0) 07/08/19 09:16 Alfalfa % (Auto) 10.4 % (0.0-7.3) H 07/08/19 09:16 Eos % (Auto) 3.5 % (0.0-4.3) 07/08/19 09:16 Baso % (Auto) 1.2 % (0.0-1.8) 07/08/19 09:16 Lymph # 1.3 K/mm3 (1.2-5.4) 07/08/19 09:16 Alfalfa # 0.8 K/mm3 (0.0-0.8) 07/08/19 09:16 Eos # 0.3 K/mm3 (0.0-0.4) 07/08/19 09:16 Baso # 0.1 K/mm3 (0.0-0.1) 07/08/19 09:16 Seg Neutrophils % 67.3 % (40.0-70.0) 07/08/19 09:16 Seg Neutrophils # 5.0 K/mm3 (1.8-7.7) 07/08/19 09:16 PT 15.5 Sec. (12.2-14.9) H 06/28/19 04:05 INR 1.21 (0.87-1.13) H 06/28/19 04:05 APTT 36.7 Sec. (24.2-36.6) H 06/28/19 04:05 ABG pH 7.475 pH Units (7.350-7.450) H 07/08/19 21:30 ABG pCO2 45.0 mm Hg 07/08/19 21:30 ABG pO2 99.4 mm Hg (80.0-90.0) H 07/08/19 21:30 ABG HCO3 32.4 mmol/L (20.0-26.0) H 07/08/19 21:30 ABG O2 Saturation 97.7 % (95.0-99.0) 07/08/19 21:30 ABG O2 Content 12.7 (0.0-44) 07/08/19 21:30 ABG Base Excess 8.0 mmol/L (-2.0-3.0) H 07/08/19 21:30 ABG Hemoglobin 9.3 gm/dl (14.0-18.0) L 07/08/19 21:30 ABG Carboxyhemoglobin 1.4 % (0.0-5.0) 07/08/19 21:30 ABG Methemoglobin 0.5 % (0.0-1.5) 07/08/19 21:30 Oxyhemoglobin 95.9 % (95.0-99.0) 07/08/19 21:30 FiO2 25 % 07/08/19 21:30 Sodium 143 mmol/L (137-145) 07/09/19 04:57 Potassium 3.9 mmol/L (3.6-5.0) 07/09/19 04:57 Chloride 102.2 mmol/L (98-107) 07/09/19 04:57 Carbon Dioxide 30 mmol/L (22-30) 07/09/19 04:57 Anion Gap 15 mmol/L 07/09/19 04:57 BUN 9 mg/dL (9-20) 07/09/19 04:57 Creatinine 0.7 mg/dL (0.8-1.5) L 07/09/19 04:57 Estimated GFR > 60 ml/min 07/09/19 04:57 BUN/Creatinine Ratio 13 % 07/09/19 04:57 Glucose 92 mg/dL (75-100) 07/09/19 04:57 POC Glucose 97 (70-105) 07/09/19 18:20 Lactic Acid 1.30 mmol/L (0.7-2.0) 06/27/19 05:02 Calcium 9.1 mg/dL (8.4-10.2) 07/09/19 04:57 Phosphorus 2.70 mg/dL (2.5-4.5) 07/01/19 14:55 Magnesium 1.80 mg/dL (1.7-2.3) 07/01/19 14:55 Total Bilirubin 0.50 mg/dL (0.1-1.2) 06/26/19 23:31 AST 53 units/L (5-40) H 06/26/19 23:31 ALT 56 units/L (7-56) 06/26/19 23:31 Alkaline Phosphatase 109 units/L (35-129) 06/26/19 23:31 Total Creatine Kinase 45 units/L (55-170) L 07/07/19 05:27 CK-MB (CK-2) 2.0 ng/mL (0.0-4.0) 07/07/19 05:27 CK-MB (CK-2) Rel Index 4.4 (0-4) H 07/07/19 05:27 Troponin T 0.064 ng/mL (0.00-0.029) H 07/07/19 05:27 Total Protein 6.2 g/dL (6.3-8.2) L 06/26/19 23:31 Albumin 2.4 g/dL (3.9-5) L 06/26/19 23:31 Albumin/Globulin Ratio 0.6 % 06/26/19 23:31 Triglycerides 119 mg/dL (2-149) 07/07/19 05:27 Cholesterol 120 mg/dL (50-199) 07/07/19 05:27 LDL Cholesterol Direct 72 mg/dL (50-130) 07/07/19 05:27 HDL Cholesterol 32 mg/dL (40-59) L 07/07/19 05:27 Cholesterol/HDL Ratio 3.75 % 07/07/19 05:27 Procalcitonin 0.72 ng/mL (<0.15) 07/07/19 15:33 Urine Color Straw (Yellow) 07/07/19 15:00 Urine Turbidity Clear (Clear) 07/07/19 15:00 Urine pH 8.0 (5.0-7.0) H 07/07/19 15:00 Ur Specific [place] 1.005 (1.003-1.030) 07/07/19 15:00 Urine Protein <15 mg/dl mg/dL (Negative) 07/07/19 15:00 Urine Glucose (UA) Neg mg/dL (Negative) 07/07/19 15:00 Urine Ketones Neg mg/dL (Negative) 07/07/19 15:00 Urine Blood Neg (Negative) 07/07/19 15:00 Urine Nitrite Neg (Negative) 07/07/19 15:00 Urine Bilirubin Neg (Negative) 07/07/19 15:00 Urine Urobilinogen < 2.0 mg/dL (<2.0) 07/07/19 15:00 Ur Leukocyte Esterase Neg (Negative) 07/07/19 15:00 Urine WBC (Auto) 1.0 /HPF (0.0-6.0) 07/07/19 15:00 Urine RBC (Auto) 5.0 /HPF (0.0-6.0) 07/07/19 15:00 U Epithel Cells (Auto) 1.0 /HPF (0-13.0) 07/07/19 15:00 Hyaline Casts 1 /LPF 07/07/19 15:00 Ur Yeast w Hyphae Few /HPF 07/07/19 15:00 Urine Yeast (Budding) 1+ /HPF 07/07/19 15:00 Vancomycin Trough 12.6 ug/mL (5.0-20.0) 07/02/19 21:33 Influenza A (Rapid) Negative (Negative) 06/28/19 14:31 Influenza A (RT-PCR) Negative (Negative) 06/28/19 14:31 Influenza B (Rapid) Negative (Negative) 06/28/19 14:31 Influenza B (RT-PCR) Negative (Negative) 06/28/19 14:31 Miscellaneous Test See scanned result 07/02/19 Unknown Microbiology: Microbiology 07/07/19 15:33 Peripheral/Venous Blood Culture - Preliminary NO GROWTH AFTER 48 HOURS 07/07/19 15:33 Peripheral/Venous Blood Culture - Preliminary NO GROWTH AFTER 48 HOURS Martinez/IV: Voiding Method Condom Catheter IV Catheter Type [Right Peripheral IV Antecubital] IV Catheter Type [Left PICC Line Antecubital] IV Catheter Type [Left Upper PICC Line arm] IV Catheter Type [Left Wrist] INT / Saline Lock IV Catheter Type [Right Leg] Triple Lumen Cath Active Medications - Current Medications Current Medications: Generic Name Dose Route Start Last Admin Trade Name Freq PRN Reason Stop Dose Admin Albuterol 2.5 mg 07/05/19 12:31 Proventil IH Q4HRT PRN Shortness Of Breath Lipase/Protease/Amylase 1 each 07/01/19 11:48 07/08/19 21:[address] 10,500 Unit FEEDTUBE 1 each PRN PRN Administration For Clogged Feeding Tube Famotidine 20 mg 07/02/19 10:00 07/10/19 09:40 Pepcid PO Not Given BID LADY Heparin Sodium (Porcine) 5,000 unit 06/27/19 06:00 07/10/19 05:53 Heparin SUB-Q Not Given Q8HR LADY Norepinephrine 4 mg in 250 mls @ 7.5 mls/hr 06/27/19 01:00 06/28/19 09:20 Levophed Drip 4 Mg/Ns 250 Ml IV 0 mcg/min TITR LADY 0 mls/hr Titration Protocol 2 MCG/MIN Propofol 1,000 mg in 100 mls @ 1.497 mls/hr 06/27/19 06:00 07/08/19 22:14 Diprivan 10 Mg/Ml IV 5 mcg/kg/min TITR LADY 1.497 mls/hr Titration Protocol 5 MCG/KG/MIN Magnesium Hydroxide 30 ml 06/27/19 02:51 Milk Of Magnesia PO Q4H PRN Constipation Metoprolol Tartrate 5 mg 07/08/19 09:28 07/09/19 05:04 Metoprolol IV 5 mg Q6HR PRN Administration HR>120 Morphine Sulfate 2 mg 06/27/19 02:51 07/08/19 21:44 Morphine IV 2 mg Q4H PRN Administration Pain, Moderate (4-6) Simple Syrup 15 ml 07/01/19 11:48 Simple Syrup FEEDTUBE PRN PRN Hypoglycemia Simple Syrup 30 ml 07/01/19 11:48 Simple Syrup FEEDTUBE PRN PRN Hypoglycemia Sodium Bicarbonate 325 mg 07/01/19 11:48 07/08/19 21:58 Sodium Bicarbonate FEEDTUBE 325 mg PRN PRN Administration For Clogged Feeding Tube Sodium Chloride 10 ml 06/27/19 10:00 07/10/19 09:40 Sodium Chloride Flush Syringe 10 Ml IV 10 ml BID LADY Administration Sodium Chloride 10 ml 06/27/19 02:51 06/27/19 09:10 Sodium Chloride Flush Syringe 10 Ml IV 10 ml PRN PRN Administration LINE FLUSH Nutrition/Malnutrition Assess - Dietary Evaluation Nutrition/Malnutrition Findings: Nutrition Notes Start: 06/27/19 09:53 Freq: Status: Active Protocol: Document 07/10/19 08:51 LM (Rec: 07/10/19 08:51 LM [email or web address]) Nutrition Notes Initial or Follow up Brief Note Other Pertinent Diagnosis Suspected Covid-19, Lewy body dementia, pneu Current Diet NPO Subjective/Other Information Pt NPO for tracheostomy today. Nutrition Intervention Follow-Up By: 07/12/19 Additional Comments F/U for TF restart/tolerance
--- NOTE | 2019-07-10 15:37 | Progress Note ---
Assessment and Plan Severe sepsis with septic shock HAP Acute hypoxemic respiratory failure PUI-COVID 19 Oropharyngeal dysphagia s/p PEG Possible aspiration PNA Lactic acidosis Hypernatremia Severe protein calorie malnutrition Acute metabolic encephalopathy h/o Lewy body dementia (AMS is the rate limiting step for safe extubation and i will discuss a tracheostomy with his as i suspect he is having recurrent aspiration events) - Hospice consultation per wifes request - continue daily SAT's and SBT assessment as tolerated meantime in case she changes her mind again - continue free water supplementation for hypernatremia but reduce dose - continue set rate of 12/min - continue enteric nutrition as tolerated - Monitor glycemic control, with target blood glucose 140-180 mg/dL while critically ill. Avoid hypoglycemia - continue bowel regimen - Continue Vancomycin and Cefepime for HAP; adjust per ID recommendations - continue free water at 200ml Q6h, hypotonic solutions for treatment of hyper natremia. Monitor levels - Place PICC line and discontinue femoral CVC - Continue with MVS, Lung protective strategies, monitor airway pressures - VAP bundle addressed; (Aspiration precautions, HOB > 40 degrees) - Titrate sedation for RAAS 0 to -1 - VTE prophylaxis - Stress ulcer prophylaxis - Wean supplemental oxygen for target O2 sat's > 90% - ABG and CXR prn - Follow cultures and adjust antibiotic therapy for KORIN and culture results - Avoid nephrotoxins, adjust all medications for GFR and CrCL - continue bronchodilators with pulmonary hygiene per RT - continue to avoid benzodiazepines to reduce the possibility of delirium - prn analgesia per CPOT score - Maintenance of sleep-wake cycle, avoid delirium - PT/OT/ROM exercises - continue mobility protocol and skin assessment per protocol for pressure ulcer prevention - Monitor hemodynamics closely - Contact and airborne isolation for PUI COVID-19 - Mobility, off loading and skin assessment per protocol to prevent pressure ulcer - continue wound care per RN & WCT (he has a stage 2 sacral decubitus on exam) - Chronic home medications as clinically indicated - continue other care per attending / other consultants CONDITION: CRITICAL PROGNOSIS: GUARDED CODE STATUS: FULL CODE The high probability of a clinically significant, sudden or life-threatening deterioration of the [respiratory, cardiovascular, renal] system(s) required my full and direct attention, intervention and personal management. The aggregate critical care time was [35] minutes without overlap. Time includes spent on; [x] Data Review and interpretation [x] Patient assessment and monitoring of vital signs [x] Documentation [x] Medication orders and management Subjective Date of service: 07/10/19 Principal diagnosis: Septic shock; HAP; Acute hypoxemic resp failure PUI-COVID 19; Hypernatremia Interval history: Patient is seen today for: Septic shock; HAP; Acute hypoxemic respiratory failure; PUI-COVID 19; Lactic acidosis; Hypernatremia; Acute metabolic encephalopathy; h/o Lewy body dementia Seen and examined at bedside; 24hour events reviewed; nursing and respiratory care staff consulted; no adverse overnight events reported to me; resting peacefully in bed; his has changed her mind and trach canceled Objective Vital Signs - 12hr 07/10/19 07/10/19 07/10/19 04:00 05:00 05:29 Temperature 98.8 F Pulse Rate 111 H 96 H 100 H Pulse Rate [ From Monitor] Respiratory 13 12 Rate Blood Pressure 92/60 98/59 94/59 O2 Sat by Pulse 94 100 100 Oximetry 07/10/19 07/10/19 07/10/19 06:00 07:00 08:00 Temperature 98.2 F Pulse Rate 105 H 95 H 90 Pulse Rate [ 104 H From Monitor] Respiratory 12 13 13 Rate Blood Pressure 94/54 91/63 98/62 O2 Sat by Pulse 99 96 Oximetry 07/10/19 07/10/19 07/10/19 09:00 10:00 11:00 Temperature Pulse Rate 108 H 109 H 110 H Pulse Rate [ From Monitor] Respiratory 20 21 21 Rate Blood Pressure 102/66 90/67 105/68 O2 Sat by Pulse 96 100 Oximetry 07/10/19 07/10/19 07/10/19 12:00 13:00 14:00 Temperature 98.0 F Pulse Rate 106 H 101 H 114 H Pulse Rate [ From Monitor] Respiratory 21 21 21 Rate Blood Pressure 106/73 114/67 108/70 O2 Sat by Pulse 100 100 100 Oximetry 07/10/19 15:00 Temperature Pulse Rate 107 H Pulse Rate [ From Monitor] Respiratory 20 Rate Blood Pressure 109/73 O2 Sat by Pulse 100 Oximetry Constitutional: no acute distress, other (sedated, orally intubated) Eyes: non-icteric ENT: oropharynx moist, other (ETT at 23cm at the lip) Neck: supple, no lymphadenopathy, no JVD Effort: mildly labored Ascultation: Bilateral: diminished breath sounds, rhonchi Percussion: Bilateral: not dull Cardiovascular: regular rate and rhythm (tachycardia), other (S1,S2, no murmurs, gallops) Gastrointestinal: normoactive bowel sounds, soft, non-tender, non-distended, other (PEG in place) Integumentary: decubitus ulcer (Stage 2) Extremities: no cyanosis, no edema, pulses normal, no ischemia or petechiae Neurologic: unable to assess Psychiatric: other (unable to assess secondary to mental status) CBC and BMP: 07/09/19 04:57 07/09/19 04:57 ABG, PT/INR, D-dimer: ABG ABG pH 7.475 pH Units (7.350-7.450) H 07/08/19 21:30 ABG pCO2 45.0 mm Hg 07/08/19 21:30 ABG pO2 99.4 mm Hg (80.0-90.0) H 07/08/19 21:30 ABG O2 Saturation 97.7 % (95.0-99.0) 07/08/19 21:30 PT/INR, D-dimer PT 15.5 Sec. (12.2-14.9) H 06/28/19 04:05 INR 1.21 (0.87-1.13) H 06/28/19 04:05 Abnormal lab findings: Abnormal Labs 06/26/19 06/26/19 06/26/19 22:56 23:31 23:31 RBC 2.90 L Hgb 8.8 L Hct 26.5 L Lymph % (Auto) Grady % (Auto) Grady # Seg Neutrophils % Seg Neutrophils # PT INR APTT ABG pH 7.467 H ABG pO2 106.2 H ABG HCO3 26.5 H ABG O2 Saturation ABG Base Excess ABG Hemoglobin 9.6 L Oxyhemoglobin Sodium 150 H Potassium Chloride 111.7 H Carbon Dioxide BUN Creatinine Glucose POC Glucose Lactic Acid Calcium Phosphorus Magnesium AST 53 H Total Creatine Kinase CK-MB (CK-2) Rel Index Troponin T Total Protein 6.2 L Albumin 2.4 L HDL Cholesterol Urine pH 06/26/19 06/26/19 06/27/19 23:31 23:31 04:35 RBC Hgb Hct Lymph % (Auto) Grady % (Auto) Grady # Seg Neutrophils % Seg Neutrophils # PT INR APTT ABG pH ABG pO2 120.3 H ABG HCO3 ABG O2 Saturation ABG Base Excess ABG Hemoglobin 7.4 L Oxyhemoglobin Sodium Potassium Chloride Carbon Dioxide BUN Creatinine Glucose POC Glucose Lactic Acid 2.20 H* Calcium Phosphorus Magnesium AST Total Creatine Kinase 300 H CK-MB (CK-2) Rel Index Troponin T Total Protein Albumin HDL Cholesterol Urine pH 06/27/19 06/27/19 06/28/19 08:53 12:37 03:45 RBC Hgb Hct Lymph % (Auto) Grady % (Auto) Grady # Seg Neutrophils % Seg Neutrophils # PT INR APTT ABG pH 7.457 H ABG pO2 152.6 H ABG HCO3 ABG O2 Saturation ABG Base Excess ABG Hemoglobin 8.4 L Oxyhemoglobin Sodium Potassium Chloride Carbon Dioxide BUN Creatinine Glucose POC Glucose 108 H 125 H Lactic Acid Calcium Phosphorus Magnesium AST Total Creatine Kinase CK-MB (CK-2) Rel Index Troponin T Total Protein Albumin HDL Cholesterol Urine pH 06/28/19 06/28/19 06/28/19 04:05 04:05 04:05 RBC 2.65 L Hgb 7.8 L Hct 23.9 L Lymph % (Auto) Grady % (Auto) 8.6 H Grady # Seg Neutrophils % Seg Neutrophils # PT 15.5 H INR 1.21 H APTT 36.7 H ABG pH ABG pO2 ABG HCO3 ABG O2 Saturation ABG Base Excess ABG Hemoglobin Oxyhemoglobin Sodium 151 H Potassium 3.1 L Chloride 116.1 H Carbon Dioxide BUN Creatinine Glucose 125 H POC Glucose Lactic Acid Calcium 8.3 L Phosphorus Magnesium AST Total Creatine Kinase CK-MB (CK-2) Rel Index Troponin T Total Protein Albumin HDL Cholesterol Urine pH 06/29/19 06/30/19 07/01/19 04:55 05:55 05:15 RBC 2.64 L Hgb 7.8 L Hct 24.1 L Lymph % (Auto) Grady % (Auto) 11.8 H Grady # Seg Neutrophils % Seg Neutrophils # PT INR APTT ABG pH ABG pO2 121.9 H 102.6 H ABG HCO3 ABG O2 Saturation ABG Base Excess ABG Hemoglobin 8.1 L 10.4 L Oxyhemoglobin Sodium Potassium Chloride Carbon Dioxide BUN Creatinine Glucose POC Glucose Lactic Acid Calcium Phosphorus Magnesium AST Total Creatine Kinase CK-MB (CK-2) Rel Index Troponin T Total Protein Albumin HDL Cholesterol Urine pH 07/01/19 07/01/19 07/01/19 05:15 05:15 05:32 RBC Hgb Hct Lymph % (Auto) Grady % (Auto) Grady # Seg Neutrophils % Seg Neutrophils # PT INR APTT ABG pH ABG pO2 42.8 L ABG HCO3 26.7 H ABG O2 Saturation 83.4 L ABG Base Excess ABG Hemoglobin 7.6 L Oxyhemoglobin 81.9 L Sodium 147 H Potassium 2.7 L* Chloride 112.7 H Carbon Dioxide BUN 6 L Creatinine Glucose 453 H POC Glucose Lactic Acid Calcium 8.2 L Phosphorus 2.40 L Magnesium 1.60 L AST Total Creatine Kinase CK-MB (CK-2) Rel Index Troponin T Total Protein Albumin HDL Cholesterol Urine pH 07/01/19 07/02/19 07/02/19 14:55 04:50 08:15 RBC Hgb Hct Lymph % (Auto) Grady % (Auto) Grady # Seg Neutrophils % Seg Neutrophils # PT INR APTT ABG pH ABG pO2 ABG HCO3 26.8 H ABG O2 Saturation ABG Base Excess ABG Hemoglobin 5.4 L Oxyhemoglobin Sodium 153 H 150 H Potassium 3.3 L D 3.5 L Chloride 117.1 H 115.2 H Carbon Dioxide BUN 6 L 6 L Creatinine Glucose 109 H POC Glucose Lactic Acid Calcium Phosphorus Magnesium AST Total Creatine Kinase CK-MB (CK-2) Rel Index Troponin T Total Protein Albumin HDL Cholesterol Urine pH 07/02/19 07/03/19 07/03/19 08:46 04:37 06:50 RBC 2.64 L 2.50 L Hgb 8.0 L 7.5 L Hct 24.0 L 22.6 L Lymph % (Auto) Grady % (Auto) Grady # Seg Neutrophils % Seg Neutrophils # PT INR APTT ABG pH ABG pO2 72.9 L ABG HCO3 26.5 H ABG O2 Saturation ABG Base Excess ABG Hemoglobin 7.7 L Oxyhemoglobin Sodium Potassium Chloride Carbon Dioxide BUN Creatinine Glucose POC Glucose Lactic Acid Calcium Phosphorus Magnesium AST Total Creatine Kinase CK-MB (CK-2) Rel Index Troponin T Total Protein Albumin HDL Cholesterol Urine pH 07/03/19 07/04/19 07/04/19 06:50 04:00 04:15 RBC Hgb Hct Lymph % (Auto) Grady % (Auto) Grady # Seg Neutrophils % Seg Neutrophils # PT INR APTT ABG pH ABG pO2 73.9 L ABG HCO3 27.8 H ABG O2 Saturation ABG Base Excess ABG Hemoglobin 9.7 L Oxyhemoglobin 94.9 L Sodium 148 H Potassium 3.0 L Chloride 110.0 H 110.4 H Carbon Dioxide BUN 7 L Creatinine Glucose 127 H 110 H POC Glucose Lactic Acid Calcium 8.2 L Phosphorus Magnesium AST Total Creatine Kinase CK-MB (CK-2) Rel Index Troponin T Total Protein Albumin HDL Cholesterol Urine pH 07/04/19 07/05/19 07/05/19 07:02 05:58 16:29 RBC 2.60 L Hgb 7.7 L Hct 23.3 L Lymph % (Auto) Grady % (Auto) Grady # Seg Neutrophils % Seg Neutrophils # PT INR APTT ABG pH 7.469 H ABG pO2 73.4 L 69.7 L ABG HCO3 31.0 H 32.9 H ABG O2 Saturation ABG Base Excess 6.7 H 7.9 H ABG Hemoglobin 8.0 L 8.4 L Oxyhemoglobin Sodium Potassium Chloride Carbon Dioxide BUN Creatinine Glucose POC Glucose Lactic Acid Calcium Phosphorus Magnesium AST Total Creatine Kinase CK-MB (CK-2) Rel Index Troponin T Total Protein Albumin HDL Cholesterol Urine pH 07/06/19 07/06/19 07/06/19 05:13 05:13 17:36 RBC 2.72 L Hgb 8.1 L Hct 24.6 L Lymph % (Auto) Grady % (Auto) Grady # Seg Neutrophils % Seg Neutrophils # PT INR APTT ABG pH ABG pO2 ABG HCO3 ABG O2 Saturation ABG Base Excess ABG Hemoglobin Oxyhemoglobin Sodium 146 H Potassium Chloride Carbon Dioxide 31 H D BUN Creatinine Glucose 125 H POC Glucose 108 H Lactic Acid Calcium Phosphorus Magnesium AST Total Creatine Kinase CK-MB (CK-2) Rel Index Troponin T Total Protein Albumin HDL Cholesterol Urine pH 07/07/19 07/07/19 07/07/19 02:50 05:27 05:27 RBC 2.99 L Hgb 8.9 L Hct 26.9 L Lymph % (Auto) 10.8 L Grady % (Auto) 8.3 H Grady # 0.9 H Seg Neutrophils % 78.2 H Seg Neutrophils # 8.6 H PT INR APTT ABG pH ABG pO2 ABG HCO3 ABG O2 Saturation ABG Base Excess ABG Hemoglobin Oxyhemoglobin Sodium Potassium Chloride Carbon Dioxide BUN Creatinine Glucose POC Glucose 127 H Lactic Acid Calcium Phosphorus Magnesium AST Total Creatine Kinase 45 L CK-MB (CK-2) Rel Index 4.4 H Troponin T 0.064 H Total Protein Albumin HDL Cholesterol 32 L Urine pH 07/07/19 07/07/19 07/08/19 15:00 17:41 09:16 RBC 3.19 L Hgb 9.7 L Hct 28.7 L Lymph % (Auto) Grady % (Auto) 10.4 H Grady # Seg Neutrophils % Seg Neutrophils # PT INR APTT ABG pH ABG pO2 ABG HCO3 ABG O2 Saturation ABG Base Excess ABG Hemoglobin Oxyhemoglobin Sodium Potassium Chloride Carbon Dioxide BUN Creatinine Glucose POC Glucose 109 H Lactic Acid Calcium Phosphorus Magnesium AST Total Creatine Kinase CK-MB (CK-2) Rel Index Troponin T Total Protein Albumin HDL Cholesterol Urine pH 8.0 H 07/08/19 07/08/19 07/08/19 09:16 13:36 18:00 RBC Hgb Hct Lymph % (Auto) Grady % (Auto) Grady # Seg Neutrophils % Seg Neutrophils # PT INR APTT ABG pH ABG pO2 ABG HCO3 ABG O2 Saturation ABG Base Excess ABG Hemoglobin Oxyhemoglobin Sodium Potassium Chloride Carbon Dioxide BUN Creatinine 0.7 L Glucose 103 H POC Glucose 127 H 113 H Lactic Acid Calcium Phosphorus Magnesium AST Total Creatine Kinase CK-MB (CK-2) Rel Index Troponin T Total Protein Albumin HDL Cholesterol Urine pH 07/08/19 07/08/19 07/09/19 18:45 21:30 04:57 RBC 3.11 L Hgb 9.3 L Hct 27.9 L Lymph % (Auto) Grady % (Auto) Grady # Seg Neutrophils % Seg Neutrophils # PT INR APTT ABG pH 7.475 H ABG pO2 99.4 H ABG HCO3 32.4 H ABG O2 Saturation ABG Base Excess 8.0 H ABG Hemoglobin 9.3 L Oxyhemoglobin Sodium Potassium Chloride Carbon Dioxide BUN Creatinine Glucose POC Glucose 120 H Lactic Acid Calcium Phosphorus Magnesium AST Total Creatine Kinase CK-MB (CK-2) Rel Index Troponin T Total Protein Albumin HDL Cholesterol Urine pH 07/09/19 07/09/19 04:57 06:43 RBC Hgb Hct Lymph % (Auto) Grady % (Auto) Grady # Seg Neutrophils % Seg Neutrophils # PT INR APTT ABG pH ABG pO2 ABG HCO3 ABG O2 Saturation ABG Base Excess ABG Hemoglobin Oxyhemoglobin Sodium Potassium Chloride Carbon Dioxide BUN Creatinine 0.7 L Glucose POC Glucose 116 H Lactic Acid Calcium Phosphorus Magnesium AST Total Creatine Kinase CK-MB (CK-2) Rel Index Troponin T Total Protein Albumin HDL Cholesterol Urine pH Allied health notes reviewed: nursing
--- NOTE | 2019-07-10 16:38 | Discharge Summary ---
Providers - Providers Date of Admission: 06/27/19 00:51 Date of discharge: 07/10/19 Attending physician: CHANTAL HERNANDEZ 06/27/19 01:24 Consult to Physician [CONS] Routine Comment: Consulting Provider: VIDAL KWAN Physician Instructions: Reason For Exam: pneumonia; respiratory distress 06/27/19 02:51 Consult to Dietitian/Nutrition [CONS] Routine Physician Instructions: Reason For Exam: Reason for Consult: Diet education 06/27/19 05:23 Consult to Dietitian/Nutrition [CONS] Routine Physician Instructions: Reason For Exam: Manage tube feeding Reason for Consult: Evaluate nutritional intake 06/27/19 14:42 Consult to Wound/ET Nurse [CONS] Routine Reason For Exam: wound eval on sacral area and right lateral chest 06/28/19 09:02 Consult to Physician [CONS] Routine Comment: Consulting Provider: YOLETTE KITCHEN Physician Instructions: Reason For Exam: sepsis 06/28/19 09:28 PICC Line Placement [Consult to PICC Line RN] [CONS] Routine Reason For Exam: High alert medications Type Line:: PICC 07/09/19 14:28 Consult to Physician [CONS] Routine Comment: Consulting Provider: JULIO CAMEJO Physician Instructions: Reason For Exam: Tracheostomy Placement 07/10/19 15:00 Consult to Dietitian/Nutrition [CONS] Stat Physician Instructions: Reason For Exam: Reason for Consult: Write/Manage Tube Feeding Primary care physician: [employer] WORK[employer]PER Hospitalization Reason for admission: rsp failure Condition: Stable Hospital course: 54-year-old male with a history of Lewy body dementia who presented to the emergency room on 06/27/2019 with increasing shortness of breath. He was found to have bilateral pneumonia and was intubated due to respiratory distress. The patient has not been able to be weaned from the vent since his admission. He has been thoroughly worked up for his pneumonia and treated accordingly. The patient was also tested for Covid 19 which was negative. On 07/07/2019, the patient had a CODE BLUE due to hypoxia. The patient was noted to be biting on his tube prior to the event. Rosc was achieved achieved after 1 round of CPR and epinephrine. He has been stable since but unable to be extubated due to altered mental status. Initially pt was to have trach placed but changed her mind and did not want to prceed with the procedure. Family opted for hospice. CM consult arranged for admission to [facility] later this evening. Disposition: DC-51 HOSPICE ([facility]) Time spent for discharge: 33 Core Measure Documentation - Palliative Care Palliative Care/ Comfort Measures: Not Applicable - Core Measures Any of the following diagnoses?: none Exam - Constitutional Vitals: Temp Pulse Resp BP Pulse Ox 97.9 F 107 H 20 109/73 100 07/10/19 15:49 07/10/19 15:00 07/10/19 15:00 07/10/19 15:00 07/10/19 15:00 General appearance: Present: no acute distress, well-nourished - EENT Eyes: Present: PERRL ENT: hearing intact, clear oral mucosa - Neck Neck: Present: supple, normal ROM - Respiratory Respiratory effort: normal Respiratory: bilateral: CTA - Cardiovascular Heart Sounds: Present: S1 & S2. Absent: rub, click - Extremities Extremities: pulses symmetrical, No edema Peripheral Pulses: within normal limits - Abdominal General gastrointestinal: Present: soft, non-tender, non-distended, normal bowel sounds Male genitourinary: Present: normal - Integumentary Integumentary: Present: clear, warm, dry - Musculoskeletal Musculoskeletal: gait normal, strength equal bilaterally - Psychiatric Psychiatric: appropriate mood/affect, intact judgment & insight - Neurologic Neurologic: CNII-XII intact, moves all extremities Plan Activity: advance as tolerated Weight Bearing Status: Weight Bear as Tolerated Diet: per dietitian instruction Follow up with: PRIMARY CAREMD [Primary Care Provider] - 3-5 Days
[2019-07-10 17:33] VITALS: BP 107/75
== END 2019-07-10 17:50 | disposition hospice, inpatient (51) | DRG 870 ==
LOC: ED 20:24 → CC1 06-27 00:51
PROVIDERS: ADMIT Internal Medicine Geriatric Medicine; ATTEND Hospitalist
PROC: 5A1955Z Respiratory Ventilation, Greater than 96 Consecutive Hours (ICD-10-PCS; principal; 2019-07-02)
PROC: 0BH17EZ Insertion of Endotracheal Airway into Trachea, Via Natural or Artificial Opening (ICD-10-PCS; 2019-07-02)
PROC: 4A033R1 Measurement of Arterial Saturation, Peripheral, Percutaneous Approach (ICD-10-PCS; 2019-07-03)
PROC: 02HV33Z Insertion of Infusion Device into Superior Vena Cava, Percutaneous Approach (ICD-10-PCS; 2019-07-03)
DX: A41.9 Sepsis, unspecified organism (principal); J96.01 Acute respiratory failure with hypoxia; J69.0 Pneumonitis due to inhalation of food and vomit; R65.21 Severe sepsis with septic shock; E43 Unspecified severe protein-calorie malnutrition; I46.9 Cardiac arrest, cause unspecified; G92 Toxic encephalopathy; E87.0 Hyperosmolality and hypernatremia; Z68.1 Body mass index [BMI] 19.9 or less, adult; F03.90 Unspecified dementia, unspecified severity, without behavioral disturbance, psychotic disturbance, mood disturbance, and anxiety; Z79.899 Other long term (current) drug therapy; Z03.818 Encounter for observation for suspected exposure to other biological agents ruled out
CPT/HCPCS: 31500; 36415; 36600; 71045; 80048; 80053; 80061; 80202; 81001; 82140; 82550; 82553; 82803; 82962; 83735; 84100; 84145; 84478; 84484; 85025; 85027; 85610; 85730; 87040; 87070; 87086; 87205; 87400; 93005; 93010; 94002; 94003; 94640; G0378; 87502; J0330; J0692; J1644; J2270; J2704; J3010; J3370; J3480; J7030